=== PATIENT | female | born 1945 | race Caucasian/White ===

== ENCOUNTER 2017-05-18 09:29 | Inpatient (IN) | payer MEDICARE ==
[2017-05-18] MEDS ORDERED: SODIUM CHLORIDE 0.9% 1,000 ML IV STA (09:52)
--- NOTE | 2017-05-18 09:55 | ED ---
General Adult HPI <Meek Elliott - Last Filed: 05/18/17 14:49> - General Source: patient, RN notes reviewed Mode of arrival: ambulatory Limitations: no limitations <Jules Juarez - Last Filed: 05/18/17 14:59> - General Chief complaint: Back Pain/Injury Stated complaint: rt flank pain Time Seen by Provider: 05/18/17 09:45 - History of Present Illness Initial comments: Patient 71-year-old female who presents emergency room today with a chief complaint of right sided back pain. Patient does admit that she felt a little discomfort over the last 2 days. She states approximately 3 hours ago when she woke up she had increased pain to the right side of her back. She describes as an aching-type pain it's worse with certain movements or if she takes a deep breath. She states she's not taken any medications for this pain. She states she has never had pain like this in the past. Does admit to a recent trip from [place]. Patient denies any leg pain or swelling. She believes it may be muscular as they were walking a lot on vacation. She denies any injury. Denies any other complaints or associated symptoms. Patient denies any recent fever, chills, shortness of breath, chest pain, abdominal pain, nausea or vomiting, numbness or tingling, dysuria or hematuria, constipation or diarrhea, headaches or visual changes, or any other complaints. (Jules Juarez) - Related Data Home Medications Medication Instructions Recorded Confirmed Atorvastatin [Lipitor] 20 mg PO HS 05/18/17 05/18/17 DULoxetine HCL [Cymbalta] 60 mg PO DAILY 05/18/17 05/18/17 Fluticasone Nasal [place] [Flonase 2 spr EA NOSTRIL DAILY PRN 05/18/17 05/18/17 Nasal [place]] Losartan Potassium 100 mg PO DAILY 05/18/17 05/18/17 Meloxicam [Mobic] 15 mg PO DAILY PRN 05/18/17 05/18/17 Metoprolol Succinate (ER) [Toprol 50 mg PO HS 05/18/17 05/18/17 Xl] Oxybutynin ER [Ditropan Xl] 15 mg PO DAILY 05/18/17 05/18/17 Pantoprazole Sodium [Protonix] 40 mg PO DAILY 05/18/17 05/18/17 Allergies Allergy/AdvReac Type Severity Reaction Status Date / Time Penicillins Allergy Rash/Hives Verified 05/18/17 10:03 Review of Systems ROS Other: All systems not noted in ROS Statement are negative. <Meek Elliott J - Last Filed: 05/18/17 14:49> ROS Other: All systems not noted in ROS Statement are negative. <LarryJules - Last Filed: 05/18/17 14:59> ROS Statement: Those systems with pertinent positive or pertinent negative responses have been documented in the HPI. Past Medical History Past Medical History: Hyperlipidemia History of Any Multi-Drug Resistant Organisms: None Reported Past Surgical History: Appendectomy, Joint Replacement, Orthopedic Surgery Past Psychological History: No Psychological Hx Reported Smoking Status: Never smoker Past Alcohol Use History: Occasional Past Drug Use History: None Reported <Jules Juarez - Last Filed: 05/18/17 14:59> General Exam <Meek Elliott J - Last Filed: 05/18/17 14:49> Limitations: no limitations <Jules Juarez - Last Filed: 05/18/17 14:59> - General Exam Comments Initial Comments: General: The patient is awake and alert, in no distress, and does not appear acutely ill. Eye: Pupils are equal, round and reactive to light, extra-ocular movements are intact. No nystagmus. There is normal conjunctiva bilaterally. No signs of icterus. Ears, nose, mouth and throat: There are moist mucous membranes and no oral lesions. Neck: The neck is supple, there is no tenderness or JVD. Cardiovascular: There is a regular rate and rhythm. No murmur, rub or gallop is appreciated. Respiratory: Lungs are clear to auscultation, respirations are non-labored, breath sounds are equal. No wheezes, stridor, rales, or rhonchi. Gastrointestinal: Soft, non-distended, non-tender abdomen without masses or organomegaly noted. There is no rebound or guarding present. No CVA tenderness. Bowel sounds are unremarkable. Musculoskeletal: Normal ROM, no tenderness. Strength 5/5. Sensation intact. Pulses equal bilaterally 2+. Neurological: A&O x 3. CN II-XII intact, There are no obvious motor or sensory deficits. Coordination appears grossly intact. Speech is normal. Skin: Skin is warm and dry and no rashes or lesions are noted. Psychiatric: Cooperative, appropriate mood & affect, normal judgment. (Jules Juarez) Vital Signs 05/18/17 05/18/17 05/18/17 09:31 11:28 13:49 Temperature 97.7 F Pulse Rate 118 H 105 H 106 H Respiratory 20 18 16 Rate Blood Pressure 168/80 124/66 119/70 O2 Sat by Pulse 98 98 97 Oximetry Medical Decision Making - Lab Data Result diagrams: 05/18/17 10:03 05/18/17 10:05 <Meek Elliott - Last Filed: 05/18/17 14:49> - Lab Data Result diagrams: 05/18/17 10:03 05/18/17 10:05 <Jules Juarez - Last Filed: 05/18/17 14:59> - Medical Decision Making The patient was seen and examined. All diagnostics were reviewed. The case was discussed with the PA and I agree with the findings as documented. The case also will be discussed with internal medicine in the near future for admission. (Meek Elliott) Patient's labs been reviewed shows 1000 white count. Patient does show hypomagnesemia. Patient's been given 2 g started of magnesium here in emergency room. Also given a gram of Rocephin cover for possible infection. Patient's CT of the chest negative for any PE. CT of the abdomen shows no hydronephrosis or hydroureter. Does show groundglass patient in the lungs. Hepatomegaly. Patient will be admitted to continue on antibiotics and pain medication for comfort. (Jules Juarez) - Lab Data Lab Results 05/18/17 05/18/17 05/18/17 Range/Units 09:53 10:03 10:03 WBC 21.4 H (3.8-10.6) k/uL RBC 3.46 L (3.80-5.40) m/uL Hgb 10.9 L (11.4-16.0) gm/dL Hct 34.1 (34.0-46.0) % MCV 98.5 (80.0-100.0) fL MCH 31.6 (25.0-35.0) pg MCHC 32.1 (31.0-37.0) g/dL RDW 14.1 (11.5-15.5) % Plt Count 362 (150-450) k/uL Neutrophils % 91 % Lymphocytes % 5 % Monocytes % 2 % Eosinophils % 1 % Basophils % 0 % Neutrophils # 19.5 H (1.3-7.7) k/uL Lymphocytes # 1.0 (1.0-4.8) k/uL Monocytes # 0.5 (0-1.0) k/uL Eosinophils # 0.3 (0-0.7) k/uL Basophils # 0.0 (0-0.2) k/uL PT 9.9 (9.0-12.0) sec INR 1.0 (<1.2) APTT 22.7 (22.0-30.0) sec D-Dimer 0.97 H (<0.60) mg/L FEU Sodium (137-145) mmol/L Potassium (3.5-5.1) mmol/L Chloride (98-107) mmol/L Carbon Dioxide (22-30) mmol/L Anion Gap mmol/L BUN (7-17) mg/dL Creatinine (0.52-1.04) mg/dL Est GFR (MDRD) Af Amer (>60 ml/min/1.73 sqM) Est GFR (MDRD) Non-Af (>60 ml/min/1.73 sqM) Glucose (74-99) mg/dL Calcium (8.4-10.2) mg/dL Magnesium (1.6-2.3) mg/dL Total Bilirubin (0.2-1.3) mg/dL AST (14-36) U/L ALT (9-52) U/L Alkaline Phosphatase (38-126) U/L Total Creatine Kinase 73 (30-135) U/L CK-MB (CK-2) 0.5 (0.0-2.4) ng/mL CK-MB (CK-2) Rel Index 0.7 Troponin I <0.012 (0.000-0.034) ng/mL Total Protein (6.3-8.2) g/dL Albumin (3.5-5.0) g/dL Urine Color Urine Appearance (Clear) Urine pH (5.0-8.0) Ur Specific [place] (1.001-1.035) Urine Protein (Negative) Urine Glucose (UA) (Negative) Urine Ketones (Negative) Urine Blood (Negative) Urine Nitrite (Negative) Urine Bilirubin (Negative) Urine Urobilinogen (<2.0) mg/dL Ur Leukocyte Esterase (Negative) Urine RBC (0-5) /hpf Urine WBC (0-5) /hpf Ur Squamous Epith Cells (0-4) /hpf Calcium Oxalate Crystal (None) /hpf Urine Bacteria (None) /hpf Urine Mucus (None) /hpf 05/18/17 05/18/17 Range/Units 10:05 10:05 WBC (3.8-10.6) k/uL RBC (3.80-5.40) m/uL Hgb (11.4-16.0) gm/dL Hct (34.0-46.0) % MCV (80.0-100.0) fL MCH (25.0-35.0) pg MCHC (31.0-37.0) g/dL RDW (11.5-15.5) % Plt Count (150-450) k/uL Neutrophils % % Lymphocytes % % Monocytes % % Eosinophils % % Basophils % % Neutrophils # (1.3-7.7) k/uL Lymphocytes # (1.0-4.8) k/uL Monocytes # (0-1.0) k/uL Eosinophils # (0-0.7) k/uL Basophils # (0-0.2) k/uL PT (9.0-12.0) sec INR (<1.2) APTT (22.0-30.0) sec D-Dimer (<0.60) mg/L FEU Sodium 137 (137-145) mmol/L Potassium 3.2 L (3.5-5.1) mmol/L Chloride 105 (98-107) mmol/L Carbon Dioxide 19 L (22-30) mmol/L Anion Gap 13 mmol/L BUN 12 (7-17) mg/dL Creatinine 0.73 (0.52-1.04) mg/dL Est GFR (MDRD) Af Amer >60 (>60 ml/min/1.73 sqM) Est GFR (MDRD) Non-Af >60 (>60 ml/min/1.73 sqM) Glucose 111 H (74-99) mg/dL Calcium 6.9 L (8.4-10.2) mg/dL Magnesium 0.5 L* (1.6-2.3) mg/dL Total Bilirubin 0.7 (0.2-1.3) mg/dL AST 18 (14-36) U/L ALT 22 (9-52) U/L Alkaline Phosphatase 91 (38-126) U/L Total Creatine Kinase (30-135) U/L CK-MB (CK-2) (0.0-2.4) ng/mL CK-MB (CK-2) Rel Index Troponin I (0.000-0.034) ng/mL Total Protein 7.6 (6.3-8.2) g/dL Albumin 4.2 (3.5-5.0) g/dL Urine Color Yellow Urine Appearance Turbid H (Clear) Urine pH 6.0 (5.0-8.0) Ur Specific [place] 1.012 (1.001-1.035) Urine Protein Trace H (Negative) Urine Glucose (UA) Negative (Negative) Urine Ketones Negative (Negative) Urine Blood Trace H (Negative) Urine Nitrite Negative (Negative) Urine Bilirubin Negative (Negative) Urine Urobilinogen <2.0 (<2.0) mg/dL Ur Leukocyte Esterase Moderate H (Negative) Urine RBC 4 (0-5) /hpf Urine WBC 3 (0-5) /hpf Ur Squamous Epith Cells 4 (0-4) /hpf Calcium Oxalate Crystal Moderate H (None) /hpf Urine Bacteria Rare H (None) /hpf Urine Mucus Rare H (None) /hpf Disposition <Meek Elliott - Last Filed: 05/18/17 14:49> Time of Disposition: 14:09 <Jules Juarez - Last Filed: 05/18/17 14:59> Clinical Impression: Pyelonephritis, Leukocytosis, Hypomagnesemia, Hypocalcemia, Flank pain Disposition: ADMITTED IP TO THIS HOSP Condition: Stable Referrals: Octavia Ortiz, PAC [REFERRING] - 1-2 days
[2017-05-18] MEDS ORDERED: KETOROLAC 30 MG/ML 1 ML VIAL IVP STA (10:09)
[2017-05-18 10:27] LABS: Basophils % (A) 0 %; Eosinophils # (A) 0.3 k/uL (0-0.7); Eosinophils % (A) 1 %; HCT 34.1 % (34.0-46.0); HGB 10.9 gm/dL (11.4-16.0); Lymphocytes % (A) 5 %; MCH 31.6 pg (25.0-35.0); MCHC 32.1 g/dL (31.0-37.0); MCV 98.5 fL (80.0-100.0); Mean Platelet Volume 7.6; Monocytes # (A) 0.5 k/uL (0-1.0); Monocytes % (A) 2 %; Neutrophils # (A) 19.5 k/uL (1.3-7.7); Neutrophils % (A) 91 %; Platelet Count 362 k/uL (150-450); RBC 3.46 m/uL (3.80-5.40); RDW 14.1 % (11.5-15.5); WBC 21.4 k/uL (3.8-10.6)
[2017-05-18 10:41] LABS: D-Dimer 0.97 mg/L FEU (<0.60); Partial Thromboplastin Time 22.7 sec (22.0-30.0); Prothrombin Time 9.9 sec (9.0-12.0)
--- NOTE | 2017-05-18 10:42 | XR ---
EXAMINATION TYPE: XR chest 2V DATE OF EXAM: 05/18/2017 HISTORY: Chest Pain. REFERENCE: NONE. FINDINGS: The lungs are clear. Pleural space are clear. Heart size is normal. IMPRESSION: NO ACUTE INTRATHORACIC ABNORMALITY.
[2017-05-18] MEDS ORDERED: RX INFO: IV CONTRAST WAS GIVEN 1 EACH MISC MISCELLANE PRN (10:55)
[2017-05-18] MEDS ORDERED: MORPHINE SULFATE 5 MG/ML SYRINGE IV STA (10:58)
[2017-05-18 11:07] LABS: Creatine Kinase 73 U/L (30-135)
[2017-05-18 11:19] LABS: Creatine Kinase MB 0.5 ng/mL (0.0-2.4); Troponin I <0.012 ng/mL (0.000-0.034)
[2017-05-18 11:20] LABS: Appearance,Urine Turbid (Clear); Bacteria,Urine Rare /hpf; Bilirubin,Urine Negative (Negative); Blood,Urine Trace (Negative); Calcium Oxalate Crystals,Urine Moderate /hpf; Color,Urine Yellow; Glucose,Urine (UA) Negative (Negative); Ketones,Urine Negative (Negative); Leukocyte Esterase,Urine Moderate (Negative); Mucus,Urine Rare /hpf; Nitrite,Urine Negative (Negative); Protein,Urine Trace (Negative); RBC,Urine 4 /hpf (0-5); Specific Gravity,Urine 1.012 (1.001-1.035); Squamous Epithelial Cell,Urine 4 /hpf (0-4); Urobilinogen,Urine <2.0 mg/dL (<2.0); WBC,Urine 3 /hpf (0-5)
[2017-05-18 11:30] LABS: ALT 22 U/L (9-52); AST 18 U/L (14-36); Albumin 4.2 g/dL (3.5-5.0); Alkaline Phosphatase 91 U/L (38-126); Anion Gap 13 mmol/L; Blood Urea Nitrogen 12 mg/dL (7-17); Calcium 6.9 mg/dL (8.4-10.2); Carbon Dioxide 19 mmol/L (22-30); Chloride 105 mmol/L (98-107); Glucose 111 mg/dL (74-99); Potassium 3.2 mmol/L (3.5-5.1); Sodium 137 mmol/L (137-145); Total Bilirubin 0.7 mg/dL (0.2-1.3); Total Protein 7.6 g/dL (6.3-8.2)
[2017-05-18 11:40] LABS: Magnesium 0.5 mg/dL (1.6-2.3)
--- NOTE | 2017-05-18 12:39 | CT ---
EXAMINATION TYPE: CT angio chest DATE OF EXAM: 05/18/2017 12:32 PM COMPARISON: NONE HISTORY: Elevated d-dimer CT DLP: 192.40 mGycm Automated exposure control for dose reduction was used. CONTRAST: CTA scan of the thorax is performed with IV Contrast, patient injected with 100 ml mL of Omnipaque 35 0, pulmonary embolism protocol. . FINDINGS: There is minimal dependent atelectasis in the dependent portions of the lungs. There is some shotty axillary adenopathy, greater on the right than the left. There is no significant mediastinal or hilar adenopathy. There is no evidence of pulmonary embolus. The aorta is normal in caliber without evidence of dissection. There is no pleural or pericardial flu id. The heart is not enlarged. Visualized portions of the upper abdomen are unremarkable. There is minor hypertrophic spondylosis within the spine. IMPRESSION: THIS EXAMINATION IS NEGATIVE FOR PULMONARY EMBOLUS.
[2017-05-18] MEDS ORDERED: SODIUM CHLORIDE 0.9% 500 ML IV STA (13:01)
[2017-05-18] MEDS ORDERED: cefTRIAXone IN SWFI 1,000 MG/10 ML SYRINGE IVP STA (13:04)
--- NOTE | 2017-05-18 13:40 | CT ---
EXAMINATION TYPE: CT abdomen pelvis wo con DATE OF EXAM: 05/18/2017 COMPARISON: NONE HISTORY: Right flank pain CT DLP: 303.40 mGycm Automated exposure control for dose reduction was used. FINDINGS: There is minimal dependent atelectasis within the dependent portions of the lungs. There is patchy groundglass opacities in the periphery of both lungs. There is no pleural or pericardial flui d. The heart is not enlarged. There is a partial eventration of the right hemidiaphragm. The liver is prominent measuring 21 cm. This is largely due to a prominent Aniya's lobe. The spleen and gallbladder are normal. The pancreas is unremarkable. Both adrenal glands appear normal. Both kidneys demonstrate function and appear morphologically normal. The presence of contrast preclud es the ability to detect small calculi. There is no evidence of hydronephrosis or ureteral dilatation . There is atheromatous calcification of the aorta. There is no significant retroperitoneal, iliac or i nguinal adenopathy. There are some shotty inguinal lymph nodes. The bladder is contrast-filled. Uterus and ovaries are not visualized. There is been a previous sigmoid resection. There is no significant diverticular change and there is no radiographic evidence of diverticulitis. The appendix is not visualized. No free fluid and no free air is seen. There is mild degenerative disc disease and facet arthropathy at L5-S1. There is minimal hypertrophic spondylosis in the dorsal spine. IMPRESSION: 1. NO EVIDENCE OF HYDRONEPHROSIS OR HYDROURETER. 2. PATCHY GROUNDGLASS OPACITIES IN THE PERIPHERY OF BOTH LUNGS MAY REFLECT ALVEOLITIS OR PNEUMONITIS. 3. HEPATOMEGALY. 4. POSTSURGICAL CHANGE. 5. MILD DEGENERATIVE CHANGE WITHIN THE SPINE.
[2017-05-18] MEDS: MAGNESIUM SULFATE-D5W PMX 1 GM in DEXTROSE/WATER 1 100ML.BAG IVPB SCH ×2 (13:42→15:05)
[2017-05-18] MEDS ORDERED: ONDANSETRON 4 MG/2 ML VIAL IVP PRN (14:59)
[2017-05-18] MEDS ORDERED: NALOXONE 0.4 MG/ML 1 ML VIAL IV PRN (14:59)
[2017-05-18 16:41] VITALS: BMI 25.2
[2017-05-18] MEDS ORDERED: MELOXICAM 7.5 MG TAB PO PRN (17:38)
[2017-05-18] MEDS ORDERED: FLUTICASONE 50MCG/SPRAY NASAL 16GM EA NOSTRIL PRN (17:38)
[2017-05-18] MEDS ORDERED: ALPRAZolam 0.25 MG TAB PO PRN (17:40)
[2017-05-18] MEDS ORDERED: ACETAMINOPHEN TAB 500 MG TAB PO PRN (17:40)
[2017-05-18] MEDS: HYDROmorphone 1 MG/ML 1 ML SYRINGE IVP PRN ×2 (18:41→22:40)
[2017-05-18] MEDS: HYDROcodone/APAP 5-325MG 1 EACH TAB PO PRN (19:10)
[2017-05-18] MEDS: AZITHROMYCIN 500 MG in SODIUM CHLORIDE 0.9% 250 ML IVPB SCH (20:52)
[2017-05-18] MEDS: MELATONIN 3 MG TABLET PO SCH (20:53)
[2017-05-18] MEDS: ATORVASTATIN 20 MG TAB PO SCH (20:53)
[2017-05-18] MEDS: HEPARIN SODIUM,PORCINE 5,000 UNIT/ML 1 ML VIAL SQ SCH (20:53)
[2017-05-18] MEDS: METOPROLOL SUCCINATE (ER) 50 MG TAB.ER.24H PO SCH (20:53)
[2017-05-19] MEDS: HYDROmorphone 1 MG/ML 1 ML SYRINGE IVP PRN ×2 (02:30→08:25)
[2017-05-19] MEDS: KETOROLAC 30 MG/ML 1 ML VIAL IVP PRN ×2 (05:39→19:57)
--- NOTE | 2017-05-19 06:06 | HP ---
HISTORY AND PHYSICAL CHIEF COMPLAINTS: Right-sided back pain and as well as shortness of breath, multiple symptomatology. HISTORY: This 71-year-old woman with a past history of hypertension, hyperlipidemia, DJD being followed by Dr. Butterfield in the outpatient setting not feeling well over the past several days. The patient is complaining of back pain which is felt on the back pain on the right side. Subsequently left also and in the middle of the back also. The patient also had multiple symptoms including nasal discharge, some shortness of breath. The patient also complaining of right-sided lower chest and upper abdominal pain in the anterior part, which is worsened with breathing also. The patient apparently went to [place] and recently returned taken from the trip. The patient there apparently was dehydrated in [place] according to him because of the climate is very dry. The patient came to [facility] and was thought to have pyelonephritis. The patient had abnormal urine, which only showed about 3 WBCs, but however the patient also had a CT scan of the abdomen and pelvis which showed no evidence of hydronephrosis, but patchy ground-glass opacity in the periphery of both lungs and may indicate pneumonitis and hepatomegaly. Mild DJD was also noted. The patient also had a chest CTA which did not show any evidence of any pulmonary embolism. Atelectasis noted that showed reactive lymph node enlargement. There is no history any headache, loss consciousness, seizures at this time. PAST MEDICAL HISTORY: History of hyperlipidemia, history of DJD, history of appendectomy. MEDICATIONS: Prior to admission include home medications are. 1. Protonix 40 mg b.i.d. 2. Ditropan XL 50 mg daily. 3. Toprol 50 mg daily. 4. Mobic 50 mg daily p.r.n. 5. Losartan 100 mg b.i.d. 6. Flonase nasal spray 2 sprays daily p.r.n. 7. Cymbalta 60 mg p.o. daily. 8. Lipitor 20 mg q.h.s. ALLERGIES: PENICILLIN. FAMILY HISTORY: No history of heart disease or strokes in family. SOCIAL HISTORY: No history of smoking. No alcohol intake. REVIEW OF SYSTEMS: ENT: As mentioned earlier. CARDIOVASCULAR: No angina, palpitations. RESPIRATORY: As mentioned earlier. GI: No nausea. : No dysuria. NERVOUS SYSTEM: No numbness, weakness. ALLERGY/IMMUNOLOGY: No asthma or hayfever. MUSCULOSKELETAL: As mentioned earlier. HEMATOLOGY: As mentioned earlier. CONSTITUTIONAL: As mentioned earlier. DERMATOLOGY: Negative. RHEUMATOLOGY: Negative. PSYCHIATRY: As mentioned early. PHYSICAL EXAM: Patient is alert, oriented x3. The pulse is 103, blood pressure 190/70, respirations 16, temperature 97.7, pulse ox 97% on room air. HEENT: Conjunctivae normal. Oral mucosa moist. Neck is no jugular venous distention. No carotid bruit. No lymph node enlargement. CARDIOVASCULAR: S1, S2. No S3, no S4. RESPIRATORY: Breath sounds diminished in the bases. A few scattered rhonchi and crackle. ABDOMEN: Soft, nontender. No mass palpable. Tenderness in the both renal angle present. No guarding. No rigidity. No mass palpable. Bowel sounds present. LEGS: Minimal edema bilaterally. NERVOUS SYSTEM: Higher functions as mentioned earlier. Moves all four limbs. No focal deficits. LYMPHATICS: No lymphadenopathy in the neck or axillae. SKIN: No ulcer, rash or bleeding. LABS: WBC 21.2, hemoglobin 10.9, sodium 137, potassium 3.2, calcium 6, magnesium 0.5, albumin is 4.2, total protein 7.6. UA noted. ASSESSMENT: 1. Bilateral back pain as well as some increased WBC, possibly pyelonephritis with sepsis. 2. Possible bilateral pneumonia, bronchopneumonia with sepsis. 3. Increased WBC. 4. Hypokalemia. 5. Hypocalcemia. 6. Hypomagnesemia. 7. Hyperlipidemia. 8. History of degenerative joint disease. 9. History of hypertension. 10.Depression. RECOMMENDATIONS AND DISCUSSION: This 71-year-old woman who presented with multiple complex medical issues, monitor the patient closely. Continue the current management, symptomatic treatment. I recommend Rocephin and Zithromax IV. Follow the cultures. Otherwise, this combination is likely to cover both pneumonic process and if there is a pyelonephritis process. We will obtain the urine and blood cultures. Otherwise I would get influenza swab. Resume the home medications. DVT prophylaxis. The patient has multiple electrolyte abnormalities. I would recommend repeat electrolytes and correction also. Otherwise, guarded prognosis because of multiple complex medical issues. Further recommendations to follow. MMODL / IJN: [id number] / [facility]
[2017-05-19 06:17] LABS: Basophils % (A) 0 %; Eosinophils # (A) 0.1 k/uL (0-0.7); Eosinophils % (A) 1 %; HCT 29.7 % (34.0-46.0); HGB 9.8 gm/dL (11.4-16.0); Lymphocytes # (A) 1.1 k/uL (1.0-4.8); Lymphocytes % (A) 7 %; MCH 31.7 pg (25.0-35.0); MCHC 33.1 g/dL (31.0-37.0); MCV 95.8 fL (80.0-100.0); Mean Platelet Volume 7.6; Monocytes # (A) 0.3 k/uL (0-1.0); Monocytes % (A) 2 %; Neutrophils # (A) 13.3 k/uL (1.3-7.7); Neutrophils % (A) 89 %; Platelet Count 326 k/uL (150-450); RDW 13.4 % (11.5-15.5); WBC 14.9 k/uL (3.8-10.6)
[2017-05-19] MEDS: PANTOPRAZOLE 40 MG TABLET PO SCH (06:31)
[2017-05-19 06:50] LABS: Amphetamine Screen,Urine Not Detected (NotDetected); Barbiturate Screen,Urine Not Detected (NotDetected); Benzodiazepines Screen,Urine Not Detected (NotDetected); Cocaine Screen,Urine Not Detected (NotDetected); Methadone Screen, Urine Not Detected (NotDetected); Opiate Screen,Urine Detected (NotDetected); Oxycodone Screen, Urine Not Detected (NotDetected); Phencyclidine Screen,Urine Not Detected (NotDetected); Tricyclic Antidepressant,Urine Not Detected (NotDetected); Urn Cannabinoid Scrn Not Detected (NotDetected)
[2017-05-19 06:54] LABS: ALT 22 U/L (9-52); AST 15 U/L (14-36); Albumin 3.6 g/dL (3.5-5.0); Alkaline Phosphatase 101 U/L (38-126); Anion Gap 13 mmol/L; Blood Urea Nitrogen 11 mg/dL (7-17); Carbon Dioxide 19 mmol/L (22-30); Chloride 106 mmol/L (98-107); Glucose 130 mg/dL (74-99); Magnesium 1.3 mg/dL (1.6-2.3); Sodium 138 mmol/L (137-145); Total Bilirubin 0.2 mg/dL (0.2-1.3); Total Protein 6.5 g/dL (6.3-8.2)
[2017-05-19 07:00] LABS: Potassium 3.4 mmol/L (3.5-5.1)
[2017-05-19 07:19] LABS: Calcium 6.1 mg/dL (8.4-10.2)
[2017-05-19] MEDS ORDERED: Magnesium Replacement Protocol 1 EACH MISC MISCELLANE PRN (08:06)
[2017-05-19] MEDS ORDERED: Potassium Replacement Protocol 1 EACH MISC MISCELLANE PRN (08:07)
[2017-05-19] MEDS: AZITHROMYCIN 500 MG in SODIUM CHLORIDE 0.9% 250 ML IVPB SCH (08:26)
[2017-05-19] MEDS: DULoxetine HCL 60 MG CAPSULE.DR PO SCH (08:26)
[2017-05-19] MEDS: cefTRIAXone IN SWFI 1,000 MG/10 ML SYRINGE IVP SCH (08:26)
[2017-05-19] MEDS: HEPARIN SODIUM,PORCINE 5,000 UNIT/ML 1 ML VIAL SQ SCH ×2 (08:27→19:58)
[2017-05-19] MEDS: LOSARTAN 50 MG TAB PO SCH (08:27)
[2017-05-19] MEDS: OXYBUTYNIN 15 MG TAB.ER.24 PO SCH (08:27)
--- NOTE | 2017-05-19 08:56 | US ---
EXAMINATION TYPE: US liver DATE OF EXAM: 05/19/2017 COMPARISON: 05/18/2017 CLINICAL HISTORY: flank pain. EXAM MEASUREMENTS: Liver Length: 16.3 cm Gallbladder Wall: 0.2 cm CBD: 0.3 cm Right Kidney: 10.0 x 3.3 x 4.2 cm Pancreas: obscured by overlying bowel gas Liver: Increased in echo pattern. Gallbladder: wnl Evidence for sonographic Killian's sign: No CBD: wnl Right Kidney: echogenic foci lateral, small stone vs calcified artery better visualized in sagittal plane IMPRESSION: 1. Slight increase echo pattern of liver is nonspecific be seen with mild fatty infiltration. Correla te to exclude hepatocellular disease. 2. No hydronephrosis. Tiny calcification involving the right kidney may be vascular rather than relat ed to small renal stone.
[2017-05-19] MEDS: POTASSIUM CHLORIDE ER 20 MEQ TAB.ER PO SCH ×2 (09:04→10:55)
[2017-05-19] MEDS: MAGNESIUM SULFATE-D5W PMX 1 GM in DEXTROSE/WATER 1 100ML.BAG IVPB SCH ×3 (09:05→12:38)
--- NOTE | 2017-05-19 10:35 | ECHOF ---
Referral Reason:flank pain MEASUREMENTS -------- HEIGHT: 157.5 cm WEIGHT: 65.8 kg BP: 102/62 IVSd: 1.1 cm (0.6 - 1.1) LVIDd: 3.4 cm (3.9 - 5.3) LVPWd: 1.2 cm (0.6 - 1.1) IVSs: 1.2 cm LVIDs: 3.2 cm LVPWs: 1.0 cm LA Diam: 3.3 cm (2.7 - 3.8) LAESV Index (A-L): 31.17 ml/m Ao Diam: 3.4 cm (2.0 - 3.7) AV Cusp: 1.4 cm (1.5 - 2.6) LA Diam: 3.5 cm (2.7 - 3.8) MV EXCURSION: 10.152 mm (> 18.000) MV EF SLOPE: 66 mm/s (70 - 150) EPSS: 0.8 cm RAP: 5.00 mmHg RVSP: 27.65 mmHg FINDINGS -------- Sinus rhythm. This was a technically good study. The left ventricular size is normal. Left ventricular wall thickness is normal. Overall left vent ricular systolic function is normal with, an EF between 55 - 60 %. The right ventricle is normal in size. LA is midly dilated 29-33ml/m2. The right atrial size is normal. There is mild aortic valve sclerosis. There is no evidence of aortic regurgitation. Mild mitral regurgitation is present. Mild tricuspid regurgitation present. There is no evidence of pulmonary hypertension. The right v entricular systolic pressure, as measured by Doppler, is 27.65mmHg. There is no pulmonic regurgitation present. The aortic root size is normal. There is no pericardial effusion. CONCLUSIONS -------- 1. The left ventricular size is normal. 2. Left ventricular wall thickness is normal. 3. Overall left ventricular systolic function is normal with, an EF between 55 - 60 %. 4. LA is midly dilated 29-33ml/m2. 5. There is mild aortic valve sclerosis. 6. Mild mitral regurgitation is present. 7. Mild tricuspid regurgitation present. 8. There is no evidence of pulmonary hypertension. 9. The right ventricular systolic pressure, as measured by Doppler, is 27.65mmHg. 10. There is no pulmonic regurgitation present. 11. The aortic root size is normal. 12. There is no pericardial effusion. HYDROTEL OPERATOR: Brunilda Steele RDCS
--- NOTE | 2017-05-19 13:21 | XR ---
EXAMINATION TYPE: XR chest 1V portable DATE OF EXAM: 05/19/2017 Comparison: 05/18/2017 Clinical History: 71-year-old female follow-up pneumonia Findings: Heart is normal size. Aorta and pulmonary vasculature within normal limits. There is some patchy left basilar opacity, increased from prior exam minimal density at the right base. Impression: Patchy left greater than right basilar densities have increased from prior. Findings could represent areas of atelectasis or infiltrate.
[2017-05-19] MEDS: HYDROcodone/APAP 5-325MG 1 EACH TAB PO PRN (14:36)
--- NOTE | 2017-05-19 16:05 | P.PN ---
Subjective Progress Note Date: 05/19/17 Progress Note being dictated for Dr. Camarena. interval history: This is a 71-year-old female admitted with possible pyelonephritis, bilateral pneumonia, bronchopneumonia with sepsis and multiple other medical issues.maintained on IV antibiotics of Rocephin and Zithromax.influenza A and B ruled out.urine culture reporting gram-negative bacilli.receiving potassium and magnesium replacements.chest x-ray reports increased bibasilar densities, left greater than right, possible atelectasis versus infiltrate.Echo reporting normal LV function, EF 55-60%,no pulmonary hypertension. Review of systems: CONSTITUTIONAL: No fever, no malaise, reports generalized fatigue. HEENT: No recent visual problems or hearing problems. Denied any sore throat. CARDIOVASCULAR: No chest pain, orthopnea, PND, no palpitations, no syncope. PULMONARY: No shortness of breath, no cough, no hemoptysis. GASTROINTESTINAL: No diarrhea, no nausea, no vomiting, no abdominal pain. Normoactive bowel sounds. positive bilateral flank pain NEUROLOGICAL: No headaches, no weakness, no numbness. HEMATOLOGICAL: Denies any bleeding or petechiae. GENITOURINARY: Denies any burning micturition, frequency, or urgency. MUSCULOSKELETAL/RHEUMATOLOGICAL: Denies any joint pain, swelling, or any muscle pain. ENDOCRINE: Denies any polyuria or polydipsia. PSYCHIATRIC: No anxiety, no depression The rest of the 14 point review of systems is negative Active Medications Acetaminophen (Tylenol Tab) 500 mg PO Q6HR PRN PRN Reason: Fever and/ or MILD Pain Hydrocodone Bitart/Acetaminophen ([place] 5-325) 1 each PO Q6HR PRN PRN Reason: Moderate Pain Last Admin: 05/19/17 14:36 Dose: 1 each Alprazolam (Xanax) 0.25 mg PO TID PRN PRN Reason: Anxiety Atorvastatin Calcium (Lipitor) 20 mg PO HS [facility] Last Admin: 05/18/17 20:53 Dose: 20 mg Ceftriaxone Sodium (Rocephin) 1,000 mg IVP Q24HR [facility] Last Admin: 05/19/17 08:26 Dose: 1,000 mg Duloxetine HCl (Cymbalta) 60 mg PO DAILY [facility] Last Admin: 05/19/17 08:26 Dose: 60 mg Fluticasone Propionate (Flonase Nasal [place]) 2 spray EA NOSTRIL DAILY PRN PRN Reason: Allergy Symptoms Heparin Sodium (Porcine) (Heparin) 5,000 unit SQ Q12HR [facility] Last Admin: 05/19/17 08:27 Dose: 5,000 unit Hydromorphone HCl (Dilaudid) 0.5 mg IVP Q3HR PRN PRN Reason: SEVERE Pain Last Admin: 05/19/17 08:25 Dose: 0.5 mg Azithromycin 500 mg/ Sodium (Chloride) 250 mls @ 125 mls/hr IVPB DAILY [facility] Last Admin: 05/19/17 08:26 Dose: 125 mls/hr Ketorolac Tromethamine (Toradol) 15 mg IVP Q6HR PRN PRN Reason: Moderate Pain Stop: 05/23/17 15:00 Last Admin: 05/19/17 05:39 Dose: 15 mg Losartan Potassium (Cozaar) 100 mg PO DAILY [facility] Last Admin: 05/19/17 08:27 Dose: 100 mg Melatonin (Melatonin) 3 mg PO HS [facility] Last Admin: 05/18/17 20:53 Dose: 3 mg Meloxicam (Mobic) 15 mg PO DAILY PRN PRN Reason: MILD Pain Metoprolol Succinate (Toprol Xl) 50 mg PO HS [facility] Last Admin: 05/18/17 20:53 Dose: 50 mg Miscellaneous Information (Rx Info: Iv Contrast Was Given) 1 each MISCELLANE DAILY PRN PRN Reason: Per Protocol Stop: 05/20/17 10:56 Last Admin: 05/18/17 13:48 Dose: 1 each Miscellaneous Information (Magnesium Per Protocol) 1 each MISCELLANE DAILY PRN ; Protocol PRN Reason: Per Protocol Miscellaneous Information (Potassium Per Protocol) 1 each MISCELLANE DAILY PRN ; Protocol PRN Reason: Per Protocol Naloxone HCl (Narcan) 0.2 mg IV Q2M PRN PRN Reason: Opioid Reversal Ondansetron HCl (Zofran) 4 mg IVP Q8HR PRN PRN Reason: Nausea And Vomiting Oxybutynin Chloride (Ditropan Xl) 15 mg PO DAILY [facility] Last Admin: 05/19/17 08:27 Dose: 15 mg Pantoprazole Sodium (Protonix) 40 mg PO -BRKFST [facility] Last Admin: 05/19/17 06:31 Dose: 40 mg Objective - Vital Signs Vital signs: Vital Signs Temp 97.6 F 05/19/17 04:00 Pulse 70 05/19/17 08:00 Resp 16 05/19/17 08:00 BP 158/70 05/19/17 08:00 Pulse Ox 96 05/19/17 08:00 Intake & Output 05/18/17 05/19/17 05/19/17 18:59 06:59 18:59 Intake Total 500 180 Output Total 50 Balance 500 -50 180 Weight 62.596 kg 66 kg Intake: Intake, IV Titration 500 Amount Sodium Chloride 0.9% 500 500 ml @ 999 mls/hr IV .Q31M STA Rx#:[id number] Oral 180 Output: Urine 50 Other: # Voids 1 1 - Exam PHYSICAL EXAM: VITAL SIGNS: [as above] GENERAL: sitting up in bed, no acute distress HEENT: Conjunctivae normal. eyes normal. NECK: No JVD. No thyroid enlargement. No LNs CARDIOVASCULAR: S1, S2 muffled. No murmur RESPIRATION: Breath sounds diminished in the bases. No rhonchi or crackles. No bronchial breathing. ABDOMEN: Soft, nontender . No guarding. no masses palpable. No ascites, No hepatosplenomegaly.Bowel sounds heard. LEGS: minimal bilateral edema. PSYCHIATRY: Alert and oriented -3, mood and affect normal. NERVOUS SYSTEM: Cranial N 2-12 grossly normal. Moves all 4 limbs. Diffuse weakness No focal deficits. No sensory deficit. No signs of cerebellar dysfucntion. Skin: no ulcer no rash Joints: No active swelling. No inflammation. Lymphatic system. No LN neck axilla or groin. Microbiology 05/18/17 10:05 Urine,Clean Catch Urine Culture - Preliminary Gram Neg Bacilli - Labs CBC & Chem 7: 05/19/17 05:37 05/19/17 05:37 Labs: Abnormal Lab Results - Last 24 Hours (Table) 05/18/17 05/18/17 05/19/17 Range/Units 19:57 19:57 05:30 WBC (3.8-10.6) k/uL RBC (3.80-5.40) m/uL Hgb (11.4-16.0) gm/dL Hct (34.0-46.0) % Neutrophils # (1.3-7.7) k/uL ESR 111 H (0-20) mm/hr Potassium (3.5-5.1) mmol/L Carbon Dioxide (22-30) mmol/L Glucose (74-99) mg/dL Calcium (8.4-10.2) mg/dL Magnesium (1.6-2.3) mg/dL C-Reactive Protein 61.9 H (<10.0) mg/L Urine Opiates Screen Detected H (NotDetected) 05/19/17 05/19/17 Range/Units 05:37 05:37 WBC 14.9 H (3.8-10.6) k/uL RBC 3.10 L (3.80-5.40) m/uL Hgb 9.8 L (11.4-16.0) gm/dL Hct 29.7 L (34.0-46.0) % Neutrophils # 13.3 H (1.3-7.7) k/uL ESR (0-20) mm/hr Potassium 3.4 L (3.5-5.1) mmol/L Carbon Dioxide 19 L (22-30) mmol/L Glucose 130 H (74-99) mg/dL Calcium 6.1 L* (8.4-10.2) mg/dL Magnesium 1.3 L (1.6-2.3) mg/dL C-Reactive Protein (<10.0) mg/L Urine Opiates Screen (NotDetected) Microbiology - Last 24 Hours (Table) 05/18/17 10:05 Urine Culture - Preliminary Urine,Clean Catch Gram Neg Bacilli Assessment and Plan Assessment: 1. Bilateral back pain as well as leukocytosis, possibly pyelonephritis with sepsis,urine culture currently reporting gram-negative bacilli 2. Possible bilateral pneumonia, bronchopneumonia with sepsis 3. Leukocytosis 4. Hypokalemia 5. Hypomagnesemia 6.. Hypocalcemia 7. bibasilar atelectasis plan:continue current medication regime, IV Zithromax ,Rocephin,monitoring andsymptomatic treatment. pain management. Continue following cultures closely. Close monitoring of electrolytes with repeat labs ordered for a.m. Electrolyte replacements as per ordered replacement protocols.increase ambulation as tolerated.aggressive pulmonary toileting, IS ordered. Further recommendations to follow The impression and plan of care has been dictated as directed. : I performed a history and examination of this patient, discussed the same with the dictator. I agree with the dictator's note ,documented as a scribe. Any additional findings or plans will be noted.
[2017-05-19] MEDS: ATORVASTATIN 20 MG TAB PO SCH (19:58)
[2017-05-19] MEDS: METOPROLOL SUCCINATE (ER) 50 MG TAB.ER.24H PO SCH (19:59)
[2017-05-19] MEDS: MELATONIN 3 MG TABLET PO SCH (19:59)
[2017-05-20] MEDS: PANTOPRAZOLE 40 MG TABLET PO SCH (06:13)
[2017-05-20 06:18] LABS: Basophils % (A) 0 %; Eosinophils # (A) 0.2 k/uL (0-0.7); Eosinophils % (A) 2 %; HCT 28.2 % (34.0-46.0); HGB 9.1 gm/dL (11.4-16.0); Lymphocytes # (A) 1.1 k/uL (1.0-4.8); Lymphocytes % (A) 12 %; MCH 31.7 pg (25.0-35.0); MCHC 32.2 g/dL (31.0-37.0); MCV 98.6 fL (80.0-100.0); Mean Platelet Volume 7.6; Monocytes # (A) 0.3 k/uL (0-1.0); Monocytes % (A) 4 %; Neutrophils # (A) 7.9 k/uL (1.3-7.7); Neutrophils % (A) 82 %; Platelet Count 274 k/uL (150-450); RBC 2.86 m/uL (3.80-5.40); RDW 13.5 % (11.5-15.5); WBC 9.7 k/uL (3.8-10.6)
[2017-05-20] MEDS: KETOROLAC 30 MG/ML 1 ML VIAL IVP PRN ×3 (06:18→22:17)
[2017-05-20 06:41] LABS: Anion Gap 10 mmol/L; Blood Urea Nitrogen 10 mg/dL (7-17); Carbon Dioxide 20 mmol/L (22-30); Chloride 106 mmol/L (98-107); Glucose 122 mg/dL (74-99); Magnesium 2.2 mg/dL (1.6-2.3); Potassium 3.7 mmol/L (3.5-5.1); Sodium 136 mmol/L (137-145)
[2017-05-20 06:46] LABS: Calcium 5.9 mg/dL (8.4-10.2)
[2017-05-20] MEDS: AZITHROMYCIN 500 MG TAB PO SCH (08:10)
[2017-05-20] MEDS: OXYBUTYNIN 15 MG TAB.ER.24 PO SCH (08:10)
[2017-05-20] MEDS: LOSARTAN 50 MG TAB PO SCH (08:10)
[2017-05-20] MEDS: HEPARIN SODIUM,PORCINE 5,000 UNIT/ML 1 ML VIAL SQ SCH ×2 (08:10→21:51)
[2017-05-20] MEDS: DULoxetine HCL 60 MG CAPSULE.DR PO SCH (08:11)
[2017-05-20] MEDS: cefTRIAXone IN SWFI 1,000 MG/10 ML SYRINGE IVP SCH (08:12)
[2017-05-20] MEDS: HYDROcodone/APAP 5-325MG 1 EACH TAB PO PRN (11:50)
--- NOTE | 2017-05-20 16:34 | P.PN ---
Subjective Progress Note Date: 05/20/17 Progress Note being dictated for Dr. Hicks interval history: This is a 71-year-old female admitted with possible pyelonephritis, bilateral pneumonia, bronchopneumonia with sepsis and multiple other medical issues.maintained on IV antibiotics of Rocephin and Zithromax.influenza A and B ruled out.urine culture reporting gram-negative bacilli.receiving potassium and magnesium replacements.chest x-ray reports increased bibasilar densities, left greater than right, possible atelectasis versus infiltrate.Echo reporting normal LV function, EF 55-60%,no pulmonary hypertension. Review of systems: CONSTITUTIONAL: No fever, no malaise, reports generalized fatigue. HEENT: No recent visual problems or hearing problems. Denied any sore throat. CARDIOVASCULAR: No chest pain, orthopnea, PND, no palpitations, no syncope. PULMONARY: No shortness of breath, no cough, no hemoptysis. GASTROINTESTINAL: No diarrhea, no nausea, no vomiting, no abdominal pain. Normoactive bowel sounds. positive bilateral flank pain NEUROLOGICAL: No headaches, no weakness, no numbness. HEMATOLOGICAL: Denies any bleeding or petechiae. GENITOURINARY: Denies any burning micturition, frequency, or urgency. MUSCULOSKELETAL/RHEUMATOLOGICAL: Denies any joint pain, swelling, or any muscle pain. ENDOCRINE: Denies any polyuria or polydipsia. PSYCHIATRIC: No anxiety, no depression The rest of the 14 point review of systems is negative Active Medications Acetaminophen (Tylenol Tab) 500 mg PO Q6HR PRN PRN Reason: Fever and/ or MILD Pain Hydrocodone Bitart/Acetaminophen ([place] 5-325) 1 each PO Q6HR PRN PRN Reason: Moderate Pain Last Admin: 05/19/17 14:36 Dose: 1 each Alprazolam (Xanax) 0.25 mg PO TID PRN PRN Reason: Anxiety Atorvastatin Calcium (Lipitor) 20 mg PO HS [facility] Last Admin: 05/18/17 20:53 Dose: 20 mg Ceftriaxone Sodium (Rocephin) 1,000 mg IVP Q24HR [facility] Last Admin: 05/19/17 08:26 Dose: 1,000 mg Duloxetine HCl (Cymbalta) 60 mg PO DAILY [facility] Last Admin: 05/19/17 08:26 Dose: 60 mg Fluticasone Propionate (Flonase Nasal [place]) 2 spray EA NOSTRIL DAILY PRN PRN Reason: Allergy Symptoms Heparin Sodium (Porcine) (Heparin) 5,000 unit SQ Q12HR [facility] Last Admin: 05/19/17 08:27 Dose: 5,000 unit Hydromorphone HCl (Dilaudid) 0.5 mg IVP Q3HR PRN PRN Reason: SEVERE Pain Last Admin: 05/19/17 08:25 Dose: 0.5 mg Azithromycin 500 mg/ Sodium (Chloride) 250 mls @ 125 mls/hr IVPB DAILY [facility] Last Admin: 05/19/17 08:26 Dose: 125 mls/hr Ketorolac Tromethamine (Toradol) 15 mg IVP Q6HR PRN PRN Reason: Moderate Pain Stop: 05/23/17 15:00 Last Admin: 05/19/17 05:39 Dose: 15 mg Losartan Potassium (Cozaar) 100 mg PO DAILY [facility] Last Admin: 05/19/17 08:27 Dose: 100 mg Melatonin (Melatonin) 3 mg PO HS [facility] Last Admin: 05/18/17 20:53 Dose: 3 mg Meloxicam (Mobic) 15 mg PO DAILY PRN PRN Reason: MILD Pain Metoprolol Succinate (Toprol Xl) 50 mg PO HS [facility] Last Admin: 05/18/17 20:53 Dose: 50 mg Miscellaneous Information (Rx Info: Iv Contrast Was Given) 1 each MISCELLANE DAILY PRN PRN Reason: Per Protocol Stop: 05/20/17 10:56 Last Admin: 05/18/17 13:48 Dose: 1 each Miscellaneous Information (Magnesium Per Protocol) 1 each MISCELLANE DAILY PRN ; Protocol PRN Reason: Per Protocol Miscellaneous Information (Potassium Per Protocol) 1 each MISCELLANE DAILY PRN ; Protocol PRN Reason: Per Protocol Naloxone HCl (Narcan) 0.2 mg IV Q2M PRN PRN Reason: Opioid Reversal Ondansetron HCl (Zofran) 4 mg IVP Q8HR PRN PRN Reason: Nausea And Vomiting Oxybutynin Chloride (Ditropan Xl) 15 mg PO DAILY [facility] Last Admin: 05/19/17 08:27 Dose: 15 mg Pantoprazole Sodium (Protonix) 40 mg PO -BRKFST [facility] Last Admin: 05/19/17 06:31 Dose: 40 mg 05/20/17 complains of nonproductive cough, oxygen saturation has declined to 90 % on room air. Complains of fluctuating bilateral flank pain, positional related. urine culture revealing E. coli. Afebrile. normal WBC. received potassium and magnesium supplements yesterday, now within normal limits. Denies chest pain, palpitations. Objective - Vital Signs Vital signs: Vital Signs Temp 97.7 F 05/20/17 08:00 Pulse 101 H 05/20/17 15:59 Resp 16 05/20/17 15:59 BP 114/66 05/20/17 15:59 Pulse Ox 90 L 05/20/17 15:59 Intake & Output 05/19/17 05/20/17 05/20/17 18:59 06:59 18:59 Intake Total 570 Balance 570 Weight 67.8 kg Intake: Oral 570 Other: # Voids 2 1 - Exam PHYSICAL EXAM: VITAL SIGNS: [as above] GENERAL: sitting up in bed, no acute distress HEENT: Conjunctivae normal. eyes normal. oral mucosa moist NECK: No JVD. No thyroid enlargement. No LNs CARDIOVASCULAR: S1, S2 muffled. No murmur RESPIRATION: Breath sounds diminished in the bases. No rhonchi or crackles. No bronchial breathing. ABDOMEN: Soft, nontender . No guarding. no masses palpable. Bowel sounds heard. LEGS: minimal bilateral edema. PSYCHIATRY: Alert and oriented -3, mood and affect normal. NERVOUS SYSTEM: Cranial N 2-12 grossly normal. Moves all 4 limbs. Diffuse weakness No focal deficits. No sensory deficit. Skin: no ulcer no rash Joints: No active swelling. No inflammation. Lymphatic system. No LN neck axilla or groin. Microbiology 05/18/17 10:05 Urine,Clean Catch Urine Culture - Final Escherichia coli 05/18/17 19:57 Blood Blood Culture - Preliminary No Growth after 24 hours - Labs CBC & Chem 7: 05/20/17 05:43 05/20/17 05:43 Labs: Abnormal Lab Results - Last 24 Hours (Table) 05/20/17 05/20/17 Range/Units 05:43 05:43 RBC 2.86 L (3.80-5.40) m/uL Hgb 9.1 L (11.4-16.0) gm/dL Hct 28.2 L (34.0-46.0) % Neutrophils # 7.9 H (1.3-7.7) k/uL Sodium 136 L (137-145) mmol/L Carbon Dioxide 20 L (22-30) mmol/L Glucose 122 H (74-99) mg/dL Calcium 5.9 L* (8.4-10.2) mg/dL Microbiology - Last 24 Hours (Table) 05/18/17 10:05 Urine Culture - Final Urine,Clean Catch Escherichia coli 05/18/17 19:57 Blood Culture - Preliminary Blood No Growth after 24 hours Assessment and Plan Assessment: 1. Bilateral back pain as well as leukocytosis, possibly pyelonephritis with sepsis,urine culture with E. coli 2. Possible bilateral pneumonia, bronchopneumonia with sepsis 3. Leukocytosis 4. Hypokalemia 5. Hypomagnesemia 6.. Hypocalcemia 7. bibasilar atelectasis plan:continue current medication regime, antibiotics,monitoring andsymptomatic treatment. chest x-ray ordered. aggressive pulmonary toileting with incentive spirometer reinforced. increase ambulation in hallway.pain management. Continue following cultures closely. Close monitoring of electrolytes with repeat labs ordered for a.m. Further recommendations to follow. The impression and plan of care has been dictated as directed. : I performed a history and examination of this patient, discussed the same with the dictator. I agree with the dictator's note ,documented as a scribe. Any additional findings or plans will be noted.
--- NOTE | 2017-05-20 18:13 | XR ---
EXAMINATION TYPE: XR chest 2V DATE OF EXAM: 05/20/2017 COMPARISON: Chest x-ray yesterday. CTA chest 2 days ago. HISTORY: Hypoxia TECHNIQUE: Frontal and lateral views of the chest are obtained. FINDINGS: There is increasing reticulonodular interstitial findings bilaterally. There is posterior basilar airspace opacity on lateral view. No pneumothorax is seen bilaterally. The cardiac silhouette size is within normal limits. The osseous structures are intact. IMPRESSION: Increasing diffuse reticulonodular infiltrates and/or edema with patchy posterior basila r atelectasis and/or infiltrate and possible developing tiny bilateral pleural effusions. Consider fl uid overload state. Correlate clinically.
[2017-05-20] MEDS: MELATONIN 3 MG TABLET PO SCH (21:51)
[2017-05-20] MEDS: ATORVASTATIN 20 MG TAB PO SCH (21:51)
[2017-05-20] MEDS: METOPROLOL SUCCINATE (ER) 50 MG TAB.ER.24H PO SCH (21:51)
[2017-05-21] MEDS: AZITHROMYCIN 500 MG TAB PO SCH (07:33)
[2017-05-21] MEDS: PANTOPRAZOLE 40 MG TABLET PO SCH (07:33)
[2017-05-21] MEDS: HEPARIN SODIUM,PORCINE 5,000 UNIT/ML 1 ML VIAL SQ SCH ×2 (07:35→20:48)
[2017-05-21] MEDS: OXYBUTYNIN 15 MG TAB.ER.24 PO SCH (07:35)
[2017-05-21] MEDS: DULoxetine HCL 60 MG CAPSULE.DR PO SCH (07:35)
[2017-05-21] MEDS: LOSARTAN 50 MG TAB PO SCH (07:35)
[2017-05-21 07:39] LABS: Basophils % (A) 0 %; Eosinophils # (A) 0.2 k/uL (0-0.7); Eosinophils % (A) 2 %; HCT 26.9 % (34.0-46.0); HGB 8.6 gm/dL (11.4-16.0); Lymphocytes # (A) 1.1 k/uL (1.0-4.8); Lymphocytes % (A) 12 %; MCH 31.3 pg (25.0-35.0); MCHC 32.1 g/dL (31.0-37.0); MCV 97.3 fL (80.0-100.0); Mean Platelet Volume 7.8; Monocytes # (A) 0.3 k/uL (0-1.0); Monocytes % (A) 4 %; Neutrophils # (A) 7.9 k/uL (1.3-7.7); Neutrophils % (A) 82 %; Platelet Count 319 k/uL (150-450); RBC 2.77 m/uL (3.80-5.40); RDW 12.8 % (11.5-15.5); WBC 9.7 k/uL (3.8-10.6)
[2017-05-21] MEDS: cefTRIAXone IN SWFI 1,000 MG/10 ML SYRINGE IVP SCH (07:43)
[2017-05-21 08:01] LABS: Anion Gap 8 mmol/L; Blood Urea Nitrogen 7 mg/dL (7-17); Carbon Dioxide 20 mmol/L (22-30); Chloride 112 mmol/L (98-107); Glucose 117 mg/dL (74-99); Potassium 3.7 mmol/L (3.5-5.1); Sodium 140 mmol/L (137-145)
[2017-05-21 08:07] LABS: Calcium 6.2 mg/dL (8.4-10.2)
[2017-05-21] MEDS ORDERED: FUROSEMIDE 10 MG/ML 4 ML VIAL IV STA (17:15)
--- NOTE | 2017-05-21 17:33 | P.PN ---
Subjective Progress Note Date: 05/21/17 Progress Note being dictated for Dr. Hicks interval history: This is a 71-year-old female admitted with possible pyelonephritis, bilateral pneumonia, bronchopneumonia with sepsis and multiple other medical issues.maintained on IV antibiotics of Rocephin and Zithromax.influenza A and B ruled out.urine culture reporting gram-negative bacilli.receiving potassium and magnesium replacements.chest x-ray reports increased bibasilar densities, left greater than right, possible atelectasis versus infiltrate.Echo reporting normal LV function, EF 55-60%,no pulmonary hypertension. Review of systems: CONSTITUTIONAL: No fever, no malaise, reports generalized fatigue. HEENT: No recent visual problems or hearing problems. Denied any sore throat. CARDIOVASCULAR: No chest pain, orthopnea, PND, no palpitations, no syncope. PULMONARY: No shortness of breath, no cough, no hemoptysis. GASTROINTESTINAL: No diarrhea, no nausea, no vomiting, no abdominal pain. Normoactive bowel sounds. positive bilateral flank pain NEUROLOGICAL: No headaches, no weakness, no numbness. HEMATOLOGICAL: Denies any bleeding or petechiae. GENITOURINARY: Denies any burning micturition, frequency, or urgency. MUSCULOSKELETAL/RHEUMATOLOGICAL: Denies any joint pain, swelling, or any muscle pain. ENDOCRINE: Denies any polyuria or polydipsia. PSYCHIATRIC: No anxiety, no depression The rest of the 14 point review of systems is negative Active Medications Acetaminophen (Tylenol Tab) 500 mg PO Q6HR PRN PRN Reason: Fever and/ or MILD Pain Hydrocodone Bitart/Acetaminophen ([place] 5-325) 1 each PO Q6HR PRN PRN Reason: Moderate Pain Last Admin: 05/19/17 14:36 Dose: 1 each Alprazolam (Xanax) 0.25 mg PO TID PRN PRN Reason: Anxiety Atorvastatin Calcium (Lipitor) 20 mg PO HS [facility] Last Admin: 05/18/17 20:53 Dose: 20 mg Ceftriaxone Sodium (Rocephin) 1,000 mg IVP Q24HR [facility] Last Admin: 05/19/17 08:26 Dose: 1,000 mg Duloxetine HCl (Cymbalta) 60 mg PO DAILY [facility] Last Admin: 05/19/17 08:26 Dose: 60 mg Fluticasone Propionate (Flonase Nasal [place]) 2 spray EA NOSTRIL DAILY PRN PRN Reason: Allergy Symptoms Heparin Sodium (Porcine) (Heparin) 5,000 unit SQ Q12HR [facility] Last Admin: 05/19/17 08:27 Dose: 5,000 unit Hydromorphone HCl (Dilaudid) 0.5 mg IVP Q3HR PRN PRN Reason: SEVERE Pain Last Admin: 05/19/17 08:25 Dose: 0.5 mg Azithromycin 500 mg/ Sodium (Chloride) 250 mls @ 125 mls/hr IVPB DAILY [facility] Last Admin: 05/19/17 08:26 Dose: 125 mls/hr Ketorolac Tromethamine (Toradol) 15 mg IVP Q6HR PRN PRN Reason: Moderate Pain Stop: 05/23/17 15:00 Last Admin: 05/19/17 05:39 Dose: 15 mg Losartan Potassium (Cozaar) 100 mg PO DAILY [facility] Last Admin: 05/19/17 08:27 Dose: 100 mg Melatonin (Melatonin) 3 mg PO HS [facility] Last Admin: 05/18/17 20:53 Dose: 3 mg Meloxicam (Mobic) 15 mg PO DAILY PRN PRN Reason: MILD Pain Metoprolol Succinate (Toprol Xl) 50 mg PO HS [facility] Last Admin: 05/18/17 20:53 Dose: 50 mg Miscellaneous Information (Rx Info: Iv Contrast Was Given) 1 each MISCELLANE DAILY PRN PRN Reason: Per Protocol Stop: 05/20/17 10:56 Last Admin: 05/18/17 13:48 Dose: 1 each Miscellaneous Information (Magnesium Per Protocol) 1 each MISCELLANE DAILY PRN ; Protocol PRN Reason: Per Protocol Miscellaneous Information (Potassium Per Protocol) 1 each MISCELLANE DAILY PRN ; Protocol PRN Reason: Per Protocol Naloxone HCl (Narcan) 0.2 mg IV Q2M PRN PRN Reason: Opioid Reversal Ondansetron HCl (Zofran) 4 mg IVP Q8HR PRN PRN Reason: Nausea And Vomiting Oxybutynin Chloride (Ditropan Xl) 15 mg PO DAILY [facility] Last Admin: 05/19/17 08:27 Dose: 15 mg Pantoprazole Sodium (Protonix) 40 mg PO -BRKFST [facility] Last Admin: 05/19/17 06:31 Dose: 40 mg 05/20/17 complains of nonproductive cough, oxygen saturation has declined to 90 % on room air. Complains of fluctuating bilateral flank pain, positional related. urine culture revealing E. coli. Afebrile. normal WBC. received potassium and magnesium supplements yesterday, now within normal limits. Denies chest pain, palpitations. 05/21/2017 complaining of loose stools today, ruling out C. difficile. complaining of increased nasal congestion with productive cough with thick brownish greenish sputum production.Urine culture reporting E. coli. currently maintained on Rocephin and Zithromax.Chest x-ray reporting increasing diffuse reticulonodular infiltrates and/or edema, patchy posterior basilar atelectasis and/or infiltrate, possible tiny bilateral pleural effusions, fluid overload.complains of swelling in bilateral lower extremities.denies chest pain , palpitations.incentive spirometer up to 750. O2 saturations on room air down to 92%.labs pending.bilateralflank pain improved. Objective - Vital Signs Vital signs: Vital Signs Temp 98.3 F 05/21/17 15:00 Pulse 110 H 05/21/17 15:00 Resp 16 05/21/17 15:00 BP 128/71 05/21/17 15:00 Pulse Ox 92 L 05/21/17 15:00 Intake & Output 05/20/17 05/21/17 05/21/17 18:59 06:59 18:59 Intake Total 410 300 Output Total 1000 Balance -590 300 Intake: IV 120 0.9 120 Oral 410 180 Output: Urine 1000 Other: # Voids 1 1 - Exam PHYSICAL EXAM: VITAL SIGNS: [as above] GENERAL: sitting up in bed, no acute distress HEENT: Conjunctivae normal. eyes normal. oral mucosa moist NECK: No JVD. No thyroid enlargement. No LNs CARDIOVASCULAR: S1, S2 muffled. No murmur RESPIRATION: Breath sounds diminished in the bases. No rhonchi, bibasilar crackles. No bronchial breathing. ABDOMEN: Soft, nontender . No guarding. no masses palpable. Bowel sounds heard. LEGS: minimal bilateral edema. PSYCHIATRY: Alert and oriented -3, mood and affect normal. NERVOUS SYSTEM: Cranial N 2-12 grossly normal. Moves all 4 limbs. Diffuse weakness No focal deficits. No sensory deficit. Skin: no ulcer no rash Joints: No active swelling. No inflammation. Lymphatic system. No LN neck axilla or groin. Microbiology 05/18/17 19:57 Blood Blood Culture - Preliminary No Growth after 48 hours 05/18/17 10:05 Urine,Clean Catch Urine Culture - Final Escherichia coli - Labs CBC & Chem 7: 05/21/17 07:26 05/21/17 07:26 Labs: Abnormal Lab Results - Last 24 Hours (Table) 05/21/17 05/21/17 Range/Units 07:26 07:26 RBC 2.77 L (3.80-5.40) m/uL Hgb 8.6 L (11.4-16.0) gm/dL Hct 26.9 L (34.0-46.0) % Neutrophils # 7.9 H (1.3-7.7) k/uL Chloride 112 H (98-107) mmol/L Carbon Dioxide 20 L (22-30) mmol/L Glucose 117 H (74-99) mg/dL Calcium 6.2 L* (8.4-10.2) mg/dL Microbiology - Last 24 Hours (Table) 05/18/17 19:57 Blood Culture - Preliminary Blood No Growth after 48 hours Assessment and Plan Assessment: 1. Bilateral back pain as well as leukocytosis, possibly pyelonephritis with sepsis,urine culture with E. coli 2. Possible bilateral pneumonia, bronchopneumonia with sepsis 3. Leukocytosis 4. Hypokalemia 5. Hypomagnesemia 6.. Hypocalcemia 7. bibasilar atelectasis 8. Pulmonary edema r/t fluid resuscitation on admission. plan:continue current medication regime, antibiotics,monitoring andsymptomatic treatment.labs pending. Lasix 40 IV push 1. IV fluids currently at KVO, and ordered to be PIVL'D. Repeat chest x-ray ordered for am. aggressive pulmonary toileting with incentive spirometer reinforced. increase ambulation in hallway. Continue following cultures closely. Close monitoring of electrolytes with repeat labs ordered for a.m. Further recommendations to follow. The impression and plan of care has been dictated as directed. : I performed a history and examination of this patient, discussed the same with the dictator. I agree with the dictator's note ,documented as a scribe. Any additional findings or plans will be noted.
[2017-05-21] MEDS: predniSONE 20 MG TAB PO SCH (17:56)
[2017-05-21] MEDS: LORATADINE 10 MG TAB PO SCH (17:58)
[2017-05-21] MEDS: INSULIN ASPART 100 UNIT/ML 1 ML 10 ML VIAL SQ SCH ×2 (18:02→20:47)
[2017-05-21] MEDS: FLUTICASONE 50MCG/SPRAY NASAL 16GM EA NOSTRIL SCH (18:03)
--- NOTE | 2017-05-21 19:49 | US ---
EXAMINATION TYPE: US venous doppler duplex LE BI DATE OF EXAM: 05/21/2017 7:19 PM COMPARISON: NONE CLINICAL HISTORY: r/o DVT. Pain SIDE PERFORMED: Bilateral TECHNIQUE: The lower extremity deep venous system is examined utilizing real time linear array sonog alessandro with graded compression, doppler sonography and color-flow sonography. VESSELS IMAGED: External Iliac Vein (EIV) Common Femoral Vein Deep Femoral Vein Greater Saphenous Vein * Femoral Vein Popliteal Vein Small Saphenous Vein * Proximal Calf Veins (* superficial vessels) Grayscale, color doppler, spectral doppler imaging performed of the deep veins of the lower extremit ies. There is normal flow, compressibility, vascular waveforms. Right Leg: Negative for DVT Left Leg: Negative for DVT IMPRESSION: No evidence of DVT bilaterally
[2017-05-21 20:32] LABS: Glucose,Whole Blood 179 mg/dL (75-99)
[2017-05-21] MEDS: ATORVASTATIN 20 MG TAB PO SCH (20:48)
[2017-05-21] MEDS: METOPROLOL SUCCINATE (ER) 50 MG TAB.ER.24H PO SCH (20:48)
[2017-05-21] MEDS: MELATONIN 3 MG TABLET PO SCH (21:23)
[2017-05-22 01:49] LABS: Hemoglobin A1C 5.4 % (4.0-6.0)
[2017-05-22 07:08] LABS: Glucose,Whole Blood 137 mg/dL (75-99)
[2017-05-22 07:56] LABS: Basophils % (A) 0 %; Eosinophils % (A) 0 %; HCT 29.6 % (34.0-46.0); HGB 9.1 gm/dL (11.4-16.0); Lymphocytes # (A) 0.9 k/uL (1.0-4.8); Lymphocytes % (A) 9 %; MCH 30.6 pg (25.0-35.0); MCHC 30.8 g/dL (31.0-37.0); MCV 99.5 fL (80.0-100.0); Mean Platelet Volume 7.6; Monocytes # (A) 0.3 k/uL (0-1.0); Monocytes % (A) 3 %; Neutrophils # (A) 8.7 k/uL (1.3-7.7); Neutrophils % (A) 88 %; Platelet Count 384 k/uL (150-450); RBC 2.98 m/uL (3.80-5.40); RDW 13.5 % (11.5-15.5); WBC 9.9 k/uL (3.8-10.6)
[2017-05-22 08:06] LABS: Anion Gap 9 mmol/L; Blood Urea Nitrogen 8 mg/dL (7-17); Calcium 6.8 mg/dL (8.4-10.2); Carbon Dioxide 24 mmol/L (22-30); Chloride 107 mmol/L (98-107); Glucose 125 mg/dL (74-99); Sodium 140 mmol/L (137-145)
[2017-05-22] MEDS: cefTRIAXone IN SWFI 1,000 MG/10 ML SYRINGE IVP SCH (08:27)
[2017-05-22] MEDS: DULoxetine HCL 60 MG CAPSULE.DR PO SCH (08:28)
[2017-05-22] MEDS: AZITHROMYCIN 500 MG TAB PO SCH (08:28)
[2017-05-22] MEDS: INSULIN ASPART 100 UNIT/ML 1 ML 10 ML VIAL SQ SCH ×2 (08:28→13:36)
[2017-05-22] MEDS: PANTOPRAZOLE 40 MG TABLET PO SCH (08:28)
[2017-05-22] MEDS: OXYBUTYNIN 15 MG TAB.ER.24 PO SCH (08:29)
[2017-05-22] MEDS: FLUTICASONE 50MCG/SPRAY NASAL 16GM EA NOSTRIL SCH (08:29)
[2017-05-22] MEDS: LOSARTAN 50 MG TAB PO SCH (08:29)
[2017-05-22] MEDS: LORATADINE 10 MG TAB PO SCH (08:29)
[2017-05-22] MEDS: HEPARIN SODIUM,PORCINE 5,000 UNIT/ML 1 ML VIAL SQ SCH (08:29)
[2017-05-22] MEDS: predniSONE 20 MG TAB PO SCH (08:30)
[2017-05-22 11:48] LABS: Glucose,Whole Blood 158 mg/dL (75-99)
--- NOTE | 2017-05-22 12:09 | P.CNPUL ---
History of Present Illness Consult date: 05/22/17 Requesting physician: Yo Camarena Reason for consult: chest pain Chief complaint: Anterior lower chest pain bilaterally extending to bilateral sides History of present illness: Darlene is a 71-year-old white female patient that presented to the emergency department on 05/18/2017 with complaints of chest pain over anterior lower rib cage margin stenting to both sides of her bilateral torso, wrapping around like a band towards the back. Patient describes acute onset of her symptoms in the morning on 05/18/2017 which got progressively worse with any movement or deep inspiration. She states it felt like a muscle spasm, bandlike squeezing around her torso starting in the front. She had recently returned from her trip from [place]. She states she was dehydrated there. Did take a 4 hour plane ride, but she denied any leg pain, or swelling, denied any hemoptysis, denied any increased shortness of breath. Denied any recent fevers, chills, chest pain, abdominal pain, nausea or vomiting, dysuria or hematuria. Does have some chronic sinus issues, junk rhinitis, uses Flonase on a regular basis. Does have some chronic nasal congestion, clear nasal drainage. Initial chest x-ray on 05/18/2017 showed no acute intrathoracic abnormality. Chest CTA on 2016 showed no evidence of pulmonary embolus, no pneumonia, no evidence of aortic dissection, no pleural or pericardial fluid, no significant mediastinal or hilar adenopathy. It showed minimal dependent atelectasis in the dependent portions of the lungs. Ultrasound of bilateral lower legs were negative for DVTs. Echocardiogram on 05/19/2017 showed preserved LV function of 55-60%. Liver ultrasound on 05/18/2017 showed mild fatty infiltration of the liver. On presentation, patient had leukocytosis with WBC of 21.4, d-dimer was very mildly elevated at 0.97, serum potassium was 3.2,'s serum sodium was 137, carbon dioxide was 19, BUN is 12, creatinine 0.73. Her magnesium was critically low at 0.5, was replaced per protocol, and up to 2.2. Calcium was 6.9. Troponins were negative 1, proBNP was negative at night and 60, C- reactive protein was elevated at 61.9. Urinalysis showed turbid urine, with moderate amount of leukocyte esterase, many urine bacteria and mucus and calcium oxalate crystals. Influenza screen was negative. C. diff screen was negative as well. We were asked to see the patient in consultation in regards to the chest pain. At the time of our initial evaluation on 05/19/2017 her initial chest x-ray and CTA of the chest were reviewed and showed no evidence of any active pulmonary process, patient did not have any active pulmonary complaints at that time. She does have history of chronic degenerative disc disease for which she had received some steroid injections and sees a chiropractor on a regular basis. On the subsequent chest x-ray from 05/20/2017 there is evidence of fluid overload, pulmonary edema with patchy basilar atelectasis and developing bilateral pleural effusions. She was given 1 dose of IV Lasix last night. At the time of my evaluation this morning he is awake, alert, in no acute distress. She denies any active pulmonary complaints, denies any worsening shortness of breath, appears very comfortable. She has been afebrile. She denies any urinary complaints. Her chest pain has resolved. She was started on Claritin and Flonase for her nasal stuffiness. She is on oral prednisone, and Rocephin and Zithromax. Cultures showed no growth at 72 hour murali, urine culture was positive for E. coli with susceptibility to Rocephin. She would like to go home today. Review of Systems All systems: negative Constitutional: Denies chills, Denies fever Eyes: denies blurred vision, denies pain Ears, nose, mouth and throat: Denies headache, Denies sore throat Cardiovascular: Denies chest pain, Denies shortness of breath Respiratory: Denies cough Gastrointestinal: Denies abdominal pain, Denies diarrhea, Denies nausea, Denies vomiting Genitourinary: Denies dysuria, Denies hematuria Musculoskeletal: Denies myalgias Integumentary: Denies pruritus, Denies rash Neurological: Denies numbness, Denies weakness Psychiatric: Denies anxiety, Denies depression Endocrine: Denies fatigue, Denies weight change Past Medical History Past Medical History: Hyperlipidemia History of Any Multi-Drug Resistant Organisms: None Reported Past Surgical History: Appendectomy, Joint Replacement, Orthopedic Surgery Past Psychological History: No Psychological Hx Reported Smoking Status: Never smoker Past Alcohol Use History: Occasional Past Drug Use History: None Reported Medications and Allergies Home Medications Medication Instructions Recorded Confirmed Type Atorvastatin [Lipitor] 20 mg PO HS 05/18/17 05/18/17 History DULoxetine HCL [Cymbalta] 60 mg PO DAILY 05/18/17 05/18/17 History Fluticasone Nasal [place] [Flonase 2 spr EA NOSTRIL DAILY PRN 05/18/17 05/18/17 History Nasal [place]] Losartan Potassium 100 mg PO DAILY 05/18/17 05/18/17 History Meloxicam [Mobic] 15 mg PO DAILY PRN 05/18/17 05/18/17 History Metoprolol Succinate (ER) [Toprol 50 mg PO HS 05/18/17 05/18/17 History Xl] Oxybutynin ER [Ditropan Xl] 15 mg PO DAILY 05/18/17 05/18/17 History Pantoprazole Sodium [Protonix] 40 mg PO DAILY 05/18/17 05/18/17 History Allergies Allergy/AdvReac Type Severity Reaction Status Date / Time Penicillins Allergy Rash/Hives Verified 05/18/17 10:03 Physical Exam Vitals: Vital Signs Temp Pulse Resp BP Pulse Ox 05/22/17 07:00 97.9 F 78 18 142/74 96 05/21/17 21:41 98.1 F 101 H 18 112/68 93 L 05/21/17 15:00 98.3 F 110 H 16 128/71 92 L Intake and Output 05/21/17 05/22/17 05/22/17 22:59 06:59 14:59 Other: # Voids 1 1 Weight 65 kg - Constitutional General appearance: average body habitus, cooperative - EENT Eyes: PERRLA ENT: NA/AT Ears: bilateral: normal - Neck Neck: no lymphadenopathy, normal ROM Carotids: bilateral: upstroke normal Thyroid: bilateral: normal size - Respiratory Respiratory: bilateral: rales (Few scattered crackles over posterior bases) - Cardiovascular Rhythm: regular Heart sounds: normal: S1, S2 ankle Peripheral Edema: bilateral: None - Gastrointestinal General gastrointestinal: no organomegaly, soft, no tenderness - Integumentary Integumentary: normal turgor - Neurologic Neurologic: CNII-XII intact - Musculoskeletal Musculoskeletal: gait normal - Psychiatric Psychiatric: A&O x's 3, appropriate affect, intact judgment & insight Results - Laboratory Findings CBC and BMP: 05/22/17 07:11 05/22/17 07:11 PT/INR, D-dimer PT 9.9 sec (9.0-12.0) 05/18/17 09:53 INR 1.0 (<1.2) 05/18/17 09:53 D-Dimer 0.97 mg/L FEU (<0.60) H 05/18/17 09:53 Abnormal lab findings: Abnormal Labs 05/18/17 05/18/17 05/18/17 09:53 10:03 10:05 WBC 21.4 H RBC 3.46 L Hgb 10.9 L Hct MCHC Neutrophils # 19.5 H Lymphocytes # ESR D-Dimer 0.97 H Sodium Potassium 3.2 L Chloride Carbon Dioxide 19 L Glucose 111 H POC Glucose (mg/dL) Calcium 6.9 L Magnesium 0.5 L* C-Reactive Protein Urine Appearance Urine Protein Urine Blood Ur Leukocyte Esterase Calcium Oxalate Crystal Urine Bacteria Urine Mucus Urine Opiates Screen 05/18/17 05/18/17 05/18/17 10:05 19:57 19:57 WBC RBC Hgb Hct MCHC Neutrophils # Lymphocytes # ESR 111 H D-Dimer Sodium Potassium Chloride Carbon Dioxide Glucose POC Glucose (mg/dL) Calcium Magnesium C-Reactive Protein 61.9 H Urine Appearance Turbid H Urine Protein Trace H Urine Blood Trace H Ur Leukocyte Esterase Moderate H Calcium Oxalate Crystal Moderate H Urine Bacteria Rare H Urine Mucus Rare H Urine Opiates Screen 05/19/17 05/19/17 05/19/17 05:30 05:37 05:37 WBC 14.9 H RBC 3.10 L Hgb 9.8 L Hct 29.7 L MCHC Neutrophils # 13.3 H Lymphocytes # ESR D-Dimer Sodium Potassium 3.4 L Chloride Carbon Dioxide 19 L Glucose 130 H POC Glucose (mg/dL) Calcium 6.1 L* Magnesium 1.3 L C-Reactive Protein Urine Appearance Urine Protein Urine Blood Ur Leukocyte Esterase Calcium Oxalate Crystal Urine Bacteria Urine Mucus Urine Opiates Screen Detected H 05/20/17 05/20/17 05/21/17 05:43 05:43 07:26 WBC RBC 2.86 L 2.77 L Hgb 9.1 L 8.6 L Hct 28.2 L 26.9 L MCHC Neutrophils # 7.9 H 7.9 H Lymphocytes # ESR D-Dimer Sodium 136 L Potassium Chloride Carbon Dioxide 20 L Glucose 122 H POC Glucose (mg/dL) Calcium 5.9 L* Magnesium C-Reactive Protein Urine Appearance Urine Protein Urine Blood Ur Leukocyte Esterase Calcium Oxalate Crystal Urine Bacteria Urine Mucus Urine Opiates Screen 05/21/17 05/21/17 05/22/17 07:26 20:30 07:06 WBC RBC Hgb Hct MCHC Neutrophils # Lymphocytes # ESR D-Dimer Sodium Potassium Chloride 112 H Carbon Dioxide 20 L Glucose 117 H POC Glucose (mg/dL) 179 H 137 H Calcium 6.2 L* Magnesium C-Reactive Protein Urine Appearance Urine Protein Urine Blood Ur Leukocyte Esterase Calcium Oxalate Crystal Urine Bacteria Urine Mucus Urine Opiates Screen 05/22/17 05/22/17 07:11 07:11 WBC RBC 2.98 L Hgb 9.1 L Hct 29.6 L MCHC 30.8 L Neutrophils # 8.7 H Lymphocytes # 0.9 L ESR D-Dimer Sodium Potassium Chloride Carbon Dioxide Glucose 125 H POC Glucose (mg/dL) Calcium 6.8 L Magnesium C-Reactive Protein Urine Appearance Urine Protein Urine Blood Ur Leukocyte Esterase Calcium Oxalate Crystal Urine Bacteria Urine Mucus Urine Opiates Screen - Diagnostic Findings Chest x-ray: report reviewed CT scan - chest: report reviewed U/S of Legs: report reviewed Additional studies: Abdomen/pelvis CT, chest CTA, liver ultrasound, twelve-lead EKG, 2-D echo, venous Doppler study Assessment and Plan Plan: Assessment: #1. Chest pain, anterior lower, along the rib cage margin, radiating to both sides of the torso and back, of unclear etiology, most likely musculoskeletal in nature. CTA of chest was benign, no pulmonary embolus, no pneumonia, no aortic dissection, no pericardial pleural effusion. #2. History of DJD, there is evidence of vertebral compression fractures #3. Elevated d-dimer, 0.97 on admission, CTA chest negative for PE, bilateral lower leg ultrasound is negative for DVT #4. Acute urinary tract infection, urine cultures positive for E. coli #5. Pulmonary edema, developing small pleural effusions evident on subsequent chest x-ray from 05/20/2017 secondary to IV fluids, patient was given 1 dose of IV Lasix with good response. #6. Hypokalemia on admission, corrected #7. Hypomagnesemia, of 0.5 on admission, corrected Plan: Patient has no active pulmonary complaints, one dose of Lasix IV was given last night for pulmonary edema and small pleural effusions developing on the chest x- ray from 05/20/2017. Patient has been ambulating in the room, no significant respiratory distress. Chest pain has resolved. She is on room air, with stable vitals, hemodynamics are stable. Patient's UTI has been treated with Zithromax and Rocephin. She can go home from pulmonary standpoint, recommend outpatient MRI of the thoracic spine for evidence of vertebral compression fractures. Her presenting symptom of chest pain was extensively worked up, her CTA and chest x-rays show no evidence of pneumonia, of pulmonary embolism, pneumonitis, or alveolitis. I performed a history & physical examination of the patient and discussed their management with my nurse practitioner, Parul Woodson. I reviewed the nurse practitioner's note and agree with the documented findings and plan of care. Lung sounds are positive for a few crackles at posterior bases. The findings and the impression was discussed with the patient. I attest to the documentation by the nurse practitioner. Time with Patient: Greater than 30
[2017-05-22 15:33] VITALS: BP 131/69; PULSE 95; RESP 16; TEMP 98.3
--- NOTE | 2017-05-22 20:46 | P.DS ---
Providers Date of admission: 05/18/17 14:57 Expected date of discharge: 05/22/17 Attending physician: Yo Hicks Consults: 05/19/17 12:48 Consult Physician Routine Consulting Provider: Paulette Hanley Consult Reason/Comments: broncho pneumonia?? Do you want consulting provider notified?: Yes 05/21/17 16:54 Consult Physician Routine Consulting Provider: Paulette Hanley Consult Reason/Comments: pneumonia Do you want consulting provider notified?: Already Contacted Primary care physician: Serjio Butterfield Hospital Course: Final Diagnoses: 1. Bilateral back pain as well as leukocytosis, acute UTI with E. coli possibly pyelonephritis with sepsis 2. Possible bilateral pneumonia, bronchopneumonia with sepsis, ruled out as per pulmonary. 3. Elevated d-dimer, PE ruled out per CTA, bilateral lower leg ultrasounds negative for DVT 4. Hypokalemia, resolved 5. Hypomagnesemia, resolved 6. Hypocalcemia 7. bibasilar atelectasis 8. Pulmonary edema r/t fluid resuscitation on admission, improved with dose of Lasix. 9. Possible vertebral Compression Fractures; mild degenerative disc disease and facet arthropathy at L5 to S1. Minimal hypertrophic spondylolysis in the dorsal spine. Outpatient MRI of thoracic spine and follow with orthopedics recommended. Hospital course:This is a 71-year-old female admitted with possible pyelonephritis, bilateral pneumonia, bronchopneumonia with sepsis and multiple other medical issues.maintained on IV antibiotics of Rocephin and Zithromax.influenza A and B ruled out.urine culture positive for E COli..receiving potassium and magnesium replacements.loose stools, C. difficile ruled out out. chest x-ray reports increased bibasilar densities, left greater than right, possible atelectasis versus infiltrate.evaluated by pulmonary, no pneumonia, no pericardial pleural effusion. Blood Cultures no growth at 72 hours. Developed fluid overload from initial IV fluid resuscitation, Diuresed.Echo reporting normal LV function, EF 55-60%,no pulmonary hypertension. Cleared by consults for discharge. Patient is being discharged home in a stable condition with guarded prognosis. The impression and plan of care has been dictated as directed. : I performed a history and examination of this patient, discussed the same with the dictator. I agree with the dictator's note ,documented as a scribe. Any additional findings or plans will be noted. Patient Condition at Discharge: Stable Plan - Discharge Summary Discharge Rx Participant: Yes New Discharge Prescriptions: New Levofloxacin [Levaquin] 500 mg PO DAILY #7 tab Loratadine [Claritin] 10 mg PO DAILY #0 tab Continue Meloxicam [Mobic] 15 mg PO DAILY PRN PRN Reason: Pain Fluticasone Nasal [place] [Flonase Nasal [place]] 2 spr EA NOSTRIL DAILY PRN PRN Reason: Allergy Symptoms Pantoprazole Sodium [Protonix] 40 mg PO DAILY Oxybutynin ER [Ditropan Xl] 15 mg PO DAILY Metoprolol Succinate (ER) [Toprol XL] 50 mg PO HS Losartan Potassium 100 mg PO DAILY DULoxetine HCL [Cymbalta] 60 mg PO DAILY Atorvastatin [Lipitor] 20 mg PO HS Discharge Medication List Atorvastatin [Lipitor] 20 mg PO HS 05/18/17 [History] DULoxetine HCL [Cymbalta] 60 mg PO DAILY 05/18/17 [History] Fluticasone Nasal [place] [Flonase Nasal [place]] 2 spr EA NOSTRIL DAILY PRN [History] Losartan Potassium 100 mg PO DAILY 05/18/17 [History] Meloxicam [Mobic] 15 mg PO DAILY PRN 05/18/17 [History] Metoprolol Succinate (ER) [Toprol XL] 50 mg PO HS 05/18/17 [History] Oxybutynin ER [Ditropan Xl] 15 mg PO DAILY 05/18/17 [History] Pantoprazole Sodium [Protonix] 40 mg PO DAILY 05/18/17 [History] Levofloxacin [Levaquin] 500 mg PO DAILY #7 tab 05/22/17 [Rx] Loratadine [Claritin] 10 mg PO DAILY #0 tab 05/22/17 [Rx] Follow up Appointment(s)/Referral(s): Octavia Ortiz PAC [REFERRING] - 05/29/17 10:30 am Ravi Killian MD [STAFF PHYSICIAN] - 05/28/17 8:45 am (Vertebral compression fractures....) Ambulatory/Diagnostic Orders: Complete Blood Count w/diff [LAB.AMB] Time Frame: 3 Days, Location: Determined By Patient Patient Instructions/Handouts: Levofloxacin (By mouth), Kidney Infection (DC), Leukocytosis (DC), Hypocalcemia (DC), Hypomagnesemia (DC) Activity/Diet/Wound Care/Special Instructions: OP MRI of thoracic spine - Defer to PCP or OA to arrange. Discharge Disposition: HOME SELF-CARE
== END 2017-05-22 16:05 | disposition home or self-care (01) | DRG 872 ==
LOC: EC 09:29 → 4MS4W 14:57 → 6SEL 16:09 → 5MS5E 05-20 19:31
PROVIDERS: ADMIT Hospitalist; ATTEND Hospitalist
DX: A41.51 Sepsis due to Escherichia coli [E. coli] (principal); J81.1 Chronic pulmonary edema; M48.50XA Collapsed vertebra, not elsewhere classified, site unspecified, initial encounter for fracture; E83.42 Hypomagnesemia; E83.51 Hypocalcemia; E86.0 Dehydration; N12 Tubulo-interstitial nephritis, not specified as acute or chronic; J98.11 Atelectasis; K76.0 Fatty (change of) liver, not elsewhere classified; E87.6 Hypokalemia; E78.5 Hyperlipidemia, unspecified; I10 Essential (primary) hypertension; F32.9 Major depressive disorder, single episode, unspecified; J31.0 Chronic rhinitis; M19.91 Primary osteoarthritis, unspecified site; Z79.1 Long term (current) use of non-steroidal anti-inflammatories (NSAID); Z79.51 Long term (current) use of inhaled steroids; Z79.899 Other long term (current) drug therapy; Z90.49 Acquired absence of other specified parts of digestive tract; Z88.0 Allergy status to penicillin
CPT/HCPCS: 36415; 71010; 71020; 71275; 74176; 76705; 80048; 80053; 80306; 81001; 82550; 82553; 83036; 83735; 83880; 84484; 85025; 85379; 85610; 85652; 85730; 86140; 87040; 87077; 87086; 87186; 87324; 87502; 93005; 93306; 93970; 96361; 96365; 96366; 96375; 99285

== ENCOUNTER 2017-06-08 12:43 | Inpatient (IN) | payer MEDICARE ==
[2017-06-08] MEDS ORDERED: IBUPROFEN 400 MG TAB PO STA (13:13)
[2017-06-08] MEDS ORDERED: SODIUM CHLORIDE 0.9% 1,000 ML IV STA (13:15)
--- NOTE | 2017-06-08 13:18 | ED ---
General Adult HPI - General Chief complaint: Shortness of Breath Stated complaint: SOB, Cough, Weakness Time Seen by Provider: 06/08/17 13:07 Source: patient, family, RN notes reviewed Mode of arrival: wheelchair Limitations: no limitations - History of Present Illness Initial comments: Patient is a pleasant 71-year-old female presenting to the emergency Department with cough. Cough is been present for 5 or 6 days. Patient developed fever this morning. Patient took Tylenol at 11 AM. Patient complains of fatigue and shaking. This has improved. Patient does feel somewhat short of breath. Patient has had sputum that was green however starting to clear up. Patient was recently discharged from the hospital a couple of weeks ago following kidney infection. - Related Data Home Medications Medication Instructions Recorded Confirmed Atorvastatin [Lipitor] 20 mg PO HS 05/18/17 06/08/17 DULoxetine HCL [Cymbalta] 60 mg PO DAILY 05/18/17 06/08/17 Fluticasone Nasal [place] [Flonase 2 spr EA NOSTRIL DAILY PRN 05/18/17 06/08/17 Nasal [place]] Losartan Potassium 100 mg PO DAILY 05/18/17 06/08/17 Meloxicam [Mobic] 15 mg PO DAILY PRN 05/18/17 06/08/17 Metoprolol Succinate (ER) [Toprol 50 mg PO HS 05/18/17 06/08/17 XL] Oxybutynin ER [Ditropan Xl] 15 mg PO DAILY 05/18/17 06/08/17 Magnesium Oxide [[place]] 500 mg PO BID 06/08/17 06/08/17 Ranitidine HCl [Zantac] 300 mg PO DAILY 06/08/17 06/08/17 Previous Rx's Medication Instructions Recorded Loratadine [Claritin] 10 mg PO DAILY #0 tab 05/22/17 Allergies Allergy/AdvReac Type Severity Reaction Status Date / Time Penicillins Allergy Rash/Hives Verified 06/08/17 13:12 Review of Systems ROS Statement: Those systems with pertinent positive or pertinent negative responses have been documented in the HPI. ROS Other: All systems not noted in ROS Statement are negative. Constitutional: Reports: fever, chills, weakness Eyes: Denies: eye pain ENT: Denies: ear pain Respiratory: Reports: cough, dyspnea Cardiovascular: Denies: chest pain Endocrine: Reports: fatigue Gastrointestinal: Denies: abdominal pain Genitourinary: Denies: dysuria Musculoskeletal: Denies: back pain Skin: Denies: rash Neurological: Denies: weakness Past Medical History Past Medical History: Hyperlipidemia History of Any Multi-Drug Resistant Organisms: None Reported Past Surgical History: Appendectomy, Joint Replacement, Orthopedic Surgery Past Psychological History: No Psychological Hx Reported Smoking Status: Never smoker Past Alcohol Use History: Occasional Past Drug Use History: None Reported General Exam Limitations: no limitations General appearance: alert, in no apparent distress Head exam: Present: atraumatic Eye exam: Present: normal appearance, PERRL ENT exam: Present: normal oropharynx Neck exam: Present: normal inspection Respiratory exam: Present: rhonchi Cardiovascular Exam: Present: normal rhythm, tachycardia GI/Abdominal exam: Present: soft. Absent: tenderness Extremities exam: Present: normal inspection. Absent: pedal edema, calf tenderness Neurological exam: Present: alert Psychiatric exam: Present: normal affect, normal mood Skin exam: Present: normal color Course Vital Signs 06/08/17 06/08/17 06/08/17 12:58 13:04 14:16 Temperature 100.6 F H 97.9 F Pulse Rate 128 H 110 H Respiratory 20 22 22 Rate Blood Pressure 154/73 135/87 O2 Sat by Pulse 91 L 88 L Oximetry - Reevaluation(s) Reevaluation #1: 06/08/17 14:55 Suspicion for sepsis at 1455. EKG Findings - EKG Comments: EKG Findings:: Sinus tachycardia 127. VA 134. QRS 70. QT 314. QTC 456. Normal axis. Normal QRS. No acute ST change. Medical Decision Making - Medical Decision Making Patient reevaluated and somewhat improved. Patient updated on results and plan. Patient provided magnesium for hypomagnesemia. Case was discussed in detail with Dr. Camarena, who is somewhat familiar with this patient. He does recommend admission with vancomycin and Zosyn. D-dimer will be added. Patient will be treated with antibiotics for infectious bronchitis/presumptive pneumonia. Secondary to this patient does meet sepsis criteria diagnosed at 1455. Blood culture and lactic acid and IV antibiotics ordered. - Lab Data Result diagrams: 06/08/17 13:05 06/08/17 13:05 Lab Results 06/08/17 06/08/17 06/08/17 Range/Units 13:05 13:05 13:05 WBC 24.2 H (3.8-10.6) k/uL RBC 3.52 L (3.80-5.40) m/uL Hgb 10.8 L (11.4-16.0) gm/dL Hct 33.1 L (34.0-46.0) % MCV 94.2 D (80.0-100.0) fL MCH 30.8 (25.0-35.0) pg MCHC 32.7 (31.0-37.0) g/dL RDW 12.6 (11.5-15.5) % Plt Count 509 H (150-450) k/uL Neutrophils % 90 % Lymphocytes % 6 % Monocytes % 2 % Eosinophils % 2 % Basophils % 0 % Neutrophils # 21.7 H (1.3-7.7) k/uL Lymphocytes # 1.5 (1.0-4.8) k/uL Monocytes # 0.4 (0-1.0) k/uL Eosinophils # 0.5 (0-0.7) k/uL Basophils # 0.1 (0-0.2) k/uL PT (9.0-12.0) sec INR (<1.2) APTT (22.0-30.0) sec Sodium 137 (137-145) mmol/L Potassium 4.0 (3.5-5.1) mmol/L Chloride 103 (98-107) mmol/L Carbon Dioxide 22 (22-30) mmol/L Anion Gap 12 mmol/L BUN 16 (7-17) mg/dL Creatinine 0.68 (0.52-1.04) mg/dL Est GFR (MDRD) Af Amer >60 (>60 ml/min/1.73 sqM) Est GFR (MDRD) Non-Af >60 (>60 ml/min/1.73 sqM) Glucose 112 H (74-99) mg/dL Plasma Lactic Acid Edin 1.4 (0.7-2.0) mmol/L Calcium 9.5 (8.4-10.2) mg/dL Magnesium 1.2 L (1.6-2.3) mg/dL Total Bilirubin 0.5 (0.2-1.3) mg/dL AST 14 (14-36) U/L ALT 21 (9-52) U/L Alkaline Phosphatase 74 (38-126) U/L Total Protein 7.0 (6.3-8.2) g/dL Albumin 3.9 (3.5-5.0) g/dL Urine Color Urine Appearance (Clear) Urine pH (5.0-8.0) Ur Specific [place] (1.001-1.035) Urine Protein (Negative) Urine Glucose (UA) (Negative) Urine Ketones (Negative) Urine Blood (Negative) Urine Nitrite (Negative) Urine Bilirubin (Negative) Urine Urobilinogen (<2.0) mg/dL Ur Leukocyte Esterase (Negative) Urine RBC (0-5) /hpf Urine WBC (0-5) /hpf Ur Squamous Epith Cells (0-4) /hpf Urine Mucus (None) /hpf Influenza Type A RNA (Not Detectd) Influenza Type B (PCR) (Not Detectd) 06/08/17 06/08/17 06/08/17 Range/Units 13:05 13:05 14:09 WBC (3.8-10.6) k/uL RBC (3.80-5.40) m/uL Hgb (11.4-16.0) gm/dL Hct (34.0-46.0) % MCV (80.0-100.0) fL MCH (25.0-35.0) pg MCHC (31.0-37.0) g/dL RDW (11.5-15.5) % Plt Count (150-450) k/uL Neutrophils % % Lymphocytes % % Monocytes % % Eosinophils % % Basophils % % Neutrophils # (1.3-7.7) k/uL Lymphocytes # (1.0-4.8) k/uL Monocytes # (0-1.0) k/uL Eosinophils # (0-0.7) k/uL Basophils # (0-0.2) k/uL PT 9.7 (9.0-12.0) sec INR 1.0 (<1.2) APTT 22.3 (22.0-30.0) sec Sodium (137-145) mmol/L Potassium (3.5-5.1) mmol/L Chloride (98-107) mmol/L Carbon Dioxide (22-30) mmol/L Anion Gap mmol/L BUN (7-17) mg/dL Creatinine (0.52-1.04) mg/dL Est GFR (MDRD) Af Amer (>60 ml/min/1.73 sqM) Est GFR (MDRD) Non-Af (>60 ml/min/1.73 sqM) Glucose (74-99) mg/dL Plasma Lactic Acid Edin (0.7-2.0) mmol/L Calcium (8.4-10.2) mg/dL Magnesium (1.6-2.3) mg/dL Total Bilirubin (0.2-1.3) mg/dL AST (14-36) U/L ALT (9-52) U/L Alkaline Phosphatase (38-126) U/L Total Protein (6.3-8.2) g/dL Albumin (3.5-5.0) g/dL Urine Color Yellow Urine Appearance Clear (Clear) Urine pH 6.0 (5.0-8.0) Ur Specific [place] 1.008 (1.001-1.035) Urine Protein Negative (Negative) Urine Glucose (UA) Negative (Negative) Urine Ketones Negative (Negative) Urine Blood Moderate H (Negative) Urine Nitrite Negative (Negative) Urine Bilirubin Negative (Negative) Urine Urobilinogen <2.0 (<2.0) mg/dL Ur Leukocyte Esterase Small H (Negative) Urine RBC 11 H (0-5) /hpf Urine WBC 9 H (0-5) /hpf Ur Squamous Epith Cells 2 (0-4) /hpf Urine Mucus Rare H (None) /hpf Influenza Type A RNA Not Detected (Not Detectd) Influenza Type B (PCR) Not Detected (Not Detectd) - Radiology Data Radiology results: image reviewed (Chest x-ray shows no acute intrathoracic disease.) Disposition Clinical Impression: Acute bronchitis due to infection Disposition: ADMITTED IP TO THIS [facility] Condition: Serious Referrals: Serjio Butterfield DO [Primary Care Provider] - 1-2 days Decision Time: 14:56
[2017-06-08 13:35] LABS: Basophils # (A) 0.1 k/uL (0-0.2); Basophils % (A) 0 %; Eosinophils # (A) 0.5 k/uL (0-0.7); Eosinophils % (A) 2 %; HCT 33.1 % (34.0-46.0); HGB 10.8 gm/dL (11.4-16.0); Lymphocytes # (A) 1.5 k/uL (1.0-4.8); Lymphocytes % (A) 6 %; MCH 30.8 pg (25.0-35.0); MCHC 32.7 g/dL (31.0-37.0); Mean Platelet Volume 7.2; Monocytes # (A) 0.4 k/uL (0-1.0); Monocytes % (A) 2 %; Neutrophils # (A) 21.7 k/uL (1.3-7.7); Neutrophils % (A) 90 %; Platelet Count 509 k/uL (150-450); RBC 3.52 m/uL (3.80-5.40); RDW 12.6 % (11.5-15.5); WBC 24.2 k/uL (3.8-10.6)
[2017-06-08 13:41] LABS: MCV 94.2 fL (80.0-100.0)
[2017-06-08 13:45] LABS: ALT 21 U/L (9-52); AST 14 U/L (14-36); Albumin 3.9 g/dL (3.5-5.0); Alkaline Phosphatase 74 U/L (38-126); Anion Gap 12 mmol/L; Blood Urea Nitrogen 16 mg/dL (7-17); Calcium 9.5 mg/dL (8.4-10.2); Carbon Dioxide 22 mmol/L (22-30); Chloride 103 mmol/L (98-107); Glucose 112 mg/dL (74-99); Magnesium 1.2 mg/dL (1.6-2.3); Sodium 137 mmol/L (137-145); Total Bilirubin 0.5 mg/dL (0.2-1.3)
--- NOTE | 2017-06-08 13:55 | XR ---
EXAMINATION TYPE: XR chest 2V DATE OF EXAM: 06/08/2017 HISTORY: fever. REFERENCE: Previous study dated 05/20/2017. FINDINGS: The lungs are clear. Pleural space are clear. The heart is not enlarged. IMPRESSION: NO ACTIVE INTRATHORACIC DISEASE.
[2017-06-08 13:59] LABS: Partial Thromboplastin Time 22.3 sec (22.0-30.0); Prothrombin Time 9.7 sec (9.0-12.0)
[2017-06-08 14:25] LABS: Appearance,Urine Clear (Clear); Bilirubin,Urine Negative (Negative); Blood,Urine Moderate (Negative); Color,Urine Yellow; Glucose,Urine (UA) Negative (Negative); Ketones,Urine Negative (Negative); Leukocyte Esterase,Urine Small (Negative); Mucus,Urine Rare /hpf; Nitrite,Urine Negative (Negative); Protein,Urine Negative (Negative); RBC,Urine 11 /hpf (0-5); Specific Gravity,Urine 1.008 (1.001-1.035); Squamous Epithelial Cell,Urine 2 /hpf (0-4); Urobilinogen,Urine <2.0 mg/dL (<2.0); WBC,Urine 9 /hpf (0-5)
[2017-06-08] MEDS ORDERED: MAGNESIUM OXIDE 400 MG TAB PO STA (14:37)
[2017-06-08] MEDS ORDERED: MAGNESIUM SULFATE-D5W PMX 1 GM in DEXTROSE/WATER 1 100ML.BAG IVPB ONE (14:37)
[2017-06-08] MEDS ORDERED: PNEUMONIA PROTOCOL UTILIZED 1 EACH MISC PO PRN (14:57)
[2017-06-08] MEDS ORDERED: LEVOFLOXACIN 750MG-D5W PMX 750 MG in DEXTROSE/WATER 1 150ML.BAG IVPB STA (14:57)
[2017-06-08] MEDS ORDERED: AZTREONAM 2 GM in SODIUM CHLORIDE 0.9% 100 ML IVPB STA (14:57)
[2017-06-08] MEDS ORDERED: VANCOMYCIN IV PER PHARMACY 1 EACH MISC MISCELLANE PRN (14:58)
[2017-06-08] MEDS ORDERED: VANCOMYCIN 1,250 MG in SODIUM CHLORIDE 0.9% 250 ML IVPB STA (15:08)
[2017-06-08] MEDS: SODIUM CHLORIDE 0.9% 1,000 ML IV SCH (15:38)
[2017-06-08] MEDS: IPRATROPIUM-ALBUTEROL 3 ML NEB INHALATION PRN ×2 (15:45→23:45)
[2017-06-08 18:37] VITALS: BMI 25.2
[2017-06-08] MEDS ORDERED: HYDROcodone/APAP 5-325MG 1 EACH TAB PO PRN (22:17)
[2017-06-08] MEDS ORDERED: TEMAZEPAM 15 MG CAP PO PRN (22:17)
[2017-06-08] MEDS ORDERED: FLUTICASONE 50MCG/SPRAY NASAL 16GM EA NOSTRIL PRN (22:18)
[2017-06-08] MEDS ORDERED: PROMETHAZ-COD 6.25-10 MG/5 ML 5 ML CUP PO PRN (22:33)
[2017-06-08] MEDS ORDERED: ACETAMINOPHEN TAB 325 MG TAB PO PRN (22:35)
[2017-06-08] MEDS: ALPRAZolam 0.25 MG TAB PO PRN (23:29)
[2017-06-08] MEDS: HEPARIN SODIUM,PORCINE 5,000 UNIT/ML 1 ML VIAL SQ SCH (23:31)
[2017-06-08] MEDS ORDERED: guaiFENesin-Coden 100-10MG/5ML 10 ML CUP PO PRN (23:34)
[2017-06-08] MEDS: METOPROLOL SUCCINATE (ER) 50 MG TAB.ER.24H PO SCH (23:51)
[2017-06-09] MEDS: guaiFENesin SYRUP 100MG/5ML 200 MG/10 ML CUP PO PRN ×4 (00:48→23:36)
[2017-06-09] MEDS: AZTREONAM 2 GM in SODIUM CHLORIDE 0.9% 100 ML IVPB SCH ×3 (02:18→16:28)
[2017-06-09] MEDS: SODIUM CHLORIDE 0.9% 1,000 ML IV SCH ×2 (02:32→16:30)
[2017-06-09] MEDS: VANCOMYCIN 1,000 MG in SODIUM CHLORIDE 0.9% 250 ML IVPB SCH ×2 (06:49→19:03)
--- NOTE | 2017-06-09 08:43 | XR ---
EXAMINATION TYPE: XR chest 2V DATE OF EXAM: 06/09/2017 COMPARISON: Prior chest x-ray 06/08/2017 HISTORY: Pneumonia, cough and congestion TECHNIQUE: Frontal and lateral views of the chest are obtained. FINDINGS: There is increased interstitium. No pneumothorax or pleural effusion. Prominent lung volum es suggest underlying COPD. Heart is enlarged. No significant change in the bones. IMPRESSION: Findings may represent volume overload, pulmonary venous hypertension and interstitial e lawson.
[2017-06-09] MEDS: IPRATROPIUM-ALBUTEROL 3 ML NEB INHALATION PRN ×4 (08:48→19:24)
[2017-06-09] MEDS: FORMOTEROL FUMARATE 20 MCG/2 ML NEBU INHALATION SCH ×2 (08:49→19:24)
[2017-06-09] MEDS: BUDESONIDE 1 MG/2 ML NEBU INHALATION SCH ×2 (08:49→19:24)
[2017-06-09] MEDS: LORATADINE 10 MG TAB PO SCH (08:53)
[2017-06-09] MEDS: DULoxetine HCL 60 MG CAPSULE.DR PO SCH (08:53)
[2017-06-09] MEDS: OXYBUTYNIN 15 MG TAB.ER.24 PO SCH (08:53)
[2017-06-09] MEDS: MAGNESIUM OXIDE 400 MG TAB PO SCH ×2 (08:53→20:03)
[2017-06-09] MEDS: PANTOPRAZOLE 40 MG TABLET PO SCH (08:53)
[2017-06-09] MEDS: LOSARTAN 50 MG TAB PO SCH (08:53)
[2017-06-09] MEDS: HEPARIN SODIUM,PORCINE 5,000 UNIT/ML 1 ML VIAL SQ SCH ×2 (08:54→20:03)
[2017-06-09 08:57] LABS: Basophils # (A) 0.1 k/uL (0-0.2); Basophils % (A) 0 %; Eosinophils # (A) 0.5 k/uL (0-0.7); Eosinophils % (A) 4 %; HCT 32.3 % (34.0-46.0); HGB 9.6 gm/dL (11.4-16.0); Hypochromasia Moderate; Lymphocytes # (A) 1.4 k/uL (1.0-4.8); Lymphocytes % (A) 10 %; MCH 29.5 pg (25.0-35.0); MCHC 29.9 g/dL (31.0-37.0); MCV 98.6 fL (80.0-100.0); Mean Platelet Volume 7.8; Monocytes # (A) 0.4 k/uL (0-1.0); Monocytes % (A) 3 %; Neutrophils # (A) 11.7 k/uL (1.3-7.7); Neutrophils % (A) 83 %; Platelet Count 418 k/uL (150-450); RBC 3.27 m/uL (3.80-5.40); RDW 13.9 % (11.5-15.5); WBC 14.1 k/uL (3.8-10.6)
[2017-06-09 09:23] LABS: Anion Gap 12 mmol/L; Blood Urea Nitrogen 13 mg/dL (7-17); Calcium 8.8 mg/dL (8.4-10.2); Carbon Dioxide 21 mmol/L (22-30); Chloride 106 mmol/L (98-107); Glucose 98 mg/dL (74-99); Magnesium 1.5 mg/dL (1.6-2.3); Potassium 4.3 mmol/L (3.5-5.1); Sodium 139 mmol/L (137-145)
[2017-06-09] MEDS ORDERED: FUROSEMIDE 10 MG/ML 4 ML VIAL IV STA (10:15)
[2017-06-09] MEDS ORDERED: Magnesium Replacement Protocol 1 EACH MISC MISCELLANE PRN (10:23)
[2017-06-09] MEDS: MAGNESIUM SULFATE-D5W PMX 1 GM in DEXTROSE/WATER 1 100ML.BAG IVPB SCH ×2 (11:41→13:50)
--- NOTE | 2017-06-09 12:01 | HP ---
HISTORY AND PHYSICAL CHIEF COMPLAINT: Shortness of breath, cough and sputum. HISTORY OF PRESENT ILLNESS: This 71-year-old woman who has past medical history of multiple medical problems , recently admitted with possibly urinary tract infection with sepsis, pyelonephritis. The patient improved significantly. Basic labs were negative. The patient was given Levaquin for 1 week and the patient improved significantly, but subsequently patient had increased shortness of breath and cough and sputum and the patient came back to [facility] and was admitted for further evaluation and treatment. Please note that the patient had a visit to [place] before the onset of the illness last month. There is no history of any rigors. No headache, loss of consciousness or seizures. Patient is complaining of some diarrhea also and weakness as well. PAST MEDICAL HISTORY: History of hypertension, hyperlipidemia, DJD, history of cataracts, appendectomy , bladder surgery. MEDICATIONS: Prior to admission include home medications are: 1. Zantac 150 mg daily. 2. Ditropan XL 50 mg daily. 3. Toprol-XL 50 mg. 4. Mobic 15 mg daily p.r.n. 5. Magnesium oxide 500 mg p.o. b.i.d. 6. Losartan 100 mg p.o. daily. 7. Claritin 10 mg. 8. Flonase 2 sprays daily p.r.n. 9. Cymbalta 60 mg daily. 10.Lipitor 10 mg q.h.s. ALLERGIES: PENICILLIN. FAMILY HISTORY: No history of heart disease or strokes in the family. SOCIAL HISTORY: Remote history of smoking. No history of alcohol intake. REVIEW OF SYSTEMS: ENT: No diminished hearing or vision. CARDIOVASCULAR: As mentioned earlier. Respiratory: As mentioned earlier. GI no nausea or vomiting. : No dysuria. Nervous system: No numbness, weakness. Allergy/Immunology: No asthma or hayfever. Musculoskeletal as mentioned earlier. HEMATOLOGY/ONCOLOGY: No history of anemia. Endocrine no history of diabetes or hypothyroidism. Constitutional: As mentioned earlier. Dermatology: Negative. Rheumatology: Negative. Psychiatric: As mentioned earlier. PHYSICAL EXAMINATION: Alert, oriented times three. Pulse 100. Blood pressure 130/70, respirations 16 , temperature normal, pulse ox 94% on 2 L. HEENT conjunctivae normal. Oral mucosa moist. Neck is no jugular venous distention. No carotid bruit. No lymph node enlargement. Cardiovascular S1-S2 muffled. No S3, no S4. Respiratory: Breath sounds diminished in the bases. Bilateral scattered rhonchi and crackles. Expiratory wheezing also present. ABDOMEN: Soft, nontender. No mass palpable. Legs no edema and no swelling. NERVOUS SYSTEM: Higher functions as mentioned earlier, moves all 4 limbs, no focal motor or sensory defects. Lymphatics: No lymph nodes palpable in the neck, axillae or groin. Skin no ulcer, rashes or bleeding. LABS: WBC 24.8, hemoglobin 10.8, platelets 509. D-dimer is 0.76. Glucose 112. ASSESSMENT: 1. Possible bibasilar pneumonia with possible sepsis. 2. Diarrhea, rule out acute C difficile colitis. 3. Increased WBC. 4. Anemia. 5. History of recent bibasilar pneumonia. 6. History of recent pyelonephritis. 7. History of hypertension. 8. History of hyperlipidemia. 9. History of degenerative joint disease. 10.History of appendectomy. 11.History of bladder surgery. RECOMMENDATIONS AND DISCUSSION: In this 71-year-old woman who presented with multiple complex medical issues, we will monitor the patient closely. Continue the current medications, Continue symptomatic treatment. The patient is started on vancomycin, and Aztreonam. We will initiate cultures. We will obtain Pulmonary consultation. Otherwise obtain evaluation for urine antigen, also Legionella antigen. Otherwise continue to monitor. Guarded prognosis because of multiple complex medical issues. See orders. Home medication continued. DVT prophylaxis. Further recommendations to follow. 2D echo has been ordered. MMODL / IJN: [id number] / DAWSON
--- NOTE | 2017-06-09 12:18 | P.CONS ---
History of Present Illness - Reason for Consult Consult date: 06/09/17 infective bronchitis - History of Present Illness This is a 71-year-old female who had recent hospitalization on May 18 through the which time she was treated for E. coli urinary tract infection and possible pneumonia was ruled out by pulmonary medicine. Patient states that during that hospitalization she woke up the morning she came in with pain across her lower anterior ribs radiating around to the back and down her back. She gives history that there was initial concern for kidney stone which was ruled out. She denies ever having any dysuria and has never had a urinary tract infection in the past. Patient was discharged home on Levaquin for an additional 7 days which she states she completed and then followed up with her primary care physician. She had repeat lab work done in the office and her electrolytes were low and she was started on magnesium and has taken a couple doses. She states that prior to her discharge, she had developed a cough that was very minor initially and this continued at home but then worsened a few days ago. Now the cough is very annoying, frequent and painful. She also gives history of loose bowel movements 1-2 times per day for the past week. Her last bowel movement was yesterday morning. She states she has not been eating very much as she has not been feeling well. Yesterday, she developed fever, chills and rigors with shortness of breath and continued cough , took Tylenol and knew she needed to come into the hospital. Patient came into [facility] emergency center for evaluation. She was found to be febrile with a temperature of 100.6, sinus tachycardia 128 and pulse ox of 88, leukocytosis at 24. Lactic acid was 1.4. Urinalysis was clear , nitrite negative, leukoesterase small, WBC 9. Influenza testing was negative. Patient was started on Levaquin and vancomycin and admitted to the [facility] floor and there is a consult in place for pulmonary medicine as well. Blood and urine culture are in progress. Mycoplasma pneumoniae and legionella testing are status received. Sputum culture has been sent. Review of Systems All systems: negative Constitutional: Reports anorexia, Reports chills, Reports fatigue, Reports fever , Reports lethargy, Reports malaise, Reports poor appetite, Reports weakness Eyes: denies blurred vision, denies pain Ears, nose, mouth and throat: Denies dental pain, Denies headache, Denies mouth pain, Denies sore throat Cardiovascular: Reports decreased exercise tolerance, Reports dyspnea on exertion, Reports leg edema, Reports shortness of breath, Denies chest pain, Denies edema, Denies lightheadedness, Denies syncope Respiratory: Reports cough, Reports cough with sputum, Reports dyspnea, Denies excessive sputum, Denies hemoptysis, Denies home oxygen Gastrointestinal: Reports loss of appetite, Denies abdominal pain, Denies diarrhea, Denies nausea, Denies vomiting Genitourinary: Denies dysuria, Denies flank pain, Denies hematuria, Denies urgency, Denies urinary frequency Musculoskeletal: Denies frequent falls, Denies gait dysfunction, Denies myalgias Integumentary: Denies pruritus, Denies rash, Denies wounds Neurological: Denies change in mentation, Denies gait dysfunction, Denies numbness, Denies weakness Psychiatric: Denies anxiety, Denies depression Endocrine: Denies fatigue, Denies weight change Past Medical History Past Medical History: Eye Disorder, Hyperlipidemia, Hypertension, Osteoarthritis (OA) Additional Past Medical History / Comment(s): cataracts removed with IOL History of Any Multi-Drug Resistant Organisms: None Reported Past Surgical History: Appendectomy, Bladder Surgery, Joint Replacement, Orthopedic Surgery Additional Past Surgical History / Comment(s): cataract sx with IOL Past Anesthesia/Blood Transfusion Reactions: Previous Problems w/ Anesthesia Additional Past Anesthesia/Blood Transfusion Reaction / Comm: nausea with anesthesia Past Psychological History: No Psychological Hx Reported Smoking Status: Former smoker Past Alcohol Use History: Occasional Additional Past Alcohol Use History / Comment(s): patient smoked briefly for 10- 15 years starting as a teenager only occasionally. She denies any medical marijuana, marijuana, street drug use.she lives at home with her . There is a cat in the home. She quit working 10 years ago to take care of her mother. 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 She has traveled to the [facility] 20 years ago but otherwise to [place] and [place]. She was recently in [place] and May 2017. She has a trip planned for March to [place]. Past Drug Use History: None Reported Medications and Allergies Home Medications Medication Instructions Recorded Confirmed Type Atorvastatin [Lipitor] 20 mg PO HS 05/18/17 06/08/17 History DULoxetine HCL [Cymbalta] 60 mg PO DAILY 05/18/17 06/08/17 History Fluticasone Nasal Barry [Flonase 2 spr EA NOSTRIL DAILY PRN 05/18/17 06/08/17 History Nasal Barry] Losartan Potassium 100 mg PO DAILY 05/18/17 06/08/17 History Meloxicam [Mobic] 15 mg PO DAILY PRN 05/18/17 06/08/17 History Metoprolol Succinate (ER) [Toprol 50 mg PO HS 05/18/17 06/08/17 History XL] Oxybutynin ER [Ditropan Xl] 15 mg PO DAILY 05/18/17 06/08/17 History Loratadine [Claritin] 10 mg PO DAILY #0 tab 05/22/17 06/08/17 Rx Magnesium Oxide [Beckwith] 500 mg PO BID 06/08/17 06/08/17 History Ranitidine HCl [Zantac] 300 mg PO DAILY 06/08/17 06/08/17 History Allergies Allergy/AdvReac Type Severity Reaction Status Date / Time codeine Allergy Nausea & Verified 06/09/17 00:12 Vomiting Penicillins Allergy Rash/Hives Verified 06/08/17 13:12 Physical Exam Vitals: Vital Signs Temp Pulse Pulse Resp BP BP Pulse Ox 06/09/17 09:20 108 H 06/09/17 09:06 116 H 06/09/17 09:05 116 H 06/09/17 08:52 110 H 96 06/09/17 07:00 98.2 F 107 H 20 129/78 92 L 06/09/17 01:52 97.3 F L 103 H 12 127/68 06/09/17 00:04 96 06/08/17 23:45 96 06/08/17 16:01 98 06/08/17 15:54 101 H 18 99 06/08/17 15:50 100 06/08/17 15:35 100 16 134/70 94 L 06/08/17 14:16 97.9 F 110 H 22 135/87 88 L 06/08/17 13:04 22 06/08/17 12:58 100.6 F H 128 H 20 154/73 91 L Intake and Output 06/08/17 06/09/17 06/09/17 22:59 06:59 14:59 Intake Total 360 Balance 360 Intake: Oral 360 Other: # Voids 0 2 # Bowel Movements 0 0 Weight 62.7 kg Gen: This is a [id number] female. She is seen walking to her bed from the bathroom and appears to be in no acute distress. Gait is steady. HEENT: Head is atraumatic, normocephalic. Pupils equal, round. Sclerae is anicteric. conjunctiva pink. Oral mucous membranes are slightly dry. No thrush noted. NECK: Supple. No JVD. No lymphadenopathy. No thyromegaly. LUNGS: bilateral scattered crackles. No intercostal retractions. HEART: Regular rate and rhythm. Systolic murmur. Tachycardic. ABDOMEN: Soft. Bowel sounds are present. No masses. No tenderness. No CVA tenderness. EXTREMITIES: Trace bilateral pedal edema. No calf tenderness. dorsalis pedis + 2 bilaterally. NEUROLOGICAL: Patient is awake, alert and oriented x3. Cranial nerves 2 through 12 are grossly intact. Results Results: Laboratory Results WBC 14.1 k/uL (3.8-10.6) H 06/09/17 07:53 RBC 3.27 m/uL (3.80-5.40) L 06/09/17 07:53 Hgb 9.6 gm/dL (11.4-16.0) L 06/09/17 07:53 Hct 32.3 % (34.0-46.0) L 06/09/17 07:53 MCV 98.6 fL (80.0-100.0) 06/09/17 07:53 MCH 29.5 pg (25.0-35.0) 06/09/17 07:53 MCHC 29.9 g/dL (31.0-37.0) L 06/09/17 07:53 RDW 13.9 % (11.5-15.5) 06/09/17 07:53 Plt Count 418 k/uL (150-450) 06/09/17 07:53 Neutrophils % 83 % 06/09/17 07:53 Lymphocytes % 10 % 06/09/17 07:53 Monocytes % 3 % 06/09/17 07:53 Eosinophils % 4 % 06/09/17 07:53 Basophils % 0 % 06/09/17 07:53 Neutrophils # 11.7 k/uL (1.3-7.7) H 06/09/17 07:53 Lymphocytes # 1.4 k/uL (1.0-4.8) 06/09/17 07:53 Monocytes # 0.4 k/uL (0-1.0) 06/09/17 07:53 Eosinophils # 0.5 k/uL (0-0.7) 06/09/17 07:53 Basophils # 0.1 k/uL (0-0.2) 06/09/17 07:53 Hypochromasia Moderate 06/09/17 07:53 PT 9.7 sec (9.0-12.0) 06/08/17 13:05 INR 1.0 (<1.2) 06/08/17 13:05 APTT 22.3 sec (22.0-30.0) 06/08/17 13:05 D-Dimer 0.76 mg/L FEU (<0.60) H 06/08/17 13:53 Sodium 139 mmol/L (137-145) 06/09/17 07:53 Potassium 4.3 mmol/L (3.5-5.1) 06/09/17 07:53 Chloride 106 mmol/L (98-107) 06/09/17 07:53 Carbon Dioxide 21 mmol/L (22-30) L 06/09/17 07:53 Anion Gap 12 mmol/L 06/09/17 07:53 BUN 13 mg/dL (7-17) 06/09/17 07:53 Creatinine 0.66 mg/dL (0.52-1.04) 06/09/17 07:53 Est GFR (MDRD) Af Amer >60 (>60 ml/min/1.73 sqM) 06/09/17 07:53 Est GFR (MDRD) Non-Af >60 (>60 ml/min/1.73 sqM) 06/09/17 07:53 Glucose 98 mg/dL (74-99) 06/09/17 07:53 Plasma Lactic Acid Edin 1.4 mmol/L (0.7-2.0) 06/08/17 13:05 Calcium 8.8 mg/dL (8.4-10.2) 06/09/17 07:53 Magnesium 1.5 mg/dL (1.6-2.3) L 06/09/17 07:53 Total Bilirubin 0.5 mg/dL (0.2-1.3) 06/08/17 13:05 AST 14 U/L (14-36) 06/08/17 13:05 ALT 21 U/L (9-52) 06/08/17 13:05 Alkaline Phosphatase 74 U/L (38-126) 06/08/17 13:05 Total Protein 7.0 g/dL (6.3-8.2) 06/08/17 13:05 Albumin 3.9 g/dL (3.5-5.0) 06/08/17 13:05 Urine Color Yellow 06/08/17 14:09 Urine Appearance Clear (Clear) 06/08/17 14:09 Urine pH 6.0 (5.0-8.0) 06/08/17 14:09 Ur Specific [place] 1.008 (1.001-1.035) 06/08/17 14:09 Urine Protein Negative (Negative) 06/08/17 14:09 Urine Glucose (UA) Negative (Negative) 06/08/17 14:09 Urine Ketones Negative (Negative) 06/08/17 14:09 Urine Blood Moderate (Negative) H 06/08/17 14:09 Urine Nitrite Negative (Negative) 06/08/17 14:09 Urine Bilirubin Negative (Negative) 06/08/17 14:09 Urine Urobilinogen <2.0 mg/dL (<2.0) 06/08/17 14:09 Ur Leukocyte Esterase Small (Negative) H 06/08/17 14:09 Urine RBC 11 /hpf (0-5) H 06/08/17 14:09 Urine WBC 9 /hpf (0-5) H 06/08/17 14:09 Ur Squamous Epith Cells 2 /hpf (0-4) 06/08/17 14:09 Urine Mucus Rare /hpf (None) H 06/08/17 14:09 Influenza Type A RNA Not Detected (Not Detectd) 06/08/17 13:05 Influenza Type B (PCR) Not Detected (Not Detectd) 06/08/17 13:05 CBC & Chem 7: 06/10/17 07:55 06/10/17 07:55 Labs: Abnormal Lab Results - Last 24 Hours (Table) 01/12/1706/08/17 06/08/17 Range/Units 13:05 13:05 13:53 WBC 24.2 H (3.8-10.6) k/uL RBC 3.52 L (3.80-5.40) m/uL Hgb 10.8 L (11.4-16.0) gm/dL Hct 33.1 L (34.0-46.0) % MCHC (31.0-37.0) g/dL Plt Count 509 H (150-450) k/uL Neutrophils # 21.7 H (1.3-7.7) k/uL D-Dimer 0.76 H (<0.60) mg/L FEU Carbon Dioxide (22-30) mmol/L Glucose 112 H (74-99) mg/dL Magnesium 1.2 L (1.6-2.3) mg/dL Urine Blood (Negative) Ur Leukocyte Esterase (Negative) Urine RBC (0-5) /hpf Urine WBC (0-5) /hpf Urine Mucus (None) /hpf 06/08/17 06/09/17 06/09/17 Range/Units 14:09 07:53 07:53 WBC 14.1 H (3.8-10.6) k/uL RBC 3.27 L (3.80-5.40) m/uL Hgb 9.6 L (11.4-16.0) gm/dL Hct 32.3 L (34.0-46.0) % MCHC 29.9 L (31.0-37.0) g/dL Plt Count (150-450) k/uL Neutrophils # 11.7 H (1.3-7.7) k/uL D-Dimer (<0.60) mg/L FEU Carbon Dioxide 21 L (22-30) mmol/L Glucose (74-99) mg/dL Magnesium 1.5 L (1.6-2.3) mg/dL Urine Blood Moderate H (Negative) Ur Leukocyte Esterase Small H (Negative) Urine RBC 11 H (0-5) /hpf Urine WBC 9 H (0-5) /hpf Urine Mucus Rare H (None) /hpf Microbiology - Last 24 Hours (Table) 06/08/17 14:09 Urine Culture - Preliminary Urine,Clean Catch Assessment and Plan Plan: this is a 71-year-old female who presented to the hospital with respiratory symptoms, sepsis and diagnosed with bronchitis. Plan medicine is following the patient. She is currently on antibiotics in form of Levaquin and vancomycin. Influenza testing has been negative. Legionella and Mycoplasma pneumonia are status received. Serologies for endemic mycoses have been requested. Sputum culture has been obtained. Blood and urine are pending. Continue supportive care. Further recommendations as patient progresses. The above dictated assessment and findings were discussed with Dr. Ardon. The impression and plan of care have been directed as dictated. Susan Perez nurse practitioner acting as scribe for Dr. Ardon.
[2017-06-09] MEDS: LEVOFLOXACIN 750MG-D5W PMX 750 MG in DEXTROSE/WATER 1 150ML.BAG IVPB SCH (17:34)
--- NOTE | 2017-06-09 17:37 | P.CNPUL ---
History of Present Illness Consult date: 06/09/17 Requesting physician: Yo Camarena Reason for consult: dyspnea, cough Chief complaint: Increased shortness of breath, cough, fever, diarrhea History of present illness: Darlene is a 71-year-old white female patient who presented to the emergency department on 06/08/2017 at 12:00 with complaints of increased shortness of breath, cough, fatigue, fever, chills, and diarrhea. The cough has been present for 5 or 6 days, with intermittent episodes of extreme coughing spells. Patient has previously been hospitalized in May with with acute urinary tract infection, cultures positive for E. coli. Patient was treated with Rocephin and Zithromax during that admission, improved and was discharged home on 05/22/2017. After going home, patient reports completing the outpatient course of antibiotics, but shortly after developed significant diarrhea. On presentation patient was febrile with a fever of 100.6F, leukocytosis with WBC of 24.2, d-dimer was slightly elevated to 0.76, no evidence of coagulopathy, urinalysis showed small amount of leukocyte esterase, RBCs, WBCs, and mucus. Influenza screen was negative. Lactic acid was negative at 1.4. Patient was noted to be hypomagnesemic with a magnesium of 1.2. Initial chest x-ray on 11/2017 showed no active intrathoracic disease, however follow-up chest x-ray from 06/09/2017 shows increased interstitium, interstitial edema, pulmonary venous hypertension, consistent with volume overload. Patient was given a liter bolus of 0.9 normal saline in the emergency room on admission, maintenance IV fluid were running at 100 ML per hour. Patient's last echocardiogram on 05/19/2017 showed normal left ventricular systolic function with an EF between 55-60%, mild mitral and tricuspid regurgitation, with no evidence of pulmonary hypertension with right ventricular systolic pressure of 27.65 mmHg. Patient was given 40 mg of Lasix IV push this morning, with diuresis, and improvement in her dyspnea. Patient does not have any chronic pulmonary disease, she reports remote history of smoking back in her teen years. Review of Systems All systems: negative Constitutional: Reports fatigue, Denies chills, Denies fever Eyes: denies blurred vision, denies pain Ears, nose, mouth and throat: Denies headache, Denies sore throat Cardiovascular: Denies chest pain, Denies shortness of breath Respiratory: Denies cough Gastrointestinal: Denies abdominal pain, Denies diarrhea, Denies nausea, Denies vomiting Genitourinary: Denies dysuria, Denies hematuria Musculoskeletal: Denies myalgias Integumentary: Denies pruritus, Denies rash Neurological: Denies numbness, Denies weakness Psychiatric: Denies anxiety, Denies depression Endocrine: Denies fatigue, Denies weight change Past Medical History Past Medical History: Eye Disorder, Hyperlipidemia, Hypertension, Osteoarthritis (OA) Additional Past Medical History / Comment(s): cataracts removed with IOL History of Any Multi-Drug Resistant Organisms: None Reported Past Surgical History: Appendectomy, Bladder Surgery, Joint Replacement, Orthopedic Surgery Additional Past Surgical History / Comment(s): cataract sx with IOL Past Anesthesia/Blood Transfusion Reactions: Previous Problems w/ Anesthesia Additional Past Anesthesia/Blood Transfusion Reaction / Comment(s): nausea with anesthesia Past Psychological History: No Psychological Hx Reported Smoking Status: Former smoker Past Alcohol Use History: Occasional Additional Past Alcohol Use History / Comment(s): patient smoked briefly for 10- 15 years starting as a teenager only occasionally. She denies any medical marijuana, marijuana, street drug use.she lives at home with her . There is a cat in the home. She quit working 10 years ago to take care of her mother. 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 She has traveled to the [facility] 20 years ago but otherwise to [place] and [place]. She was recently in [place] and May 2017. She has a trip planned for March to [place]. Past Drug Use History: None Reported Medications and Allergies Home Medications Medication Instructions Recorded Confirmed Type Atorvastatin [Lipitor] 20 mg PO HS 05/18/17 06/08/17 History DULoxetine HCL [Cymbalta] 60 mg PO DAILY 05/18/17 06/08/17 History Fluticasone Nasal [place] [Flonase 2 spr EA NOSTRIL DAILY PRN 05/18/17 06/08/17 History Nasal [place]] Losartan Potassium 100 mg PO DAILY 05/18/17 06/08/17 History Meloxicam [Mobic] 15 mg PO DAILY PRN 05/18/17 06/08/17 History Metoprolol Succinate (ER) [Toprol 50 mg PO HS 05/18/17 06/08/17 History XL] Oxybutynin ER [Ditropan Xl] 15 mg PO DAILY 05/18/17 06/08/17 History Loratadine [Claritin] 10 mg PO DAILY #0 tab 05/22/17 06/08/17 Rx Magnesium Oxide [Beckwith] 500 mg PO BID 06/08/17 06/08/17 History Ranitidine HCl [Zantac] 300 mg PO DAILY 06/08/17 06/08/17 History Allergies Allergy/AdvReac Type Severity Reaction Status Date / Time codeine Allergy Nausea & Verified 06/09/17 00:12 Vomiting Penicillins Allergy Rash/Hives Verified 06/08/17 13:12 Physical Exam Vitals: Vital Signs Temp Pulse Pulse Resp BP Pulse Ox 06/09/17 15:56 112 H 06/09/17 15:44 112 H 95 06/09/17 15:00 97.6 F 111 H 20 107/60 94 L 06/09/17 11:55 108 H 06/09/17 11:45 100 06/09/17 09:20 108 H 06/09/17 09:06 116 H 06/09/17 09:05 116 H 06/09/17 08:52 110 H 96 06/09/17 08:00 107 H 20 06/09/17 07:00 98.2 F 107 H 20 129/78 92 L 06/09/17 01:52 97.3 F L 103 H 12 127/68 06/09/17 00:04 96 06/08/17 23:45 96 Intake and Output 06/09/17 06/09/17 06/09/17 06:59 14:59 22:59 Intake Total 360 Balance 360 Intake: Oral 360 Other: # Voids 2 2 # Bowel Movements 0 1 GENERAL EXAM: Alert, pleasant, 71-year-old white female, comfortable in no apparent distress. HEAD: Normocephalic/atraumatic. EYES: Normal reaction of pupils, equal size. Conjunctiva pink, sclera white. NOSE: Clear with pink turbinates. THROAT: No erythema or exudates. NECK: No masses, no JVD, no thyroid enlargement, no adenopathy. CHEST: No chest wall deformity. Symmetrical expansion. LUNGS: Equal air entry extensive crackles bilaterally CVS: Regular rate and rhythm, normal S1 and S2, no gallops, no murmurs, no rubs ABDOMEN: Soft, nontender. No hepatosplenomegaly, normal bowel sounds, no guarding or rigidity. EXTREMITIES: No clubbing, no edema, no cyanosis, 2+ pulses and upper and lower extremities. MUSCULOSKELETAL: Muscle strength and tone normal. SPINE: No scoliosis or deformity SKIN: No rashes CENTRAL NERVOUS SYSTEM: Alert and oriented -3. No focal deficits, tone is normal in all 4 extremities. PSYCHIATRIC: Alert and oriented -3. Appropriate affect. Intact judgment and insight. Results - Laboratory Findings CBC and BMP: 06/09/17 07:53 06/09/17 07:53 PT/INR, D-dimer PT 9.7 sec (9.0-12.0) 06/08/17 13:05 INR 1.0 (<1.2) 06/08/17 13:05 D-Dimer 0.76 mg/L FEU (<0.60) H 06/08/17 13:53 Abnormal lab findings: Abnormal Labs 06/08/17 06/08/17 06/08/17 13:05 13:05 13:53 WBC 24.2 H RBC 3.52 L Hgb 10.8 L Hct 33.1 L MCHC Plt Count 509 H Neutrophils # 21.7 H D-Dimer 0.76 H Carbon Dioxide Glucose 112 H Magnesium 1.2 L Urine Blood Ur Leukocyte Esterase Urine RBC Urine WBC Urine Mucus 06/08/17 06/09/17 06/09/17 14:09 07:53 07:53 WBC 14.1 H RBC 3.27 L Hgb 9.6 L Hct 32.3 L MCHC 29.9 L Plt Count Neutrophils # 11.7 H D-Dimer Carbon Dioxide 21 L Glucose Magnesium 1.5 L Urine Blood Moderate H Ur Leukocyte Esterase Small H Urine RBC 11 H Urine WBC 9 H Urine Mucus Rare H - Diagnostic Findings Chest x-ray: report reviewed Additional studies: Twelve-lead EKG reviewed, showed sinus tachycardia with a rate of 127 BPM Assessment and Plan Plan: Assessment: #1. Acute sepsis related to acute urinary tract infection, patient was recently hospitalized with E. coli urinary tract infection, was treated with Rocephin and Zithromax. Patient presented with fever, chills, tachycardia, acute leukocytosis, and hypoxemia #2. Acute diastolic heart failure, based on echo results of 05/18/2017 EF of 55 -60%. Patient's initial chest x-ray on 06/08/2017 was negative for any acute pulmonary process, however overnight after fluid resuscitation with 1 L of 0.9 normal saline patient went into pulmonary edema requiring IV Lasix. #3. Acute hypoxic respiratory failure secondary to tracheobronchitis and acute diastolic heart failure, patient was given a dose of IV Lasix and empirically placed on Levaquin, aztreonam and vancomycin, influenza screen was negative. #4. Elevated d-dimer, 0.76. Patient also had a positive d-dimer during last admission in May, CT chest was negative for PE, bilateral lower leg ultrasound at that time was negative for DVT. #5. Diarrhea, with history of recent antibiotic treatment with been the last month, rule out C. diff #6. Hypomagnesemia, serum magnesium level I.2, present on admission and during previous admission in May, patient is currently on oral magnesium replacements, as well as IV supplementation #7. History of DJD, with evidence of vertebral compression fractures seen on CT chest from May 2017 #8. Hypertension #9. Hyperlipidemia #10. Appendectomy #11. GERD #12. Anemia, unspecified Plan: Continue Antibiotic coverage with Azactam, Levaquin and vancomycin. Awaiting results of Legionella and Mycoplasma pneumonia, patient did develop pulmonary edema overnight, she had a similar episode of acute pulmonary edema during last admission, requiring IV diuretics. Her last echocardiogram from May 2017 shows EF of 55-60%, one dose of IV Lasix 40 mg was given with good diuresis and improvement in her dyspnea. Will await final results of the urine, sputum and blood cultures. White count is trending down, that sees down to 14.1 today. We 'll obtain ultrasound the kidneys today. We'll correct serum magnesium per protocol. Continue nebulized treatments. We'll continue to follow with you. I performed a history & physical examination of the patient and discussed their management with my nurse practitioner, Parul Woodson. I reviewed the nurse practitioner's note and agree with the documented findings and plan of care. Lung sounds are positive for coarse crackles bilaterally. The findings and the impression was discussed with the patient. I attest to the documentation by the nurse practitioner. Time with Patient: Greater than 30
--- NOTE | 2017-06-09 19:28 | US ---
EXAMINATION TYPE: US kidneys/renal and bladder DATE OF EXAM: 06/09/2017 COMPARISON: NONE CLINICAL HISTORY: recurrent UTI. UTI EXAM MEASUREMENTS: Right Kidney: 9.6 x 4.0 x 3.9 cm Left Kidney: 9.4 x 4.7 x 3.9 cm Right Kidney: No hydronephrosis or masses seen . Cortical medullary differentiation is maintained. Left Kidney: No hydronephrosis or masses seen . Cortical medullary differentiation is maintained. Bladder: Anechoic, incompletely distended and incompletely evaluated. Bilateral Jets seen: Yes There is no evidence for hydronephrosis at this point in time. No nephrolithiasis is seen. No kodi s are identified. The urinary bladder is anechoic. Bilateral ureteral jets are seen. IMPRESSION: No sonographic evidence of hydronephrosis or nephrolithiasis.
[2017-06-09] MEDS: METOPROLOL SUCCINATE (ER) 50 MG TAB.ER.24H PO SCH (20:02)
[2017-06-09] MEDS: ATORVASTATIN 20 MG TAB PO SCH (20:02)
[2017-06-09] MEDS ORDERED: METOPROLOL SUCCINATE (ER) 50 MG TAB.ER.24H PO SCH (21:00)
--- NOTE | 2017-06-09 22:33 | P.CON ---
Consult Note - . Consult date: 06/09/17 Assessment/Plan:: This is a 71-year-old female who had recent hospitalization on May 18 through the which time she was treated for E. coli urinary tract infection and possible pneumonia was ruled out by pulmonary medicine. Patient states that during that hospitalization she woke up the morning she came in with pain across her lower anterior ribs radiating around to the back and down her back. She gives history that there was initial concern for kidney stone which was ruled out. She denies ever having any dysuria and has never had a urinary tract infection in the past. Patient was discharged home on Levaquin for an additional 7 days which she states she completed and then followed up with her primary care physician. She had repeat lab work done in the office and her electrolytes were low and she was started on magnesium and has taken a couple doses. She states that prior to her discharge, she had developed a cough that was very minor initially and this continued at home but then worsened a few days ago. Now the cough is very annoying, frequent and painful. She also gives history of loose bowel movements 1-2 times per day for the past week. Her last bowel movement was yesterday morning. She states she has not been eating very much as she has not been feeling well. Yesterday, she developed fever, chills and rigors with shortness of breath and continued cough , took Tylenol and knew she needed to come into the hospital. Patient came into [facility] emergency center for evaluation. She was found to be febrile with a temperature of 100.6, sinus tachycardia 128 and pulse ox of 88, leukocytosis at 24. Lactic acid was 1.4. Urinalysis was clear , nitrite negative, leukoesterase small, WBC 9. Influenza testing was negative. Patient was started on Levaquin and vancomycin and admitted to the [facility] floor and there is a consult in place for pulmonary medicine as well. Blood and urine culture are in progress. Mycoplasma pneumoniae and legionella testing are status received. Sputum culture has been sent. Please see the consult note as dictated by nurse practitioner Susan Rubioflip. This pleasant woman relates that in general she has been quite healthy. However she did relate to a history of some cardiovascular disease. She has become ill directly after her travels out west to [place]. 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 She stayed in hotels in the [place] trip, she did not venture on desert excursions this time. Her is well and was with her the entire time. Serologies for endemic mycoses have been requested. On exam the patient does have evidence of a murmur 2/6 systolic murmur left sternal border. Echocardiogram is requested to further evaluate especially since she does have a history of some cardiovascular disease and is more short of breath at this time. She cannot recall her last echocardiogram. Cultures are in process. Antibiotic therapy continues for now as we await further culture data.
[2017-06-10] MEDS: AZTREONAM 2 GM in SODIUM CHLORIDE 0.9% 100 ML IVPB SCH ×3 (00:14→15:10)
[2017-06-10] MEDS: ALPRAZolam 0.25 MG TAB PO PRN (01:51)
[2017-06-10] MEDS: VANCOMYCIN 1,000 MG in SODIUM CHLORIDE 0.9% 250 ML IVPB SCH ×2 (05:11→18:35)
[2017-06-10] MEDS: DULoxetine HCL 60 MG CAPSULE.DR PO SCH (07:43)
[2017-06-10] MEDS: OXYBUTYNIN 15 MG TAB.ER.24 PO SCH (07:43)
[2017-06-10] MEDS: PANTOPRAZOLE 40 MG TABLET PO SCH (07:43)
[2017-06-10] MEDS: HEPARIN SODIUM,PORCINE 5,000 UNIT/ML 1 ML VIAL SQ SCH ×2 (07:43→21:23)
[2017-06-10] MEDS: LORATADINE 10 MG TAB PO SCH (07:43)
[2017-06-10] MEDS: MAGNESIUM OXIDE 400 MG TAB PO SCH ×2 (07:43→21:23)
[2017-06-10] MEDS: LOSARTAN 50 MG TAB PO SCH (07:43)
[2017-06-10 08:50] LABS: Basophils # (A) 0.1 k/uL (0-0.2); Basophils % (A) 0 %; Eosinophils # (A) 0.4 k/uL (0-0.7); Eosinophils % (A) 3 %; HCT 30.5 % (34.0-46.0); HGB 9.6 gm/dL (11.4-16.0); Hypochromasia Slight; Lymphocytes # (A) 1.7 k/uL (1.0-4.8); Lymphocytes % (A) 13 %; MCH 30.2 pg (25.0-35.0); MCHC 31.4 g/dL (31.0-37.0); MCV 96.2 fL (80.0-100.0); Mean Platelet Volume 7.6; Monocytes # (A) 0.4 k/uL (0-1.0); Monocytes % (A) 3 %; Neutrophils % (A) 79 %; Platelet Count 427 k/uL (150-450); RBC 3.17 m/uL (3.80-5.40); RDW 13.8 % (11.5-15.5); WBC 12.6 k/uL (3.8-10.6)
[2017-06-10] MEDS: BUDESONIDE 1 MG/2 ML NEBU INHALATION SCH ×2 (08:54→19:10)
[2017-06-10] MEDS: FORMOTEROL FUMARATE 20 MCG/2 ML NEBU INHALATION SCH ×2 (08:56→19:10)
[2017-06-10] MEDS: IPRATROPIUM-ALBUTEROL 3 ML NEB INHALATION PRN ×2 (08:56→12:32)
[2017-06-10 09:02] LABS: Anion Gap 10 mmol/L; Blood Urea Nitrogen 10 mg/dL (7-17); Calcium 8.8 mg/dL (8.4-10.2); Carbon Dioxide 23 mmol/L (22-30); Chloride 104 mmol/L (98-107); Glucose 99 mg/dL (74-99); Magnesium 1.8 mg/dL (1.6-2.3); Potassium 4.7 mmol/L (3.5-5.1); Sodium 137 mmol/L (137-145)
--- NOTE | 2017-06-10 09:50 | XR ---
EXAMINATION TYPE: XR chest 1V portable DATE OF EXAM: 06/10/2017 COMPARISON: 06/09/2017 HISTORY: Cough TECHNIQUE: Single frontal view of the chest is obtained. FINDINGS: Persistent interstitial pattern with no sizable effusion. Question a granuloma in the left retrocardiac region. No pneumothorax. Arthropathy of the shoulders. IMPRESSION: Interstitial pattern could been the basis of interstitial pneumonitis or congestion. Chr onic lung disease in the differential diagnosis correlate clinically.
[2017-06-10] MEDS: guaiFENesin SYRUP 100MG/5ML 200 MG/10 ML CUP PO PRN ×2 (10:46→21:27)
--- NOTE | 2017-06-10 11:13 | ECHOF ---
Referral Reason:Endocarditis MEASUREMENTS -------- HEIGHT: 157.5 cm WEIGHT: 62.6 kg BP: 29/73 RVIDd: 2.6 cm (< 3.3) IVSd: 1.0 cm (0.6 - 1.1) LVIDd: 3.9 cm (3.9 - 5.3) LVPWd: 0.9 cm (0.6 - 1.1) IVSs: 1.2 cm LVIDs: 3.1 cm LVPWs: 1.2 cm LA Diam: 3.5 cm (2.7 - 3.8) LAESV Index (A-L): 34.90 ml/m Ao Diam: 2.6 cm (2.0 - 3.7) AV Cusp: 1.3 cm (1.5 - 2.6) LA Diam: 3.9 cm (2.7 - 3.8) MV EXCURSION: 13.362 mm (> 18.000) MV EF SLOPE: 52 mm/s (70 - 150) EPSS: 0.7 cm MV E Earl: 0.85 m/s MV DecT: 223 ms MV A Earl: 1.22 m/s MV E/A Ratio: 0.70 RAP: 5.00 mmHg RVSP: 33.21 mmHg FINDINGS -------- Sinus rhythm. This was a technically good study. The left ventricular size is normal. There is mild concentric left ventricular hypertrophy. Overa ll left ventricular systolic function is normal with, an EF between 55 - 60 %. The right ventricle is normal in size. LA is moderately dilated 34-39 ml/m2 The right atrial size is normal. The aortic valve is trileaflet, and appears structurally normal. No aortic stenosis or regurgitation. Mild mitral annular calcification present. Mild mitral regurgitation is present. Mild tricuspid regurgitation present. There is mild pulmonary hypertension. The right ventricular systolic pressure, as measured by Doppler, is 33.21mmHg. Trace/mild (physiologic) pulmonic regurgitation. The aortic root size is normal. There is no pericardial effusion. CONCLUSIONS -------- 1. The left ventricular size is normal. 2. There is mild concentric left ventricular hypertrophy. 3. Overall left ventricular systolic function is normal with, an EF between 55 - 60 %. 4. LA is moderately dilated 34-39 ml/m2 5. The aortic valve is trileaflet, and appears structurally normal. No aortic stenosis or regurgitati on. 6. Mild mitral annular calcification present. 7. Mild mitral regurgitation is present. 8. Mild tricuspid regurgitation present. 9. There is mild pulmonary hypertension. 10. The right ventricular systolic pressure, as measured by Doppler, is 33.21mmHg. 11. Trace/mild (physiologic) pulmonic regurgitation. 12. The aortic root size is normal. 13. There is no pericardial effusion. SKEIN YARN DYER HELPER: Brunilda Steele RDCS
--- NOTE | 2017-06-10 12:02 | P.PN ---
Subjective Progress Note Date: 06/10/17 Principal diagnosis: Acute sepsis related to acute urinary tract infection, recent history of E. coli UTI, acute diastolic heart failure Darlene is a 71-year-old white female patient who presented to the emergency department on 06/08/2017 at 12:00 with complaints of increased shortness of breath, cough, fatigue, fever, chills, and diarrhea. The cough has been present for 5 or 6 days, with intermittent episodes of extreme coughing spells. Patient has previously been hospitalized in May with with acute urinary tract infection, cultures positive for E. coli. Patient was treated with Rocephin and Zithromax during that admission, improved and was discharged home on 05/22/2017. After going home, patient reports completing the outpatient course of antibiotics, but shortly after developed significant diarrhea. On presentation patient was febrile with a fever of 100.6F, leukocytosis with WBC of 24.2, d-dimer was slightly elevated to 0.76, no evidence of coagulopathy, urinalysis showed small amount of leukocyte esterase, RBCs, WBCs, and mucus. Influenza screen was negative. Lactic acid was negative at 1.4. Patient was noted to be hypomagnesemic with a magnesium of 1.2. Initial chest x-ray on 11/2017 showed no active intrathoracic disease, however follow-up chest x-ray from 06/09/2017 shows increased interstitium, interstitial edema, pulmonary venous hypertension, consistent with volume overload. Patient was given a liter bolus of 0.9 normal saline in the emergency room on admission, maintenance IV fluid were running at 100 ML per hour. Patient's last echocardiogram on 05/19/2017 showed normal left ventricular systolic function with an EF between 55-60%, mild mitral and tricuspid regurgitation, with no evidence of pulmonary hypertension with right ventricular systolic pressure of 27.65 mmHg. Patient was given 40 mg of Lasix IV push this morning, with diuresis, and improvement in her dyspnea. Patient does not have any chronic pulmonary disease, she reports remote history of smoking back in her teen years. On 06/10/2017 patient seen in follow-up. Doing better, she reports being less dyspneic, still having the productive cough with production of yellow green sputum. Lung sounds are positive for rales over posterior bases bilaterally, patient remains on oxygen, at 2 L per nasal cannula with O2 sat. Remain slightly tachycardic with a rate of 108-112 BPM. Yesterday we gave patient 40 of Lasix or acute pulmonary edema. Follow-up chest x-ray today shows persisting interstitial pattern. Today's lab work shows a downward trending WBC of 12.6, hemoglobin of 9.6, sodium of 137, potassium is 4.7, carbon dioxide is 23, BUN of 10, creatinine 0.68. Magnesium is up to 1.8. Microbiology has been reviewed, sputum culture was contaminated with oral reji, and could not be used. Blood cultures show no growth after 24 hours. Urine culture was positive for skin and or genital reji contaminants. Patient remains afebrile, with dynamically stable. Echocardiogram was reviewed, shows EF of 55-60%, no aortic stenosis or regurgitation, mild mitral and mild tricuspid regurgitation was present. Mild pulmonary hypertension, with right ventricular systolic pressure of 33 mmHg. Patient was advised to increase activity, ambulate in the room in the hallway. Objective - Vital Signs Vital signs: Vital Signs Temp 97.4 F L 06/10/17 07:00 Pulse 112 H 06/10/17 09:18 Resp 18 06/10/17 09:18 BP 117/65 06/10/17 07:00 Pulse Ox 90 L 06/10/17 10:11 Intake & Output 06/09/17 06/10/17 06/10/17 18:59 06:59 18:59 Intake Total 360 Balance 360 Intake: Oral 360 Other: Voiding Method Toilet # Voids 2 2 2 # Bowel Movements 1 0 - Exam GENERAL EXAM: Alert, pleasant, 71-year-old white female, comfortable in no apparent distress. HEAD: Normocephalic/atraumatic. EYES: Normal reaction of pupils, equal size. Conjunctiva pink, sclera white. NOSE: Clear with pink turbinates. THROAT: No erythema or exudates. NECK: No masses, no JVD, no thyroid enlargement, no adenopathy. CHEST: No chest wall deformity. Symmetrical expansion. LUNGS: Equal air entry crackles bilaterally CVS: Regular rate and rhythm, normal S1 and S2, no gallops, no murmurs, no rubs ABDOMEN: Soft, nontender. No hepatosplenomegaly, normal bowel sounds, no guarding or rigidity. EXTREMITIES: No clubbing, no edema, no cyanosis, 2+ pulses and upper and lower extremities. MUSCULOSKELETAL: Muscle strength and tone normal. SPINE: No scoliosis or deformity SKIN: No rashes CENTRAL NERVOUS SYSTEM: Alert and oriented -3. No focal deficits, tone is normal in all 4 extremities. PSYCHIATRIC: Alert and oriented -3. Appropriate affect. Intact judgment and insight. - Labs CBC & Chem 7: 06/10/17 07:55 06/10/17 07:55 Labs: Abnormal Lab Results - Last 24 Hours (Table) 06/10/17 Range/Units 07:55 WBC 12.6 H (3.8-10.6) k/uL RBC 3.17 L (3.80-5.40) m/uL Hgb 9.6 L (11.4-16.0) gm/dL Hct 30.5 L (34.0-46.0) % Neutrophils # 10.0 H (1.3-7.7) k/uL Microbiology - Last 24 Hours (Table) 06/08/17 14:09 Urine Culture - Final Urine,Clean Catch 06/08/17 16:38 Blood Culture - Preliminary Blood No Growth after 24 hours 06/08/17 13:05 Blood Culture - Preliminary Blood No Growth after 24 hours 06/09/17 09:16 Gram Stain - Final Sputum Sputum Culture - Final Assessment and Plan Plan: Assessment: #1. Acute sepsis related to acute urinary tract infection, patient was recently hospitalized with E. coli urinary tract infection, was treated with Rocephin and Zithromax. Patient presented with fever, chills, tachycardia, acute leukocytosis, and hypoxemia. Urine culture was contaminated with skin and genital reji, therefore could not be used. #2. Acute diastolic heart failure, based on echo results of 05/18/2017 EF of 55 -60%. Patient's initial chest x-ray on 06/08/2017 was negative for any acute pulmonary process, however overnight after fluid resuscitation with 1 L of 0.9 normal saline patient went into pulmonary edema requiring IV Lasix. Repeat echo on 06/09/2016 showed unchanged EF of 55-60% no evidence of aortic stenosis or regurgitation, there is evidence of mild mitral and tricuspid regurgitation, mild pulmonary hypertension with right ventricular systolic pressure of 33 mmHg. #3. Acute hypoxic respiratory failure secondary to tracheobronchitis and acute diastolic heart failure, patient was given a dose of IV Lasix and empirically placed on Levaquin, aztreonam and vancomycin, influenza screen was negative. During last admission in May [address] of abdomen and pelvis on 05/18/2017 which showed patchy groundglass opacities in the periphery of both lungs. Patient describes a persistent cough since her last trip to [place] in May 2017. 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 Elevated d-dimer, 0.76. Patient also had a positive d-dimer during last admission in May, CT chest was negative for PE, bilateral lower leg ultrasound at that time was negative for DVT. #5. Diarrhea, with history of recent antibiotic treatment with been the last month, rule out C. diff #6. Hypomagnesemia, serum magnesium level I.2, present on admission and during previous admission in May, patient is currently on oral magnesium replacements, as well as IV supplementation #7. History of DJD, with evidence of vertebral compression fractures seen on CT chest from May 2017 #8. Hypertension #9. Hyperlipidemia #10. Appendectomy #11. GERD #12. Anemia, unspecified Plan: Continue Patient reports improvement in her dyspnea, still has the loose productive cough with green-yellow sputum. Antibiotic coverage with Azactam, Levaquin and vancomycin. 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 Chest x-ray from today shows persistent interstitial pattern. Echo results were reviewed, EF is 55-60% , mild mitral and tricuspid regurgitation, no evidence of aortic stenosis or regurgitation. Mild pulmonary hypertension is noted. We will add a proBNP to this morning's labs. Ultrasound of the kidneys was negative for any evidence of hydronephrosis or nephrolithiasis. The bladder was anechoic. Wean patient' s FiO2, increase activity as tolerated. Continue nebulized treatments. I performed a history & physical examination of the patient and discussed their management with my nurse practitioner, Parul Woodson. I reviewed the nurse practitioner's note and agree with the documented findings and plan of care. Lung sounds are positive for coarse rales over bilateral bases. The findings and the impression was discussed with the patient. I attest to the documentation by the nurse practitioner. I performed a history & physical examination of the patient and discussed their management with my nurse practitioner, Parul Woodson. I reviewed the nurse practitioner's note and agree with the documented findings and plan of care. Lung sounds are positive for coarse crackles bilaterally. The findings and the impression was discussed with the patient. I attest to the documentation by the nurse practitioner. Time with Patient: Less than 30
[2017-06-10] MEDS: MAGNESIUM SULFATE-D5W PMX 1 GM in DEXTROSE/WATER 1 100ML.BAG IVPB SCH ×2 (13:43→14:14)
[2017-06-10] MEDS: FUROSEMIDE 10 MG/ML 4 ML VIAL IV SCH ×2 (14:14→21:23)
[2017-06-10] MEDS: SODIUM CHLORIDE 0.9% 1,000 ML IV SCH (15:10)
[2017-06-10] MEDS: LEVOFLOXACIN 750MG-D5W PMX 750 MG in DEXTROSE/WATER 1 150ML.BAG IVPB SCH (16:39)
--- NOTE | 2017-06-10 18:57 | P.PN ---
Subjective Progress Note Date: 06/09/17 Progress Note being dictated for Dr. Camarena Interval History: This is a 71-year-old female admitted with acute sepsis related to possible pneumonia, acute CHF, acute hypoxic respiratory failure, diarrhea, hypomagnesemia and multiple other medical issues.status post fluid boluses in the ER, maintained on IV fluid hydration. New-onset of pulmonary edema per chest x-ray .Received a dose of Lasix today. Echo pending. Magnesium being replaced as per protocol. Send out labs for Legionella and Mycoplasma pneumonia pending. Maintained on Azactam, Levaquin and vancomycin. Afebrile, WBC improving. urine and sputum and blood cultures pending. Stool for C. difficile colitis not yet collected. Continues on nebulized bronchodilators, maintaining O2 sats of 92 to 96% on 2 L nasal cannula. Objective - Vital Signs Vital signs: Vital Signs Temp 97.6 F 06/09/17 15:00 Pulse 112 H 06/09/17 15:56 Resp 20 06/09/17 15:00 BP 107/60 06/09/17 15:00 Pulse Ox 95 06/09/17 15:44 Intake & Output 06/08/17 06/09/17 06/09/17 18:59 06:59 18:59 Intake Total 360 Balance 360 Weight 62.7 kg Intake: Oral 360 Other: # Voids 2 2 # Bowel Movements 0 1 - Exam PHYSICAL EXAM: VITAL SIGNS: As above GENERAL: Sitting up in bed, no acute distress HEENT: Conjunctivae normal. eyes normal. NECK: No JVD. No thyroid enlargement. No LNs CARDIOVASCULAR: S1, S2 muffled. No murmur RESPIRATION: Breath sounds diminished in the bases. Bilateral scattered rhonchi and coarse crackles. ABDOMEN: Soft, nontender . No guarding. no masses palpable. Bowel sounds heard. LEGS: No edema. no swelling PSYCHIATRY: Alert and oriented -3, mood and affect normal. NERVOUS SYSTEM: Cranial N 2-12 grossly normal. Moves all 4 limbs. Diffuse weakness No focal deficits. No sensory deficit. Skin: no ulcer no rash Joints: No active swelling. No inflammation. Lymphatic system. No LN neck axilla or groin. - Labs CBC & Chem 7: 06/10/17 07:55 06/10/17 07:55 Labs: Abnormal Lab Results - Last 24 Hours (Table) 06/09/17 06/09/17 Range/Units 07:53 07:53 WBC 14.1 H (3.8-10.6) k/uL RBC 3.27 L (3.80-5.40) m/uL Hgb 9.6 L (11.4-16.0) gm/dL Hct 32.3 L (34.0-46.0) % MCHC 29.9 L (31.0-37.0) g/dL Neutrophils # 11.7 H (1.3-7.7) k/uL Carbon Dioxide 21 L (22-30) mmol/L Magnesium 1.5 L (1.6-2.3) mg/dL Microbiology - Last 24 Hours (Table) 06/08/17 13:05 Blood Culture - Preliminary Blood No Growth after 24 hours 06/09/17 09:16 Gram Stain - Final Sputum Sputum Culture - Final 06/08/17 14:09 Urine Culture - Preliminary Urine,Clean Catch Assessment and Plan Assessment: 1. Acute hypoxic respiratory failure secondary to Possible bibasilar pneumonia possible sepsis, in a patient with recent bibasilar pneumonia 2. Diarrhea, rule out acute C. difficile colitis(uncollected) 3. Acute CHF, EF currently unknown, echo pending 4. Anemia 5. Recent pyelonephritis 6. Hypertension 7. Hyperlipidemia Plan: Continue on current medication regime, antibiotics, monitoring and symptomatic treatment.Send out labs for Legionella and Mycoplasma pneumonia pending. 2-D echo pending. Received a dose of Lasix for new-onset pulmonary edema. Repeat chest x-ray in a.m. Close monitoring of lites with repeat labs ordered for a.m. The impression and plan of care has been dictated as directed. : I performed a history and examination of this patient, discussed the same with the dictator. I agree with the dictator's note ,documented as a scribe. Any additional findings or plans will be noted.
[2017-06-10] MEDS: ATORVASTATIN 20 MG TAB PO SCH (21:22)
[2017-06-10] MEDS: METOPROLOL SUCCINATE (ER) 50 MG TAB.ER.24H PO SCH (21:24)
--- NOTE | 2017-06-10 23:50 | P.PN ---
Subjective Progress Note Date: 06/10/17 Principal diagnosis: Shortness of breath This is a 71-year-old female who had recent hospitalization on May 18 through the which time she was treated for E. coli urinary tract infection and possible pneumonia was ruled out by pulmonary medicine. Patient states that during that hospitalization she woke up the morning she came in with pain across her lower anterior ribs radiating around to the back and down her back. She gives history that there was initial concern for kidney stone which was ruled out. She denies ever having any dysuria and has never had a urinary tract infection in the past. Patient was discharged home on Levaquin for an additional 7 days which she states she completed and then followed up with her primary care physician. She had repeat lab work done in the office and her electrolytes were low and she was started on magnesium and has taken a couple doses. She states that prior to her discharge, she had developed a cough that was very minor initially and this continued at home but then worsened a few days ago. Now the cough is very annoying, frequent and painful. She also gives history of loose bowel movements 1-2 times per day for the past week. Her last bowel movement was yesterday morning. She states she has not been eating very much as she has not been feeling well. Yesterday, she developed fever, chills and rigors with shortness of breath and continued cough , took Tylenol and knew she needed to come into the hospital. Patient came into [facility] emergency center for evaluation. She was found to be febrile with a temperature of 100.6, sinus tachycardia 128 and pulse ox of 88, leukocytosis at 24. Lactic acid was 1.4. Urinalysis was clear , nitrite negative, leukoesterase small, WBC 9. Influenza testing was negative. Patient was started on Levaquin and vancomycin and admitted to the [facility] floor and there is a consult in place for pulmonary medicine as well. Blood and urine culture are in progress. Mycoplasma pneumoniae and legionella testing are status received. Sputum culture has been sent. Patient continues to feel poorly. Although she is less short of breath. She's had some diuresis and is now not requiring continuous oxygen therapy. With ambulation her pulse ox was 91%. Objective - Vital Signs Vital signs: Vital Signs Temp 96.9 F L 06/10/17 15:00 Pulse 106 H 06/10/17 19:40 Resp 16 06/10/17 19:40 BP 108/61 06/10/17 15:00 Pulse Ox 92 L 06/10/17 15:00 Intake & Output 06/10/17 06/10/17 06/11/17 06:59 18:59 06:59 Other: Voiding Method Toilet # Voids 2 2 1 # Bowel Movements 0 - Exam Gen: This is a [id number] female. She is seen walking to her bed from the bathroom and appears to be in no acute distress. Gait is steady. HEENT: Head is atraumatic, normocephalic. Pupils equal, round. Sclerae is anicteric. conjunctiva pink. Oral mucous membranes are slightly dry. No thrush noted. NECK: Supple. No JVD. No lymphadenopathy. No thyromegaly. LUNGS: bilateral scattered crackles. No intercostal retractions. HEART: Regular rate and rhythm. Systolic murmur. Tachycardic. ABDOMEN: Soft. Bowel sounds are present. No masses. No tenderness. No CVA tenderness. EXTREMITIES: Trace bilateral pedal edema. No calf tenderness. dorsalis pedis + 2 bilaterally. NEUROLOGICAL: Patient is awake, alert and oriented x3. - Labs CBC & Chem 7: 06/10/17 07:55 06/10/17 07:55 Labs: Abnormal Lab Results - Last 24 Hours (Table) 06/10/17 Range/Units 07:55 WBC 12.6 H (3.8-10.6) k/uL RBC 3.17 L (3.80-5.40) m/uL Hgb 9.6 L (11.4-16.0) gm/dL Hct 30.5 L (34.0-46.0) % Neutrophils # 10.0 H (1.3-7.7) k/uL Microbiology - Last 24 Hours (Table) 06/10/17 08:58 Gram Stain - Preliminary Sputum 06/08/17 16:38 Blood Culture - Preliminary Blood No Growth after 48 hours 06/08/17 13:05 Blood Culture - Preliminary Blood No Growth after 48 hours 06/08/17 14:09 Urine Culture - Final Urine,Clean Catch Laboratory Results WBC 12.6 k/uL (3.8-10.6) H 06/10/17 07:55 RBC 3.17 m/uL (3.80-5.40) L 06/10/17 07:55 Hgb 9.6 gm/dL (11.4-16.0) L 06/10/17 07:55 Hct 30.5 % (34.0-46.0) L 06/10/17 07:55 MCV 96.2 fL (80.0-100.0) 06/10/17 07:55 MCH 30.2 pg (25.0-35.0) 06/10/17 07:55 MCHC 31.4 g/dL (31.0-37.0) 06/10/17 07:55 RDW 13.8 % (11.5-15.5) 06/10/17 07:55 Plt Count 427 k/uL (150-450) 06/10/17 07:55 Neutrophils % 79 % 06/10/17 07:55 Lymphocytes % 13 % 06/10/17 07:55 Monocytes % 3 % 06/10/17 07:55 Eosinophils % 3 % 06/10/17 07:55 Basophils % 0 % 06/10/17 07:55 Neutrophils # 10.0 k/uL (1.3-7.7) H 06/10/17 07:55 Lymphocytes # 1.7 k/uL (1.0-4.8) 06/10/17 07:55 Monocytes # 0.4 k/uL (0-1.0) 06/10/17 07:55 Eosinophils # 0.4 k/uL (0-0.7) 06/10/17 07:55 Basophils # 0.1 k/uL (0-0.2) 06/10/17 07:55 Hypochromasia Slight 06/10/17 07:55 PT 9.7 sec (9.0-12.0) 06/08/17 13:05 INR 1.0 (<1.2) 06/08/17 13:05 APTT 22.3 sec (22.0-30.0) 06/08/17 13:05 D-Dimer 0.76 mg/L FEU (<0.60) H 06/08/17 13:53 Sodium 137 mmol/L (137-145) 06/10/17 07:55 Potassium 4.7 mmol/L (3.5-5.1) 06/10/17 07:55 Chloride 104 mmol/L (98-107) 06/10/17 07:55 Carbon Dioxide 23 mmol/L (22-30) 06/10/17 07:55 Anion Gap 10 mmol/L 06/10/17 07:55 BUN 10 mg/dL (7-17) 06/10/17 07:55 Creatinine 0.68 mg/dL (0.52-1.04) 06/10/17 07:55 Est GFR (MDRD) Af Amer >60 (>60 ml/min/1.73 sqM) 06/10/17 07:55 Est GFR (MDRD) Non-Af >60 (>60 ml/min/1.73 sqM) 06/10/17 07:55 Glucose 99 mg/dL (74-99) 06/10/17 07:55 Plasma Lactic Acid Edin 1.4 mmol/L (0.7-2.0) 06/08/17 13:05 Calcium 8.8 mg/dL (8.4-10.2) 06/10/17 07:55 Magnesium 1.8 mg/dL (1.6-2.3) 06/10/17 07:55 Total Bilirubin 0.5 mg/dL (0.2-1.3) 06/08/17 13:05 AST 14 U/L (14-36) 06/08/17 13:05 ALT 21 U/L (9-52) 06/08/17 13:05 Alkaline Phosphatase 74 U/L (38-126) 06/08/17 13:05 NT-Pro-B Natriuret Pep 150 pg/mL 06/10/17 07:55 Total Protein 7.0 g/dL (6.3-8.2) 06/08/17 13:05 Albumin 3.9 g/dL (3.5-5.0) 06/08/17 13:05 Urine Color Yellow 06/08/17 14:09 Urine Appearance Clear (Clear) 06/08/17 14:09 Urine pH 6.0 (5.0-8.0) 06/08/17 14:09 Ur Specific [place] 1.008 (1.001-1.035) 06/08/17 14:09 Urine Protein Negative (Negative) 06/08/17 14:09 Urine Glucose (UA) Negative (Negative) 06/08/17 14:09 Urine Ketones Negative (Negative) 06/08/17 14:09 Urine Blood Moderate (Negative) H 06/08/17 14:09 Urine Nitrite Negative (Negative) 06/08/17 14:09 Urine Bilirubin Negative (Negative) 06/08/17 14:09 Urine Urobilinogen <2.0 mg/dL (<2.0) 06/08/17 14:09 Ur Leukocyte Esterase Small (Negative) H 06/08/17 14:09 Urine RBC 11 /hpf (0-5) H 06/08/17 14:09 Urine WBC 9 /hpf (0-5) H 06/08/17 14:09 Ur Squamous Epith Cells 2 /hpf (0-4) 06/08/17 14:09 Urine Mucus Rare /hpf (None) H 06/08/17 14:09 Influenza Type A RNA Not Detected (Not Detectd) 06/08/17 13:05 Influenza Type B (PCR) Not Detected (Not Detectd) 06/08/17 13:05 Microbiology 06/10/17 08:58 Sputum Gram Stain - Preliminary 06/08/17 16:38 Blood Blood Culture - Preliminary No Growth after 48 hours 06/08/17 13:05 Blood Blood Culture - Preliminary No Growth after 48 hours 06/08/17 14:09 Urine,Clean Catch Urine Culture - Final 06/09/17 09:16 Sputum Gram Stain - Final 06/09/17 09:16 Sputum Sputum Culture - Final Echocardiogram fails to reveal evidence of any valvular heart disease ejection fraction 55-60%. Assessment and Plan (1) Leukocytosis Current Visit: No Status: Acute Code(s): D72.829 - ELEVATED WHITE BLOOD CELL COUNT, UNSPECIFIED SNOMED Code(s): 950788013 (2) Pneumonitis Narrative/Plan: This pleasant woman relates that in general she has been quite healthy. However she did relate to a history of some cardiovascular disease. She has become ill directly after her travels out west to [place]. 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 She stayed in hotels in the [place] trip, she did not venture on desert excursions this time. Her is well and was with her the entire time. Serologies for endemic mycoses have been requested. On exam the patient does have evidence of a murmur 2/6 systolic murmur left sternal border. Echocardiogram did not reveal evidence of any valvular heart disease. There is evidence that she has diastolic congestive heart failure and is now started to show some improvement with the current treatment. She is very discontent that she is having anything severely wrong with her she wants to be busy and active and does not have time for desire to be ill. We will limit her antimicrobial therapy and discontinue vancomycin and Zosyn. She Forshey is showing some improvements in overall with ongoing diuresis and offloading she will have improvement of her cardiac status and improve her physical status. Above serologies remain pending. Current Visit: Yes Status: Acute Code(s): J18.9 - PNEUMONIA, UNSPECIFIED ORGANISM SNOMED Code(s): 479875503
[2017-06-11] MEDS ORDERED: VANCOMYCIN TROUGH DUE 1 EACH MISC MISCELLANE ONE (05:00)
[2017-06-11 05:24] LABS: Basophils # (A) 0.1 k/uL (0-0.2); Basophils % (A) 1 %; Eosinophils # (A) 0.5 k/uL (0-0.7); Eosinophils % (A) 5 %; HGB 9.8 gm/dL (11.4-16.0); Hypochromasia Slight; Lymphocytes # (A) 1.6 k/uL (1.0-4.8); Lymphocytes % (A) 15 %; MCH 29.7 pg (25.0-35.0); MCHC 31.7 g/dL (31.0-37.0); MCV 93.7 fL (80.0-100.0); Mean Platelet Volume 8.2; Monocytes # (A) 0.4 k/uL (0-1.0); Monocytes % (A) 3 %; Neutrophils # (A) 8.2 k/uL (1.3-7.7); Neutrophils % (A) 75 %; Platelet Count 426 k/uL (150-450); RBC 3.31 m/uL (3.80-5.40); RDW 13.4 % (11.5-15.5); WBC 10.8 k/uL (3.8-10.6)
[2017-06-11 05:41] LABS: Anion Gap 9 mmol/L; Blood Urea Nitrogen 16 mg/dL (7-17); Calcium 8.7 mg/dL (8.4-10.2); Carbon Dioxide 24 mmol/L (22-30); Chloride 103 mmol/L (98-107); Glucose 105 mg/dL (74-99); Potassium 4.5 mmol/L (3.5-5.1); Sodium 136 mmol/L (137-145)
[2017-06-11 07:18] VITALS: BP 119/68; RESP 17; TEMP 98.1
[2017-06-11] MEDS: PANTOPRAZOLE 40 MG TABLET PO SCH (07:55)
[2017-06-11] MEDS: HEPARIN SODIUM,PORCINE 5,000 UNIT/ML 1 ML VIAL SQ SCH (07:55)
[2017-06-11] MEDS: MAGNESIUM OXIDE 400 MG TAB PO SCH (07:56)
[2017-06-11] MEDS: DULoxetine HCL 60 MG CAPSULE.DR PO SCH (07:56)
[2017-06-11] MEDS: LORATADINE 10 MG TAB PO SCH (07:56)
[2017-06-11] MEDS: FUROSEMIDE 10 MG/ML 4 ML VIAL IV SCH (07:56)
[2017-06-11] MEDS: OXYBUTYNIN 15 MG TAB.ER.24 PO SCH (07:56)
[2017-06-11] MEDS: LOSARTAN 50 MG TAB PO SCH (07:56)
[2017-06-11] MEDS: FORMOTEROL FUMARATE 20 MCG/2 ML NEBU INHALATION SCH (09:00)
[2017-06-11] MEDS: BUDESONIDE 1 MG/2 ML NEBU INHALATION SCH (09:00)
[2017-06-11] MEDS: IPRATROPIUM-ALBUTEROL 3 ML NEB INHALATION PRN ×2 (09:00→11:54)
[2017-06-11] MEDS: guaiFENesin SYRUP 100MG/5ML 200 MG/10 ML CUP PO PRN (09:19)
[2017-06-11 11:56] VITALS: PULSE 68
--- NOTE | 2017-06-11 14:43 | XR ---
EXAMINATION TYPE: XR chest 1V portable DATE OF EXAM: 06/11/2017 COMPARISON: Prior chest x-ray 06/10/2017 HISTORY: Congestive heart failure TECHNIQUE: Single frontal view of the chest is obtained. FINDINGS: There is improvement in the interstitium, aeration within the lungs. No evident pneumothor ax or pleural effusion. Cardiac mediastinal silhouette, pulmonary vascularity and tere not significan t changed. IMPRESSION: Improvement in patient's volume status, lung aeration
--- NOTE | 2017-06-11 14:55 | P.PN ---
Subjective Progress Note Date: 06/11/17 Principal diagnosis: Acute sepsis related to acute urinary tract infection, recent history of E. coli UTI, acute diastolic heart failure Darlene is a 71-year-old white female patient who presented to the emergency department on 06/08/2017 at 12:00 with complaints of increased shortness of breath, cough, fatigue, fever, chills, and diarrhea. The cough has been present for 5 or 6 days, with intermittent episodes of extreme coughing spells. Patient has previously been hospitalized in May with with acute urinary tract infection, cultures positive for E. coli. Patient was treated with Rocephin and Zithromax during that admission, improved and was discharged home on 05/22/2017. After going home, patient reports completing the outpatient course of antibiotics, but shortly after developed significant diarrhea. On presentation patient was febrile with a fever of 100.6F, leukocytosis with WBC of 24.2, d-dimer was slightly elevated to 0.76, no evidence of coagulopathy, urinalysis showed small amount of leukocyte esterase, RBCs, WBCs, and mucus. Influenza screen was negative. Lactic acid was negative at 1.4. Patient was noted to be hypomagnesemic with a magnesium of 1.2. Initial chest x-ray on 11/2017 showed no active intrathoracic disease, however follow-up chest x-ray from 06/09/2017 shows increased interstitium, interstitial edema, pulmonary venous hypertension, consistent with volume overload. Patient was given a liter bolus of 0.9 normal saline in the emergency room on admission, maintenance IV fluid were running at 100 ML per hour. Patient's last echocardiogram on 05/19/2017 showed normal left ventricular systolic function with an EF between 55-60%, mild mitral and tricuspid regurgitation, with no evidence of pulmonary hypertension with right ventricular systolic pressure of 27.65 mmHg. Patient was given 40 mg of Lasix IV push this morning, with diuresis, and improvement in her dyspnea. Patient does not have any chronic pulmonary disease, she reports remote history of smoking back in her teen years. On 06/10/2017 patient seen in follow-up. Doing better, she reports being less dyspneic, still having the productive cough with production of yellow green sputum. Lung sounds are positive for rales over posterior bases bilaterally, patient remains on oxygen, at 2 L per nasal cannula with O2 sat. Remain slightly tachycardic with a rate of 108-112 BPM. Yesterday we gave patient 40 of Lasix or acute pulmonary edema. Follow-up chest x-ray today shows persisting interstitial pattern. Today's lab work shows a downward trending WBC of 12.6, hemoglobin of 9.6, sodium of 137, potassium is 4.7, carbon dioxide is 23, BUN of 10, creatinine 0.68. Magnesium is up to 1.8. Microbiology has been reviewed, sputum culture was contaminated with oral reji, and could not be used. Blood cultures show no growth after 24 hours. Urine culture was positive for skin and or genital reji contaminants. Patient remains afebrile, with dynamically stable. Echocardiogram was reviewed, shows EF of 55-60%, no aortic stenosis or regurgitation, mild mitral and mild tricuspid regurgitation was present. Mild pulmonary hypertension, with right ventricular systolic pressure of 33 mmHg. Patient was advised to increase activity, ambulate in the room in the hallway. On 06/11/2017 patient seen in follow-up. She sitting up in bed, in no acute distress, currently on room air, but has been wearing her oxygen intermittently. she has been afebrile, vital signs are stable. Lung sounds are still positive for bibasilar crackles, right more so than the left. Yesterday we gave her an additional dose of 40 mg of Lasix IV, and this morning she received another dose. chest x-ray from October was reviewed, and it shows improvement in the appearance of the interstitial congestion. blood and urine cultures show no growth, initial sputum culture sent on 06/09/2017 was contaminated, repeat sputum culture sent on 06/10/2017 is pending, preliminary Gram stain shows rare polymorphonuclear leukocytes, rare epithelial cells, few gram-positive cocci, and rare gram-negative bacilli. patient was seen by ID service, who is working the patient up for coccidiomycosis, presently patient continues on Levaquin. Objective - Vital Signs Vital signs: Vital Signs Temp 98.1 F 06/11/17 07:00 Pulse 68 06/11/17 12:05 Resp 17 06/11/17 07:00 BP 119/68 06/11/17 07:00 Pulse Ox 94 L 06/11/17 07:00 Intake & Output 06/10/17 06/11/17 06/11/17 18:59 06:59 18:59 Other: Voiding Method Toilet Toilet # Voids 2 3 - Exam GENERAL EXAM: Alert, pleasant, 71-year-old white female, comfortable in no apparent distress. HEAD: Normocephalic/atraumatic. EYES: Normal reaction of pupils, equal size. Conjunctiva pink, sclera white. NOSE: Clear with pink turbinates. THROAT: No erythema or exudates. NECK: No masses, no JVD, no thyroid enlargement, no adenopathy. CHEST: No chest wall deformity. Symmetrical expansion. LUNGS: Equal air entry crackles bilaterally CVS: Regular rate and rhythm, normal S1 and S2, no gallops, no murmurs, no rubs ABDOMEN: Soft, nontender. No hepatosplenomegaly, normal bowel sounds, no guarding or rigidity. EXTREMITIES: No clubbing, no edema, no cyanosis, 2+ pulses and upper and lower extremities. MUSCULOSKELETAL: Muscle strength and tone normal. SPINE: No scoliosis or deformity SKIN: No rashes CENTRAL NERVOUS SYSTEM: Alert and oriented -3. No focal deficits, tone is normal in all 4 extremities. PSYCHIATRIC: Alert and oriented -3. Appropriate affect. Intact judgment and insight. - Labs CBC & Chem 7: 06/11/17 05:13 06/11/17 05:13 Labs: Abnormal Lab Results - Last 24 Hours (Table) 06/11/17 06/11/17 Range/Units 05:13 05:13 WBC 10.8 H (3.8-10.6) k/uL RBC 3.31 L (3.80-5.40) m/uL Hgb 9.8 L (11.4-16.0) gm/dL Hct 31.0 L (34.0-46.0) % Neutrophils # 8.2 H (1.3-7.7) k/uL Sodium 136 L (137-145) mmol/L Glucose 105 H (74-99) mg/dL Microbiology - Last 24 Hours (Table) 06/10/17 08:58 Gram Stain - Preliminary Sputum 06/08/17 16:38 Blood Culture - Preliminary Blood No Growth after 48 hours 06/08/17 13:05 Blood Culture - Preliminary Blood No Growth after 48 hours Assessment and Plan Plan: Assessment: #1. Acute sepsis related to acute urinary tract infection, patient was recently hospitalized with E. coli urinary tract infection, was treated with Rocephin and Zithromax. Patient presented with fever, chills, tachycardia, acute leukocytosis, and hypoxemia. Urine culture was contaminated with skin and genital reji, therefore could not be used. #2. Acute diastolic heart failure, based on echo results of 05/18/2017 EF of 55 -60%. Patient's initial chest x-ray on 06/08/2017 was negative for any acute pulmonary process, however overnight after fluid resuscitation with 1 L of 0.9 normal saline patient went into pulmonary edema requiring IV Lasix. Repeat echo on 06/09/2016 showed unchanged EF of 55-60% no evidence of aortic stenosis or regurgitation, there is evidence of mild mitral and tricuspid regurgitation, mild pulmonary hypertension with right ventricular systolic pressure of 33 mmHg. Patient responded well to diuretics, follow-up chest x-rays and 2017 in 06/11/2017 showing improvement in the appearance of interstitial congestion #3. Acute hypoxic respiratory failure secondary to tracheobronchitis and acute diastolic heart failure, patient was given a dose of IV Lasix and empirically placed on Levaquin, aztreonam and vancomycin, influenza screen was negative. During last admission in May [address] of abdomen and pelvis on 05/18/2017 which showed patchy groundglass opacities in the periphery of both lungs. Patient describes a persistent cough since her last trip to [place] in May 2017. 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 Elevated d-dimer, 0.76. Patient also had a positive d-dimer during last admission in May, CT chest was negative for PE, bilateral lower leg ultrasound at that time was negative for DVT. #5. Diarrhea, with history of recent antibiotic treatment with been the last month, rule out C. diff #6. Hypomagnesemia, serum magnesium level I.2, present on admission and during previous admission in May, patient is currently on oral magnesium replacements, as well as IV supplementation #7. History of DJD, with evidence of vertebral compression fractures seen on CT chest from May 2017 #8. Hypertension #9. Hyperlipidemia #10. Appendectomy #11. GERD #12. Anemia, unspecified Plan: Continue Cultures remain negative, repeat sputum culture was sent yesterday, awaiting final results. Patient remains on Levaquin only at this time, remeans afebrile , vital signs are stable. Denies any worsening shortness of breath, lung sounds are still positive for bibasilar crackles, right more so than the left. Repeat chest x-ray from this morning was reviewed, and shows significant improvement in the in the patient's volume status, and lung aeration. Patient is stable for discharge home from pulmonary standpoint, will need to be sent home on small dose of Lasix, 20 mg by mouth daily and antibiotics per ID service recommendations. Patient will need follow-up in the office with Dr. Dick in one week. I performed a history & physical examination of the patient and discussed their management with my nurse practitioner, Parul Woodson. I reviewed the nurse practitioner's note and agree with the documented findings and plan of care. Lung sounds are positive for some residual crackles at the bases. The findings and the impression was discussed with the patient. I attest to the documentation by the nurse practitioner. Time with Patient: Less than 30
[2017-06-11] MEDS: LEVOFLOXACIN 750MG-D5W PMX 750 MG in DEXTROSE/WATER 1 150ML.BAG IVPB SCH (16:35)
[2017-06-11] MEDS: SODIUM CHLORIDE 0.9% 1,000 ML IV SCH (16:36)
--- NOTE | 2017-06-11 18:35 | P.PN ---
Subjective Progress Note Date: 06/11/17 Progress Note being dictated for Dr. Camarena Interval History: This is a 71-year-old female admitted with acute sepsis related to possible pneumonia, acute CHF, acute hypoxic respiratory failure, diarrhea, hypomagnesemia and multiple other medical issues.status post fluid boluses in the ER, maintained on IV fluid hydration. New-onset of pulmonary edema per chest x-ray .Received a dose of Lasix today. Echo pending. Magnesium being replaced as per protocol. Send out labs for Legionella and Mycoplasma pneumonia pending. Maintained on Azactam, Levaquin and vancomycin. Afebrile, WBC improving. urine and sputum and blood cultures pending. Stool for C. difficile colitis not yet collected. Continues on nebulized bronchodilators, maintaining O2 sats of 92 to 96% on 2 L nasal cannula. 06/10/2017 dyspnea improving, maintaining O2 sats of 92 on 2 L nasal cannula. Mild tachycardia. Follow chest x-ray reporting persistent pulmonary edema and patient now on scheduled IV push Lasix. Echo reporting normal LV function, EF 55-60% mild tricuspid regurgitation, pulmonary hypertension. Afebrile, WBC improving preliminary blood cultures negative. Objective - Vital Signs Vital signs: Vital Signs Temp 96.9 F L 06/10/17 15:00 Pulse 104 H 06/10/17 19:15 Resp 16 06/10/17 19:15 BP 108/61 06/10/17 15:00 Pulse Ox 92 L 06/10/17 15:00 Intake & Output 06/10/17 06/10/17 06/11/17 06:59 18:59 06:59 Other: Voiding Method Toilet # Voids 2 2 # Bowel Movements 0 - Exam PHYSICAL EXAM: VITAL SIGNS: As above GENERAL: Sitting up at side of bed, no acute distress HEENT: Conjunctivae normal. eyes normal. NECK: No JVD. No thyroid enlargement. No LNs CARDIOVASCULAR: S1, S2 muffled. No murmur RESPIRATION: Breath sounds diminished in the bases. Bilateral scattered rhonchi and coarse crackles. ABDOMEN: Soft, nontender . No guarding. no masses palpable. Bowel sounds heard. LEGS: No edema. no swelling PSYCHIATRY: Alert and oriented -3, mood and affect normal. NERVOUS SYSTEM: Cranial N 2-12 grossly normal. Moves all 4 limbs. Diffuse weakness No focal deficits. No sensory deficit. Skin: no ulcer no rash Joints: No active swelling. No inflammation. Lymphatic system. No LN neck axilla or groin. Microbiology 06/08/17 13:05 Blood Blood Culture - Preliminary No Growth after 72 hours 06/10/17 08:58 Sputum Gram Stain - Preliminary 06/08/17 16:38 Blood Blood Culture - Preliminary No Growth after 48 hours 06/08/17 14:09 Urine,Clean Catch Urine Culture - Final 06/09/17 09:16 Sputum Gram Stain - Final 06/09/17 09:16 Sputum Sputum Culture - Final - Labs CBC & Chem 7: 06/11/17 05:13 06/11/17 05:13 Labs: Abnormal Lab Results - Last 24 Hours (Table) 06/10/17 Range/Units 07:55 WBC 12.6 H (3.8-10.6) k/uL RBC 3.17 L (3.80-5.40) m/uL Hgb 9.6 L (11.4-16.0) gm/dL Hct 30.5 L (34.0-46.0) % Neutrophils # 10.0 H (1.3-7.7) k/uL Microbiology - Last 24 Hours (Table) 06/08/17 16:38 Blood Culture - Preliminary Blood No Growth after 48 hours 06/08/17 13:05 Blood Culture - Preliminary Blood No Growth after 48 hours 06/08/17 14:09 Urine Culture - Final Urine,Clean Catch Assessment and Plan Assessment: 1. Acute hypoxic respiratory failure secondary to Possible bibasilar pneumonia possible sepsis, in a patient with recent bibasilar pneumonia 2. Diarrhea, rule out acute C. difficile colitis(uncollected) 3. Acute CHF, diastolic dysfunction, EF 55-60% 4. Anemia 5. Recent pyelonephritis 6. Hypertension 7. Hyperlipidemia Plan: Continue on current medication regime, antibiotics, monitoring and symptomatic treatment.Send out labs for Legionella and Mycoplasma pneumonia pending. 2-D echo pending. Scheduled IV push Lasix, with close monitoring of lytes with repeat labs ordered for a.m. discharge planning in progress for tomorrow pending clearance from infectious disease and pulmonary. Increase ambulation as tolerated. Further recommendations to follow. The impression and plan of care has been dictated as directed. : I performed a history and examination of this patient, discussed the same with the dictator. I agree with the dictator's note ,documented as a scribe. Any additional findings or plans will be noted.
--- NOTE | 2017-06-11 18:49 | P.DS ---
Providers Date of admission: 06/08/17 14:57 Expected date of discharge: 06/11/17 Attending physician: Yo Hammond Consults: 06/08/17 22:16 Consult Physician Routine Consulting Provider: Helen Melendrez Consult Reason/Comments: pneumonia Do you want consulting provider notified?: Yes 06/08/17 22:36 Consult Physician Routine Consulting Provider: Lobito Ardon Consult Reason/Comments: infectious bronchitis Do you want consulting provider notified?: Yes, Notify in am Primary care physician: Serjio [facility] Hospital Course: Final Diagnoses: 1. Acute hypoxic respiratory failure secondary to tracheobronchitis, bibasilar pneumonia ruled out as per pulmonary, possible sepsis, in a patient with recent bibasilar pneumonia.(Coccidiomycosis workup in progress, as per ID,Send out labs for Legionella and Mycoplasma pneumonia pending. 2. Diarrhea, rule out acute C. difficile colitis(uncollected) 3. Acute CHF, diastolic dysfunction, EF 55-60% 4. Anemia 5. Recent pyelonephritis 6. Hypertension 7. Hyperlipidemia Hospital course:This is a 71-year-old female admitted with acute sepsis related to possible pneumonia, acute CHF, acute hypoxic respiratory failure, diarrhea, hypomagnesemia and multiple other medical issues.status post fluid boluses in the ER, maintained on IV fluid hydration. New-onset of pulmonary edema per chest x-ray . Diuresed on Lasix IV push. Responded well to IV diuretics. Echo reporting normal LV function, EF 55-60% mild tricuspid regurgitation, pulmonary hypertension. Magnesium being replaced as per protocol. Send out labs for Legionella and Mycoplasma pneumonia pending. Maintained on Azactam, Levaquin and vancomycin. Afebrile, WBC improving. Maintained on nebulized bronchodilators, with oxygen weaned off. Significant clinical improvement. Cleared by all consults for discharge. Patient is being discharged home in a stable condition with guarded prognosis. Physical exam:CARDIOVASCULAR: S1, S2 muffled. No murmur RESPIRATION: Breath sounds diminished in the bases. Bilateral scattered rhonchi and coarse crackles. ABDOMEN: Soft, nontender . No guarding. no masses palpable. Bowel sounds heard. LEGS: No edema. no swelling PSYCHIATRY: Alert and oriented -3, mood and affect normal. NERVOUS SYSTEM: Cranial N 2-12 grossly normal. Moves all 4 limbs. No focal deficits. No sensory deficit Microbiology 06/08/17 13:05 Blood Blood Culture - Preliminary No Growth after 72 hours 06/10/17 08:58 Sputum Gram Stain - Preliminary 06/08/17 16:38 Blood Blood Culture - Preliminary No Growth after 48 hours 06/08/17 14:09 Urine,Clean Catch Urine Culture - Final 06/09/17 09:16 Sputum Gram Stain - Final 06/09/17 09:16 Sputum Sputum Culture - Final Time taken; 35 minutes The impression and plan of care has been dictated as directed. : I performed a history and examination of this patient, discussed the same with the dictator. I agree with the dictator's note ,documented as a scribe. Any additional findings or plans will be noted. Patient Condition at Discharge: Stable Plan - Discharge Summary Discharge Rx Participant: Yes New Discharge Prescriptions: New Furosemide [Lasix] 20 mg PO DAILY #30 tab Continue Meloxicam [Mobic] 15 mg PO DAILY PRN PRN Reason: Pain Fluticasone Nasal [place] [Flonase Nasal [place]] 2 spr EA NOSTRIL DAILY PRN PRN Reason: Allergy Symptoms Oxybutynin ER [Ditropan Xl] 15 mg PO DAILY Metoprolol Succinate (ER) [Toprol XL] 50 mg PO HS Losartan Potassium 100 mg PO DAILY DULoxetine HCL [Cymbalta] 60 mg PO DAILY Atorvastatin [Lipitor] 20 mg PO HS Loratadine [Claritin] 10 mg PO DAILY #0 tab Ranitidine HCl [Zantac] 300 mg PO DAILY Magnesium Oxide [[place]] 500 mg PO BID Discharge Medication List Atorvastatin [Lipitor] 20 mg PO HS 05/18/17 [History] DULoxetine HCL [Cymbalta] 60 mg PO DAILY 05/18/17 [History] Fluticasone Nasal [place] [Flonase Nasal [place]] 2 spr EA NOSTRIL DAILY PRN [History] Losartan Potassium 100 mg PO DAILY 05/18/17 [History] Meloxicam [Mobic] 15 mg PO DAILY PRN 05/18/17 [History] Metoprolol Succinate (ER) [Toprol XL] 50 mg PO HS 05/18/17 [History] Oxybutynin ER [Ditropan Xl] 15 mg PO DAILY 05/18/17 [History] Loratadine [Claritin] 10 mg PO DAILY #0 tab 05/22/17 [Rx] Magnesium Oxide [[place]] 500 mg PO BID 06/08/17 [History] Ranitidine HCl [Zantac] 300 mg PO DAILY 06/08/17 [History] Furosemide [Lasix] 20 mg PO DAILY #30 tab 06/11/17 [Rx] Follow up Appointment(s)/Referral(s): Paulette Hanley MD [STAFF PHYSICIAN] - 1 Week Serjio Butterfield DO [Primary Care Provider] - 06/12/17 10:00 am Tyree Tyler MD [STAFF PHYSICIAN] - 1 Week (Re: CHF) [facility], [NON-STAFF] - Ambulatory/Diagnostic Orders: Complete Blood Count w/diff [LAB.AMB] Time Frame: 3 Days, Location: Determined By Patient Activity/Diet/Wound Care/Special Instructions: No antibiotics at discharge as per ID . Please schedule follow-up with cardiology prior to discharge .Once you follow up with your PCP, then homecare will be able to come to your house. Diet cardiac Activity: Limited until follow up
--- NOTE | 2017-06-11 21:48 | P.PN ---
Subjective Progress Note Date: 06/11/17 Principal diagnosis: Shortness of breath This is a 71-year-old female who had recent hospitalization on May 18 through the which time she was treated for E. coli urinary tract infection and possible pneumonia was ruled out by pulmonary medicine. Patient states that during that hospitalization she woke up the morning she came in with pain across her lower anterior ribs radiating around to the back and down her back. She gives history that there was initial concern for kidney stone which was ruled out. She denies ever having any dysuria and has never had a urinary tract infection in the past. Patient was discharged home on Levaquin for an additional 7 days which she states she completed and then followed up with her primary care physician. She had repeat lab work done in the office and her electrolytes were low and she was started on magnesium and has taken a couple doses. She states that prior to her discharge, she had developed a cough that was very minor initially and this continued at home but then worsened a few days ago. Now the cough is very annoying, frequent and painful. She also gives history of loose bowel movements 1-2 times per day for the past week. Her last bowel movement was yesterday morning. She states she has not been eating very much as she has not been feeling well. Yesterday, she developed fever, chills and rigors with shortness of breath and continued cough , took Tylenol and knew she needed to come into the hospital. Patient came into [facility] emergency center for evaluation. She was found to be febrile with a temperature of 100.6, sinus tachycardia 128 and pulse ox of 88, leukocytosis at 24. Lactic acid was 1.4. Urinalysis was clear , nitrite negative, leukoesterase small, WBC 9. Influenza testing was negative. Patient was started on Levaquin and vancomycin and admitted to the [facility] floor and there is a consult in place for pulmonary medicine as well. Blood and urine culture are in progress. Mycoplasma pneumoniae and legionella testing are status received. Sputum culture has been sent. Patient does feel better today. Looks forward to going home. She is less short of breath. Oxygen saturations are better on room air and with ambulation. Objective - Vital Signs Vital signs: Vital Signs Temp 98.1 F 06/11/17 07:00 Pulse 68 01/10/18 12:05 Resp 17 06/11/17 07:00 BP 119/68 06/11/17 07:00 Pulse Ox 95 06/11/17 09:00 Intake & Output 06/11/17 06/11/17 06/12/17 06:59 18:59 06:59 Other: Voiding Method Toilet # Voids 3 - Exam Gen: This is a [id number] female. She is seen walking to her bed from the bathroom and appears to be in no acute distress. Gait is steady. HEENT: Head is atraumatic, normocephalic. Pupils equal, round. Sclerae is anicteric. conjunctiva pink. Oral mucous membranes are slightly dry. No thrush noted. NECK: Supple. No JVD. No lymphadenopathy. No thyromegaly. LUNGS: bilateral scattered crackles. No intercostal retractions. HEART: Regular rate and rhythm. Systolic murmur. Tachycardic. ABDOMEN: Soft. Bowel sounds are present. No masses. No tenderness. No CVA tenderness. EXTREMITIES: Trace bilateral pedal edema. No calf tenderness. dorsalis pedis + 2 bilaterally. NEUROLOGICAL: Patient is awake, alert and oriented x3. - Labs CBC & Chem 7: 06/11/17 05:13 06/11/17 05:13 Labs: Abnormal Lab Results - Last 24 Hours (Table) 06/11/17 06/11/17 Range/Units 05:13 05:13 WBC 10.8 H (3.8-10.6) k/uL RBC 3.31 L (3.80-5.40) m/uL Hgb 9.8 L (11.4-16.0) gm/dL Hct 31.0 L (34.0-46.0) % Neutrophils # 8.2 H (1.3-7.7) k/uL Sodium 136 L (137-145) mmol/L Glucose 105 H (74-99) mg/dL Microbiology - Last 24 Hours (Table) 06/08/17 16:38 Blood Culture - Preliminary Blood No Growth after 72 hours 06/08/17 13:05 Blood Culture - Preliminary Blood No Growth after 72 hours 06/10/17 08:58 Gram Stain - Preliminary Sputum Laboratory Results WBC 10.8 k/uL (3.8-10.6) H 06/11/17 05:13 RBC 3.31 m/uL (3.80-5.40) L 06/11/17 05:13 Hgb 9.8 gm/dL (11.4-16.0) L 06/11/17 05:13 Hct 31.0 % (34.0-46.0) L 06/11/17 05:13 MCV 93.7 fL (80.0-100.0) 06/11/17 05:13 MCH 29.7 pg (25.0-35.0) 06/11/17 05:13 MCHC 31.7 g/dL (31.0-37.0) 06/11/17 05:13 RDW 13.4 % (11.5-15.5) 06/11/17 05:13 Plt Count 426 k/uL (150-450) 06/11/17 05:13 Neutrophils % 75 % 06/11/17 05:13 Lymphocytes % 15 % 06/11/17 05:13 Monocytes % 3 % 06/11/17 05:13 Eosinophils % 5 % 06/11/17 05:13 Basophils % 1 % 06/11/17 05:13 Neutrophils # 8.2 k/uL (1.3-7.7) H 06/11/17 05:13 Lymphocytes # 1.6 k/uL (1.0-4.8) 06/11/17 05:13 Monocytes # 0.4 k/uL (0-1.0) 06/11/17 05:13 Eosinophils # 0.5 k/uL (0-0.7) 06/11/17 05:13 Basophils # 0.1 k/uL (0-0.2) 06/11/17 05:13 Hypochromasia Slight 06/11/17 05:13 PT 9.7 sec (9.0-12.0) 06/08/17 13:05 INR 1.0 (<1.2) 06/08/17 13:05 APTT 22.3 sec (22.0-30.0) 06/08/17 13:05 D-Dimer 0.76 mg/L FEU (<0.60) H 06/08/17 13:53 Sodium 136 mmol/L (137-145) L 06/11/17 05:13 Potassium 4.5 mmol/L (3.5-5.1) 06/11/17 05:13 Chloride 103 mmol/L (98-107) 06/11/17 05:13 Carbon Dioxide 24 mmol/L (22-30) 06/11/17 05:13 Anion Gap 9 mmol/L 06/11/17 05:13 BUN 16 mg/dL (7-17) 06/11/17 05:13 Creatinine 0.77 mg/dL (0.52-1.04) 06/11/17 05:13 Est GFR (MDRD) Af Amer >60 (>60 ml/min/1.73 sqM) 06/11/17 05:13 Est GFR (MDRD) Non-Af >60 (>60 ml/min/1.73 sqM) 06/11/17 05:13 Glucose 105 mg/dL (74-99) H 06/11/17 05:13 Plasma Lactic Acid Edin 1.4 mmol/L (0.7-2.0) 06/08/17 13:05 Calcium 8.7 mg/dL (8.4-10.2) 06/11/17 05:13 Magnesium 2.0 mg/dL (1.6-2.3) 06/11/17 05:13 Total Bilirubin 0.5 mg/dL (0.2-1.3) 06/08/17 13:05 AST 14 U/L (14-36) 06/08/17 13:05 ALT 21 U/L (9-52) 06/08/17 13:05 Alkaline Phosphatase 74 U/L (38-126) 06/08/17 13:05 NT-Pro-B Natriuret Pep 150 pg/mL 06/10/17 07:55 Total Protein 7.0 g/dL (6.3-8.2) 06/08/17 13:05 Albumin 3.9 g/dL (3.5-5.0) 06/08/17 13:05 Urine Color Yellow 06/08/17 14:09 Urine Appearance Clear (Clear) 06/08/17 14:09 Urine pH 6.0 (5.0-8.0) 06/08/17 14:09 Ur Specific [place] 1.008 (1.001-1.035) 06/08/17 14:09 Urine Protein Negative (Negative) 06/08/17 14:09 Urine Glucose (UA) Negative (Negative) 06/08/17 14:09 Urine Ketones Negative (Negative) 06/08/17 14:09 Urine Blood Moderate (Negative) H 06/08/17 14:09 Urine Nitrite Negative (Negative) 06/08/17 14:09 Urine Bilirubin Negative (Negative) 06/08/17 14:09 Urine Urobilinogen <2.0 mg/dL (<2.0) 06/08/17 14:09 Ur Leukocyte Esterase Small (Negative) H 06/08/17 14:09 Urine RBC 11 /hpf (0-5) H 06/08/17 14:09 Urine WBC 9 /hpf (0-5) H 06/08/17 14:09 Ur Squamous Epith Cells 2 /hpf (0-4) 06/08/17 14:09 Urine Mucus Rare /hpf (None) H 06/08/17 14:09 Vancomycin Trough 21.3 ug/mL 06/11/17 05:13 Influenza Type A RNA Not Detected (Not Detectd) 06/08/17 13:05 Influenza Type B (PCR) Not Detected (Not Detectd) 06/08/17 13:05 Urine Legionella Ag Not detected (Not detected) 06/09/17 07:30 Microbiology 06/08/17 16:38 Blood Blood Culture - Preliminary No Growth after 72 hours 06/08/17 13:05 Blood Blood Culture - Preliminary No Growth after 72 hours 06/10/17 08:58 Sputum Gram Stain - Preliminary 06/08/17 14:09 Urine,Clean Catch Urine Culture - Final 06/09/17 09:16 Sputum Gram Stain - Final 06/09/17 09:16 Sputum Sputum Culture - Final Assessment and Plan (1) Leukocytosis Status: Acute Code(s): D72.829 - ELEVATED WHITE BLOOD CELL COUNT, UNSPECIFIED SNOMED Code(s): 573141266 (2) Pneumonitis Narrative/Plan: This pleasant woman relates that in general she has been quite healthy. However she did relate to a history of some cardiovascular disease. She has become ill directly after her travels out west to [place]. 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 She stayed in hotels in the [place] trip, she did not venture on desert excursions this time. Her is well and was with her the entire time. Serologies for endemic mycoses have been requested. On exam the patient does have evidence of a murmur 2/6 systolic murmur left sternal border. Echocardiogram did not reveal evidence of any valvular heart disease. There is evidence that she has diastolic congestive heart failure and is now started to show some improvement with the current treatment. She is very discontent that she is having anything severely wrong with her she wants to be busy and active and does not have time for desire to be ill. We will limit her antimicrobial therapy and discontinue vancomycin and Zosyn. She is showing ongoing improvements overall with ongoing diuresis and offloading she will have improvement of her cardiac status and improve her physical status. Above serologies remain pending. She however is now improved. She is ready for discharge to home. She will follow with her primary care physician and her subscription clerk that she has seen in the past. Status: Acute Code(s): J18.9 - PNEUMONIA, UNSPECIFIED ORGANISM SNOMED Code(s ): 797732146
[2017-06-13 06:59] LABS: Mycoplasma IgM Antibody 2.37 INDEX (<=0.90)
[2017-06-15 18:21] LABS: Histoplasma Abs by ID None Detected (None Detected)
== END 2017-06-11 18:38 | disposition home health service (06) | DRG 871 ==
LOC: EC 12:43 → 4MS4W 14:57
PROVIDERS: ADMIT Hospitalist; ATTEND Hospitalist
DX: A41.9 Sepsis, unspecified organism (principal); I50.31 Acute diastolic (congestive) heart failure; J96.01 Acute respiratory failure with hypoxia; I27.20 Pulmonary hypertension, unspecified; E83.42 Hypomagnesemia; I08.1 Rheumatic disorders of both mitral and tricuspid valves; D64.9 Anemia, unspecified; I11.0 Hypertensive heart disease with heart failure; J20.9 Acute bronchitis, unspecified; R65.20 Severe sepsis without septic shock; R19.7 Diarrhea, unspecified; E78.5 Hyperlipidemia, unspecified; I25.10 Atherosclerotic heart disease of native coronary artery without angina pectoris; K21.9 Gastro-esophageal reflux disease without esophagitis; R79.1 Abnormal coagulation profile; M19.90 Unspecified osteoarthritis, unspecified site; Z79.1 Long term (current) use of non-steroidal anti-inflammatories (NSAID); Z79.899 Other long term (current) drug therapy; Z90.49 Acquired absence of other specified parts of digestive tract; Z87.891 Personal history of nicotine dependence; Z87.440 Personal history of urinary (tract) infections; Z88.5 Allergy status to narcotic agent; Z88.0 Allergy status to penicillin; Z87.01 Personal history of pneumonia (recurrent); Z96.60 Presence of unspecified orthopedic joint implant
CPT/HCPCS: 36415; 71045; 71046; 76770; 80048; 80053; 80202; 81001; 83605; 83735; 83880; 85025; 85379; 85610; 85730; 86635; 86698; 86738; 87040; 87070; 87086; 87205; 87449; 87502; 93005; 93306; 94640; 94760; 96361; 96365; 99285

== ENCOUNTER 2017-06-12 04:31 | Inpatient (IN) | payer MEDICARE ==
[2017-06-12] MEDS ORDERED: SODIUM CHLORIDE 0.9% 1,000 ML IV STA (04:33)
--- NOTE | 2017-06-12 04:37 | ED ---
SOB HPI - General Stated Complaint: SOB Time Seen by Provider: 06/12/17 04:32 Source: patient, EMS, RN notes reviewed, old records reviewed Mode of arrival: EMS - History of Present Illness Initial Comments: This is a 71-year-old female who was just discharged last night from this hospital with diagnosis of infectious bronchitis who started developing shortness of breath and weakness this morning EMS was called she was given 2 updrafts as well as 125 of Solu-Medrol. She also some nausea. She states she is feeling somewhat better after the treatment administered by paramedics. She still dyspneic however. She denies any chest pain she has a cough with slight amount of phlegm. No overt chest pain currently no fevers chills or sweats. MD Complaint: shortness of breath - Related Data Home Medications Medication Instructions Recorded Confirmed Atorvastatin [Lipitor] 20 mg PO HS 05/18/17 06/12/17 DULoxetine HCL [Cymbalta] 60 mg PO DAILY 05/18/17 06/12/17 Fluticasone Nasal [place] [Flonase 2 spr EA NOSTRIL DAILY PRN 05/18/17 06/12/17 Nasal [place]] Losartan Potassium 100 mg PO DAILY 05/18/17 06/12/17 Meloxicam [Mobic] 15 mg PO DAILY PRN 05/18/17 06/12/17 Metoprolol Succinate (ER) [Toprol 50 mg PO HS 05/18/17 06/12/17 XL] Oxybutynin ER [Ditropan Xl] 15 mg PO DAILY 05/18/17 06/12/17 Magnesium Oxide [Beckwith] 500 mg PO BID 06/08/17 06/12/17 Ranitidine HCl [Zantac] 300 mg PO DAILY 06/08/17 06/12/17 Previous Rx's Medication Instructions Recorded Loratadine [Claritin] 10 mg PO DAILY #0 tab 05/22/17 Furosemide [Lasix] 20 mg PO DAILY #30 tab 06/11/17 Allergies Allergy/AdvReac Type Severity Reaction Status Date / Time codeine Allergy Nausea & Verified 06/09/17 00:12 Vomiting Penicillins Allergy Rash/Hives Verified 06/08/17 13:12 Review of Systems ROS Statement: Those systems with pertinent positive or pertinent negative responses have been documented in the HPI. ROS Other: All systems not noted in ROS Statement are negative. Past Medical History Past Medical History: Eye Disorder, Hyperlipidemia, Hypertension, Osteoarthritis (OA) Additional Past Medical History / Comment(s): cataracts removed with IOL History of Any Multi-Drug Resistant Organisms: None Reported Past Surgical History: Appendectomy, Bladder Surgery, Joint Replacement, Orthopedic Surgery Additional Past Surgical History / Comment(s): cataract sx with IOL Past Anesthesia/Blood Transfusion Reactions: Previous Problems w/ Anesthesia Additional Past Anesthesia/Blood Transfusion Reaction / Comment(s): nausea with anesthesia Past Psychological History: No Psychological Hx Reported Smoking Status: Former smoker Past Alcohol Use History: Occasional Additional Past Alcohol Use History / Comment(s): patient smoked briefly for 10- 15 years starting as a teenager only occasionally. She denies any medical marijuana, marijuana, street drug use.she lives at home with her . There is a cat in the home. She quit working 10 years ago to take care of her mother. 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 She has traveled to the [facility] 20 years ago but otherwise to [place] and [place]. She was recently in [place] and May 2017. She has a trip planned for March to [place]. Past Drug Use History: None Reported General Exam - General Exam Comments Initial Comments: This is a well-developed well-nourished awake alert oriented 3 female General appearance: alert, anxious, in distress Head exam: Present: atraumatic, normocephalic, normal inspection Eye exam: Present: normal appearance, PERRL, EOMI. Absent: scleral icterus, conjunctival injection, periorbital swelling ENT exam: Present: normal exam, mucous membranes moist Neck exam: Present: normal inspection. Absent: tenderness, meningismus, lymphadenopathy Respiratory exam: Present: rhonchi (Right greater than left rhonchi in the bases ), decreased breath sounds. Absent: respiratory distress, wheezes, rales, stridor Cardiovascular Exam: Present: regular rate, normal rhythm, normal heart sounds. Absent: systolic murmur, diastolic murmur, rubs, gallop, clicks GI/Abdominal exam: Present: soft, normal bowel sounds. Absent: distended, tenderness, guarding, rebound, rigid Extremities exam: Present: normal inspection, full ROM, normal capillary refill. Absent: tenderness, pedal edema, joint swelling, calf tenderness Back exam: Present: normal inspection Neurological exam: Present: alert, oriented X3, CN II-XII intact Psychiatric exam: Present: normal affect, normal mood Skin exam: Present: warm, dry, intact, normal color. Absent: rash Course Vital Signs 06/12/17 06/12/17 06/12/17 04:32 04:44 04:52 Temperature 101 F H Pulse Rate 138 H 133 H Respiratory 28 H 28 H Rate Blood Pressure 140/68 O2 Sat by Pulse 93 L 93 L Oximetry 06/12/17 05:47 Temperature 101 F H Pulse Rate Respiratory Rate Blood Pressure O2 Sat by Pulse Oximetry - Reevaluation(s) Reevaluation #1: 06/12/17 06:16 Patient is improved she still dyspneic with bilateral rhonchi more in her right than the left her recently but 120. Medical Decision Making - Medical Decision Making I did discuss findings with the patient and her she will be readmitted for further treatment - Lab Data Result diagrams: 06/12/17 04:40 06/12/17 04:40 Lab Results 06/12/17 06/12/17 06/12/17 Range/Units 04:40 04:40 04:40 WBC 26.8 H* (3.8-10.6) k/uL RBC 3.68 L (3.80-5.40) m/uL Hgb 11.3 L (11.4-16.0) gm/dL Hct 35.5 (34.0-46.0) % MCV 96.7 (80.0-100.0) fL MCH 30.7 (25.0-35.0) pg MCHC 31.8 (31.0-37.0) g/dL RDW 13.1 (11.5-15.5) % Plt Count 513 H (150-450) k/uL Neutrophils % 92 % Lymphocytes % 4 % Monocytes % 1 % Eosinophils % 2 % Basophils % 0 % Neutrophils # 24.5 H (1.3-7.7) k/uL Lymphocytes # 1.1 (1.0-4.8) k/uL Monocytes # 0.4 (0-1.0) k/uL Eosinophils # 0.5 (0-0.7) k/uL Basophils # 0.1 (0-0.2) k/uL PT (9.0-12.0) sec INR (<1.2) APTT (22.0-30.0) sec Sodium 135 L (137-145) mmol/L Potassium 4.7 (3.5-5.1) mmol/L Chloride 102 (98-107) mmol/L Carbon Dioxide 21 L (22-30) mmol/L Anion Gap 12 mmol/L BUN 19 H (7-17) mg/dL Creatinine 0.80 (0.52-1.04) mg/dL Est GFR (MDRD) Af Amer >60 (>60 ml/min/1.73 sqM) Est GFR (MDRD) Non-Af >60 (>60 ml/min/1.73 sqM) Glucose 117 H (74-99) mg/dL Plasma Lactic Acid Edin (0.7-2.0) mmol/L Calcium 8.9 (8.4-10.2) mg/dL Magnesium 1.5 L (1.6-2.3) mg/dL Total Bilirubin 0.7 (0.2-1.3) mg/dL AST 26 (14-36) U/L ALT 22 (9-52) U/L Alkaline Phosphatase 83 (38-126) U/L Total Creatine Kinase 40 (30-135) U/L CK-MB (CK-2) 0.4 (0.0-2.4) ng/mL CK-MB (CK-2) Rel Index 1.0 Troponin I <0.012 (0.000-0.034) ng/mL NT-Pro-B Natriuret Pep pg/mL Total Protein 7.6 (6.3-8.2) g/dL Albumin 4.0 (3.5-5.0) g/dL 06/12/17 06/12/17 06/12/17 Range/Units 04:40 04:40 04:40 WBC (3.8-10.6) k/uL RBC (3.80-5.40) m/uL Hgb (11.4-16.0) gm/dL Hct (34.0-46.0) % MCV (80.0-100.0) fL MCH (25.0-35.0) pg MCHC (31.0-37.0) g/dL RDW (11.5-15.5) % Plt Count (150-450) k/uL Neutrophils % % Lymphocytes % % Monocytes % % Eosinophils % % Basophils % % Neutrophils # (1.3-7.7) k/uL Lymphocytes # (1.0-4.8) k/uL Monocytes # (0-1.0) k/uL Eosinophils # (0-0.7) k/uL Basophils # (0-0.2) k/uL PT 9.9 (9.0-12.0) sec INR 1.0 (<1.2) APTT 23.2 (22.0-30.0) sec Sodium (137-145) mmol/L Potassium (3.5-5.1) mmol/L Chloride (98-107) mmol/L Carbon Dioxide (22-30) mmol/L Anion Gap mmol/L BUN (7-17) mg/dL Creatinine (0.52-1.04) mg/dL Est GFR (MDRD) Af Amer (>60 ml/min/1.73 sqM) Est GFR (MDRD) Non-Af (>60 ml/min/1.73 sqM) Glucose (74-99) mg/dL Plasma Lactic Acid Edin 1.4 (0.7-2.0) mmol/L Calcium (8.4-10.2) mg/dL Magnesium (1.6-2.3) mg/dL Total Bilirubin (0.2-1.3) mg/dL AST (14-36) U/L ALT (9-52) U/L Alkaline Phosphatase (38-126) U/L Total Creatine Kinase (30-135) U/L CK-MB (CK-2) (0.0-2.4) ng/mL CK-MB (CK-2) Rel Index Troponin I (0.000-0.034) ng/mL NT-Pro-B Natriuret Pep 76 pg/mL Total Protein (6.3-8.2) g/dL Albumin (3.5-5.0) g/dL - EKG Data -: EKG Interpreted by Ri EKG shows normal: sinus rhythm (Sinus tachycardia rate of 136 AR interval 134 QRS duration 70 QT since QTC 20/421 st-t wave changes.) - Radiology Data Radiology results: report reviewed (Review the x-ray shows no interval change since her previous one.), image reviewed Critical Care Time Critical Care Time: Yes Critical Care Time: 31 minutes of critical care time which includes initial presentation with history physical labs x-rays monitoring the EMS run and discussed with paramedics. Reevaluation patient several occasions. Discussion with the admitting service admission orders and documentation the above as well as review of old charting. Disposition Clinical Impression: Acute exacerbation of chronic obstructive airways disease, Adult respiratory distress syndrome, Tracheobronchitis, Leukocytosis, Febrile illness, acute Disposition: ADMITTED IP TO THIS HOSP Condition: Stable Referrals: Serjio Butterfield DO [Primary Care Provider] - 1-2 days
[2017-06-12 05:00] LABS: Basophils # (A) 0.1 k/uL (0-0.2); Basophils % (A) 0 %; Eosinophils # (A) 0.5 k/uL (0-0.7); Eosinophils % (A) 2 %; HCT 35.5 % (34.0-46.0); HGB 11.3 gm/dL (11.4-16.0); Lymphocytes # (A) 1.1 k/uL (1.0-4.8); Lymphocytes % (A) 4 %; MCH 30.7 pg (25.0-35.0); MCHC 31.8 g/dL (31.0-37.0); MCV 96.7 fL (80.0-100.0); Mean Platelet Volume 7.3; Monocytes # (A) 0.4 k/uL (0-1.0); Monocytes % (A) 1 %; Neutrophils # (A) 24.5 k/uL (1.3-7.7); Neutrophils % (A) 92 %; Platelet Count 513 k/uL (150-450); RBC 3.68 m/uL (3.80-5.40); RDW 13.1 % (11.5-15.5)
[2017-06-12 05:07] LABS: WBC 26.8 k/uL (3.8-10.6)
[2017-06-12 05:08] LABS: Partial Thromboplastin Time 23.2 sec (22.0-30.0); Prothrombin Time 9.9 sec (9.0-12.0)
[2017-06-12 05:29] LABS: Anion Gap 12 mmol/L; Calcium 8.9 mg/dL (8.4-10.2); Carbon Dioxide 21 mmol/L (22-30); Chloride 102 mmol/L (98-107); Glucose 117 mg/dL (74-99); Sodium 135 mmol/L (137-145); Total Bilirubin 0.7 mg/dL (0.2-1.3); Total Protein 7.6 g/dL (6.3-8.2)
--- NOTE | 2017-06-12 05:29 | XR ---
EXAM: XR Chest, 2 Views CLINICAL HISTORY: Reason: difficulty breathing TECHNIQUE: Frontal and lateral views of the chest. COMPARISON: June 10 and 2017 FINDINGS: Cardiac and mediastinal silhouette appears unchanged in size allowing for differences in technique. Interstitium remains mildly prominent though the appearance is not significantly changed compared to the previous study from yesterday allowing for differences in technique. Aeration is improved compared to June 10. No interval consolidation or other significant interval change. IMPRESSION: As above.
[2017-06-12 05:41] LABS: Creatine Kinase MB 0.4 ng/mL (0.0-2.4)
[2017-06-12 05:43] LABS: Potassium 4.7 mmol/L (3.5-5.1)
[2017-06-12] MEDS ORDERED: ACETAMINOPHEN TAB 500 MG TAB PO STA (05:43)
[2017-06-12 05:44] LABS: ALT 22 U/L (9-52); AST 26 U/L (14-36); Alkaline Phosphatase 83 U/L (38-126); Blood Urea Nitrogen 19 mg/dL (7-17); Magnesium 1.5 mg/dL (1.6-2.3)
[2017-06-12 05:46] LABS: Creatine Kinase 40 U/L (30-135); Troponin I <0.012 ng/mL (0.000-0.034)
[2017-06-12] MEDS ORDERED: MAGNESIUM SULFATE-D5W PMX 1 GM in DEXTROSE/WATER 1 100ML.BAG IVPB ONE (05:58)
--- NOTE | 2017-06-12 06:18 | ED ---
Medical Decision Making - Lab Data Result diagrams: 06/12/17 04:40 06/12/17 04:40 Lab Results 06/12/17 06/12/17 06/12/17 Range/Units 04:40 04:40 04:40 WBC 26.8 H* (3.8-10.6) k/uL RBC 3.68 L (3.80-5.40) m/uL Hgb 11.3 L (11.4-16.0) gm/dL Hct 35.5 (34.0-46.0) % MCV 96.7 (80.0-100.0) fL MCH 30.7 (25.0-35.0) pg MCHC 31.8 (31.0-37.0) g/dL RDW 13.1 (11.5-15.5) % Plt Count 513 H (150-450) k/uL Neutrophils % 92 % Lymphocytes % 4 % Monocytes % 1 % Eosinophils % 2 % Basophils % 0 % Neutrophils # 24.5 H (1.3-7.7) k/uL Lymphocytes # 1.1 (1.0-4.8) k/uL Monocytes # 0.4 (0-1.0) k/uL Eosinophils # 0.5 (0-0.7) k/uL Basophils # 0.1 (0-0.2) k/uL PT (9.0-12.0) sec INR (<1.2) APTT (22.0-30.0) sec Sodium 135 L (137-145) mmol/L Potassium 4.7 (3.5-5.1) mmol/L Chloride 102 (98-107) mmol/L Carbon Dioxide 21 L (22-30) mmol/L Anion Gap 12 mmol/L BUN 19 H (7-17) mg/dL Creatinine 0.80 (0.52-1.04) mg/dL Est GFR (MDRD) Af Amer >60 (>60 ml/min/1.73 sqM) Est GFR (MDRD) Non-Af >60 (>60 ml/min/1.73 sqM) Glucose 117 H (74-99) mg/dL Plasma Lactic Acid Edin (0.7-2.0) mmol/L Calcium 8.9 (8.4-10.2) mg/dL Magnesium 1.5 L (1.6-2.3) mg/dL Total Bilirubin 0.7 (0.2-1.3) mg/dL AST 26 (14-36) U/L ALT 22 (9-52) U/L Alkaline Phosphatase 83 (38-126) U/L Total Creatine Kinase 40 (30-135) U/L CK-MB (CK-2) 0.4 (0.0-2.4) ng/mL CK-MB (CK-2) Rel Index 1.0 Troponin I <0.012 (0.000-0.034) ng/mL NT-Pro-B Natriuret Pep pg/mL Total Protein 7.6 (6.3-8.2) g/dL Albumin 4.0 (3.5-5.0) g/dL Influenza Type A RNA (Not Detectd) Influenza Type B (PCR) (Not Detectd) 06/12/17 06/12/17 06/12/17 Range/Units 04:40 04:40 04:40 WBC (3.8-10.6) k/uL RBC (3.80-5.40) m/uL Hgb (11.4-16.0) gm/dL Hct (34.0-46.0) % MCV (80.0-100.0) fL MCH (25.0-35.0) pg MCHC (31.0-37.0) g/dL RDW (11.5-15.5) % Plt Count (150-450) k/uL Neutrophils % % Lymphocytes % % Monocytes % % Eosinophils % % Basophils % % Neutrophils # (1.3-7.7) k/uL Lymphocytes # (1.0-4.8) k/uL Monocytes # (0-1.0) k/uL Eosinophils # (0-0.7) k/uL Basophils # (0-0.2) k/uL PT 9.9 (9.0-12.0) sec INR 1.0 (<1.2) APTT 23.2 (22.0-30.0) sec Sodium (137-145) mmol/L Potassium (3.5-5.1) mmol/L Chloride (98-107) mmol/L Carbon Dioxide (22-30) mmol/L Anion Gap mmol/L BUN (7-17) mg/dL Creatinine (0.52-1.04) mg/dL Est GFR (MDRD) Af Amer (>60 ml/min/1.73 sqM) Est GFR (MDRD) Non-Af (>60 ml/min/1.73 sqM) Glucose (74-99) mg/dL Plasma Lactic Acid Edin 1.4 (0.7-2.0) mmol/L Calcium (8.4-10.2) mg/dL Magnesium (1.6-2.3) mg/dL Total Bilirubin (0.2-1.3) mg/dL AST (14-36) U/L ALT (9-52) U/L Alkaline Phosphatase (38-126) U/L Total Creatine Kinase (30-135) U/L CK-MB (CK-2) (0.0-2.4) ng/mL CK-MB (CK-2) Rel Index Troponin I (0.000-0.034) ng/mL NT-Pro-B Natriuret Pep 76 pg/mL Total Protein (6.3-8.2) g/dL Albumin (3.5-5.0) g/dL Influenza Type A RNA (Not Detectd) Influenza Type B (PCR) (Not Detectd) 06/12/17 Range/Units 05:50 WBC (3.8-10.6) k/uL RBC (3.80-5.40) m/uL Hgb (11.4-16.0) gm/dL Hct (34.0-46.0) % MCV (80.0-100.0) fL MCH (25.0-35.0) pg MCHC (31.0-37.0) g/dL RDW (11.5-15.5) % Plt Count (150-450) k/uL Neutrophils % % Lymphocytes % % Monocytes % % Eosinophils % % Basophils % % Neutrophils # (1.3-7.7) k/uL Lymphocytes # (1.0-4.8) k/uL Monocytes # (0-1.0) k/uL Eosinophils # (0-0.7) k/uL Basophils # (0-0.2) k/uL PT (9.0-12.0) sec INR (<1.2) APTT (22.0-30.0) sec Sodium (137-145) mmol/L Potassium (3.5-5.1) mmol/L Chloride (98-107) mmol/L Carbon Dioxide (22-30) mmol/L Anion Gap mmol/L BUN (7-17) mg/dL Creatinine (0.52-1.04) mg/dL Est GFR (MDRD) Af Amer (>60 ml/min/1.73 sqM) Est GFR (MDRD) Non-Af (>60 ml/min/1.73 sqM) Glucose (74-99) mg/dL Plasma Lactic Acid Edin (0.7-2.0) mmol/L Calcium (8.4-10.2) mg/dL Magnesium (1.6-2.3) mg/dL Total Bilirubin (0.2-1.3) mg/dL AST (14-36) U/L ALT (9-52) U/L Alkaline Phosphatase (38-126) U/L Total Creatine Kinase (30-135) U/L CK-MB (CK-2) (0.0-2.4) ng/mL CK-MB (CK-2) Rel Index Troponin I (0.000-0.034) ng/mL NT-Pro-B Natriuret Pep pg/mL Total Protein (6.3-8.2) g/dL Albumin (3.5-5.0) g/dL Influenza Type A RNA Not Detected (Not Detectd) Influenza Type B (PCR) Not Detected (Not Detectd) Disposition Clinical Impression: Acute exacerbation of chronic obstructive airways disease, Adult respiratory distress syndrome, Tracheobronchitis, Leukocytosis, Febrile illness, acute, Hypomagnesemia Disposition: ADMITTED IP TO THIS HOSP Condition: Stable Referrals: Serjio Butterfield DO [Primary Care Provider] - 1-2 days
[2017-06-12] MEDS ORDERED: MELOXICAM 7.5 MG TAB PO PRN (06:20)
[2017-06-12] MEDS ORDERED: FLUTICASONE 50MCG/SPRAY NASAL 16GM EA NOSTRIL PRN (06:20)
[2017-06-12] MEDS ORDERED: LEVOFLOXACIN 750MG-D5W PMX 750 MG in DEXTROSE/WATER 1 150ML.BAG IVPB STA (06:21)
[2017-06-12 07:49] LABS: Glucose,Whole Blood 164 mg/dL (75-99)
[2017-06-12] MEDS: IPRATROPIUM-ALBUTEROL 3 ML NEB INHALATION SCH ×5 (07:56→19:15)
[2017-06-12] MEDS: OXYBUTYNIN 15 MG TAB.ER.24 PO SCH (09:13)
[2017-06-12] MEDS: LORATADINE 10 MG TAB PO SCH (09:13)
[2017-06-12] MEDS: FAMOTIDINE 20 MG TAB PO SCH (09:13)
[2017-06-12] MEDS: methylPREDNISolone SOD SUCCI 125 MG/2 ML VIAL IV SCH ×4 (09:13→23:04)
[2017-06-12] MEDS: MAGNESIUM OXIDE 400 MG TAB PO SCH ×2 (09:13→20:39)
[2017-06-12] MEDS: FUROSEMIDE 20 MG TAB PO SCH (09:13)
[2017-06-12] MEDS: LOSARTAN 50 MG TAB PO SCH (09:13)
[2017-06-12] MEDS: DULoxetine HCL 60 MG CAPSULE.DR PO SCH (09:15)
[2017-06-12 12:32] LABS: Glucose,Whole Blood 166 mg/dL (75-99)
--- NOTE | 2017-06-12 14:29 | P.HPIM ---
History of Present Illness Patient is a 71-year-old female was recently discharged from the hospital after she was extensively evaluated for fever appears to be fever, appears to be fever of unknown origin patient was extensively evaluated by infectious disease as well as pulmonology. Patient was evaluated for atypical infections. Patient had a recent travel to [place] after which patient started having symptoms of fever and shortness of breath. Patient during her last hospitalization was completely afebrile leukocytosis resolved and patient was treated for infectious bronchitis was subsequently discharged home comes back again after a few hours with complaints of shortness of breath fatigue and found to have high-grade fever of 101 with leukocytosis of 25,000 neutrophilic leukocytosis, this is a third hospitalization since May 18 patient returned from [place] around 05/15/2017. 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 Patient was also treated for chronic diastolic dysfunction with significant improvement in chest x-ray findings upon discharge yesterday no significant change compared to yesterday although patient is on 4 L of vodka and will give her additional dose of Lasix need to evaluate further for fever of unknown origin infectious disease was E consulted we may also need to consult oncology to evaluate for any leukemia or lymphoma contributing to her fever and leukocytosis. Patient was extensively evaluated during her last hospitalization with abdominal pelvic CT CT angios the chest liver ultrasound echocardiogram of the heart without any significant abnormality in any of these tests Review of Systems REVIEW OF SYSTEMS: CONSTITUTIONAL: No fever, no malaise, no fatigue. HEENT: No recent visual problems or hearing problems. Denied any sore throat. CARDIOVASCULAR: No chest pain, orthopnea, PND, no palpitations, no syncope. PULMONARY: No shortness of breath, no cough, no hemoptysis. GASTROINTESTINAL: No diarrhea, no nausea, no vomiting, no abdominal pain. Normoactive bowel sounds. NEUROLOGICAL: No headaches, no weakness, no numbness. HEMATOLOGICAL: Denies any bleeding or petechiae. GENITOURINARY: Denies any burning micturition, frequency, or urgency. MUSCULOSKELETAL/RHEUMATOLOGICAL: Denies any joint pain, swelling, or any muscle pain. ENDOCRINE: Denies any polyuria or polydipsia. The rest of the 14-point review of systems is negative. ems Past Medical History Past Medical History: GERD/Reflux, Hyperlipidemia, Hypertension, Osteoarthritis (OA) Additional Past Medical History / Comment(s): Pt has had recent admissions to [facility]. On 05/18/17 was admitted with back pain bilaterally, UTI/Ecoli, possible kidney infection/sepsis, pneumonia rulled out, electrolyte disturbances, pulmonary edema (thought to be d/t fluid resuscitation), possible compression fractures, L5-S1 mild DDD. Admitted on 06/08/17 with acute hypoxic respiratory failure 2ndary to tracheobronchitis, possible sepsis with recent pneumonia, diarrhea (Cdiff negative). Other Hx: Cardiac valve leakage, sinus drainage. History of Any Multi-Drug Resistant Organisms: None Reported Past Surgical History: Appendectomy, Hysterectomy, Joint Replacement, Orthopedic Surgery Additional Past Surgical History / Comment(s): Total L knee arthroplasty, R foot hammer toe surgery, colonoscopy, bilateral cataract removal with IOL implants. Past Anesthesia/Blood Transfusion Reactions: Previous Problems w/ Anesthesia, Postoperative Nausea & Vomiting (PONV) Additional Past Anesthesia/Blood Transfusion Reaction / Comment(s): Pt received blood after her total knee surgery. Smoking Status: Former smoker - Past Family History Father History Unknown: Yes Additional Family Medical History / Comment(s): Father is , pt does not know his history Mother Additional Family Medical History / Comment(s): Mother post fall from either a CVA or a ND per pt. Medications and Allergies Home Medications Medication Instructions Recorded Confirmed Type Atorvastatin [Lipitor] 20 mg PO HS 05/18/17 06/12/17 History DULoxetine HCL [Cymbalta] 60 mg PO DAILY 05/18/17 06/12/17 History Fluticasone Nasal [place] [Flonase 2 spr EA NOSTRIL DAILY PRN 05/18/17 06/12/17 History Nasal [place]] Losartan Potassium 100 mg PO DAILY 05/18/17 06/12/17 History Meloxicam [Mobic] 15 mg PO DAILY PRN 05/18/17 06/12/17 History Metoprolol Succinate (ER) [Toprol 50 mg PO HS 05/18/17 06/12/17 History XL] Oxybutynin ER [Ditropan Xl] 15 mg PO DAILY 05/18/17 06/12/17 History Loratadine [Claritin] 10 mg PO DAILY #0 tab 05/22/17 06/12/17 Rx Magnesium Oxide [Beckwith] 500 mg PO BID 06/08/17 06/12/17 History Ranitidine HCl [Zantac] 300 mg PO DAILY 06/08/17 06/12/17 History Furosemide [Lasix] 20 mg PO DAILY #30 tab 06/11/17 06/12/17 Rx Allergies Allergy/AdvReac Type Severity Reaction Status Date / Time codeine Allergy Nausea & Verified 06/09/17 00:12 Vomiting Penicillins Allergy Rash/Hives Verified 06/08/17 13:12 Physical Exam Vitals: Vital Signs Temp Pulse Pulse Resp BP BP Pulse Ox 06/12/17 08:05 108 H 06/12/17 08:00 97.9 F 111 H 18 121/66 94 L 06/12/17 07:56 108 H 98 06/12/17 06:44 112 H 18 131/63 98 06/12/17 05:47 101 F H 06/12/17 04:52 133 H 93 L 06/12/17 04:44 28 H 06/12/17 04:32 101 F H 138 H 28 H 140/68 93 L Intake and Output 06/11/17 06/12/17 06/12/17 22:59 06:59 14:59 Other: Weight 62.596 kg PHYSICAL EXAMINATION: GENERAL: The patient is alert and oriented x3, not in any acute distress. Well developed, well nourished. HEENT: Pupils are round and equally reacting to light. EOMI. No scleral icterus. No conjunctival pallor. Normocephalic, atraumatic. No pharyngeal erythema. No thyromegaly. CARDIOVASCULAR: S1 and S2 present. No murmurs, rubs, or gallops. PULMONARY: Chest is clear to auscultation, no wheezing was appreciated MIBI Bassler crackles are appreciated ABDOMEN: Soft, nontender, nondistended, normoactive bowel sounds. No palpable organomegaly. MUSCULOSKELETAL: No joint swelling or deformity. EXTREMITIES: No cyanosis, clubbing, or pedal edema. NEUROLOGICAL: Gross neurological examination did not reveal any focal deficits. SKIN: No rashes. Results CBC & Chem 7: 06/12/17 04:40 06/12/17 04:40 Labs: Abnormal Lab Results - Last 24 Hours (Table) 06/12/17 06/12/17 06/12/17 Range/Units 04:40 04:40 07:42 WBC 26.8 H* (3.8-10.6) k/uL RBC 3.68 L (3.80-5.40) m/uL Hgb 11.3 L (11.4-16.0) gm/dL Plt Count 513 H (150-450) k/uL Neutrophils # 24.5 H (1.3-7.7) k/uL Sodium 135 L (137-145) mmol/L Carbon Dioxide 21 L (22-30) mmol/L BUN 19 H (7-17) mg/dL Glucose 117 H (74-99) mg/dL POC Glucose (mg/dL) 164 H (75-99) mg/dL Magnesium 1.5 L (1.6-2.3) mg/dL 06/12/17 Range/Units 12:26 WBC (3.8-10.6) k/uL RBC (3.80-5.40) m/uL Hgb (11.4-16.0) gm/dL Plt Count (150-450) k/uL Neutrophils # (1.3-7.7) k/uL Sodium (137-145) mmol/L Carbon Dioxide (22-30) mmol/L BUN (7-17) mg/dL Glucose (74-99) mg/dL POC Glucose (mg/dL) 166 H (75-99) mg/dL Magnesium (1.6-2.3) mg/dL Thrombosis Risk Factor Assmnt - Choose All That Apply Any of the Below Risk Factors Present?: Yes Each Factor Represents 1 point: Abnormal pulmonary function (COPD), Serious lung disease incl. pneumonia (< 1month) Other Risk Factors: Yes Each Risk Factor Represents 2 Points: Age 61-74 years Other congenital or acquired thrombophilia - If yes, enter type in comment: No Thrombosis Risk Factor Assessment Total Risk Factor Score: 4 Thrombosis Risk Factor Assessment Level: Moderate Risk Assessment and Plan Plan: -Fever of unknown origin: Patient will be started on empiric antibiotics, along with infectious causes any to evaluate for oncological and autoimmune causes for his fevers. -Shortness of breath: Secondary to probable chronic diastolic dysfunction with acute exacerbation patient will be given a dose of IV Lasix. We'll continue with 20 mg of Lasix -Hypertension -Hyperlipidemia for above-mentioned chronic medical problems patient will be resumed on appropriate home medications
[2017-06-12] MEDS: cefTRIAXone IN SWFI 2,000 MG/20 ML SYRINGE IVP SCH (14:53)
[2017-06-12] MEDS: AZITHROMYCIN 500 MG in SODIUM CHLORIDE 0.9% 250 ML IVPB SCH (14:53)
[2017-06-12] MEDS: FUROSEMIDE 10 MG/ML 4 ML VIAL IV SCH (14:53)
[2017-06-12 17:07] LABS: Glucose,Whole Blood 178 mg/dL (75-99)
[2017-06-12] MEDS: ATORVASTATIN 20 MG TAB PO SCH (20:39)
[2017-06-12] MEDS: METOPROLOL SUCCINATE (ER) 50 MG TAB.ER.24H PO SCH (20:39)
[2017-06-12 21:10] LABS: Glucose,Whole Blood 228 mg/dL (75-99)
[2017-06-12] MEDS: INSULIN ASPART 100 UNIT/ML 1 ML 10 ML VIAL SQ SCH (22:47)
[2017-06-12] MEDS: ALPRAZolam 0.25 MG TAB PO PRN (23:04)
--- NOTE | 2017-06-12 23:45 | P.CONS ---
History of Present Illness - Reason for Consult Consult date: 06/12/17 - Chief Complaint Progressive shortness of breath - History of Present Illness This is a 71-year-old female who had recent hospitalization on May 18 through the which time she was treated for E. coli urinary tract infection and possible pneumonia was ruled out by pulmonary medicine. Patient states that during that hospitalization she woke up the morning she came in with pain across her lower anterior ribs radiating around to the back and down her back. She gives history that there was initial concern for kidney stone which was ruled out. She denies ever having any dysuria and has never had a urinary tract infection in the past. Patient was discharged home on Levaquin for an additional 7 days which she states she completed and then followed up with her primary care physician. She had repeat lab work done in the office and her electrolytes were low and she was started on magnesium and has taken a couple doses. She states that prior to her discharge, she had developed a cough that was very minor initially and this continued at home but then worsened a few days ago. Now the cough is very annoying, frequent and painful. She also gives history of loose bowel movements 1-2 times per day for the past week. She states she has not been eating very much as she has not been feeling well. she developed fever, chills and rigors with shortness of breath and continued cough. Patient came into [facility] emergency center for evaluation. She was found to be febrile with a temperature of 100.6, sinus tachycardia 128 and pulse ox of 88, leukocytosis at 24. Lactic acid was 1.4. Urinalysis was clear, nitrite negative, leukoesterase small, WBC 9. Influenza testing was negative. Patient was started on Levaquin and vancomycin and [facility] workup was generally negative except for her acute diastolic congestive heart failure. This was treated, her fever resolved and she was discharged home to complete a course of levofloxacin. She however now presents with in several hours with a marked worsening of her shortness of breath. Fever 101 and feeling very poorly overall. She constantly has been admitted again in further intervention occurs. Review of Systems Constitutional: Reports anorexia, Reports chills, Reports fatigue, Reports fever , Reports lethargy, Reports malaise, Reports poor appetite, Reports weakness Eyes: denies blurred vision, denies pain Ears, nose, mouth and throat: Denies dental pain, Denies headache, Denies mouth pain, Denies sore throat Cardiovascular: Reports decreased exercise tolerance, Reports dyspnea on exertion, Reports leg edema, Reports shortness of breath, Denies chest pain, Denies edema, Denies lightheadedness, Denies syncope Respiratory: Reports cough, Reports cough with sputum, Reports dyspnea, Denies excessive sputum, Denies hemoptysis, Denies home oxygen Gastrointestinal: Reports loss of appetite, Denies abdominal pain, Denies diarrhea, Denies nausea, Denies vomiting Genitourinary: Denies dysuria, Denies flank pain, Denies hematuria, Denies urgency, Denies urinary frequency Musculoskeletal: Denies frequent falls, Denies gait dysfunction, Denies myalgias Integumentary: Denies pruritus, Denies rash, Denies wounds Neurological: Denies change in mentation, Denies gait dysfunction, Denies numbness, Denies weakness Psychiatric: Denies anxiety, Denies depression Endocrine: Denies fatigue, Denies weight change Past Medical History Past Medical History: GERD/Reflux, Hyperlipidemia, Hypertension, Osteoarthritis (OA) Additional Past Medical History / Comment(s): Pt has had recent admissions to [facility]. On 05/18/17 was admitted with back pain bilaterally, UTI/Ecoli, possible kidney infection/sepsis, pneumonia rulled out, electrolyte disturbances, pulmonary edema (thought to be d/t fluid resuscitation), possible compression fractures, L5-S1 mild DDD. Admitted on 06/08/17 with acute hypoxic respiratory failure 2ndary to tracheobronchitis, possible sepsis with recent pneumonia, diarrhea (Cdiff negative). Other Hx: Cardiac valve leakage, sinus drainage. History of Any Multi-Drug Resistant Organisms: None Reported Past Surgical History: Appendectomy, Hysterectomy, Joint Replacement, Orthopedic Surgery Additional Past Surgical History / Comment(s): Total L knee arthroplasty, R foot hammer toe surgery, colonoscopy, bilateral cataract removal with IOL implants. Past Anesthesia/Blood Transfusion Reactions: Previous Problems w/ Anesthesia, Postoperative Nausea & Vomiting (PONV) Additional Past Anesthesia/Blood Transfusion Reaction / Comm: Pt received blood after her total knee surgery. Additional Psychological History / Comment(s): lives with her . Retired. No recent international travel. No animal exposures. No ill contacts that she is aware of except related to her recent hospital stay. Remote history of tobacco use. No alcohol use or recreational drug use Smoking Status: Former smoker - Past Family History Father History Unknown: Yes Additional Family Medical History / Comment(s): Father is , pt does not know his history Mother Additional Family Medical History / Comment(s): Mother post fall from either a CVA or a NE per pt. Medications and Allergies Home Medications and Allergies Comment(s): Current Medications Albuterol/Ipratropium (Duoneb 0.5 Mg-3 Mg/3 Ml Soln) 3 ml INHALATION RT-QID [facility] Last Admin: 06/12/17 19:15 Dose: Not Given Albuterol/Ipratropium (Duoneb 0.5 Mg-3 Mg/3 Ml Soln) 3 ml INHALATION RT-Q2H PRN PRN Reason: Shortness Of Breath Or Wheezing Alprazolam (Xanax) 0.25 mg PO QID PRN PRN Reason: Anxiety Last Admin: 06/12/17 23:04 Dose: 0.25 mg Atorvastatin Calcium (Lipitor) 20 mg PO HS [facility] Last Admin: 06/12/17 20:39 Dose: 20 mg Ceftriaxone Sodium (Rocephin) 2,000 mg IVP Q24HR [facility] Last Admin: 06/12/17 14:53 Dose: 2,000 mg Duloxetine HCl (Cymbalta) 60 mg PO DAILY [facility] Last Admin: 06/12/17 09:15 Dose: 60 mg Famotidine (Pepcid) 40 mg PO DAILY [facility] Last Admin: 06/12/17 09:13 Dose: 40 mg Fluticasone Propionate (Flonase Nasal [place]) 2 spray EA NOSTRIL DAILY PRN PRN Reason: Allergy Symptoms Furosemide (Lasix) 20 mg PO DAILY [facility] Last Admin: 06/12/17 09:13 Dose: 20 mg Furosemide (Lasix) 40 mg IV DAILY [facility] Last Admin: 06/12/17 14:53 Dose: 40 mg Guaifenesin (Robitussin) 200 mg PO Q6H PRN PRN Reason: Cough Sodium Chloride (Saline 0.9%) 1,000 mls @ 20 mls/hr IV .Q24H STA Stop: 06/13/17 04:32 Last Admin: 06/12/17 05:45 Dose: 20 mls/hr Azithromycin 500 mg/ Sodium (Chloride) 250 mls @ 125 mls/hr IVPB DAILY [facility] Last Admin: 06/12/17 14:53 Dose: 125 mls/hr Insulin Aspart (Novolog) 0 unit SQ ACHS [facility] PRN Reason: Protocol Last Admin: 06/12/17 22:47 Dose: 7 unit Loratadine (Claritin) 10 mg PO DAILY [facility] Last Admin: 06/12/17 09:13 Dose: 10 mg Losartan Potassium (Cozaar) 100 mg PO DAILY [facility] Last Admin: 06/12/17 09:13 Dose: 100 mg Magnesium Oxide (Mag-Ox) 400 mg PO BID [facility] Last Admin: 06/12/17 20:39 Dose: 400 mg Meloxicam (Mobic) 15 mg PO DAILY PRN PRN Reason: Pain Methylprednisolone Sodium Succinate (Solu-Medrol) 60 mg IV Q6HR [facility] Last Admin: 06/12/17 23:04 Dose: 60 mg Metoprolol Succinate (Toprol Xl) 50 mg PO HS [facility] Last Admin: 06/12/17 20:39 Dose: 50 mg Oxybutynin Chloride (Ditropan Xl) 15 mg PO DAILY [facility] Last Admin: 06/12/17 09:13 Dose: 15 mg Home Medications Medication Instructions Recorded Confirmed Type Atorvastatin [Lipitor] 20 mg PO HS 05/18/17 06/12/17 History DULoxetine HCL [Cymbalta] 60 mg PO DAILY 05/18/17 06/12/17 History Fluticasone Nasal [place] [Flonase 2 spr EA NOSTRIL DAILY PRN 05/18/17 06/12/17 History Nasal [place]] Losartan Potassium 100 mg PO DAILY 05/18/17 06/12/17 History Meloxicam [Mobic] 15 mg PO DAILY PRN 05/18/17 06/12/17 History Metoprolol Succinate (ER) [Toprol 50 mg PO HS 05/18/17 06/12/17 History XL] Oxybutynin ER [Ditropan Xl] 15 mg PO DAILY 05/18/17 06/12/17 History Loratadine [Claritin] 10 mg PO DAILY #0 tab 05/22/17 06/12/17 Rx Magnesium Oxide [Beckwith] 500 mg PO BID 06/08/17 06/12/17 History Ranitidine HCl [Zantac] 300 mg PO DAILY 06/08/17 06/12/17 History Furosemide [Lasix] 20 mg PO DAILY #30 tab 06/11/17 06/12/17 Rx Allergies Allergy/AdvReac Type Severity Reaction Status Date / Time codeine Allergy Nausea & Verified 06/09/17 00:12 Vomiting Penicillins Allergy Rash/Hives Verified 06/08/17 13:12 Physical Exam Vitals: Vital Signs Temp Pulse Pulse Resp BP BP Pulse Ox 06/12/17 19:08 108 H 06/12/17 18:57 100 06/12/17 16:10 123 H 06/12/17 15:25 18 06/12/17 15:14 102 H 06/12/17 15:06 100 06/12/17 15:00 97.9 F 121 H 16 124/68 95 06/12/17 08:05 108 H 06/12/17 08:00 97.9 F 111 H 18 121/66 94 L 06/12/17 07:56 108 H 98 06/12/17 06:44 112 H 18 131/63 98 06/12/17 05:47 101 F H 06/12/17 04:52 133 H 93 L 06/12/17 04:44 28 H 06/12/17 04:32 101 F H 138 H 28 H 140/68 93 L Intake and Output 06/12/17 06/12/17 06/13/17 14:59 22:59 06:59 Other: # Voids 2 Gen: This is a [id number] female. She is seen walking to her bed from the bathroom and appears to be in no acute distress. Gait is steady. HEENT: Head is atraumatic, normocephalic. Pupils equal, round. Sclerae is anicteric. conjunctiva pink. Oral mucous membranes are slightly dry. No thrush noted. NECK: Supple. No JVD. No lymphadenopathy. No thyromegaly. LUNGS: bilateral scattered crackles. No intercostal retractions. Few expiratory wheezes are heard. HEART: Regular rate and rhythm. Systolic murmur. Tachycardic. ABDOMEN: Soft. Bowel sounds are present. No masses. No tenderness. No CVA tenderness. EXTREMITIES: Trace bilateral pedal edema. No calf tenderness. dorsalis pedis + 2 bilaterally. NEUROLOGICAL: Patient is awake, alert and oriented x3. Cranial nerves 2 through 12 are grossly intact. Results CBC & Chem 7: 06/12/17 04:40 06/12/17 04:40 Labs: Abnormal Lab Results - Last 24 Hours (Table) 06/12/17 06/12/17 06/12/17 Range/Units 04:40 04:40 04:40 WBC 26.8 H* (3.8-10.6) k/uL RBC 3.68 L (3.80-5.40) m/uL Hgb 11.3 L (11.4-16.0) gm/dL Plt Count 513 H (150-450) k/uL Neutrophils # 24.5 H (1.3-7.7) k/uL Sodium 135 L (137-145) mmol/L Carbon Dioxide 21 L (22-30) mmol/L BUN 19 H (7-17) mg/dL Glucose 117 H (74-99) mg/dL POC Glucose (mg/dL) (75-99) mg/dL Magnesium 1.5 L (1.6-2.3) mg/dL C-Reactive Protein 49.7 H (<10.0) mg/L 06/12/17 06/12/17 06/12/17 Range/Units 07:42 12:26 17:04 WBC (3.8-10.6) k/uL RBC (3.80-5.40) m/uL Hgb (11.4-16.0) gm/dL Plt Count (150-450) k/uL Neutrophils # (1.3-7.7) k/uL Sodium (137-145) mmol/L Carbon Dioxide (22-30) mmol/L BUN (7-17) mg/dL Glucose (74-99) mg/dL POC Glucose (mg/dL) 164 H 166 H 178 H (75-99) mg/dL Magnesium (1.6-2.3) mg/dL C-Reactive Protein (<10.0) mg/L 06/12/17 Range/Units 21:09 WBC (3.8-10.6) k/uL RBC (3.80-5.40) m/uL Hgb (11.4-16.0) gm/dL Plt Count (150-450) k/uL Neutrophils # (1.3-7.7) k/uL Sodium (137-145) mmol/L Carbon Dioxide (22-30) mmol/L BUN (7-17) mg/dL Glucose (74-99) mg/dL POC Glucose (mg/dL) 228 H (75-99) mg/dL Magnesium (1.6-2.3) mg/dL C-Reactive Protein (<10.0) mg/L Laboratory Results WBC 26.8 k/uL (3.8-10.6) H* 06/12/17 04:40 RBC 3.68 m/uL (3.80-5.40) L 06/12/17 04:40 Hgb 11.3 gm/dL (11.4-16.0) L 06/12/17 04:40 Hct 35.5 % (34.0-46.0) 06/12/17 04:40 MCV 96.7 fL (80.0-100.0) 06/12/17 04:40 MCH 30.7 pg (25.0-35.0) 06/12/17 04:40 MCHC 31.8 g/dL (31.0-37.0) 06/12/17 04:40 RDW 13.1 % (11.5-15.5) 06/12/17 04:40 Plt Count 513 k/uL (150-450) H 06/12/17 04:40 Neutrophils % 92 % 06/12/17 04:40 Lymphocytes % 4 % 06/12/17 04:40 Monocytes % 1 % 06/12/17 04:40 Eosinophils % 2 % 06/12/17 04:40 Basophils % 0 % 06/12/17 04:40 Neutrophils # 24.5 k/uL (1.3-7.7) H 06/12/17 04:40 Lymphocytes # 1.1 k/uL (1.0-4.8) 06/12/17 04:40 Monocytes # 0.4 k/uL (0-1.0) 06/12/17 04:40 Eosinophils # 0.5 k/uL (0-0.7) 06/12/17 04:40 Basophils # 0.1 k/uL (0-0.2) 06/12/17 04:40 PT 9.9 sec (9.0-12.0) 06/12/17 04:40 INR 1.0 (<1.2) 06/12/17 04:40 APTT 23.2 sec (22.0-30.0) 06/12/17 04:40 Sodium 135 mmol/L (137-145) L 06/12/17 04:40 Potassium 4.7 mmol/L (3.5-5.1) 06/12/17 04:40 Chloride 102 mmol/L (98-107) 06/12/17 04:40 Carbon Dioxide 21 mmol/L (22-30) L 06/12/17 04:40 Anion Gap 12 mmol/L 06/12/17 04:40 BUN 19 mg/dL (7-17) H 06/12/17 04:40 Creatinine 0.80 mg/dL (0.52-1.04) 06/12/17 04:40 Est GFR (MDRD) Af Amer >60 (>60 ml/min/1.73 sqM) 06/12/17 04:40 Est GFR (MDRD) Non-Af >60 (>60 ml/min/1.73 sqM) 06/12/17 04:40 Glucose 117 mg/dL (74-99) H 06/12/17 04:40 POC Glucose (mg/dL) 228 mg/dL (75-99) H 06/12/17 21:09 POC Glu [employer] ID Tess Juarez 06/12/17 21:09 Plasma Lactic Acid Edin 1.4 mmol/L (0.7-2.0) 06/12/17 04:40 Calcium 8.9 mg/dL (8.4-10.2) 06/12/17 04:40 Magnesium 1.5 mg/dL (1.6-2.3) L 06/12/17 04:40 Total Bilirubin 0.7 mg/dL (0.2-1.3) 06/12/17 04:40 AST 26 U/L (14-36) 06/12/17 04:40 ALT 22 U/L (9-52) 06/12/17 04:40 Alkaline Phosphatase 83 U/L (38-126) 06/12/17 04:40 Total Creatine Kinase 40 U/L (30-135) 06/12/17 04:40 CK-MB (CK-2) 0.4 ng/mL (0.0-2.4) 06/12/17 04:40 CK-MB (CK-2) Rel Index 1.0 06/12/17 04:40 Troponin I <0.012 ng/mL (0.000-0.034) 06/12/17 04:40 C-Reactive Protein 49.7 mg/L (<10.0) H 06/12/17 04:40 NT-Pro-B Natriuret Pep 76 pg/mL 06/12/17 04:40 Total Protein 7.6 g/dL (6.3-8.2) 06/12/17 04:40 Albumin 4.0 g/dL (3.5-5.0) 06/12/17 04:40 Influenza Type A RNA Not Detected (Not Detectd) 06/12/17 05:50 Influenza Type B (PCR) Not Detected (Not Detectd) 06/12/17 05:50 Chest x-ray: image reviewed (Potential mild heart failure no other new acute infiltrate seen) Assessment and Plan (1) Diastolic congestive heart failure Current Visit: Yes Status: Acute Code(s): I50.30 - UNSPECIFIED DIASTOLIC ( CONGESTIVE) HEART FAILURE SNOMED Code(s): 434431264 (2) Leukocytosis Narrative/Plan: 71-year-old female who was just discharged from hospital after hospital stay where she presented with shortness of breath and fever. During her stay workup was generally normal except she was found evidence of diastolic congestive heart failure. An with diuresis there was marked improvement of her shortness of breath. She had no fever for more than a day before her discharge. She was feeling somewhat better. On going home she didn't have fever to 101 became very short of breath and anxious and presented back to the emergency center and was admitted. She was seen by pulmonary critical care. May need cardiology evaluation. At this time the patient could have acquired a new acute viral infection as a cause of the new symptoms in the pulmonary symptoms especially with increasing shortness of breath. There are significant pulmonary viruses that are currently epidemic in the community. Her influenza testing is negative. Will initiate workup for potential fever of unknown origin. The leukocytosis is likely in the recent steroid use but is being monitored. Fever likely is related to the acute changes in her pulmonary system with concerns to the new viral infection versus pulmonary disease. Cultures and studies are in process. Feels better with breathing treatments and oxygen therapy. Current Visit: Yes Status: Acute Code(s): D72.829 - ELEVATED WHITE BLOOD CELL COUNT, UNSPECIFIED SNOMED Code(s): 042294148 (3) Fever Current Visit: Yes Status: Acute Code(s): R50.9 - FEVER, UNSPECIFIED SNOMED Code(s): 672956304
[2017-06-13] MEDS: guaiFENesin SYRUP 100MG/5ML 200 MG/10 ML CUP PO PRN ×2 (04:03→21:37)
[2017-06-13] MEDS: IPRATROPIUM-ALBUTEROL 3 ML NEB INHALATION PRN (04:52)
[2017-06-13] MEDS: methylPREDNISolone SOD SUCCI 125 MG/2 ML VIAL IV SCH ×4 (06:22→23:39)
[2017-06-13 07:24] LABS: Glucose,Whole Blood 155 mg/dL (75-99)
[2017-06-13] MEDS: IPRATROPIUM-ALBUTEROL 3 ML NEB INHALATION SCH ×4 (07:24→21:55)
[2017-06-13] MEDS: AZITHROMYCIN 500 MG in SODIUM CHLORIDE 0.9% 250 ML IVPB SCH (07:35)
[2017-06-13] MEDS: INSULIN ASPART 100 UNIT/ML 1 ML 10 ML VIAL SQ SCH ×4 (08:19→21:37)
[2017-06-13] MEDS: FUROSEMIDE 20 MG TAB PO SCH (08:23)
[2017-06-13] MEDS: OXYBUTYNIN 15 MG TAB.ER.24 PO SCH (08:23)
[2017-06-13] MEDS: LOSARTAN 50 MG TAB PO SCH (08:23)
[2017-06-13] MEDS: LORATADINE 10 MG TAB PO SCH (08:23)
[2017-06-13] MEDS: MAGNESIUM OXIDE 400 MG TAB PO SCH ×2 (08:23→20:11)
[2017-06-13] MEDS: FAMOTIDINE 20 MG TAB PO SCH (08:24)
[2017-06-13] MEDS: FUROSEMIDE 10 MG/ML 4 ML VIAL IV SCH (08:24)
[2017-06-13] MEDS: DULoxetine HCL 60 MG CAPSULE.DR PO SCH (08:24)
[2017-06-13 08:43] LABS: HCT 30.4 % (34.0-46.0); HGB 9.9 gm/dL (11.4-16.0); Hypochromasia Slight; MCH 30.5 pg (25.0-35.0); MCHC 32.4 g/dL (31.0-37.0); Mean Platelet Volume 6.9; Platelet Count 488 k/uL (150-450); RBC 3.23 m/uL (3.80-5.40); RDW 12.6 % (11.5-15.5)
[2017-06-13 08:55] LABS: WBC 26.1 k/uL (3.8-10.6)
[2017-06-13 08:58] LABS: Anion Gap 15 mmol/L; Blood Urea Nitrogen 23 mg/dL (7-17); Calcium 9.2 mg/dL (8.4-10.2); Carbon Dioxide 22 mmol/L (22-30); Chloride 99 mmol/L (98-107); Glucose 157 mg/dL (74-99); Potassium 3.9 mmol/L (3.5-5.1); Sodium 136 mmol/L (137-145)
[2017-06-13] MEDS: cefTRIAXone IN SWFI 2,000 MG/20 ML SYRINGE IVP SCH (10:47)
[2017-06-13] MEDS: ALPRAZolam 0.25 MG TAB PO PRN ×2 (12:08→19:34)
[2017-06-13 12:32] LABS: Glucose,Whole Blood 174 mg/dL (75-99)
[2017-06-13 14:10] LABS: Erythrocyte Sedimentation Rate 107 mm/hr (0-20)
[2017-06-13 16:58] LABS: Glucose,Whole Blood 147 mg/dL (75-99)
[2017-06-13] MEDS: ATORVASTATIN 20 MG TAB PO SCH (20:11)
[2017-06-13] MEDS: METOPROLOL SUCCINATE (ER) 50 MG TAB.ER.24H PO SCH (20:12)
[2017-06-13 21:48] LABS: Glucose,Whole Blood 178 mg/dL (75-99)
--- NOTE | 2017-06-13 23:16 | P.PN ---
Subjective Progress Note Date: 06/13/17 Principal diagnosis: Shortness of breath This is a 71-year-old female who had recent hospitalization on May 18 through the which time she was treated for E. coli urinary tract infection and possible pneumonia was ruled out by pulmonary medicine. Patient states that during that hospitalization she woke up the morning she came in with pain across her lower anterior ribs radiating around to the back and down her back. She gives history that there was initial concern for kidney stone which was ruled out. She denies ever having any dysuria and has never had a urinary tract infection in the past. Patient was discharged home on Levaquin for an additional 7 days which she states she completed and then followed up with her primary care physician. She had repeat lab work done in the office and her electrolytes were low and she was started on magnesium and has taken a couple doses. She states that prior to her discharge, she had developed a cough that was very minor initially and this continued at home but then worsened a few days ago. Now the cough is very annoying, frequent and painful. She also gives history of loose bowel movements 1-2 times per day for the past week. She states she has not been eating very much as she has not been feeling well. she developed fever, chills and rigors with shortness of breath and continued cough. Patient came into [facility] emergency center for evaluation. She was found to be febrile with a temperature of 100.6, sinus tachycardia 128 and pulse ox of 88, leukocytosis at 24. Lactic acid was 1.4. Urinalysis was clear, nitrite negative, leukoesterase small, WBC 9. Influenza testing was negative. Patient was started on Levaquin and vancomycin and admitted to [facility] workup was generally negative except for her acute diastolic congestive heart failure. This was treated, her fever resolved and she was discharged home to complete a course of levofloxacin. She however now presents with in several hours with a marked worsening of her shortness of breath. Fever 101 and feeling very poorly overall. She constantly has been admitted again in further intervention occurs. Fever has continued. She is less short of breath. She's having some anxiety likely worsened by the steroids that she is receiving to improve her pulmonary status. Objective - Vital Signs Vital signs: Vital Signs Temp 97.3 F L 06/13/17 15:00 Pulse 115 H 06/13/17 22:04 Resp 16 06/13/17 15:00 BP 121/61 06/13/17 15:00 Pulse Ox 99 06/13/17 16:24 Intake & Output 06/13/17 06/13/17 06/14/17 06:59 18:59 06:59 Other: # Voids 2 3 T-max 101 - Exam Gen: This is a [id number] female. She is seen walking to her bed from the bathroom and appears to be in no acute distress. Gait is steady. HEENT: Head is atraumatic, normocephalic. Pupils equal, round. Sclerae is anicteric. conjunctiva pink. Oral mucous membranes are slightly dry. No thrush noted. NECK: Supple. No JVD. No lymphadenopathy. No thyromegaly. LUNGS: bilateral scattered crackles. No intercostal retractions. Few expiratory wheezes are heard. HEART: Regular rate and rhythm. Systolic murmur. Tachycardic. ABDOMEN: Soft. Bowel sounds are present. No masses. No tenderness. No CVA tenderness. EXTREMITIES: Trace bilateral pedal edema. No calf tenderness. dorsalis pedis + 2 bilaterally. NEUROLOGICAL: Patient is awake, alert and oriented x3. - Labs CBC & Chem 7: 06/13/17 08:02 06/13/17 08:02 Labs: Abnormal Lab Results - Last 24 Hours (Table) 06/13/17 06/13/17 06/13/17 Range/Units 07:17 08:02 08:02 WBC 26.1 H* (3.8-10.6) k/uL RBC 3.23 L (3.80-5.40) m/uL Hgb 9.9 L (11.4-16.0) gm/dL Hct 30.4 L (34.0-46.0) % Plt Count 488 H (150-450) k/uL ESR 107 H (0-20) mm/hr Sodium 136 L (137-145) mmol/L BUN 23 H (7-17) mg/dL Glucose 157 H (74-99) mg/dL POC Glucose (mg/dL) 155 H (75-99) mg/dL 06/13/17 06/13/17 06/13/17 Range/Units 12:30 16:56 21:21 WBC (3.8-10.6) k/uL RBC (3.80-5.40) m/uL Hgb (11.4-16.0) gm/dL Hct (34.0-46.0) % Plt Count (150-450) k/uL ESR (0-20) mm/hr Sodium (137-145) mmol/L BUN (7-17) mg/dL Glucose (74-99) mg/dL POC Glucose (mg/dL) 174 H 147 H 178 H (75-99) mg/dL Microbiology - Last 24 Hours (Table) 06/12/17 04:40 Blood Culture - Preliminary Blood No Growth after 24 hours Laboratory Results WBC 26.1 k/uL (3.8-10.6) H* 06/13/17 08:02 RBC 3.23 m/uL (3.80-5.40) L 06/13/17 08:02 Hgb 9.9 gm/dL (11.4-16.0) L 06/13/17 08:02 Hct 30.4 % (34.0-46.0) L 06/13/17 08:02 MCV 94.0 fL (80.0-100.0) 06/13/17 08:02 MCH 30.5 pg (25.0-35.0) 06/13/17 08:02 MCHC 32.4 g/dL (31.0-37.0) 06/13/17 08:02 RDW 12.6 % (11.5-15.5) 06/13/17 08:02 Plt Count 488 k/uL (150-450) H 06/13/17 08:02 Neutrophils % 92 % 06/12/17 04:40 Lymphocytes % 4 % 06/12/17 04:40 Monocytes % 1 % 06/12/17 04:40 Eosinophils % 2 % 06/12/17 04:40 Basophils % 0 % 06/12/17 04:40 Neutrophils # 24.5 k/uL (1.3-7.7) H 06/12/17 04:40 Lymphocytes # 1.1 k/uL (1.0-4.8) 06/12/17 04:40 Monocytes # 0.4 k/uL (0-1.0) 06/12/17 04:40 Eosinophils # 0.5 k/uL (0-0.7) 06/12/17 04:40 Basophils # 0.1 k/uL (0-0.2) 06/12/17 04:40 Hypochromasia Slight 06/13/17 08:02 ESR 107 mm/hr (0-20) H 06/13/17 08:02 PT 9.9 sec (9.0-12.0) 06/12/17 04:40 INR 1.0 (<1.2) 06/12/17 04:40 APTT 23.2 sec (22.0-30.0) 06/12/17 04:40 Sodium 136 mmol/L (137-145) L 06/13/17 08:02 Potassium 3.9 mmol/L (3.5-5.1) 06/13/17 08:02 Chloride 99 mmol/L (98-107) 06/13/17 08:02 Carbon Dioxide 22 mmol/L (22-30) 06/13/17 08:02 Anion Gap 15 mmol/L 06/13/17 08:02 BUN 23 mg/dL (7-17) H 06/13/17 08:02 Creatinine 0.86 mg/dL (0.52-1.04) 06/13/17 08:02 Est GFR (MDRD) Af Amer >60 (>60 ml/min/1.73 sqM) 06/13/17 08:02 Est GFR (MDRD) Non-Af >60 (>60 ml/min/1.73 sqM) 06/13/17 08:02 Glucose 157 mg/dL (74-99) H 06/13/17 08:02 POC Glucose (mg/dL) 178 mg/dL (75-99) H 06/13/17 21:21 POC Glu Cafe Team Member ID Harika Ellis 06/13/17 21:21 Plasma Lactic Acid Edin 1.4 mmol/L (0.7-2.0) 06/12/17 04:40 Calcium 9.2 mg/dL (8.4-10.2) 06/13/17 08:02 Magnesium 1.5 mg/dL (1.6-2.3) L 06/12/17 04:40 Total Bilirubin 0.7 mg/dL (0.2-1.3) 06/12/17 04:40 AST 26 U/L (14-36) 06/12/17 04:40 ALT 22 U/L (9-52) 06/12/17 04:40 Alkaline Phosphatase 83 U/L (38-126) 06/12/17 04:40 Total Creatine Kinase 40 U/L (30-135) 06/12/17 04:40 CK-MB (CK-2) 0.4 ng/mL (0.0-2.4) 06/12/17 04:40 CK-MB (CK-2) Rel Index 1.0 06/12/17 04:40 Troponin I <0.012 ng/mL (0.000-0.034) 06/12/17 04:40 C-Reactive Protein 49.7 mg/L (<10.0) H 06/12/17 04:40 NT-Pro-B Natriuret Pep 76 pg/mL 06/12/17 04:40 Total Protein 7.6 g/dL (6.3-8.2) 06/12/17 04:40 Albumin 4.0 g/dL (3.5-5.0) 06/12/17 04:40 EARLENE Screen NEGATIVE (NEGATIVE) 06/12/17 04:40 Influenza Type A RNA Not Detected (Not Detectd) 06/12/17 05:50 Influenza Type B (PCR) Not Detected (Not Detectd) 06/12/17 05:50 Microbiology 06/12/17 04:40 Blood Blood Culture - Preliminary No Growth after 24 hours Assessment and Plan (1) Diastolic congestive heart failure Current Visit: Yes Status: Acute Code(s): I50.30 - UNSPECIFIED DIASTOLIC ( CONGESTIVE) HEART FAILURE SNOMED Code(s): 267891641 (2) Leukocytosis Narrative/Plan: 71-year-old female who was just discharged from hospital after hospital stay where she presented with shortness of breath and fever. During her stay workup was generally normal except she was found evidence of diastolic congestive heart failure. An with diuresis there was marked improvement of her shortness of breath. She had no fever for more than a day before her discharge. She was feeling somewhat better. On going home she didn't have fever to 101 became very short of breath and anxious and presented back to the emergency center and was admitted. She was seen by pulmonary critical care. May need cardiology evaluation. At this time the patient could have acquired a new acute viral infection as a cause of the new symptoms in the pulmonary symptoms especially with increasing shortness of breath. There are significant pulmonary viruses that are currently epidemic in the community. Her influenza testing is negative. Will initiate workup for potential fever of unknown origin. The leukocytosis is likely in the recent steroid use but is being monitored. Fever likely is related to the acute changes in her pulmonary system with concerns to the new viral infection versus pulmonary disease. Cultures and studies are in process. Feels better with breathing treatments and oxygen therapy. She does have evidence of a markedly elevated sed rate and CRP. Continue workup for autoimmune disease. Current Visit: Yes Status: Acute Code(s): D72.829 - ELEVATED WHITE BLOOD CELL COUNT, UNSPECIFIED SNOMED Code(s): 569023665 (3) Fever Current Visit: Yes Status: Acute Code(s): R50.9 - FEVER, UNSPECIFIED SNOMED Code(s): 928149185
[2017-06-14] MEDS: ALPRAZolam 0.25 MG TAB PO PRN ×3 (02:26→21:13)
[2017-06-14] MEDS: methylPREDNISolone SOD SUCCI 125 MG/2 ML VIAL IV SCH (06:37)
[2017-06-14] MEDS: guaiFENesin SYRUP 100MG/5ML 200 MG/10 ML CUP PO PRN ×3 (06:37→21:13)
[2017-06-14 07:30] LABS: Glucose,Whole Blood 147 mg/dL (75-99)
[2017-06-14] MEDS: IPRATROPIUM-ALBUTEROL 3 ML NEB INHALATION SCH ×4 (07:34→19:59)
[2017-06-14] MEDS: cefTRIAXone IN SWFI 2,000 MG/20 ML SYRINGE IVP SCH (08:20)
[2017-06-14] MEDS: INSULIN ASPART 100 UNIT/ML 1 ML 10 ML VIAL SQ SCH ×4 (08:20→21:47)
[2017-06-14] MEDS: MAGNESIUM OXIDE 400 MG TAB PO SCH ×2 (08:21→21:13)
[2017-06-14] MEDS: FAMOTIDINE 20 MG TAB PO SCH (08:21)
[2017-06-14] MEDS: LORATADINE 10 MG TAB PO SCH (08:21)
[2017-06-14] MEDS: LOSARTAN 50 MG TAB PO SCH (08:21)
[2017-06-14] MEDS: OXYBUTYNIN 15 MG TAB.ER.24 PO SCH (08:21)
[2017-06-14] MEDS: FUROSEMIDE 20 MG TAB PO SCH (08:21)
[2017-06-14] MEDS: FUROSEMIDE 10 MG/ML 4 ML VIAL IV SCH (08:21)
[2017-06-14] MEDS: DULoxetine HCL 60 MG CAPSULE.DR PO SCH (08:21)
[2017-06-14] MEDS: AZITHROMYCIN 500 MG TAB PO SCH (08:21)
--- NOTE | 2017-06-14 11:29 | P.PN ---
Subjective 71-year-old female was admitted secondary to fever and leukocytosis all the workup so far is negative. Patient's leukocytosis is secondary to systemic steroids patient is on high-dose of steroids which will continue down to oral 40 mg daily lungs are clear to auscultation. Patient is also being treated for chronic diastolic dysfunction with acute exacerbation patient is on Lasix for that patient is fairly euvolemic at this time. Patient is afebrile patient is on empiric antibiotics but infectious disease believe patient has viral illness leading to sepsis. Constitutional: Denied any fatigue denied any fever. Cardio vascular: denied any chest pain, palpitations Gastrointestinal denied any nausea vomiting Pulmonary: Denied any shortness of breath cough Neurologic denied any new focal deficits Objective - Vital Signs Vital signs: Vital Signs Temp 96.9 F L 06/14/17 07:00 Pulse 96 06/14/17 07:46 Resp 18 06/14/17 07:00 BP 118/85 06/14/17 07:00 Pulse Ox 96 06/14/17 07:37 Intake & Output 06/13/17 06/14/17 06/14/17 18:59 06:59 18:59 Intake Total 500 Output Total 0 Balance 500 Intake: Oral 500 Output: Urine 0 Other: # Voids 3 2 - Exam PHYSICAL EXAMINATION: GENERAL: The patient is alert and oriented x3, not in any acute distress. Well developed, well nourished. HEENT: Pupils are round and equally reacting to light. EOMI. No scleral icterus. No conjunctival pallor. Normocephalic, atraumatic. No pharyngeal erythema. No thyromegaly. CARDIOVASCULAR: S1 and S2 present. No murmurs, rubs, or gallops. PULMONARY: Chest is clear to auscultation, no wheezing or crackles. ABDOMEN: Soft, nontender, nondistended, normoactive bowel sounds. No palpable organomegaly. MUSCULOSKELETAL: No joint swelling or deformity. EXTREMITIES: No cyanosis, clubbing, or pedal edema. NEUROLOGICAL: Gross neurological examination did not reveal any focal deficits. SKIN: No rashes. - Labs CBC & Chem 7: 06/13/17 08:02 06/13/17 08:02 Labs: Abnormal Lab Results - Last 24 Hours (Table) 06/13/17 06/13/17 06/13/17 Range/Units 08:02 12:30 16:56 ESR 107 H (0-20) mm/hr POC Glucose (mg/dL) 174 H 147 H (75-99) mg/dL 06/13/17 06/14/17 Range/Units 21:21 07:08 ESR (0-20) mm/hr POC Glucose (mg/dL) 178 H 147 H (75-99) mg/dL Microbiology - Last 24 Hours (Table) 06/12/17 04:40 Blood Culture - Preliminary Blood No Growth after 48 hours Assessment and Plan Plan: -Fever of unknown origin: Most probably viral illness patient is on a empiric antibiotics and systemic steroids. Afebrile for more than 48 hours -Shortness of breath: Secondary to probable chronic diastolic dysfunction with acute exacerbation patient will be given a dose of IV Lasix. We'll continue with 20 mg of Lasix -Hypertension -Hyperlipidemia -Leukocytosis: Secondary to systemic steroids to avoid side effects from steroids will cut down the steroids patient lungs are clear to auscultation for above-mentioned chronic medical problems patient will be resumed on appropriate home medications
[2017-06-14 12:31] LABS: Glucose,Whole Blood 157 mg/dL (75-99)
[2017-06-14 17:30] LABS: Glucose,Whole Blood 128 mg/dL (75-99)
--- NOTE | 2017-06-14 20:30 | CONS ---
CONSULTATION Mrs. Hui is a 71-year-old female who was admitted to the hospital with symptoms of progressive dyspnea, cough and fever. She was just discharged from the hospital after a febrile episode following a trip to [place]. She came back with progressive fatigue, dyspnea and lack of energy and she has been coughing as well. The patient denies any prior cardiac history. She has been told that she had an irregular heartbeat a long time ago, but workup subsequently was negative. She underwent extensive workup, according to her, at [facility]. She has no PND or orthopnea. She has no peripheral edema. She has no palpitation. Her coronary risk factors are positive for a history of hypertension. She is nondiabetic, nonsmoker. She has hyperlipidemia. MEDICATIONS: Include: 1. Lipitor 20 mg daily. 2. Cymbalta. 3. Lasix 20 mg daily. 4. Claritin. 5. Potassium 100 mg daily. 6. Magnesium. 7. Meloxicam. 8. Metoprolol succinate 50 mg daily. 9. Oxybutynin and. 10.Ranitidine. REVIEW OF SYSTEMS: RESPIRATORY: She had progressive cough, the fever. She has no prior history of asthma. GI: No recent GI bleeding. No peptic ulcer disease. : No dysuria or hematuria. NERVOUS: No history of stroke or seizure. Her prior admission included an echocardiogram; as a matter of fact, she had 2 echocardiograms, one done in May of 2017 that showed a ejection fraction of 55%- 60% with mild mitral and tricuspid regurgitation, and subsequently was re-admitted early this month and had a repeat echocardiogram at that time that showed similar findings. PHYSICAL EXAMINATION: Blood pressure 100/60 with a heart rate in the low 100s. HEAD: Normocephalic. EYES: Sclerae nonicteric. NECK: Good carotid upstroke. No jugular venous distention. LUNGS: A few crackles bilaterally. HEART: Regular rate, rhythm. S1, S2. No S3 with a systolic murmur heard at the base. No diastolic murmur. No rub. ABDOMEN: Soft, nontender. Positive bowel sounds. No megaly. EXTREMITIES: No edema. Intact distal pulses. Lab data revealed white blood cells 26.1, hemoglobin of 9.9. BUN and creatinine 23 and 0.86, potassium is 3.9. On presentation, her troponin less than 0.012 and an NT-proBNP is 76. Her NT-proBNP on the prior admission in June was 150. Her EKG reveals sinus mechanism with sinus tachycardia and nonspecific ST-T wave changes. Her chest x-ray shows no evidence of congestive heart failure. IMPRESSION: 1. Febrile episode of unclear etiology. Workup in progress. 2. Dyspnea. No clear evidence to suggest congestive heart failure. The patient, according to the BNP report, as well as the results of her echocardiogram, does not have congestive heart failure. 3. Prior history of hypertension. 4. Sinus tachycardia related to infectious process. RECOMMENDATION: From the cardiac standpoint, I do not see any evidence of active cardiac issue at this time. She has been evaluated by Dr. Ardon regarding her infectious process and further workup is being done. Thank you for this consult. We will follow with you. MMBILLL / SULEIMANN: [id number] /
[2017-06-14] MEDS: METOPROLOL SUCCINATE (ER) 50 MG TAB.ER.24H PO SCH (21:13)
[2017-06-14] MEDS: ATORVASTATIN 20 MG TAB PO SCH (21:13)
--- NOTE | 2017-06-14 21:25 | P.PN ---
Subjective Progress Note Date: 06/14/17 Principal diagnosis: Shortness of breath This is a 71-year-old female who had recent hospitalization on May 18 through the which time she was treated for E. coli urinary tract infection and possible pneumonia was ruled out by pulmonary medicine. Patient states that during that hospitalization she woke up the morning she came in with pain across her lower anterior ribs radiating around to the back and down her back. She gives history that there was initial concern for kidney stone which was ruled out. She denies ever having any dysuria and has never had a urinary tract infection in the past. Patient was discharged home on Levaquin for an additional 7 days which she states she completed and then followed up with her primary care physician. She had repeat lab work done in the office and her electrolytes were low and she was started on magnesium and has taken a couple doses. She states that prior to her discharge, she had developed a cough that was very minor initially and this continued at home but then worsened a few days ago. Now the cough is very annoying, frequent and painful. She also gives history of loose bowel movements 1-2 times per day for the past week. She states she has not been eating very much as she has not been feeling well. she developed fever, chills and rigors with shortness of breath and continued cough. Patient came into [facility] emergency center for evaluation. She was found to be febrile with a temperature of 100.6, sinus tachycardia 128 and pulse ox of 88, leukocytosis at 24. Lactic acid was 1.4. Urinalysis was clear, nitrite negative, leukoesterase small, WBC 9. Influenza testing was negative. Patient was started on Levaquin and vancomycin and [facility] workup was generally negative except for her acute diastolic congestive heart failure. This was treated, her fever resolved and she was discharged home to complete a course of levofloxacin. She however now presents with in several hours with a marked worsening of her shortness of breath. Fever 101 and feeling very poorly overall. She constantly has been admitted again in further intervention occurs. Fever has continued. She is less short of breath. She is resting considerably better today. Objective - Vital Signs Vital signs: Vital Signs Temp 98.2 F 06/14/17 15:00 Pulse 104 H 06/14/17 20:15 Resp 18 06/14/17 15:29 BP 100/68 06/14/17 15:00 Pulse Ox 94 L 06/14/17 15:00 Intake & Output 06/14/17 06/14/17 06/15/17 06:59 18:59 06:59 Intake Total 500 Output Total 0 Balance 500 Intake: Oral 500 Output: Urine 0 Other: # Voids 2 2 - Exam Gen: This is a [id number] female. She is seen walking to her bed from the bathroom and appears to be in no acute distress. Gait is steady. HEENT: Head is atraumatic, normocephalic. Pupils equal, round. Sclerae is anicteric. conjunctiva pink. Oral mucous membranes are slightly dry. No thrush noted. NECK: Supple. No JVD. No lymphadenopathy. No thyromegaly. LUNGS: bilateral scattered crackles. No intercostal retractions. Few expiratory wheezes are heard. HEART: Regular rate and rhythm. Systolic murmur. Tachycardic. ABDOMEN: Soft. Bowel sounds are present. No masses. No tenderness. No CVA tenderness. EXTREMITIES: Trace bilateral pedal edema. No calf tenderness. dorsalis pedis + 2 bilaterally. NEUROLOGICAL: Patient very sleepy today. - Labs CBC & Chem 7: 06/13/17 08:02 06/13/17 08:02 Labs: Abnormal Lab Results - Last 24 Hours (Table) 06/13/17 06/14/17 06/14/17 Range/Units 21:21 07:08 12:24 POC Glucose (mg/dL) 178 H 147 H 157 H (75-99) mg/dL 06/14/17 Range/Units 17:26 POC Glucose (mg/dL) 128 H (75-99) mg/dL Microbiology - Last 24 Hours (Table) 06/12/17 04:40 Blood Culture - Preliminary Blood No Growth after 48 hours Laboratory Results WBC 26.1 k/uL (3.8-10.6) H* 06/13/17 08:02 RBC 3.23 m/uL (3.80-5.40) L 06/13/17 08:02 Hgb 9.9 gm/dL (11.4-16.0) L 06/13/17 08:02 Hct 30.4 % (34.0-46.0) L 06/13/17 08:02 MCV 94.0 fL (80.0-100.0) 06/13/17 08:02 MCH 30.5 pg (25.0-35.0) 06/13/17 08:02 MCHC 32.4 g/dL (31.0-37.0) 06/13/17 08:02 RDW 12.6 % (11.5-15.5) 06/13/17 08:02 Plt Count 488 k/uL (150-450) H 06/13/17 08:02 Neutrophils % 92 % 06/12/17 04:40 Lymphocytes % 4 % 06/12/17 04:40 Monocytes % 1 % 06/12/17 04:40 Eosinophils % 2 % 06/12/17 04:40 Basophils % 0 % 06/12/17 04:40 Neutrophils # 24.5 k/uL (1.3-7.7) H 06/12/17 04:40 Lymphocytes # 1.1 k/uL (1.0-4.8) 06/12/17 04:40 Monocytes # 0.4 k/uL (0-1.0) 06/12/17 04:40 Eosinophils # 0.5 k/uL (0-0.7) 06/12/17 04:40 Basophils # 0.1 k/uL (0-0.2) 06/12/17 04:40 Hypochromasia Slight 06/13/17 08:02 ESR 107 mm/hr (0-20) H 06/13/17 08:02 PT 9.9 sec (9.0-12.0) 06/12/17 04:40 INR 1.0 (<1.2) 06/12/17 04:40 APTT 23.2 sec (22.0-30.0) 06/12/17 04:40 Sodium 136 mmol/L (137-145) L 06/13/17 08:02 Potassium 3.9 mmol/L (3.5-5.1) 06/13/17 08:02 Chloride 99 mmol/L (98-107) 06/13/17 08:02 Carbon Dioxide 22 mmol/L (22-30) 06/13/17 08:02 Anion Gap 15 mmol/L 06/13/17 08:02 BUN 23 mg/dL (7-17) H 06/13/17 08:02 Creatinine 0.86 mg/dL (0.52-1.04) 06/13/17 08:02 Est GFR (MDRD) Af Amer >60 (>60 ml/min/1.73 sqM) 06/13/17 08:02 Est GFR (MDRD) Non-Af >60 (>60 ml/min/1.73 sqM) 06/13/17 08:02 Glucose 157 mg/dL (74-99) H 06/13/17 08:02 POC Glucose (mg/dL) 128 mg/dL (75-99) H 06/14/17 17:26 POC Glu Image Editor ID Yvonne Bazan 06/14/17 17:26 Plasma Lactic Acid Edin 1.4 mmol/L (0.7-2.0) 06/12/17 04:40 Calcium 9.2 mg/dL (8.4-10.2) 06/13/17 08:02 Magnesium 1.5 mg/dL (1.6-2.3) L 06/12/17 04:40 Total Bilirubin 0.7 mg/dL (0.2-1.3) 06/12/17 04:40 AST 26 U/L (14-36) 06/12/17 04:40 ALT 22 U/L (9-52) 06/12/17 04:40 Alkaline Phosphatase 83 U/L (38-126) 06/12/17 04:40 Total Creatine Kinase 40 U/L (30-135) 06/12/17 04:40 CK-MB (CK-2) 0.4 ng/mL (0.0-2.4) 06/12/17 04:40 CK-MB (CK-2) Rel Index 1.0 06/12/17 04:40 Troponin I <0.012 ng/mL (0.000-0.034) 06/12/17 04:40 C-Reactive Protein 49.7 mg/L (<10.0) H 06/12/17 04:40 NT-Pro-B Natriuret Pep 76 pg/mL 06/12/17 04:40 Total Protein 7.6 g/dL (6.3-8.2) 06/12/17 04:40 Albumin 4.0 g/dL (3.5-5.0) 06/12/17 04:40 Angiotensin Convert Enz 33 U/L (8-52) 06/12/17 04:40 EARLENE Screen NEGATIVE (NEGATIVE) 06/12/17 04:40 Influenza Type A RNA Not Detected (Not Detectd) 06/12/17 05:50 Influenza Type B (PCR) Not Detected (Not Detectd) 06/12/17 05:50 Microbiology 06/12/17 04:40 Blood Blood Culture - Preliminary No Growth after 48 hours Assessment and Plan (1) Diastolic congestive heart failure Current Visit: Yes Status: Acute Code(s): I50.30 - UNSPECIFIED DIASTOLIC ( CONGESTIVE) HEART FAILURE SNOMED Code(s): 267169557 (2) Leukocytosis Narrative/Plan: 71-year-old female who was just discharged from hospital after hospital stay where she presented with shortness of breath and fever. During her stay workup was generally normal except she was found evidence of diastolic congestive heart failure. An with diuresis there was marked improvement of her shortness of breath. She had no fever for more than a day before her discharge. She was feeling somewhat better. On going home she didn't have fever to 101 became very short of breath and anxious and presented back to the emergency center and was admitted. She was seen by pulmonary critical care. May need cardiology evaluation. At this time the patient could have acquired a new acute viral infection as a cause of the new symptoms in the pulmonary symptoms especially with increasing shortness of breath. There are significant pulmonary viruses that are currently epidemic in the community. Her influenza testing is negative. Will initiate workup for potential fever of unknown origin. The leukocytosis is likely in the recent steroid use but is being monitored. Fever likely is related to the acute changes in her pulmonary system with concerns to a new viral infection versus pulmonary disease. Cultures and studies are in process. She continues to feel better with breathing treatments and oxygen therapy. She does have evidence of a markedly elevated sed rate and CRP. Continue workup for autoimmune disease. Current Visit: Yes Status: Acute Code(s): D72.829 - ELEVATED WHITE BLOOD CELL COUNT, UNSPECIFIED SNOMED Code(s): 323201176 (3) Fever Current Visit: Yes Status: Acute Code(s): R50.9 - FEVER, UNSPECIFIED SNOMED Code(s): 708645702
[2017-06-14 21:29] LABS: Glucose,Whole Blood 175 mg/dL (75-99)
[2017-06-14] MEDS: IPRATROPIUM-ALBUTEROL 3 ML NEB INHALATION PRN (23:52)
[2017-06-15] MEDS: guaiFENesin SYRUP 100MG/5ML 200 MG/10 ML CUP PO PRN (04:12)
[2017-06-15 07:22] LABS: Glucose,Whole Blood 93 mg/dL (75-99)
[2017-06-15] MEDS: IPRATROPIUM-ALBUTEROL 3 ML NEB INHALATION SCH ×4 (07:26→20:26)
[2017-06-15] MEDS: DULoxetine HCL 60 MG CAPSULE.DR PO SCH (07:39)
[2017-06-15] MEDS: LOSARTAN 50 MG TAB PO SCH (07:39)
[2017-06-15] MEDS: FAMOTIDINE 20 MG TAB PO SCH (07:39)
[2017-06-15] MEDS: MAGNESIUM OXIDE 400 MG TAB PO SCH ×2 (07:39→22:10)
[2017-06-15] MEDS: cefTRIAXone IN SWFI 2,000 MG/20 ML SYRINGE IVP SCH (07:39)
[2017-06-15] MEDS: AZITHROMYCIN 500 MG TAB PO SCH (07:39)
[2017-06-15] MEDS: LORATADINE 10 MG TAB PO SCH (07:39)
[2017-06-15] MEDS: predniSONE 20 MG TAB PO SCH (07:40)
[2017-06-15] MEDS: FUROSEMIDE 20 MG TAB PO SCH (07:40)
[2017-06-15] MEDS: ALPRAZolam 0.25 MG TAB PO PRN ×2 (07:49→22:09)
[2017-06-15] MEDS: INSULIN ASPART 100 UNIT/ML 1 ML 10 ML VIAL SQ SCH ×4 (08:13→22:13)
[2017-06-15 08:23] LABS: Anion Gap 12 mmol/L; Blood Urea Nitrogen 32 mg/dL (7-17); Calcium 9.2 mg/dL (8.4-10.2); Carbon Dioxide 26 mmol/L (22-30); Chloride 102 mmol/L (98-107); Glucose 93 mg/dL (74-99); Potassium 3.9 mmol/L (3.5-5.1); Sodium 140 mmol/L (137-145)
[2017-06-15] MEDS: OXYBUTYNIN 15 MG TAB.ER.24 PO SCH (09:04)
[2017-06-15 12:01] LABS: Glucose,Whole Blood 159 mg/dL (75-99)
--- NOTE | 2017-06-15 12:43 | P.PN ---
Subjective 71-year-old female was admitted secondary to fever and leukocytosis all the workup so far is negative. Patient's leukocytosis is secondary to systemic steroids patient is on high-dose of steroids which will continue down to oral 40 mg daily lungs are clear to auscultation. Patient is also being treated for chronic diastolic dysfunction with acute exacerbation patient is on Lasix for that patient is fairly euvolemic at this time. Patient is afebrile patient is on empiric antibiotics but infectious disease believe patient has viral illness leading to sepsis. 06/15/2017 line patient dysphagia stable clinically with is complaining of significant dry cough requesting something for her cough patient will be started on as-needed basis cough medication. Constitutional: Denied any fatigue denied any fever. Cardio vascular: denied any chest pain, palpitations Gastrointestinal denied any nausea vomiting Pulmonary: Denied any shortness of breath cough Neurologic denied any new focal deficits Objective - Vital Signs Vital signs: Vital Signs Temp 97.2 F L 06/15/17 07:00 Pulse 96 06/15/17 11:18 Resp 16 06/15/17 07:00 BP 124/71 06/15/17 07:00 Pulse Ox 97 06/15/17 07:29 Intake & Output 06/14/17 06/15/17 06/15/17 18:59 06:59 18:59 Intake Total 800 Balance 800 Intake: Oral 800 Other: # Voids 2 2 - Exam PHYSICAL EXAMINATION: GENERAL: The patient is alert and oriented x3, not in any acute distress. Well developed, well nourished. HEENT: Pupils are round and equally reacting to light. EOMI. No scleral icterus. No conjunctival pallor. Normocephalic, atraumatic. No pharyngeal erythema. No thyromegaly. CARDIOVASCULAR: S1 and S2 present. No murmurs, rubs, or gallops. PULMONARY: Chest is clear to auscultation, no wheezing or crackles. ABDOMEN: Soft, nontender, nondistended, normoactive bowel sounds. No palpable organomegaly. MUSCULOSKELETAL: No joint swelling or deformity. EXTREMITIES: No cyanosis, clubbing, or pedal edema. NEUROLOGICAL: Gross neurological examination did not reveal any focal deficits. SKIN: No rashes. - Labs CBC & Chem 7: 06/13/17 08:02 06/15/17 07:18 Labs: Abnormal Lab Results - Last 24 Hours (Table) 06/14/17 06/14/17 06/15/17 Range/Units 17:26 21:26 07:18 BUN 32 H (7-17) mg/dL POC Glucose (mg/dL) 128 H 175 H (75-99) mg/dL 06/15/17 Range/Units 11:45 BUN (7-17) mg/dL POC Glucose (mg/dL) 159 H (75-99) mg/dL Microbiology - Last 24 Hours (Table) 06/12/17 04:40 Blood Culture - Preliminary Blood No Growth after 72 hours Assessment and Plan Plan: -Fever of unknown origin: Most probably viral illness patient is on a empiric antibiotics and systemic steroids. Afebrile for more than 48 hours -Shortness of breath: Secondary to probable chronic diastolic dysfunction with acute exacerbation patient will be given a dose of IV Lasix. We'll continue with 20 mg of Lasix -Hypertension -Hyperlipidemia -Leukocytosis: Secondary to systemic steroids to avoid side effects from steroids will cut down the steroids patient lungs are clear to auscultation for above-mentioned chronic medical problems patient will be resumed on appropriate home medications
[2017-06-15] MEDS: guaiFENesin-DM 100-10MG/5ML 10 ML CUP PO PRN ×2 (14:11→23:13)
[2017-06-15 17:58] LABS: Glucose,Whole Blood 116 mg/dL (75-99)
[2017-06-15 20:49] LABS: Glucose,Whole Blood 165 mg/dL (75-99)
[2017-06-15] MEDS: ATORVASTATIN 20 MG TAB PO SCH (22:09)
[2017-06-15] MEDS: METOPROLOL SUCCINATE (ER) 50 MG TAB.ER.24H PO SCH (22:09)
[2017-06-16] MEDS: IPRATROPIUM-ALBUTEROL 3 ML NEB INHALATION PRN (02:00)
[2017-06-16 07:18] LABS: Glucose,Whole Blood 96 mg/dL (75-99)
[2017-06-16] MEDS: INSULIN ASPART 100 UNIT/ML 1 ML 10 ML VIAL SQ SCH ×4 (07:46→21:49)
[2017-06-16 08:25] LABS: HCT 31.7 % (34.0-46.0); HGB 9.8 gm/dL (11.4-16.0); Hypochromasia Moderate; MCH 29.9 pg (25.0-35.0); MCV 96.7 fL (80.0-100.0); Mean Platelet Volume 7.5; Platelet Count 420 k/uL (150-450); RBC 3.28 m/uL (3.80-5.40); RDW 13.2 % (11.5-15.5); WBC 15.8 k/uL (3.8-10.6)
[2017-06-16] MEDS: IPRATROPIUM-ALBUTEROL 3 ML NEB INHALATION SCH ×4 (08:41→20:03)
[2017-06-16 08:53] LABS: Anion Gap 9 mmol/L; Blood Urea Nitrogen 23 mg/dL (7-17); Calcium 9.2 mg/dL (8.4-10.2); Carbon Dioxide 28 mmol/L (22-30); Chloride 103 mmol/L (98-107); Glucose 91 mg/dL (74-99); Potassium 4.1 mmol/L (3.5-5.1); Sodium 140 mmol/L (137-145)
[2017-06-16] MEDS: LOSARTAN 50 MG TAB PO SCH (09:35)
[2017-06-16] MEDS: DULoxetine HCL 60 MG CAPSULE.DR PO SCH (09:35)
[2017-06-16] MEDS: FUROSEMIDE 20 MG TAB PO SCH (09:35)
[2017-06-16] MEDS: FAMOTIDINE 20 MG TAB PO SCH (09:35)
[2017-06-16] MEDS: AZITHROMYCIN 500 MG TAB PO SCH (09:35)
[2017-06-16] MEDS: MAGNESIUM OXIDE 400 MG TAB PO SCH ×2 (09:36→21:14)
[2017-06-16] MEDS: LORATADINE 10 MG TAB PO SCH (09:36)
[2017-06-16] MEDS: OXYBUTYNIN 15 MG TAB.ER.24 PO SCH (09:36)
[2017-06-16] MEDS: cefTRIAXone IN SWFI 2,000 MG/20 ML SYRINGE IVP SCH (09:37)
[2017-06-16] MEDS: predniSONE 20 MG TAB PO SCH (09:37)
[2017-06-16] MEDS: ALPRAZolam 0.25 MG TAB PO PRN ×3 (11:07→22:42)
[2017-06-16] MEDS: guaiFENesin-DM 100-10MG/5ML 10 ML CUP PO PRN ×2 (11:20→22:42)
[2017-06-16 11:42] LABS: Glucose,Whole Blood 122 mg/dL (75-99)
--- NOTE | 2017-06-16 13:47 | P.PN ---
Subjective 71-year-old female was admitted secondary to fever and leukocytosis all the workup so far is negative. Patient's leukocytosis is secondary to systemic steroids patient is on high-dose of steroids which will continue down to oral 40 mg daily lungs are clear to auscultation. Patient is also being treated for chronic diastolic dysfunction with acute exacerbation patient is on Lasix for that patient is fairly euvolemic at this time. Patient is afebrile patient is on empiric antibiotics but infectious disease believe patient has viral illness leading to sepsis. 06/15/2017 line patient dysphagia stable clinically with is complaining of significant dry cough requesting something for her cough patient will be started on as-needed basis cough medication. 06/16/2017 No overnight events patient will undergo home O2 evaluation patient doesn't feel ready to go home yet, complaining of cough Constitutional: Denied any fatigue denied any fever. Cardio vascular: denied any chest pain, palpitations Gastrointestinal denied any nausea vomiting Pulmonary: Denied any shortness of breath cough Neurologic denied any new focal deficits Objective - Vital Signs Vital signs: Vital Signs Temp 97.0 F L 06/16/17 07:00 Pulse 89 06/16/17 12:17 Resp 16 06/16/17 12:17 BP 116/59 06/16/17 07:00 Pulse Ox 97 06/16/17 08:41 Intake & Output 06/15/17 06/16/17 06/16/17 18:59 06:59 18:59 Other: # Voids 1 2 - Exam PHYSICAL EXAMINATION: GENERAL: The patient is alert and oriented x3, not in any acute distress. Well developed, well nourished. HEENT: Pupils are round and equally reacting to light. EOMI. No scleral icterus. No conjunctival pallor. Normocephalic, atraumatic. No pharyngeal erythema. No thyromegaly. CARDIOVASCULAR: S1 and S2 present. No murmurs, rubs, or gallops. PULMONARY: Chest is clear to auscultation, no wheezing or crackles. ABDOMEN: Soft, nontender, nondistended, normoactive bowel sounds. No palpable organomegaly. MUSCULOSKELETAL: No joint swelling or deformity. EXTREMITIES: No cyanosis, clubbing, or pedal edema. NEUROLOGICAL: Gross neurological examination did not reveal any focal deficits. SKIN: No rashes. - Labs CBC & Chem 7: 06/16/17 07:51 06/16/17 07:51 Labs: Abnormal Lab Results - Last 24 Hours (Table) 06/15/17 06/15/17 06/16/17 Range/Units 17:04 20:47 07:51 WBC 15.8 H (3.8-10.6) k/uL RBC 3.28 L (3.80-5.40) m/uL Hgb 9.8 L (11.4-16.0) gm/dL Hct 31.7 L (34.0-46.0) % BUN (7-17) mg/dL POC Glucose (mg/dL) 116 H 165 H (75-99) mg/dL 06/16/17 06/16/17 Range/Units 07:51 11:40 WBC (3.8-10.6) k/uL RBC (3.80-5.40) m/uL Hgb (11.4-16.0) gm/dL Hct (34.0-46.0) % BUN 23 H (7-17) mg/dL POC Glucose (mg/dL) 122 H (75-99) mg/dL Microbiology - Last 24 Hours (Table) 06/12/17 04:40 Blood Culture - Preliminary Blood No Growth after 96 hours Assessment and Plan Plan: -Fever of unknown origin: Most probably viral illness patient is on a empiric antibiotics and systemic steroids. Afebrile for more than 3-4 days, awaiting recommendations from infectious disease -Shortness of breath: Secondary to probable chronic diastolic dysfunction with acute exacerbation patient will be given a dose of IV Lasix. We'll continue with 20 mg of Lasix -Hypertension -Hyperlipidemia -Leukocytosis: Secondary to systemic steroids to avoid side effects from steroids will cut down the steroids patient lungs are clear to auscultation, patient's leukocytosis improving now patient is on oral steroids at this time Possibility of discharge tomorrow
[2017-06-16 16:47] LABS: Glucose,Whole Blood 174 mg/dL (75-99)
[2017-06-16] MEDS: NYSTATIN 100,000 UNIT/ML SUSP 500,000 UNIT/5 ML CUP PO SCH ×2 (18:40→21:14)
--- NOTE | 2017-06-16 20:36 | P.PN ---
Subjective Progress Note Date: 06/16/17 Principal diagnosis: Shortness of breath This is a 71-year-old female who had recent hospitalization on May 18 through the which time she was treated for E. coli urinary tract infection and possible pneumonia was ruled out by pulmonary medicine. Patient states that during that hospitalization she woke up the morning she came in with pain across her lower anterior ribs radiating around to the back and down her back. She gives history that there was initial concern for kidney stone which was ruled out. She denies ever having any dysuria and has never had a urinary tract infection in the past. Patient was discharged home on Levaquin for an additional 7 days which she states she completed and then followed up with her primary care physician. She had repeat lab work done in the office and her electrolytes were low and she was started on magnesium and has taken a couple doses. She states that prior to her discharge, she had developed a cough that was very minor initially and this continued at home but then worsened a few days ago. Now the cough is very annoying, frequent and painful. She also gives history of loose bowel movements 1-2 times per day for the past week. She states she has not been eating very much as she has not been feeling well. she developed fever, chills and rigors with shortness of breath and continued cough. Patient came into [facility] emergency center for evaluation. She was found to be febrile with a temperature of 100.6, sinus tachycardia 128 and pulse ox of 88, leukocytosis at 24. Lactic acid was 1.4. Urinalysis was clear, nitrite negative, leukoesterase small, WBC 9. Influenza testing was negative. Patient was started on Levaquin and vancomycin and [facility] workup was generally negative except for her acute diastolic congestive heart failure. This was treated, her fever resolved and she was discharged home to complete a course of levofloxacin. She however now presents with in several hours with a marked worsening of her shortness of breath. Fever 101 and feeling very poorly overall. She constantly has been admitted again in further intervention occurs. Fever has continued. She is much less short of breath. She is resting well today. Anxieties improved. She has applied makeup today. Objective - Vital Signs Vital signs: Vital Signs Temp 96.3 F L 06/16/17 15:00 Pulse 88 06/16/17 20:19 Resp 18 06/16/17 15:00 BP 116/68 06/16/17 15:00 Pulse Ox 92 L 06/16/17 16:26 Intake & Output 06/16/17 06/16/17 06/17/17 06:59 18:59 06:59 Other: # Voids 2 3 - Exam Gen: This is a [id number] female. She is seen walking to her bed from the bathroom and appears to be in no acute distress. Gait is steady. HEENT: Head is atraumatic, normocephalic. Pupils equal, round. Sclerae is anicteric. conjunctiva pink. Oral mucous membranes are slightly dry. No thrush noted. NECK: Supple. No JVD. No lymphadenopathy. No thyromegaly. LUNGS: bilateral scattered crackles. No intercostal retractions. Few expiratory wheezes are heard. HEART: Regular rate and rhythm. Systolic murmur. Tachycardic. ABDOMEN: Soft. Bowel sounds are present. No masses. No tenderness. No CVA tenderness. EXTREMITIES: Trace bilateral pedal edema. No calf tenderness. dorsalis pedis + 2 bilaterally. NEUROLOGICAL: She is awake alert oriented to person place and time no acute gross focal sensory motor deficits - Labs CBC & Chem 7: 06/16/17 07:51 06/16/17 07:51 Labs: Abnormal Lab Results - Last 24 Hours (Table) 06/15/17 06/16/17 06/16/17 Range/Units 20:47 07:51 07:51 WBC 15.8 H (3.8-10.6) k/uL RBC 3.28 L (3.80-5.40) m/uL Hgb 9.8 L (11.4-16.0) gm/dL Hct 31.7 L (34.0-46.0) % BUN 23 H (7-17) mg/dL POC Glucose (mg/dL) 165 H (75-99) mg/dL 06/16/17 06/16/17 Range/Units 11:40 16:45 WBC (3.8-10.6) k/uL RBC (3.80-5.40) m/uL Hgb (11.4-16.0) gm/dL Hct (34.0-46.0) % BUN (7-17) mg/dL POC Glucose (mg/dL) 122 H 174 H (75-99) mg/dL Microbiology - Last 24 Hours (Table) 06/12/17 04:40 Blood Culture - Preliminary Blood No Growth after 96 hours Laboratory Results WBC 15.8 k/uL (3.8-10.6) H 06/16/17 07:51 RBC 3.28 m/uL (3.80-5.40) L 06/16/17 07:51 Hgb 9.8 gm/dL (11.4-16.0) L 06/16/17 07:51 Hct 31.7 % (34.0-46.0) L 06/16/17 07:51 MCV 96.7 fL (80.0-100.0) 06/16/17 07:51 MCH 29.9 pg (25.0-35.0) 06/16/17 07:51 MCHC 31.0 g/dL (31.0-37.0) 06/16/17 07:51 RDW 13.2 % (11.5-15.5) 06/16/17 07:51 Plt Count 420 k/uL (150-450) 06/16/17 07:51 Neutrophils % 92 % 06/12/17 04:40 Lymphocytes % 4 % 06/12/17 04:40 Monocytes % 1 % 06/12/17 04:40 Eosinophils % 2 % 06/12/17 04:40 Basophils % 0 % 06/12/17 04:40 Neutrophils # 24.5 k/uL (1.3-7.7) H 06/12/17 04:40 Lymphocytes # 1.1 k/uL (1.0-4.8) 06/12/17 04:40 Monocytes # 0.4 k/uL (0-1.0) 06/12/17 04:40 Eosinophils # 0.5 k/uL (0-0.7) 06/12/17 04:40 Basophils # 0.1 k/uL (0-0.2) 06/12/17 04:40 Hypochromasia Moderate 06/16/17 07:51 ESR 107 mm/hr (0-20) H 06/13/17 08:02 PT 9.9 sec (9.0-12.0) 06/12/17 04:40 INR 1.0 (<1.2) 06/12/17 04:40 APTT 23.2 sec (22.0-30.0) 06/12/17 04:40 Sodium 140 mmol/L (137-145) 06/16/17 07:51 Potassium 4.1 mmol/L (3.5-5.1) 06/16/17 07:51 Chloride 103 mmol/L (98-107) 06/16/17 07:51 Carbon Dioxide 28 mmol/L (22-30) 06/16/17 07:51 Anion Gap 9 mmol/L 06/16/17 07:51 BUN 23 mg/dL (7-17) H 06/16/17 07:51 Creatinine 0.81 mg/dL (0.52-1.04) 06/16/17 07:51 Est GFR (MDRD) Af Amer >60 (>60 ml/min/1.73 sqM) 06/16/17 07:51 Est GFR (MDRD) Non-Af >60 (>60 ml/min/1.73 sqM) 06/16/17 07:51 Glucose 91 mg/dL (74-99) 06/16/17 07:51 POC Glucose (mg/dL) 174 mg/dL (75-99) H 06/16/17 16:45 POC Glu [employer] Rep ID Haydee Beck 06/16/17 16:45 Plasma Lactic Acid Edin 1.4 mmol/L (0.7-2.0) 06/12/17 04:40 Calcium 9.2 mg/dL (8.4-10.2) 06/16/17 07:51 Magnesium 1.5 mg/dL (1.6-2.3) L 06/12/17 04:40 Total Bilirubin 0.7 mg/dL (0.2-1.3) 06/12/17 04:40 AST 26 U/L (14-36) 06/12/17 04:40 ALT 22 U/L (9-52) 06/12/17 04:40 Alkaline Phosphatase 83 U/L (38-126) 06/12/17 04:40 Total Creatine Kinase 40 U/L (30-135) 06/12/17 04:40 CK-MB (CK-2) 0.4 ng/mL (0.0-2.4) 06/12/17 04:40 CK-MB (CK-2) Rel Index 1.0 06/12/17 04:40 Troponin I <0.012 ng/mL (0.000-0.034) 06/12/17 04:40 C-Reactive Protein 49.7 mg/L (<10.0) H 06/12/17 04:40 NT-Pro-B Natriuret Pep 76 pg/mL 06/12/17 04:40 Total Protein 7.6 g/dL (6.3-8.2) 06/12/17 04:40 Albumin 4.0 g/dL (3.5-5.0) 06/12/17 04:40 Angiotensin Convert Enz 33 U/L (8-52) 06/12/17 04:40 EARLENE Screen NEGATIVE (NEGATIVE) 06/12/17 04:40 Influenza Type A RNA Not Detected (Not Detectd) 06/12/17 05:50 Influenza Type B (PCR) Not Detected (Not Detectd) 06/12/17 05:50 Microbiology 06/12/17 04:40 Blood Blood Culture - Preliminary No Growth after 96 hours Assessment and Plan (1) Diastolic congestive heart failure Current Visit: Yes Status: Acute Code(s): I50.30 - UNSPECIFIED DIASTOLIC ( CONGESTIVE) HEART FAILURE SNOMED Code(s): 743415364 (2) Leukocytosis Narrative/Plan: 71-year-old female who was just discharged from hospital after hospital stay where she presented with shortness of breath and fever. During her stay workup was generally normal except she was found evidence of diastolic congestive heart failure. An with diuresis there was marked improvement of her shortness of breath. She had no fever for more than a day before her discharge. She was feeling somewhat better. On going home she didn't have fever to 101 became very short of breath and anxious and presented back to the emergency center and was admitted. She was seen by pulmonary critical care. May need cardiology evaluation. At this time the patient could have acquired a new acute viral infection as a cause of the new symptoms in the pulmonary symptoms especially with increasing shortness of breath. There are significant pulmonary viruses that are currently epidemic in the community. Her influenza testing is negative. Will initiate workup for potential fever of unknown origin. The leukocytosis is likely in the recent steroid use but is being monitored. Fever likely is related to the acute changes in her pulmonary system with concerns to a new viral infection versus pulmonary disease. Cultures and studies are in process. She continues to feel better with breathing treatments no longer requiring supplemental oxygen She does have evidence of a markedly elevated sed rate and CRP. The autoimmune workup has been negative so far. Patient likely had a viral infection with secondary pneumonitis that is now much improved. Likely ready for discharge Current Visit: Yes Status: Acute Code(s): D72.829 - ELEVATED WHITE BLOOD CELL COUNT, UNSPECIFIED SNOMED Code(s): 105500683 (3) Fever Current Visit: Yes Status: Acute Code(s): R50.9 - FEVER, UNSPECIFIED SNOMED Code(s): 250145312
[2017-06-16] MEDS: ATORVASTATIN 20 MG TAB PO SCH (21:14)
[2017-06-16] MEDS: METOPROLOL SUCCINATE (ER) 50 MG TAB.ER.24H PO SCH (21:14)
[2017-06-16 21:25] LABS: Glucose,Whole Blood 154 mg/dL (75-99)
[2017-06-17] MEDS: IPRATROPIUM-ALBUTEROL 3 ML NEB INHALATION PRN (01:26)
[2017-06-17 07:17] LABS: Glucose,Whole Blood 101 mg/dL (75-99)
[2017-06-17] MEDS: IPRATROPIUM-ALBUTEROL 3 ML NEB INHALATION SCH ×3 (07:22→16:47)
[2017-06-17 07:25] VITALS: RESP 16
[2017-06-17 07:47] VITALS: BP 142/63; TEMP 96.9
[2017-06-17] MEDS: guaiFENesin SYRUP 100MG/5ML 200 MG/10 ML CUP PO PRN (08:04)
[2017-06-17] MEDS: ALPRAZolam 0.25 MG TAB PO PRN ×2 (08:04→14:11)
[2017-06-17] MEDS: cefTRIAXone IN SWFI 2,000 MG/20 ML SYRINGE IVP SCH (08:04)
[2017-06-17] MEDS: FAMOTIDINE 20 MG TAB PO SCH (08:05)
[2017-06-17] MEDS: NYSTATIN 100,000 UNIT/ML SUSP 500,000 UNIT/5 ML CUP PO SCH ×2 (08:05→14:07)
[2017-06-17] MEDS: LOSARTAN 50 MG TAB PO SCH (08:05)
[2017-06-17] MEDS: OXYBUTYNIN 15 MG TAB.ER.24 PO SCH (08:05)
[2017-06-17] MEDS: FUROSEMIDE 20 MG TAB PO SCH (08:05)
[2017-06-17] MEDS: predniSONE 20 MG TAB PO SCH (08:05)
[2017-06-17] MEDS: DULoxetine HCL 60 MG CAPSULE.DR PO SCH (08:05)
[2017-06-17] MEDS: AZITHROMYCIN 500 MG TAB PO SCH (08:05)
[2017-06-17] MEDS: LORATADINE 10 MG TAB PO SCH (08:06)
[2017-06-17] MEDS: MAGNESIUM OXIDE 400 MG TAB PO SCH (08:06)
[2017-06-17] MEDS: INSULIN ASPART 100 UNIT/ML 1 ML 10 ML VIAL SQ SCH ×2 (08:06→11:42)
[2017-06-17 11:05] VITALS: PULSE 85
[2017-06-17 11:42] LABS: Glucose,Whole Blood 129 mg/dL (75-99)
--- NOTE | 2017-06-17 14:24 | P.PN ---
Subjective Progress Note Date: 06/13/17 Progress note being dictated for Dr. Hammond Interval history:Patient is a 71-year-old female was recently discharged from the hospital after she was extensively evaluated for fever appears to be fever, appears to be fever of unknown origin patient was extensively evaluated by infectious disease as well as pulmonology. Patient was evaluated for atypical infections. Patient had a recent travel to [place] after which patient started having symptoms of fever and shortness of breath. Patient during her last hospitalization was completely afebrile leukocytosis resolved and patient was treated for infectious bronchitis was subsequently discharged home comes back again after a few hours with complaints of shortness of breath fatigue and found to have high-grade fever of 101 with leukocytosis of 25,000 neutrophilic leukocytosis, this is a third hospitalization since May 18 patient returned from [place] around 05/15/2017. 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 Patient was also treated for chronic diastolic dysfunction with significant improvement in chest x-ray findings upon discharge yesterday no significant change compared to yesterday although patient is on 4 L of vodka and will give her additional dose of Lasix need to evaluate further for fever of unknown origin infectious disease was E consulted we may also need to consult oncology to evaluate for any leukemia or lymphoma contributing to her fever and leukocytosis. Patient was extensively evaluated during her last hospitalization with abdominal pelvic CT CT angios the chest liver ultrasound echocardiogram of the heart without any significant abnormality in any of these tests Review of Systems REVIEW OF SYSTEMS: CONSTITUTIONAL: No fever, no malaise, no fatigue. HEENT: No recent visual problems or hearing problems. Denied any sore throat. CARDIOVASCULAR: No chest pain, orthopnea, PND, no palpitations, no syncope. PULMONARY: No shortness of breath, no cough, no hemoptysis. GASTROINTESTINAL: No diarrhea, no nausea, no vomiting, no abdominal pain. Normoactive bowel sounds. NEUROLOGICAL: No headaches, no weakness, no numbness. HEMATOLOGICAL: Denies any bleeding or petechiae. GENITOURINARY: Denies any burning micturition, frequency, or urgency. MUSCULOSKELETAL/RHEUMATOLOGICAL: Denies any joint pain, swelling, or any muscle pain. ENDOCRINE: Denies any polyuria or polydipsia. The rest of the 14-point review of systems is negative. 06/13/17 maintained on empiric antibiotics, nebulized bronchodilators, steroids. Symptoms attributed to newly acquired acute viral infection as per ID. Improving shortness of breath, with productive cough, yellow-green sputum. Afebrile. WBC 26.1, most likely related to steroids. Preliminary Blood cultures negative at 24 hours. Negative for influenza. Elevated sed rate and CRP, workup in progress for autoimmune disease. Objective - Vital Signs Vital signs: Vital Signs Temp 97.3 F L 06/13/17 15:00 Pulse 120 H 06/13/17 16:33 Resp 16 06/13/17 15:00 BP 121/61 06/13/17 15:00 Pulse Ox 99 06/13/17 16:24 Intake & Output 06/12/17 06/13/17 06/13/17 18:59 06:59 18:59 Other: # Voids 2 2 3 - Exam GENERAL: The patient is alert and oriented x3, not in any acute distress. Well developed, well nourished. HEENT: Pupils are round and equally reacting to light. EOMI. No scleral icterus. No conjunctival pallor. Normocephalic, atraumatic. No pharyngeal erythema. No thyromegaly. CARDIOVASCULAR: S1 and S2 present. Systolic murmur, no rubs, or gallops. PULMONARY: Scattered crackles throughout, occasional scattered expiratory wheezing. ABDOMEN: Soft, nontender, nondistended, normoactive bowel sounds. No palpable organomegaly. MUSCULOSKELETAL: No joint swelling or deformity. EXTREMITIES: No cyanosis, clubbing, minimal pedal edema. NEUROLOGICAL: Gross neurological examination did not reveal any focal deficits. SKIN: No rashes. - Labs CBC & Chem 7: 06/16/17 07:51 06/16/17 07:51 Labs: Abnormal Lab Results - Last 24 Hours (Table) 06/12/17 06/12/17 06/13/17 Range/Units 04:40 21:09 07:17 WBC (3.8-10.6) k/uL RBC (3.80-5.40) m/uL Hgb (11.4-16.0) gm/dL Hct (34.0-46.0) % Plt Count (150-450) k/uL ESR (0-20) mm/hr Sodium (137-145) mmol/L BUN (7-17) mg/dL Glucose (74-99) mg/dL POC Glucose (mg/dL) 228 H 155 H (75-99) mg/dL C-Reactive Protein 49.7 H (<10.0) mg/L 06/13/17 06/13/17 06/13/17 Range/Units 08:02 08:02 12:30 WBC 26.1 H* (3.8-10.6) k/uL RBC 3.23 L (3.80-5.40) m/uL Hgb 9.9 L (11.4-16.0) gm/dL Hct 30.4 L (34.0-46.0) % Plt Count 488 H (150-450) k/uL ESR 107 H (0-20) mm/hr Sodium 136 L (137-145) mmol/L BUN 23 H (7-17) mg/dL Glucose 157 H (74-99) mg/dL POC Glucose (mg/dL) 174 H (75-99) mg/dL C-Reactive Protein (<10.0) mg/L 06/13/17 Range/Units 16:56 WBC (3.8-10.6) k/uL RBC (3.80-5.40) m/uL Hgb (11.4-16.0) gm/dL Hct (34.0-46.0) % Plt Count (150-450) k/uL ESR (0-20) mm/hr Sodium (137-145) mmol/L BUN (7-17) mg/dL Glucose (74-99) mg/dL POC Glucose (mg/dL) 147 H (75-99) mg/dL C-Reactive Protein (<10.0) mg/L Microbiology - Last 24 Hours (Table) 06/12/17 04:40 Blood Culture - Preliminary Blood No Growth after 24 hours Assessment and Plan Assessment: Fever of unknown origin: Most probably viral illness patient is on a empiric antibiotics and systemic steroids. Afebrile for more than 48 hours -Shortness of breath: Secondary to probable chronic diastolic dysfunction with acute exacerbation patient will be given a dose of IV Lasix. We'll continue with 20 mg of Lasix -Hypertension -Hyperlipidemia -Leukocytosis: Secondary to systemic steroids to avoid side effects from steroids will cut down the steroids patient lungs are clear to auscultation Plan: Continue on current medication regime , nebulized bronchodilators, steroids, monitoring and symptomatic treatment. Patient readmitted within 24 hours; on last visit developed acute diastolic CHF. Cardiology consulted. Autoimmune workup in progress. Maintain empiric antibiotics as per ID. Close monitoring of cultures, WBC with repeat labs ordered for a.m. The impression and plan of care has been dictated as directed. : I performed a history and examination of this patient, discussed the same with the dictator. I agree with the dictator's note ,documented as a scribe. Any additional findings or plans will be noted.
--- NOTE | 2017-06-17 14:37 | P.DS ---
Providers Date of admission: 06/12/17 06:21 Expected date of discharge: 06/17/17 Attending physician: Yo Hammond Consults: 06/12/17 13:12 Consult Physician Routine Consulting Provider: Lobito Ardon Consult Reason/Comments: patient known Do you want consulting provider notified?: Yes 06/13/17 09:59 Consult Physician Routine Consulting Provider: Mike Lima Consult Reason/Comments: CHF Do you want consulting provider notified?: Yes Primary care physician: Serjio Butterfield Hospital Course: Final diagnoses: -Fever of unknown origin: Most probably viral illness patient is on a empiric antibiotics and systemic steroids. -Shortness of breath: Secondary to probable chronic diastolic dysfunction with possible acute exacerbation. -Hypertension -Hyperlipidemia -Leukocytosis: Secondary to systemic steroids, improving now patient is on oral steroids Hospital course:71-year-old female was admitted secondary to fever and leukocytosis all the workup so far is negative. Evaluated by cardiology and infectious disease. Maintained on empiric antibiotics, nebulized bronchodilators, steroids. Patient's leukocytosis attributed to systemic steroids. Patient is also being treated for acute on chronic diastolic dysfunction ,on Lasix, fairly euvolemic. Patient is afebrile,on empiric antibiotics but infectious disease believe patient has viral illness leading to sepsis. Autoimmune workup in progress. Significant clinical improvement. Patient has been cleared for discharge. Patient is being discharged home in a stable condition with guarded prognosis. The impression and plan of care has been dictated as directed. : I performed a history and examination of this patient, discussed the same with the dictator. I agree with the dictator's note ,documented as a scribe. Any additional findings or plans will be noted. Patient Condition at Discharge: Stable Plan - Discharge Summary Discharge Rx Participant: Yes New Discharge Prescriptions: New Levofloxacin [Levaquin] 750 mg PO DAILY #3 tab predniSONE 10 mg PO DIRECTED #30 tab Continue Meloxicam [Mobic] 15 mg PO DAILY PRN PRN Reason: Pain Fluticasone Nasal [place] [Flonase Nasal [place]] 2 spr EA NOSTRIL DAILY PRN PRN Reason: Allergy Symptoms Oxybutynin ER [Ditropan Xl] 15 mg PO DAILY Metoprolol Succinate (ER) [Toprol XL] 50 mg PO HS Losartan Potassium 100 mg PO DAILY DULoxetine HCL [Cymbalta] 60 mg PO DAILY Atorvastatin [Lipitor] 20 mg PO HS Loratadine [Claritin] 10 mg PO DAILY #0 tab Ranitidine HCl [Zantac] 300 mg PO DAILY Magnesium Oxide [Beckwith] 500 mg PO BID Furosemide [Lasix] 20 mg PO DAILY #30 tab Discharge Medication List Atorvastatin [Lipitor] 20 mg PO HS 05/18/17 [History] DULoxetine HCL [Cymbalta] 60 mg PO DAILY 05/18/17 [History] Fluticasone Nasal [place] [Flonase Nasal [place]] 2 spr EA NOSTRIL DAILY PRN [History] Losartan Potassium 100 mg PO DAILY 05/18/17 [History] Meloxicam [Mobic] 15 mg PO DAILY PRN 05/18/17 [History] Metoprolol Succinate (ER) [Toprol XL] 50 mg PO HS 05/18/17 [History] Oxybutynin ER [Ditropan Xl] 15 mg PO DAILY 05/18/17 [History] Loratadine [Claritin] 10 mg PO DAILY #0 tab 05/22/17 [Rx] Magnesium Oxide [Beck[place]] 500 mg PO BID 06/08/17 [History] Ranitidine HCl [Zantac] 300 mg PO DAILY 06/08/17 [History] Furosemide [Lasix] 20 mg PO DAILY #30 tab 06/11/17 [Rx] Levofloxacin [Levaquin] 750 mg PO DAILY #3 tab 06/17/17 [Rx] predniSONE 10 mg PO DIRECTED #30 tab 06/17/17 [Rx] Follow up Appointment(s)/Referral(s): [facility] [Other] - 2 Weeks Serjio Butterfield DO [Primary Care Provider] - 3 Days Lobito Ardon MD [STAFF PHYSICIAN] - 2 Weeks [facility], [NON-STAFF] - Patient Instructions/Handouts: Pneumonitis (DC), Acute Respiratory Distress Syndrome (GEN) Activity/Diet/Wound Care/Special Instructions: Make PCP apt for day after DC, then HHC can go out after that to see Patient * Take this out prior o printing DC paperwork Cardiac diet. Activity as tolerated.
== END 2017-06-17 16:54 | disposition home health service (06) | DRG 871 ==
LOC: EC 04:31 → 4MS4W 06:21
PROVIDERS: ADMIT Hospitalist; ATTEND Hospitalist
DX: A41.89 Other specified sepsis (principal); I50.33 Acute on chronic diastolic (congestive) heart failure; B34.9 Viral infection, unspecified; I11.0 Hypertensive heart disease with heart failure; E78.5 Hyperlipidemia, unspecified; F41.9 Anxiety disorder, unspecified; K21.9 Gastro-esophageal reflux disease without esophagitis; R13.10 Dysphagia, unspecified; T38.0X5A Adverse effect of glucocorticoids and synthetic analogues, initial encounter; Z79.1 Long term (current) use of non-steroidal anti-inflammatories (NSAID); Z79.52 Long term (current) use of systemic steroids; Z79.899 Other long term (current) drug therapy; Z82.3 Family history of stroke; Z87.891 Personal history of nicotine dependence; Z90.710 Acquired absence of both cervix and uterus
CPT/HCPCS: 36415; 71046; 80048; 80053; 82164; 82550; 82553; 83605; 83735; 83880; 84484; 85025; 85027; 85610; 85652; 85730; 86038; 86140; 87040; 87252; 87496; 87498; 87502; 87529; 87634; 87798; 93005; 94640; 94760; 96360; 96365; 99291

== ENCOUNTER 2021-03-30 09:31 | Emergency (ER) | payer MEDICARE ==
[2021-03-30 09:37] VITALS: RESP 18; TEMP 100
[2021-03-30] MEDS ORDERED: SODIUM CHLORIDE 0.9% 1,000 ML IV STA (09:50)
[2021-03-30] MEDS ORDERED: KETOROLAC 15 MG/ML 1 ML VIAL IVP STA (09:51)
[2021-03-30 10:26] LABS: Basophils % (A) 0 %; Eosinophils # (A) 0.1 k/uL (0-0.7); Eosinophils % (A) 0 %; HCT 33.7 % (34.0-46.0); HGB 11.4 gm/dL (11.4-16.0); Lymphocytes # (A) 0.8 k/uL (1.0-4.8); Lymphocytes % (A) 5 %; MCH 34.6 pg (25.0-35.0); MCHC 33.9 g/dL (31.0-37.0); MCV 102.2 fL (80.0-100.0); Macrocytosis Slight; Mean Platelet Volume 7.9; Monocytes # (A) 0.4 k/uL (0-1.0); Monocytes % (A) 3 %; Neutrophils # (A) 14.2 k/uL (1.3-7.7); Neutrophils % (A) 91 %; Platelet Count 279 k/uL (150-450); RDW 12.3 % (11.5-15.5); WBC 15.5 k/uL (3.8-10.6)
[2021-03-30 10:34] LABS: Partial Thromboplastin Time 24.5 sec (22.0-30.0); Prothrombin Time 10.6 sec (9.0-12.0)
[2021-03-30 10:52] LABS: ALT 10 U/L (4-34); AST 16 U/L (14-36); African American GFR (CKD) >90 (>60 ml/min/1.73 sqM); Albumin 3.7 g/dL (3.5-5.0); Alkaline Phosphatase 117 U/L (38-126); Anion Gap 13 mmol/L; Blood Urea Nitrogen 9 mg/dL (7-17); Calcium 6.7 mg/dL (8.4-10.2); Carbon Dioxide 19 mmol/L (22-30); Chloride 102 mmol/L (98-107); Glucose 166 mg/dL (74-99); Non-African American GFR(CKD) >90 (>60 ml/min/1.73 sqM); Sodium 134 mmol/L (137-145); Total Bilirubin 0.8 mg/dL (0.2-1.3); Total Protein 6.9 g/dL (6.3-8.2)
--- NOTE | 2021-03-30 11:19 | XR ---
EXAMINATION TYPE: XR chest 2V DATE OF EXAM: 03/30/2021 COMPARISON: Chest x-ray 06/12/2017 HISTORY: Fever and pain TECHNIQUE: Frontal and lateral views of the chest are obtained. FINDINGS: Patchy bibasilar density is noted, exam is expiratory. Cardia mediastinal silhouette is st able. No pneumothorax or evident effusion. Bone mineralization is unchanged, there is arthropathy of the shoulders. IMPRESSION: Findings may represent subsegmental basilar atelectasis, correlate to exclude pneumonia and follow-up as indicated.
[2021-03-30] MEDS ORDERED: POTASSIUM CHLORIDE ER 20 MEQ TAB.ER PO STA (11:28)
--- NOTE | 2021-03-30 11:29 | ED ---
Back Pain HPI - General Chief Complaint: Back Pain/Injury Stated Complaint: back & side pain Time Seen by Provider: 03/30/21 09:44 Source: patient Limitations: no limitations - History of Present Illness Initial Comments: Patient is a 75-year-old female that presents to emergency room complaining of neck and upper left back pain. She notes that she is a history of back surgeri es and went on a lengthy car ride past 3 days. Patient notes that she has point tenderness to her upper left trap and mid left back. Patient was febrile upon exam and review. She noted that she felt fine otherwise. She notes that she has not been tested for Covid while but is vaccinated. - Related Data Home Medications Medication Instructions Recorded Confirmed DULoxetine HCL [Cymbalta] 60 mg PO DAILY 05/18/17 03/30/21 Losartan Potassium 100 mg PO DAILY 05/18/17 03/30/21 Metoprolol Succinate (ER) [Toprol 50 mg PO HS 05/18/17 03/30/21 XL] Oxybutynin ER [Ditropan Xl] 15 mg PO DAILY 05/18/17 03/30/21 Apixaban [Eliquis] 5 mg PO BID 03/30/21 03/30/21 Atorvastatin [Lipitor] 40 mg PO HS 03/30/21 03/30/21 Betamethasone Dipropionate 1 applic TOPICAL BID 03/30/21 03/30/21 [Betamethasone Dipropionate 0.05%] Metoprolol Succinate (ER) [Toprol 100 mg PO DAILY 03/30/21 03/30/21 Xl] [place]-3 Fatty Acids [[place]-3] 1,000 mg PO DAILY 03/30/21 03/30/21 Previous Rx's Medication Instructions Recorded Baclofen [Lioresal] 5 mg PO TID 7 Days #21 tablet 03/30/21 Nitrofurantoin Monohyd/M-Cryst 100 mg PO Q12HR #14 cap 03/30/21 [Macrobid] Allergies Allergy/AdvReac Type Severity Reaction Status Date / Time Penicillins Allergy Rash/Hives Verified 03/30/21 12:09 codeine AdvReac Nausea & Verified 03/30/21 12:09 Vomiting Review of Systems ROS Statement: Those systems with pertinent positive or pertinent negative responses have been documented in the HPI. ROS Other: All systems not noted in ROS Statement are negative. Past Medical History Past Medical History: GERD/Reflux, Hyperlipidemia, Hypertension, Osteoarthritis (OA) Additional Past Medical History / Comment(s): Pt has had recent admissions to [facility]. On 05/18/17 was admitted with back pain bilaterally, UTI/Ecoli, possible kidney infection/sepsis, pneumonia rulled out, electrolyte disturbances, pulmonary edema (thought to be d/t fluid resuscitation), possible compression fractures, L5-S1 mild DDD. Admitted on 06/08/17 with acute hypoxic respiratory failure 2ndary to tracheobronchitis, possible sepsis with recent pneumonia, diarrhea (Cdiff negative). Other Hx: Cardiac valve leakage, sinus drainage. History of Any Multi-Drug Resistant Organisms: None Reported Past Surgical History: Appendectomy, Hysterectomy, Joint Replacement, Orthopedic Surgery Additional Past Surgical History / Comment(s): Total L knee arthroplasty, R foot hammer toe surgery, colonoscopy, bilateral cataract removal with IOL implants. Past Anesthesia/Blood Transfusion Reactions: Previous Problems w/ Anesthesia, Postoperative Nausea & Vomiting (PONV) Additional Past Anesthesia/Blood Transfusion Reaction / Comment(s): Pt received blood after her total knee surgery. Past Psychological History: Anxiety Smoking Status: Never smoker Past Alcohol Use History: Occasional Past Drug Use History: None Reported - Past Family History Father History Unknown: Yes Additional Family Medical History / Comment(s): Father is , pt does not know his history Mother Additional Family Medical History / Comment(s): Mother post fall from either a CVA or a MS per pt. General Exam Limitations: no limitations Course Vital Signs 03/30/21 03/30/21 09:32 10:42 Temperature 100 F H Pulse Rate 141 H 118 H Respiratory 18 18 Rate Blood Pressure 103/44 152/86 O2 Sat by Pulse 92 L 98 Oximetry Medical Decision Making - Medical Decision Making She is a 75-year-old female presents emergency department complaining of left trap and mid back pain. Labs,Covid test, urinalysis, chest x-ray, 1 L normal saline ordered. 15 mg of Toradol, 4 mg Zofran ordered. Labs: White blood cells 15.5, potassium 3.0 calcium 6.7. Chest x-ray shows no acute card up on her process. Urinalysis shows many white blood cells, 1 g Rocephin ordered. 2 g of calcium gluconate, 40 mg potassium, ordered line for continued pain 4 mg of morphine ordered. D-dimer negative. Patient most likely has fever secondary to UTI. Antibiotics will sent to pharmacy. Muscle relaxer sent to pharmacy. Case discussed with Dr. Morrissey, patient discharge home. - Lab Data Result diagrams: 03/30/21 10:08 03/30/21 10:08 Lab Results 03/30/21 03/30/21 03/30/21 Range/Units 10:08 10:08 10:08 WBC 15.5 H (3.8-10.6) k/uL RBC 3.30 L (3.80-5.40) m/uL Hgb 11.4 (11.4-16.0) gm/dL Hct 33.7 L (34.0-46.0) % MCV 102.2 H (80.0-100.0) fL MCH 34.6 (25.0-35.0) pg MCHC 33.9 (31.0-37.0) g/dL RDW 12.3 (11.5-15.5) % Plt Count 279 (150-450) k/uL MPV 7.9 Neutrophils % 91 % Lymphocytes % 5 % Monocytes % 3 % Eosinophils % 0 % Basophils % 0 % Neutrophils # 14.2 H (1.3-7.7) k/uL Lymphocytes # 0.8 L (1.0-4.8) k/uL Monocytes # 0.4 (0-1.0) k/uL Eosinophils # 0.1 (0-0.7) k/uL Basophils # 0.0 (0-0.2) k/uL Macrocytosis Slight PT (9.0-12.0) sec INR (<1.2) APTT (22.0-30.0) sec D-Dimer (<0.60) mg/L FEU Sodium 134 L (137-145) mmol/L Potassium 3.0 L (3.5-5.1) mmol/L Chloride 102 (98-107) mmol/L Carbon Dioxide 19 L (22-30) mmol/L Anion Gap 13 mmol/L BUN 9 (7-17) mg/dL Creatinine 0.55 (0.52-1.04) mg/dL Est GFR (CKD-EPI)AfAm >90 (>60 ml/min/1.73 sqM) Est GFR (CKD-EPI)NonAf >90 (>60 ml/min/1.73 sqM) Glucose 166 H (74-99) mg/dL Plasma Lactic Acid Edin (0.7-2.0) mmol/L Calcium 6.7 L (8.4-10.2) mg/dL Total Bilirubin 0.8 (0.2-1.3) mg/dL AST 16 (14-36) U/L ALT 10 (4-34) U/L Alkaline Phosphatase 117 (38-126) U/L Troponin I (0.000-0.034) ng/mL Total Protein 6.9 (6.3-8.2) g/dL Albumin 3.7 (3.5-5.0) g/dL Urine Color Yellow Urine Appearance Cloudy H (Clear) Urine pH 5.5 (5.0-8.0) Ur Specific [place] 1.012 (1.001-1.035) Urine Protein Trace H (Negative) Urine Glucose (UA) Negative (Negative) Urine Ketones Negative (Negative) Urine Blood Trace H (Negative) Urine Nitrite Positive H (Negative) Urine Bilirubin Negative (Negative) Urine Urobilinogen <2.0 (<2.0) mg/dL Ur Leukocyte Esterase Large H (Negative) Urine RBC 2 (0-5) /hpf Urine WBC 75 H (0-5) /hpf Ur Squamous Epith Cells 5 H (0-4) /hpf Urine Bacteria Many H (None) /hpf Urine Mucus Rare H (None) /hpf Coronavirus (PCR) (Not Detectd) 03/30/21 03/30/21 03/30/21 Range/Units 10:08 10:08 10:08 WBC (3.8-10.6) k/uL RBC (3.80-5.40) m/uL Hgb (11.4-16.0) gm/dL Hct (34.0-46.0) % MCV (80.0-100.0) fL MCH (25.0-35.0) pg MCHC (31.0-37.0) g/dL RDW (11.5-15.5) % Plt Count (150-450) k/uL MPV Neutrophils % % Lymphocytes % % Monocytes % % Eosinophils % % Basophils % % Neutrophils # (1.3-7.7) k/uL Lymphocytes # (1.0-4.8) k/uL Monocytes # (0-1.0) k/uL Eosinophils # (0-0.7) k/uL Basophils # (0-0.2) k/uL Macrocytosis PT 10.6 (9.0-12.0) sec INR 1.0 (<1.2) APTT 24.5 (22.0-30.0) sec D-Dimer (<0.60) mg/L FEU Sodium (137-145) mmol/L Potassium (3.5-5.1) mmol/L Chloride (98-107) mmol/L Carbon Dioxide (22-30) mmol/L Anion Gap mmol/L BUN (7-17) mg/dL Creatinine (0.52-1.04) mg/dL Est GFR (CKD-EPI)AfAm (>60 ml/min/1.73 sqM) Est GFR (CKD-EPI)NonAf (>60 ml/min/1.73 sqM) Glucose (74-99) mg/dL Plasma Lactic Acid Edin 1.5 (0.7-2.0) mmol/L Calcium (8.4-10.2) mg/dL Total Bilirubin (0.2-1.3) mg/dL AST (14-36) U/L ALT (4-34) U/L Alkaline Phosphatase (38-126) U/L Troponin I <0.012 (0.000-0.034) ng/mL Total Protein (6.3-8.2) g/dL Albumin (3.5-5.0) g/dL Urine Color Urine Appearance (Clear) Urine pH (5.0-8.0) Ur Specific [place] (1.001-1.035) Urine Protein (Negative) Urine Glucose (UA) (Negative) Urine Ketones (Negative) Urine Blood (Negative) Urine Nitrite (Negative) Urine Bilirubin (Negative) Urine Urobilinogen (<2.0) mg/dL Ur Leukocyte Esterase (Negative) Urine RBC (0-5) /hpf Urine WBC (0-5) /hpf Ur Squamous Epith Cells (0-4) /hpf Urine Bacteria (None) /hpf Urine Mucus (None) /hpf Coronavirus (PCR) (Not Detectd) 03/30/21 03/30/21 Range/Units 10:08 10:08 WBC (3.8-10.6) k/uL RBC (3.80-5.40) m/uL Hgb (11.4-16.0) gm/dL Hct (34.0-46.0) % MCV (80.0-100.0) fL MCH (25.0-35.0) pg MCHC (31.0-37.0) g/dL RDW (11.5-15.5) % Plt Count (150-450) k/uL MPV Neutrophils % % Lymphocytes % % Monocytes % % Eosinophils % % Basophils % % Neutrophils # (1.3-7.7) k/uL Lymphocytes # (1.0-4.8) k/uL Monocytes # (0-1.0) k/uL Eosinophils # (0-0.7) k/uL Basophils # (0-0.2) k/uL Macrocytosis PT (9.0-12.0) sec INR (<1.2) APTT (22.0-30.0) sec D-Dimer 0.58 (<0.60) mg/L FEU Sodium (137-145) mmol/L Potassium (3.5-5.1) mmol/L Chloride (98-107) mmol/L Carbon Dioxide (22-30) mmol/L Anion Gap mmol/L BUN (7-17) mg/dL Creatinine (0.52-1.04) mg/dL Est GFR (CKD-EPI)AfAm (>60 ml/min/1.73 sqM) Est GFR (CKD-EPI)NonAf (>60 ml/min/1.73 sqM) Glucose (74-99) mg/dL Plasma Lactic Acid Edin (0.7-2.0) mmol/L Calcium (8.4-10.2) mg/dL Total Bilirubin (0.2-1.3) mg/dL AST (14-36) U/L ALT (4-34) U/L Alkaline Phosphatase (38-126) U/L Troponin I (0.000-0.034) ng/mL Total Protein (6.3-8.2) g/dL Albumin (3.5-5.0) g/dL Urine Color Urine Appearance (Clear) Urine pH (5.0-8.0) Ur Specific [place] (1.001-1.035) Urine Protein (Negative) Urine Glucose (UA) (Negative) Urine Ketones (Negative) Urine Blood (Negative) Urine Nitrite (Negative) Urine Bilirubin (Negative) Urine Urobilinogen (<2.0) mg/dL Ur Leukocyte Esterase (Negative) Urine RBC (0-5) /hpf Urine WBC (0-5) /hpf Ur Squamous Epith Cells (0-4) /hpf Urine Bacteria (None) /hpf Urine Mucus (None) /hpf Coronavirus (PCR) Not Detected (Not Detectd) - Radiology Data Radiology results: report reviewed, image reviewed Chest x-ray: Findings may represent subsegmental basilar atelectasis. Disposition Clinical Impression: Mechanical back pain, Urinary tract infection Disposition: HOME SELF-CARE Condition: Stable Instructions (If sedation given, give patient instructions): Acute Low Back Pain (ED), Urinary Tract Infection in Women (ED) Additional Instructions: Please return to the Emergency Department if symptoms worsen or any other concerns. Follow-up with primary care 1-2 days. Take muscle relaxer as prescribed. Take antibiotics as prescribed until complete. Increase oral fluids, get plenty rest. Is patient prescribed a controlled substance at d/c from ED?: No Referrals: Serjio Butterfield DO [Primary Care Provider] - 1-2 days Time of Disposition: 13:55
[2021-03-30 11:36] LABS: Appearance,Urine Cloudy (Clear); Bacteria,Urine Many /hpf; Bilirubin,Urine Negative (Negative); Blood,Urine Trace (Negative); Color,Urine Yellow; Glucose,Urine (UA) Negative (Negative); Ketones,Urine Negative (Negative); Leukocyte Esterase,Urine Large (Negative); Mucus,Urine Rare /hpf; Nitrite,Urine Positive (Negative); PH, Urine 5.5 (5.0-8.0); Protein,Urine Trace (Negative); RBC,Urine 2 /hpf (0-5); Specific Gravity,Urine 1.012 (1.001-1.035); Squamous Epithelial Cell,Urine 5 /hpf (0-4); Urobilinogen,Urine <2.0 mg/dL (<2.0); WBC,Urine 75 /hpf (0-5)
[2021-03-30] MEDS ORDERED: cefTRIAXone IN SWFI 1,000 MG/10 ML SYRINGE IVP STA (11:43)
[2021-03-30] MEDS ORDERED: CALCIUM GLUCONATE 2 GM in SODIUM CHLORIDE 0.9% 100 ML IVPB ONE (12:00)
[2021-03-30] MEDS ORDERED: ACETAMINOPHEN TAB 325 MG TAB PO STA (12:29)
[2021-03-30] MEDS ORDERED: MORPHINE SULFATE 4 MG/ML SYRINGE IVP STA (12:30)
[2021-03-30] MEDS ORDERED: ONDANSETRON 4 MG/2 ML VIAL IVP STA (12:30)
[2021-03-30 14:13] VITALS: BP 151/89; PULSE 89
== END 2021-03-30 14:55 | disposition home or self-care (01) ==
LOC: EC 09:31
DX: M54.9 Dorsalgia, unspecified (principal); N39.0 Urinary tract infection, site not specified; K21.9 Gastro-esophageal reflux disease without esophagitis; E78.5 Hyperlipidemia, unspecified; I10 Essential (primary) hypertension; M19.90 Unspecified osteoarthritis, unspecified site; F41.9 Anxiety disorder, unspecified; Z79.01 Long term (current) use of anticoagulants; Z88.0 Allergy status to penicillin; Z88.5 Allergy status to narcotic agent; Z87.440 Personal history of urinary (tract) infections; Z90.49 Acquired absence of other specified parts of digestive tract; Z90.710 Acquired absence of both cervix and uterus; Z96.652 Presence of left artificial knee joint; Z20.822 Contact with and (suspected) exposure to COVID-19
CPT/HCPCS: 99283; 96365; 96375 ×4; 96361; 36415; 85379; 80053; 83605; 84484; 85025; 85610; 85730; 81001; 87086; 87635; 71046; J2270; J2405; J0696; J0610; J1885; 87077; 87186

== ENCOUNTER 2021-03-31 11:06 | Emergency (ER) | payer MEDICARE ==
[2021-03-31 11:19] VITALS: TEMP 100.1
[2021-03-31] MEDS ORDERED: ORPHENADRINE 30 MG/ML 2 ML VIAL IM STA (12:36)
[2021-03-31] MEDS ORDERED: MORPHINE SULFATE 2 MG/ML SYRINGE IM ONE (12:36)
--- NOTE | 2021-03-31 12:43 | ED ---
General Adult HPI - General Chief complaint: Abdominal Pain Stated complaint: left side pain-revisit Time Seen by Provider: 03/31/21 11:56 Source: patient, family, RN notes reviewed, old records reviewed Mode of arrival: wheelchair Limitations: no limitations - History of Present Illness Initial comments: 75-year-old female, alert and oriented 4, presents to the emergency room with left-sided back pain since Friday. Patient states that she took a long trip last week and got home on Friday.. She states that she was seen in the emergency room yesterday for back pain that developed on Friday. Patient states that they did find that she has urinary tract infection however she denies any dysuria. She states that she was prescribed antibiotics and Flexeril 5 mg twice a day it has not been helping. She states that she is also having rheumatoid arthritis flare in her left hand. She states that she has a rash to her upper back at her primary care doctor has seen and has had this rash for over 2 months. They believe it is stress related. She does have a low-grade fever. She states that pain is worse with movement and she is having difficulty moving around, pain is sharp in nature and shooting. -: days(s) (4) Location: back, left Severity scale (1-10): 8 Quality: stabbing Consistency: constant Improves with: none Worsens with: movement Associated Symptoms: fever/chills Treatments Prior to Arrival: other (flexeril) - Related Data Home Medications Medication Instructions Recorded Confirmed DULoxetine HCL [Cymbalta] 60 mg PO DAILY 05/18/17 03/30/21 Losartan Potassium 100 mg PO DAILY 05/18/17 03/30/21 Metoprolol Succinate (ER) [Toprol 50 mg PO HS 05/18/17 03/30/21 XL] Oxybutynin ER [Ditropan Xl] 15 mg PO DAILY 05/18/17 03/30/21 Apixaban [Eliquis] 5 mg PO BID 03/30/21 03/30/21 Atorvastatin [Lipitor] 40 mg PO HS 03/30/21 03/30/21 Betamethasone Dipropionate 1 applic TOPICAL BID 03/30/21 03/30/21 [Betamethasone Dipropionate 0.05%] Metoprolol Succinate (ER) [Toprol 100 mg PO DAILY 03/30/21 03/30/21 Xl] [place]-3 Fatty Acids [[place]-3] 1,000 mg PO DAILY 03/30/21 03/30/21 Previous Rx's Medication Instructions Recorded Baclofen [Lioresal] 5 mg PO TID 7 Days #21 tablet 03/30/21 Nitrofurantoin Monohyd/M-Cryst 100 mg PO Q12HR #14 cap 03/30/21 [Macrobid] Lidocaine 5% Patch [Lidoderm] 1 patch TOPICAL DAILY 10 Days #10 03/31/21 patch Allergies Allergy/AdvReac Type Severity Reaction Status Date / Time Penicillins Allergy Rash/Hives Verified 03/31/21 11:18 codeine AdvReac Nausea & Verified 03/31/21 11:18 Vomiting Review of Systems ROS Statement: Those systems with pertinent positive or pertinent negative responses have been documented in the HPI. ROS Other: All systems not noted in ROS Statement are negative. Past Medical History Past Medical History: GERD/Reflux, Hyperlipidemia, Hypertension, Osteoarthritis (OA) Additional Past Medical History / Comment(s): UTI/Ecoli, possible kidney infection/sepsis, pneumonia rulled out, electrolyte disturbances, pulmonary edema (thought to be d/t fluid resuscitation), possible compression fractures, L5-S1 mild DDD. Admitted on 06/08/17 with acute hypoxic respiratory failure 2ndary to tracheobronchitis, possible sepsis with recent pneumonia, diarrhea (Cdiff negative). Other Hx: Cardiac valve leakage, sinus drainage. History of Any Multi-Drug Resistant Organisms: None Reported Past Surgical History: Appendectomy, Hysterectomy, Joint Replacement, Orthopedic Surgery Additional Past Surgical History / Comment(s): Total L knee arthroplasty, R foot hammer toe surgery, colonoscopy, bilateral cataract removal with IOL implants. Past Anesthesia/Blood Transfusion Reactions: Previous Problems w/ Anesthesia, Postoperative Nausea & Vomiting (PONV) Additional Past Anesthesia/Blood Transfusion Reaction / Comment(s): Pt received blood after her total knee surgery. Past Psychological History: Anxiety Smoking Status: Never smoker Past Alcohol Use History: Occasional Past Drug Use History: None Reported - Past Family History Father History Unknown: Yes Additional Family Medical History / Comment(s): Father is , pt does not know his history Mother Additional Family Medical History / Comment(s): Mother post fall from either a CVA or a ID per pt. General Exam Limitations: no limitations General appearance: alert, in no apparent distress Head exam: Present: atraumatic, normocephalic, normal inspection Eye exam: Present: normal appearance, EOMI ENT exam: Present: normal exam Neck exam: Present: normal inspection, tenderness (left side into trapezius muscle). Absent: meningismus, full ROM, lymphadenopathy Respiratory exam: Present: normal lung sounds bilaterally. Absent: respiratory distress, wheezes, rales, rhonchi, stridor, chest wall tenderness, accessory muscle use Cardiovascular Exam: Present: regular rate, normal rhythm, normal heart sounds. Absent: systolic murmur, diastolic murmur, rubs, gallop, clicks GI/Abdominal exam: Present: soft, normal bowel sounds. Absent: distended, tenderness, guarding, rebound, rigid Extremities exam: Present: normal inspection, full ROM, normal capillary refill. Absent: tenderness, pedal edema, joint swelling, calf tenderness Back exam: Present: tenderness, CVA tenderness (L), muscle spasm, rash noted (Right upper back papular with crusted lesions painless). Absent: paraspinal tenderness, vertebral tenderness Neurological exam: Present: alert, oriented X3, CN II-XII intact Psychiatric exam: Present: normal affect, normal mood Skin exam: Present: warm, dry, intact, normal color. Absent: rash, cyanosis, diaphoretic Course Vital Signs 03/31/21 03/31/21 11:15 15:35 Temperature 100.1 F H Pulse Rate 94 86 Respiratory 17 18 Rate Blood Pressure 175/95 144/87 O2 Sat by Pulse 99 98 Oximetry Medical Decision Making - Medical Decision Making Leukocytosis has improved from yesterday. BUN and creatinine are unremarkable. Ultrasound of the kidneys renal and bladder showed no evidence of renal mass or obstruction. No evidence of hydronephrosis. She is directed to continue taking her antibiotics as previously prescribed for her urinary tract infection. Flexeril and Lidoderm patches for her back pain. Follow-up with her primary care doctor next week. Return to the emergency room with any new or worsening symptoms. Patient and significant other are agreeable to this plan of care. Case was discussed with Dr. Morrissey. - Lab Data Result diagrams: 03/31/21 14:05 03/31/21 14:05 Lab Results 03/31/21 03/31/21 Range/Units 14:05 14:05 WBC 10.7 H (3.8-10.6) k/uL RBC 3.06 L (3.80-5.40) m/uL Hgb 10.7 L (11.4-16.0) gm/dL Hct 31.6 L (34.0-46.0) % MCV 103.3 H (80.0-100.0) fL MCH 35.1 H (25.0-35.0) pg MCHC 33.9 (31.0-37.0) g/dL RDW 12.1 (11.5-15.5) % Plt Count 272 (150-450) k/uL MPV 8.1 Neutrophils % 86 % Lymphocytes % 9 % Monocytes % 3 % Eosinophils % 1 % Basophils % 0 % Neutrophils # 9.2 H (1.3-7.7) k/uL Lymphocytes # 1.0 (1.0-4.8) k/uL Monocytes # 0.4 (0-1.0) k/uL Eosinophils # 0.1 (0-0.7) k/uL Basophils # 0.0 (0-0.2) k/uL Macrocytosis Slight Sodium 135 L (137-145) mmol/L Potassium 3.5 (3.5-5.1) mmol/L Chloride 104 (98-107) mmol/L Carbon Dioxide 20 L (22-30) mmol/L Anion Gap 11 mmol/L BUN 8 (7-17) mg/dL Creatinine 0.47 L (0.52-1.04) mg/dL Est GFR (CKD-EPI)AfAm >90 (>60 ml/min/1.73 sqM) Est GFR (CKD-EPI)NonAf >90 (>60 ml/min/1.73 sqM) Glucose 122 H (74-99) mg/dL Calcium 7.2 L (8.4-10.2) mg/dL Disposition Clinical Impression: Back pain Disposition: HOME SELF-CARE Condition: Good Instructions (If sedation given, give patient instructions): Back Pain (ED) Additional Instructions: Use Lidoderm patches in addition to Motrin for your back pain. You can continue the Flexeril and antibiotics as previously prescribed. Follow-up with your primary care doctor next week. Return to the emergency room with any new or worsening symptoms. Prescriptions: Lidocaine 5% Patch [Lidoderm] 1 patch TOPICAL DAILY 10 Days #10 patch Is patient prescribed a controlled substance at d/c from ED?: No Referrals: Serjio Butterfield DO [Primary Care Provider] - 1-2 days Time of Disposition: 15:42
[2021-03-31 14:15] LABS: Basophils % (A) 0 %; Eosinophils # (A) 0.1 k/uL (0-0.7); Eosinophils % (A) 1 %; HCT 31.6 % (34.0-46.0); HGB 10.7 gm/dL (11.4-16.0); Lymphocytes % (A) 9 %; MCH 35.1 pg (25.0-35.0); MCHC 33.9 g/dL (31.0-37.0); MCV 103.3 fL (80.0-100.0); Macrocytosis Slight; Mean Platelet Volume 8.1; Monocytes # (A) 0.4 k/uL (0-1.0); Monocytes % (A) 3 %; Neutrophils # (A) 9.2 k/uL (1.3-7.7); Neutrophils % (A) 86 %; Platelet Count 272 k/uL (150-450); RBC 3.06 m/uL (3.80-5.40); RDW 12.1 % (11.5-15.5); WBC 10.7 k/uL (3.8-10.6)
[2021-03-31 14:30] LABS: African American GFR (CKD) >90 (>60 ml/min/1.73 sqM); Anion Gap 11 mmol/L; Blood Urea Nitrogen 8 mg/dL (7-17); Calcium 7.2 mg/dL (8.4-10.2); Carbon Dioxide 20 mmol/L (22-30); Chloride 104 mmol/L (98-107); Glucose 122 mg/dL (74-99); Non-African American GFR(CKD) >90 (>60 ml/min/1.73 sqM); Potassium 3.5 mmol/L (3.5-5.1); Sodium 135 mmol/L (137-145)
--- NOTE | 2021-03-31 15:14 | US ---
EXAMINATION TYPE: US kidneys/renal and bladder DATE OF EXAM: 03/31/2021 COMPARISON: NONE CLINICAL HISTORY: let flank pain, UTI fever. left flank pain EXAM MEASUREMENTS: Right Kidney: 9.2 x 3.6 x 4.1 cm Left Kidney: 9.8 x 4.6 x 4.1 cm Right Kidney: no evidence of hydronephrosis Left Kidney: limited evaluation, patient unable to roll from supine position, no evidence of hydronep hrosis Bladder: not fully distended Bilateral Jets seen: no IMPRESSION: No evidence of renal mass or obstruction.
[2021-03-31 15:36] VITALS: BP 144/87; PULSE 86; RESP 18
[2021-03-31] MEDS ORDERED: LIDOCAINE 5% PATCH TOPICAL SCH (15:45)
== END 2021-03-31 16:11 | disposition home or self-care (01) ==
LOC: EC 11:06
DX: M54.9 Dorsalgia, unspecified (principal); K21.9 Gastro-esophageal reflux disease without esophagitis; E78.5 Hyperlipidemia, unspecified; I10 Essential (primary) hypertension; F41.9 Anxiety disorder, unspecified; M19.90 Unspecified osteoarthritis, unspecified site; Z79.01 Long term (current) use of anticoagulants; Z88.0 Allergy status to penicillin; Z88.5 Allergy status to narcotic agent; Z87.440 Personal history of urinary (tract) infections; Z90.49 Acquired absence of other specified parts of digestive tract; Z90.710 Acquired absence of both cervix and uterus; Z96.652 Presence of left artificial knee joint
CPT/HCPCS: 99284; 96372 ×2; 36415; 80048; 85025; 76770; J2360; J2270

== ENCOUNTER → 2022-01-09 | Outpatient (CLI) | payer MEDICARE ==
--- NOTE | 2022-01-09 10:45 | MR ---
EXAMINATION TYPE: MR cervical spine wo con DATE OF EXAM: 01/09/2022 COMPARISON: None HISTORY: Neck pain, headaches. TECHNIQUE: Multiplanar, multisequence images of the cervical spine were acquired without contrast. C2-C3: Degenerative disc disease with no evidence of disc herniation or canal stenosis. No foraminal encroachment. C3-C4: Disc desiccation with facet arthropathy and uncovertebral joint hypertrophy. Mild bilateral fo raminal protrusion greater on the left. No disc herniation or canal stenosis. Slight anterolisthesis C3 on C4 C4-C5: Degenerative disc disease. Bilateral uncovertebral joint hypertrophy. No canal stenosis or dis c herniation. Facet arthropathy greater on the most significant canal stenosis or foraminal encroachm ent. C5-C6: Moderate degenerative disc disease with posterior broad-based disc bulging and mild effacement of thecal sac but no canal stenosis or spinal CORD contact. Hypertrophic change of the uncovertebral joints and facets result in mild bilateral foraminal protrusion. C6-C7: Degenerative disc disease with broad-based disc bulging but no disc herniation or canal stenos is. Uncovertebral joint hypertrophy bilaterally with mild bilateral foraminal protrusion. C7-T1: No evidence for degenerative disc disease. No disc bulge/herniation or protrusion. No Canal stenosis. Foramina are patent bilaterally. Cervical segments are intact. There is normal alignment. Cervical spinal cord is of normal signal. Craniovertebral junction relationships are within normal limits. Vertebral body hemangioma T4 noted. IMPRESSION: 1. Multilevel degenerative disc disease most marked at C3 5-6 and C6-C7. Slight anterolisthesis C3 on C4 and C4 and C5 is likely degenerative. 2. Disc bulging and uncovertebral joint hypertrophy C5-6 and C6-C7. No canal stenosis. 3. Multilevel foraminal encroachment as discussed above.
== END | disposition home or self-care (01) ==
LOC: RADMRIMAIN 06:51
PROVIDERS: ATTEND Family Medicine
DX: M50.323 Other cervical disc degeneration at C6-C7 level (principal); M99.71 Connective tissue and disc stenosis of intervertebral foramina of cervical region
CPT/HCPCS: 72141

== ENCOUNTER → 2022-02-28 | Outpatient (CLI) | payer MEDICARE ==
[2022-02-28 08:57] VITALS: BP 183/93; PULSE 82; RESP 18; TEMP 98.5
--- NOTE | 2022-02-28 13:38 | P.PAINPG ---
Objective - Vital Signs Vital signs: Intake & Output 02/27/22 02/28/22 02/28/22 18:59 06:59 18:59 Weight 63.049 kg PQRS Measure Charge Sheet Comment: HISTORY OF PRESENT ILLNESS: 76 yr old female as a referral from Dr. Ferguson presents today w severe and chronic neck pain secondary to DDD, spondylosis and facet arthropathy without myelopathy for evaluation. Pt states her pain level is currently at 3/10 in intensity, constant, localized in base of head, achy & grinding in character w radiation towards L side of the head. Pain is provoked as high as 9/10 in intensity w . Palliated w PT x 2 mo in October 2021, heat, ice, meds (Tylenol, Tramadol), topicals, chiropractic treatments twice weekly which elevated pain, home massage, lay supine on L side, repositioning and rest. PMH: GERD, Hyperlipidemia, HTN, OA, Anxiety PSH: Appendectomy, Hysterectomy, Total L Knee Arthroplasty, R Hammertoe Surgery, Colonoscopy, BL Cataract Resection w IOL Implants SH: Never smoker, Occasional ETOH use, No illicit drug use. FH: Fa- Unknown History. Mo- from CVA or [place]. All: See list Meds: See list REVIEW OF ORGAN SYSTEMS: CONSTITUTIONAL: No fevers or chills. No recent weight loss. NEUROLOGICAL: + numbness and tingling along the distal extremities. No seizure disorders or headaches. MUSCULOSKELETAL: + pain PSYCHIATRIC: Denies current depression or suicidal thoughts. Physical Examinations : Constitutional : Cooperative , not in acute distress . Neurologic : Cranial nerve II to XII intact. No focal neurological deficits. Psychiatric : alert & oriented x 3. Matching mood & appropriate affect. Judgment & insight intact. Musculoskeletal : Cervical Spine Motor strength in the deltoid and biceps: Normal right side. Normal Left side Motor strength biceps and the wrist extensors: Normal right side . Normal left side Motor strength in the triceps muscle: Normal right side. Normal left side Deep tendon reflexes: Normal at the biceps. Normal at Brachioradialis. Normal at triceps Vertebral body tenderness to deep palpation over Cervical facet loading test: positive over L C2-3, C3-4 w jump reflex Spurling test: positive bilaterally Neck distraction test: positive bilaterally Erik sign: positive bilaterally Lumbar spine Motor strength lower extremities ,thigh and legs 5/5 Right side , 5/5 Left side Deep tendon reflexes : Normal Knee Jerk. Normal Ankle Jerk Vertebral body tenderness over Lumbar facet Loading Test: positive Right / positive Left Range of motion of the lumbar spine Flexion 30 degrees, extension 10 degrees Straight Leg Raise test: Left/ Right positive at degree Alphonse test: positive right / positive left. Severe tenderness over the Sacroiliac joint on the Right / Left sides Gaenslen test: positive bilaterally Seated flexion test: positive bilaterally. Sacral spine : Severe tenderness over the Sacroiliac joint: right side / left side Range of motion: Flexion of the lumbar spine <60 degrees Range of motion: Extension of the lumbar spine <20 degrees Gaenslen's Test positive Elieser's Test positive Alphonse test: positive right side / left side Thigh Thrust Test Sacral Thrust Test Imaging: MRI without contrast of the cervical spine from 01/09/22 reviewed Assessment/ Plan : Cervical spondylosis, cervical DDD Recommendation of L MBB C2-C3, C3-C4 #1. May need a series of injections, up until RFA, for optimal pain relief. Risks, benefits of procedure discussed and patient verbalized understanding. Admits to aspirin or anti- coagulant use or medical history of diabetes. Protocol for discontinuation/ continuation of medications london procedure discussed. Will obtain medical clearance for Eliquis from Dr Webb. All questions answered. I have spent greater than 30 minutes on patient care today. Dr Marcum was available by phone for the evaluation of this patient. The time was used to review the medical records including relevant urine studies and Prescription history (MAPs), review of the available imaging, evaluation and examination of the patient, coordination of care with the medical staff and if applicable referring physicians, as well as creation of the medical record - Pain Location Left Neck Non-Pharmacological Interventions: Heat, Ice, Inactivity, Physical Therapy, Position/Reposition Bilateral Neck Non-Pharmacological Interventions: Heat, Ice, Inactivity, Massage, Physical Therapy, Position/Reposition Pharmacological Interventions: PRN Medication, Topical Medication PQRS Narrative: Smoking Status Former smoker Pain Intensity [Left Neck] 2 Scale Used Numeric (1 - 10) Hx Alcohol Use (MH) Yes Home Medications: Ambulatory Orders Metoprolol Succinate (ER) [Toprol XL] 50 mg PO HS 05/18/17 Oxybutynin ER [Ditropan Xl] 15 mg PO DAILY 05/18/17 Apixaban [Eliquis] 5 mg PO BID 03/30/21 Atorvastatin [Lipitor] 40 mg PO HS 03/30/21 Betamethasone Dipropionate [Betamethasone Dipropionate 0.05%] 1 applic TOPICAL BID PRN 03/30/21 Metoprolol Succinate (ER) [Toprol Xl] 100 mg PO DAILY 03/30/21 Desvenlafaxine Succinate [Pristiq] 50 mg PO DAILY 02/27/22 Controlled Substance Measures - Controlled Substance Measures Is patient prescribed a controlled substance at discharge?: No
== END | disposition home or self-care (01) ==
LOC: PNWHC3 08:04
PROVIDERS: ATTEND Specialist
DX: M47.812 Spondylosis without myelopathy or radiculopathy, cervical region (principal); K21.9 Gastro-esophageal reflux disease without esophagitis; E78.5 Hyperlipidemia, unspecified; I10 Essential (primary) hypertension; M19.90 Unspecified osteoarthritis, unspecified site; F41.9 Anxiety disorder, unspecified; M50.30 Other cervical disc degeneration, unspecified cervical region; E11.9 Type 2 diabetes mellitus without complications; Z87.891 Personal history of nicotine dependence; Z72.89 Other problems related to lifestyle
CPT/HCPCS: 99211

== ENCOUNTER 2022-04-04 06:44 | Day surgery (SDC) | payer MEDICARE ==
[2022-04-02 11:12] VITALS: BMI 25.6
[~2022-04-04 06:44] MED LIST: LIDOCAINE 1% (10MG/ML) FOR IV START INTRADERMA PRN
[2022-04-04 07:49] VITALS: TEMP 98.2
[2022-04-04] MEDS: LACTATED RINGERS 1,000 ML IV SCH ×2 (07:52→08:04)
[2022-04-04] MEDS ORDERED: ONDANSETRON 4 MG/2 ML VIAL ONE (08:02)
[2022-04-04] MEDS ORDERED: fentaNYL (PF) 50 MCG/ML 2 ML AMP ONE (08:05)
[2022-04-04] MEDS ORDERED: ENALAPRILAT 1.25 MG/ML 1 ML VIAL ONE (08:05)
[2022-04-04] MEDS ORDERED: ROPIVACAINE 5 MG/ML 20 ML AMPULE ONE (08:05)
[2022-04-04] MEDS ORDERED: methylPREDNISolone ACETATE 40 MG/ML 1 ML VIAL ONE (08:05)
--- NOTE | 2022-04-04 08:26 | P.PCN ---
Date of Procedure: 04/04/22 Procedure(s) Performed: PREOPERATIVE DIAGNOSIS: 1-Cervical Spondylosis with Facet Arthropathy.without myelopathy. 2-cervical degenerative disc disease POSTOPERATIVE DIAGNOSIS: Same as preoperative diagnosis. PROCEDURES: Diagnostic Left C2 , C3, C4 medial branch blocks, with fluoroscopic guidance (fluoroscopy images available in radiology department ) ( to target the facet joint at Left C2-3 , C3-4 , ) ANESTHESIA: moderate sedation with Versed 1 mg .(Sedation start time 0809, end time 0 821 ) EBL: Minimal PROCEDURE INDICATION: The patient with neck pain secondary to cervical arthropathy unresponsive to more conservative treatments. PROCEDURE DESCRIPTION / TECHNIQUE: The patient was seen and identified in the preoperative area. Risks, benefits, complications, and alternatives were discussed with the patient, the patient agreed to proceed with the procedure and signed the consent. IV was started. Vital signs remained stable throughout the procedure. Patient was taken to the OR and time out was completed. The patient was placed in the Lateral position on the procedure table ( left side up ). A pillow was placed under the patients chest to increase the cervical interlaminar space. The cervical area was prepped and draped in the usual sterile fashion. Critical pause was taken. Vital signs were closely monitored during the procedure. Conscious sedation was used during the procedure to decrease patients anxiety. Using cross-table lateral fluoroscopy, the centroid of the trapezoid of Left C2 ,C3, C4 ,was identified, marked, and localized with 1% lidocaine 1 ml at each level for skin and Sub Q infiltrations . Subsequently, a 25G 3spinal needle was advanced guided by fluoroscopy to the centroid of the trapezoid of Left C2 ,C3, C4 . Montgomery tip position was confirmed at the centroid of the trapezoids of Left C2 ,C3 , C4 , with anteroposterior fluoroscopy. Subsequently, 1.5 ml of preservative-free Ropivacaine 0.5% mixed with Depo- Medrol 20 mg and half ml of the mixture was injected after negative aspiration for blood and CSF. Montgomery was then removed intact . COMPLICATIONS: No acute complications. COMMENTS: DISPOSITION / PLANS: The patient was placed in a supine position and transferred to the recovery area in a stable condition for observation and was discharged from the recovery room after meeting discharge criteria. Home discharge instructions given to the patient by the staff. The patient was reexamined prior to discharge. The patient will schedule a follow up in the clinic in 2-4 weeks.
[2022-04-04] MEDS ORDERED: IV FLUID CONTINUATION 1,000 ML IV ONE (08:30)
--- NOTE | 2022-04-04 08:40 | FL ---
EXAMINATION TYPE: FL guided pain mgmt statistic DATE OF EXAM: 04/04/2022 HISTORY: Fluoroscopy time 17 seconds of fluoroscopy provided. IMPRESSION: 1. Fluoroscopy time.
[2022-04-04 08:56] VITALS: BP 164/78; PULSE 70; RESP 14
== END 2022-04-04 09:13 | disposition home or self-care (01) ==
LOC: ORPAIN 06:44
PROVIDERS: ATTEND Specialist
DX: M50.31 Other cervical disc degeneration, high cervical region (principal); M47.812 Spondylosis without myelopathy or radiculopathy, cervical region; Z88.0 Allergy status to penicillin; Z88.5 Allergy status to narcotic agent
CPT/HCPCS: 99152; 64490; 64491; J1030; J2405; J3010; J2795

== ENCOUNTER → 2022-04-18 | Outpatient (CLI) | payer MEDICARE ==
[2022-04-18 09:39] VITALS: BP 124/70; PULSE 105; RESP 18; TEMP 98.4
--- NOTE | 2022-04-18 14:23 | P.PAINPG ---
PQRS Measure Charge Sheet Comment: A 76 yr old female w at side with a history of severe and chronic MENDES secondary to occipital neuralgia and cervicogenic headache presents today for evaluation s/p L MBB C2-C3, C3-C4 #1. Pt states she experienced 100% pain relief x 3 day s s/p procedure. Pain level is currently at /10 in intensity, constant, localized in the L cervical spine, sharp in character w shooting towards the L scalp. Pain is provoked by L rotation, flexion. Pain is alleviated with PT completed in Dec 2021, home exercise regimen, chiropractic treatment x 1 which worsened pain, heat, ice, meds (Tyl OTC), repositioning and rest. Interventional pain procedures completed include L MBB C2-C4 x1 Patient is currently on Tylenol OTC Patient denies any side effects of the medication(s), denies excessive drowsiness or sleepiness, denies suicidal ideation and reports that the current pain medication is helping to control the pain and improve activities of daily living. Patient denies any motor or sensory deficits. Patient denies any fever or night sweats, denies any change in the bowel movements or urination. Physical Examination: -Constitutional: Cooperative. Not in acute distress . - Neurologic: Cranial nerve II to XII intact. No focal neurological deficits. - Psychatric: Alert & oriented x 3. Matching mood & appropriate affect. Judgment and insight intact. - Musculoskeletal: Cervical spine: Muscle bulk/ tone/ strength in the bilateral upper extremities normal Vertebral body tenderness to palpation over Spurling test positive Distraction test positive Facet loading test positive L C2-C3, C3-C4 facets TTP Thoracic spine Muscle bulk / tone/ strength in the bilateral paraspinal muscles normal Vertebral body tender to palpation over Facet loading test positive Lumbar spine: Motor bulk/ tone/ strength lower extremities , thigh and legs : 5/5 Deep tendon reflexes : Normal Knee Jerk. Normal Ankle Jerk . Vertebral body tenderness to palpation over Lumbar Facet Loading Test positive Straight Leg Raise: positive at 30 degrees right side/ left side Gaenslen's Test positive Sacral spine : Severe tenderness over the Sacroiliac joint: right side / left side Range of motion: Flexion of the lumbar spine <60 degrees Range of motion: Extension of the lumbar spine <20 degrees Gaenslen's Test positive Alphonse test: positive right side / left side Thigh Thrust Test Sacral Thrust Test Assessment and plan: Chronic HAs secondary to occipital neuralgia and cervicogenic headache Recommendation of L MBB C2-C3, C3-C4 #2. May need a series, up until RFA, for optimal pain relief. Risks, benefits of procedure discussed and pt verbalized understanding. Admits to anticoagulant use or medical history of diabetes. Protocol for discontinuation/ continuation of medications london procedure discussed. All patient questions answered I have spent less than 30 minutes on patient care today. Dr Marcum was available by phone for the evaluation of this patient. The time was used to review the medical records including relevant urine studies and Prescription history (MAPs), review of the available imaging, evaluation and examination of the patient, coordination of care with the medical staff and if applicable referring physicians, as well as creation of the medical record - Pain Location Left Neck Non-Pharmacological Interventions: Chiropractic Treatment, Heat, Home Exercise, Ice, Physical Therapy, Position/Reposition, Stretching Pharmacological Interventions: Block, PRN Medication PQRS Narrative: Smoking Status Former smoker Hx Alcohol Use (MH) Yes Home Medications: Ambulatory Orders Metoprolol Succinate (ER) [Toprol XL] 50 mg PO DAILY 05/18/17 Oxybutynin ER [Ditropan Xl] 15 mg PO DAILY 05/18/17 Apixaban [Eliquis] 5 mg PO BID 03/30/21 Atorvastatin [Lipitor] 40 mg PO HS 03/30/21 Betamethasone Dipropionate [Betamethasone Dipropionate 0.05%] 1 applic TOPICAL BID PRN 03/30/21 Metoprolol Succinate (ER) [Toprol Xl] 100 mg PO HS 03/30/21 Desvenlafaxine Succinate [Pristiq] 50 mg PO DAILY 02/27/22 Controlled Substance Measures - Controlled Substance Measures Is patient prescribed a controlled substance at discharge?: No
== END | disposition home or self-care (01) ==
LOC: PNWHC3 09:02
PROVIDERS: ATTEND Specialist
DX: G44.86 Cervicogenic headache (principal); M54.81 Occipital neuralgia
CPT/HCPCS: 99211

== ENCOUNTER 2022-04-20 11:04 | Emergency (ER) | payer MEDICARE ==
[2022-04-20 11:10] VITALS: TEMP 98.3
[2022-04-20] MEDS ORDERED: METOCLOPRAMIDE 5 MG/ML 2 ML VIAL IVP STA (11:30)
[2022-04-20] MEDS ORDERED: MECLIZINE 25 MG TAB PO STA (11:30)
--- NOTE | 2022-04-20 11:42 | ED ---
General Adult HPI - General Chief complaint: Fall Stated complaint: dizziness Time Seen by Provider: 04/20/22 11:15 Source: patient, RN notes reviewed, old records reviewed Mode of arrival: wheelchair Limitations: no limitations - History of Present Illness Initial comments: This is a 70 cit[place] female presents emergency Department complaining of dizzine ss. Patient states last Friday she rolled out of bed became very dizzy and hit her head on the dresser was only about 6 inches lower than the bed. Patient states ever since then she's been a little bit dizzy feeling like the room was moving or spinning. Patient states movement definitely makes the symptoms worse. Patient states all week long is been tolerable but this morning she got up and the whole room was spinning severely and she felt like she was unable to stand and she was very nauseated. Patient states lying still in bed here feels much better per patient denies headache patient denies numbness weakness. Patient states she has some bruising around the eye but there is no tenderness. Patient denies any neck pain patient denies any numbness weakness. Patient states she is still dizzy particularly with movement. Patient has not noticed any coordination problems. - Related Data Home Medications Medication Instructions Recorded Confirmed Metoprolol Succinate (ER) [Toprol 50 mg PO DAILY 05/18/17 04/18/22 XL] Oxybutynin ER [Ditropan Xl] 15 mg PO DAILY 05/18/17 04/18/22 Apixaban [Eliquis] 5 mg PO BID 03/30/21 04/18/22 Atorvastatin [Lipitor] 40 mg PO HS 03/30/21 04/18/22 Betamethasone Dipropionate 1 applic TOPICAL BID PRN 03/30/21 04/18/22 [Betamethasone Dipropionate 0.05%] Metoprolol Succinate (ER) [Toprol 100 mg PO HS 03/30/21 04/18/22 Xl] Desvenlafaxine Succinate [Pristiq] 50 mg PO DAILY 02/27/22 04/18/22 Previous Rx's Medication Instructions Recorded Doxycycline [Vibramycin] 100 mg PO BID 1 Days #14 capsule 04/20/22 Allergies Allergy/AdvReac Type Severity Reaction Status Date / Time Penicillins Allergy Rash/Hives Verified 04/20/22 11:10 codeine AdvReac Nausea & Verified 04/20/22 11:10 Vomiting Review of Systems ROS Statement: Those systems with pertinent positive or pertinent negative responses have been documented in the HPI. ROS Other: All systems not noted in ROS Statement are negative. Past Medical History Past Medical History: Atrial Fibrillation, GERD/Reflux, Hyperlipidemia, Hypertension, Musculoskeletal Disorder, Osteoarthritis (OA) Additional Past Medical History / Comment(s): Chronic neck pain radiating to left back of head. Hx Pulmonary edema Hx. of compression fractures, L5-S1 mild DDD. 06/08/17 respiratory failure secondary to tracheobronchitis. Cardiac valve leakage. History of Any Multi-Drug Resistant Organisms: None Reported Past Surgical History: Appendectomy, Hysterectomy, Joint Replacement, Orthopedic Surgery Additional Past Surgical History / Comment(s): Total left knee arthroplasty, right foot hammer toe surgery, colonoscopy, bilateral cataract removal with lens implants. R knee meniscus repair. Past Anesthesia/Blood Transfusion Reactions: Postoperative Nausea & Vomiting (PONV) Additional Past Anesthesia/Blood Transfusion Reaction / Comment(s): Received blood after her total knee surgery with no reaction. "Bled a lot with total knee replacement". Past Psychological History: Anxiety Smoking Status: Never smoker Past Alcohol Use History: Occasional Past Drug Use History: None Reported - Past Family History Father History Unknown: Yes Family Medical History: Unable to Obtain Additional Family Medical History / Comment(s): Father is , pt does not know his history. Mother Additional Family Medical History / Comment(s): Mother post fall from either a CVA or a [place] per pt. General Exam - General Exam Comments Initial Comments: GENERAL: Patient is well-developed and well-nourished. Patient is nontoxic and well- hydrated and is in no acute distress. ENT: Neck is soft and supple. No significant lymphadenopathy is noted. Oropharynx is clear. Moist mucous membranes. Neck has full range of motion without eliciting any pain. EYES: The sclera were anicteric and conjunctiva were pink and moist. Extraocular movements were intact and pupils were equal round and reactive to light. Eyelids were unremarkable. PULMONARY: Unlabored respirations. Good breath sounds bilaterally. No audible rales rhonchi or wheezing was noted. CARDIOVASCULAR: There is a regular rate and rhythm without any murmurs gallops or rubs. ABDOMEN: Soft and nontender with normal bowel sounds. SKIN: Skin is clear with no lesions or rashes and otherwise unremarkable. NEUROLOGIC: Patient is alert and oriented x3. Cranial nerves II through XII are grossly intact. Motor and sensory are also intact. Normal speech, volume and content. Symmetrical smile. Cerebellar exam finger to nose is normal bilaterally MUSCULOSKELETAL: Normal extremities with adequate strength and full range of motion. No lower extremity swelling or edema. No calf tenderness. LYMPHATICS: No significant lymphadenopathy is noted PSYCHIATRIC: Normal psychiatric evaluation. Limitations: no limitations Course Vital Signs 04/20/22 04/20/22 11:05 13:08 Temperature 98.3 F Pulse Rate 99 79 Respiratory 18 18 Rate Blood Pressure 176/82 127/65 O2 Sat by Pulse 100 97 Oximetry Medical Decision Making - Medical Decision Making EKG was interpreted by me shows sinus rhythm at 70 bpm DC interval is 148 QRSs 85 QT interval 36 QTC is 419. Patient's EKG shows no ST segment elevation or depression. CT of the brain was told by me. CT of the brain showed no acute normalities of the brain. However it did show orbital floor fracture. Once I find out that the patient had an orbital floor fracture went back in and examined the patient thoroughly for extraocular motion did not see any defect in the extraocular motion. Patient did not have any double vision. Patient was feeling better after the medications with her vertigo so I decided to send the patient home with follow-up for ENT. I interpreted the chest x-ray. Chest x-ray showed no acute abnormality. Patient was given Antivert and a little bit of Valium in the emergency department. - Lab Data Result diagrams: 04/20/22 11:48 04/20/22 11:48 Lab Results 04/20/22 04/20/22 04/20/22 Range/Units 11:48 11:48 11:48 WBC 9.6 (3.8-10.6) k/uL RBC 4.09 (3.80-5.40) m/uL Hgb 13.7 (11.4-16.0) gm/dL Hct 40.3 (34.0-46.0) % MCV 98.5 (80.0-100.0) fL MCH 33.5 (25.0-35.0) pg MCHC 34.1 (31.0-37.0) g/dL RDW 11.7 (11.5-15.5) % Plt Count 254 (150-450) k/uL MPV 8.5 Neutrophils % 79 % Lymphocytes % 12 % Monocytes % 4 % Eosinophils % 3 % Basophils % 1 % Neutrophils # 7.6 (1.3-7.7) k/uL Lymphocytes # 1.2 (1.0-4.8) k/uL Monocytes # 0.4 (0-1.0) k/uL Eosinophils # 0.3 (0-0.7) k/uL Basophils # 0.1 (0-0.2) k/uL PT 10.6 (9.0-12.0) sec INR 1.0 (<1.2) APTT 26.0 (22.0-30.0) sec Sodium 137 (137-145) mmol/L Potassium 3.8 (3.5-5.1) mmol/L Chloride 107 (98-107) mmol/L Carbon Dioxide 21 L (22-30) mmol/L Anion Gap 9 mmol/L BUN 14 (7-17) mg/dL Creatinine 0.69 (0.52-1.04) mg/dL Est GFR (CKD-EPI)AfAm >90 (>60 ml/min/1.73 sqM) Est GFR (CKD-EPI)NonAf 85 (>60 ml/min/1.73 sqM) Glucose 120 H (74-99) mg/dL Calcium 8.5 (8.4-10.2) mg/dL Magnesium 1.3 L (1.6-2.3) mg/dL Total Bilirubin 0.8 (0.2-1.3) mg/dL AST 23 (14-36) U/L ALT 16 (4-34) U/L Alkaline Phosphatase 119 (38-126) U/L Troponin I (0.000-0.034) ng/mL Total Protein 7.6 (6.3-8.2) g/dL Albumin 4.6 (3.5-5.0) g/dL 04/20/22 Range/Units 11:48 WBC (3.8-10.6) k/uL RBC (3.80-5.40) m/uL Hgb (11.4-16.0) gm/dL Hct (34.0-46.0) % MCV (80.0-100.0) fL MCH (25.0-35.0) pg MCHC (31.0-37.0) g/dL RDW (11.5-15.5) % Plt Count (150-450) k/uL MPV Neutrophils % % Lymphocytes % % Monocytes % % Eosinophils % % Basophils % % Neutrophils # (1.3-7.7) k/uL Lymphocytes # (1.0-4.8) k/uL Monocytes # (0-1.0) k/uL Eosinophils # (0-0.7) k/uL Basophils # (0-0.2) k/uL PT (9.0-12.0) sec INR (<1.2) APTT (22.0-30.0) sec Sodium (137-145) mmol/L Potassium (3.5-5.1) mmol/L Chloride (98-107) mmol/L Carbon Dioxide (22-30) mmol/L Anion Gap mmol/L BUN (7-17) mg/dL Creatinine (0.52-1.04) mg/dL Est GFR (CKD-EPI)AfAm (>60 ml/min/1.73 sqM) Est GFR (CKD-EPI)NonAf (>60 ml/min/1.73 sqM) Glucose (74-99) mg/dL Calcium (8.4-10.2) mg/dL Magnesium (1.6-2.3) mg/dL Total Bilirubin (0.2-1.3) mg/dL AST (14-36) U/L ALT (4-34) U/L Alkaline Phosphatase (38-126) U/L Troponin I <0.012 (0.000-0.034) ng/mL Total Protein (6.3-8.2) g/dL Albumin (3.5-5.0) g/dL Disposition Clinical Impression: Fracture of inferior orbital wall, Vertigo Disposition: HOME SELF-CARE Condition: Good Instructions (If sedation given, give patient instructions): Facial Fracture (ED), Vertigo (ED), Fall Prevention (ED) Prescriptions: Doxycycline [Vibramycin] 100 mg PO BID 1 Days #14 capsule Is patient prescribed a controlled substance at d/c from ED?: No Referrals: Serjio Butterfield DO [Primary Care Provider] - 1-2 days Time of Disposition: 13:20
[2022-04-20 12:08] LABS: Basophils # (A) 0.1 k/uL (0-0.2); Basophils % (A) 1 %; Eosinophils # (A) 0.3 k/uL (0-0.7); Eosinophils % (A) 3 %; HCT 40.3 % (34.0-46.0); HGB 13.7 gm/dL (11.4-16.0); Lymphocytes # (A) 1.2 k/uL (1.0-4.8); Lymphocytes % (A) 12 %; MCH 33.5 pg (25.0-35.0); MCHC 34.1 g/dL (31.0-37.0); MCV 98.5 fL (80.0-100.0); Mean Platelet Volume 8.5; Monocytes # (A) 0.4 k/uL (0-1.0); Monocytes % (A) 4 %; Neutrophils # (A) 7.6 k/uL (1.3-7.7); Neutrophils % (A) 79 %; Platelet Count 254 k/uL (150-450); RBC 4.09 m/uL (3.80-5.40); RDW 11.7 % (11.5-15.5); WBC 9.6 k/uL (3.8-10.6)
[2022-04-20 12:16] LABS: ALT 16 U/L (4-34); AST 23 U/L (14-36); African American GFR (CKD) >90 (>60 ml/min/1.73 sqM); Albumin 4.6 g/dL (3.5-5.0); Alkaline Phosphatase 119 U/L (38-126); Anion Gap 9 mmol/L; Blood Urea Nitrogen 14 mg/dL (7-17); Calcium 8.5 mg/dL (8.4-10.2); Carbon Dioxide 21 mmol/L (22-30); Chloride 107 mmol/L (98-107); Glucose 120 mg/dL (74-99); Magnesium 1.3 mg/dL (1.6-2.3); Non-African American GFR(CKD) 85 (>60 ml/min/1.73 sqM); Potassium 3.8 mmol/L (3.5-5.1); Sodium 137 mmol/L (137-145); Total Bilirubin 0.8 mg/dL (0.2-1.3); Total Protein 7.6 g/dL (6.3-8.2)
--- NOTE | 2022-04-20 12:20 | XR ---
EXAMINATION TYPE: XR chest 2V DATE OF EXAM: 04/20/2022 COMPARISON: 03/30/2021 HISTORY: 76-year-old female with chest pain TECHNIQUE: PA and lateral views FINDINGS: Heart normal size. Aorta and pulmonary vasculature within normal limits. Surgical material compatible with wedge resection along the right suprahilar region. No consolidation or pleural effusion. IMPRESSION: Chronic changes. Previous surgery right suprahilar region. No acute process seen.
[2022-04-20 12:40] LABS: Prothrombin Time 10.6 sec (9.0-12.0)
[2022-04-20] MEDS ORDERED: MAGNESIUM SULFATE-D5W PMX 1 GM in DEXTROSE/WATER 1 100ML.BAG IVPB ONE (13:01)
--- NOTE | 2022-04-20 13:12 | CT ---
EXAMINATION TYPE: CT brain wo con DATE OF EXAM: 04/20/2022 COMPARISON: 07/22/2012 HISTORY: 76-year-old female Dizziness, trauma TECHNIQUE: Examination was done in axial plane without intravenous contrast. Coronal and sagittal r econstructions performed. CT DLP: 1040.4 mGycm Automated exposure control for dose reduction was used. FINDINGS: There is no evidence of acute intracranial hemorrhage, acute ischemic changes, mass, mass-effect, or extra-axial fluid collection. There is no effacement of cerebral sulci or basal subarachnoid cister ns. There is no hydrocephalus. There is no midline shift. Esposito-white matter distinction is preserv ed. Atherosclerotic calcifications carotid siphons. Mild age-related cerebral cortical volume loss Mucosal thickening left maxillary sinus. Air-fluid level left maxillary sinus. The blowout fracture o f the left orbital floor is displaced inferiorly by approximately 6 mm along the medial margin. The i nferior rectus is mildly thickened as it courses along the medial fracture margin, coronal image 16 a nd 17. Globes appear symmetric. Mastoid air cells are well pneumatized. Leftward nasal septal deviation. IMPRESSION: 1. Exam positive for a blowout fracture left orbital floor. The medial margin is displaced inferiorly by 6 mm. Some reactive fluid in the left maxillary sinus. 2. The left inferior rectus muscle is mildly thickened as it courses along the medial fracture margin . Correlate for any symptoms of extraocular muscle entrapment. 3. Otherwise, no acute intracranial abnormality seen.
[2022-04-20 14:03] VITALS: BP 127/68; PULSE 84; RESP 16
== END 2022-04-20 14:03 | disposition home or self-care (01) ==
LOC: EC 11:04
DX: S02.85XA Fracture of orbit, unspecified, initial encounter for closed fracture (principal); R42 Dizziness and giddiness; I48.91 Unspecified atrial fibrillation; I10 Essential (primary) hypertension; E78.5 Hyperlipidemia, unspecified; F41.9 Anxiety disorder, unspecified; Z88.0 Allergy status to penicillin; Z88.5 Allergy status to narcotic agent; Z79.01 Long term (current) use of anticoagulants; Z79.899 Other long term (current) drug therapy; W06.XXXA Fall from bed, initial encounter
CPT/HCPCS: 96365; 96375 ×2; 36415; 93005; 80053; 83735; 84484; 85025; 85610; 85730; 71046; 70450; 99285; J2765; J3360; J3475

== ENCOUNTER → 2022-06-18 | Day surgery (SDC) | payer MEDICARE ==
[~2022-06-18] MED LIST changes: +IV FLUID CONTINUATION 1,000 ML IV ONE; +LACTATED RINGERS 1,000 ML IV SCH; +MIDAZOLAM 2 MG/2 ML VIAL ONE; +ROPIVACAINE 5 MG/ML 20 ML AMPULE ONE; +fentaNYL (PF) 50 MCG/ML 2 ML AMP ONE; +methylPREDNISolone ACETATE 40 MG/ML 1 ML VIAL ONE
[2022-06-18 09:19] VITALS: RESP 16; TEMP 98.1
--- NOTE | 2022-06-18 09:39 | P.PCN ---
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 2-cervical degenerative disc disease POSTOPERATIVE DIAGNOSIS: Same as preoperative diagnosis. PROCEDURES: Diagnostic Left C2 , C3, C4 medial branch blocks, with fluoroscopic guidance (fluoroscopy images available in radiology department ) ( to target the facet joint at Left C2-3 , C3-4 , )# 2nd ANESTHESIA: moderate sedation with Versed 1 mg and Fentanyle 50 mcg .(Sedation start time 09:23 ,, end time 0 9:35 ) EBL: Minimal PROCEDURE INDICATION: The patient with neck pain secondary to cervical arthropathy unresponsive to more conservative treatments. PROCEDURE DESCRIPTION / TECHNIQUE: The patient was seen and identified in the preoperative area. Risks, benefits, complications, and alternatives were discussed with the patient, the patient agreed to proceed with the procedure and signed the consent. IV was started. Vital signs remained stable throughout the procedure. Patient was taken to the OR and time out was completed. The patient was placed in the Lateral position on the procedure table ( left side up ). . The cervical area was prepped and draped in the usual sterile fashion. Critical pause was taken. Vital signs were closely monitored during the procedure. Conscious sedation was used during the procedure to decrease patients anxiety. Using cross-table lateral fluoroscopy, the centroid of the trapezoid of Left C2 ,C3, C4 ,was identified, marked, and localized with 1% lidocaine 1 ml at each level for skin and Sub Q infiltrations . Subsequently, a 25G 3spinal needle was advanced guided by fluoroscopy to the centroid of the trapezoid of Left C2 ,C3, C4 . [place] tip position was confirmed at the centroid of the trapezoids of Left C2 ,C3 , C4 , with anteroposterior fluoroscopy. Subsequently, 1.5 ml of preservative-free Ropivacaine 0.5% mixed with Depo- Medrol 20 mg and half ml of the mixture was injected after negative aspiration for blood and CSF. [place] was then removed intact . COMPLICATIONS: No acute complications. DISPOSITION / PLANS: The patient was placed in a supine position and transferred to the recovery area in a stable condition for observation and was discharged from the recovery room after meeting discharge criteria. Home discharge instructions given to the patient by the staff. The patient was reexamined prior to discharge. The patient will schedule a follow up in the clinic in 2-4 weeks. Last does of Marilynn taken 3 days ago.
--- NOTE | 2022-06-18 09:48 | FL ---
EXAMINATION TYPE: FL guided pain mgmt statistic DATE OF EXAM: 06/18/2022 HISTORY: Fluoroscopy time 16 seconds of fluoroscopy provided. IMPRESSION: 1. Fluoroscopy time.
[2022-06-18 10:23] VITALS: BP 143/70; PULSE 82
== END ==
LOC: ORPAIN 08:08
PROVIDERS: ATTEND Specialist
DX: M50.31 Other cervical disc degeneration, high cervical region (principal); M47.812 Spondylosis without myelopathy or radiculopathy, cervical region; Z88.0 Allergy status to penicillin; Z88.5 Allergy status to narcotic agent
CPT/HCPCS: 64490; 64491; 99152; J2250; J1030; J3010; J2795

== ENCOUNTER → 2022-09-05 | Outpatient (CLI) | payer MEDICARE ==
--- NOTE | 2022-09-05 09:17 | P.PN ---
Subjective Progress Note Date: 09/05/22 A 76 yr old female with a history of severe and chronic MENDES secondary to occipital neuralgia and cervicogenic headache presents today for evaluation status post RFA L MBB C2-C3, C3-C4 . Pt states she experienced 100% headach relief s/p procedure, the patient is complaining of localized pain at the area of the procedure, there is no erythema and no discharge, no swelling. Pain is alleviated with PT completed in Dec 2021, home exercise regimen, chiropractic treatment x 1 which worsened pain, heat, ice, meds (Tyl OTC), repositioning and rest. Interventional pain procedures completed include RFA L MBB C2-C4 Patient is currently on Tylenol OTC Patient denies any side effects of the medication(s), denies excessive drowsiness or sleepiness, denies suicidal ideation and reports that the current pain medication is helping to control the pain and improve activities of daily living. Patient denies any motor or sensory deficits. Patient denies any fever or night sweats, denies any change in the bowel movements or urination. Physical Examination: -Constitutional: Cooperative. Not in acute distress . - Neurologic: Cranial nerve II to XII intact. No focal neurological deficits. - Psychatric: Alert & oriented x 3. Matching mood & appropriate affect. Judgment and insight intact. - Musculoskeletal: Cervical spine: Muscle bulk/ tone/ strength in the bilateral upper extremities normal Vertebral body tenderness to palpation over Spurling test positive Distraction test positive Facet loading test positive L C2-C3, C3-C4 facets TTP Thoracic spine Muscle bulk / tone/ strength in the bilateral paraspinal muscles normal Vertebral body tender to palpation over Facet loading test positive Lumbar spine: Motor bulk/ tone/ strength lower extremities , thigh and legs : 5/5 Deep tendon reflexes : Normal Knee Jerk. Normal Ankle Jerk . Vertebral body tenderness to palpation over Lumbar Facet Loading Test positive Straight Leg Raise: positive at 30 degrees right side/ left side Gaenslen's Test positive Sacral spine : Severe tenderness over the Sacroiliac joint: right side / left side Range of motion: Flexion of the lumbar spine <60 degrees Range of motion: Extension of the lumbar spine <20 degrees Gaenslen's Test positive Alphonse test: positive right side / left side Thigh Thrust Test Sacral Thrust Test Assessment and plan: Chronic HAs secondary to occipital neuralgia and cervicogenic headache Status post RFA L MBB C2-C3, C3-C4 , with improved significantly The patient complaining of localized irritation at the area of the procedure I recommend to use Voltaren jell 1% [id number] to be applied to the left side of the cervical area twice daily, 15 does not improve after 2 weeks then we can consider doing trigger point injection and left-sided cervical paraspinal muscles, patient will follow up in the pain clinic when necessary - Pain Location Left Neck Non-Pharmacological Interventions: Chiropractic Treatment, Heat, Home Exercise, Ice, Physical Therapy, Position/Reposition, Stretching Pharmacological Interventions: Block, PRN Medication PQRS Narrative: Smoking Status Former smoker Hx Alcohol Use (MH) Yes Home Medications: Ambulatory Orders Metoprolol Succinate (ER) [Toprol XL] 50 mg PO DAILY 05/18/17 Oxybutynin ER [Ditropan Xl] 15 mg PO DAILY 05/18/17 Apixaban [Eliquis] 5 mg PO BID 03/30/21 Atorvastatin [Lipitor] 40 mg PO HS 03/30/21 Betamethasone Dipropionate [Betamethasone Dipropionate 0.05%] 1 applic TOPICAL BID PRN 03/30/21 Metoprolol Succinate (ER) [Toprol Xl] 100 mg PO HS 03/30/21 Desvenlafaxine Succinate [Pristiq] 50 mg PO DAILY 02/27/22 Controlled Substance Measures - Controlled Substance Measures Is patient prescribed a controlled substance at discharge?: No Objective - Vital Signs Vital signs: Intake & Output 09/04/22 09/05/22 09/05/22 18:59 06:59 18:59 Weight 67.132 kg
[2022-09-05 09:18] VITALS: BP 163/85; PULSE 84; RESP 18; TEMP 98.6
== END ==
LOC: PNWHC3 08:47
PROVIDERS: ATTEND Specialist
DX: G44.86 Cervicogenic headache (principal); M54.81 Occipital neuralgia; Z79.01 Long term (current) use of anticoagulants; Z87.891 Personal history of nicotine dependence; G89.29 Other chronic pain; Z98.890 Other specified postprocedural states; Z88.0 Allergy status to penicillin; Z88.5 Allergy status to narcotic agent
CPT/HCPCS: 99211

== ENCOUNTER → 2022-10-14 | Outpatient (CLI) | payer MEDICARE ==
[2022-10-14 09:57] VITALS: BP 169/97; PULSE 91; RESP 18; TEMP 98.4
--- NOTE | 2022-10-14 13:32 | P.PAINPG ---
PQRS Measure Charge Sheet Comment: A 76 yr old female with a history of severe and chronic neck pain secondary to cervical DDD and spondylosis with facet arthropathy without myelopathy presents today for evaluation s/p L >R upper neck pain. Pain level is provoked at 7 /10 in intensity, constant, localized in the cervical spine, achy in character w/o shooting pain Pain is provoked by laying on L side. Pain is alleviated with PT x 8 wks in Jan 2022, chiropractic treatments x 2 session in Nov 2021, heat, ice, medications, topical, repositioning and rest. Interventional pain procedures completed include BL RFA C2-C4 Patient is currently on Tyl, Voltaren gel Patient denies any side effects of the medication(s), denies excessive drowsi ness or sleepiness, denies suicidal ideation and reports that the current pain medication is helping to control the pain and improve activities of daily living. Patient denies any motor or sensory deficits. Patient denies any fever or night sweats, denies any change in the bowel movements or urination. Physical Examination: -Constitutional: Cooperative. Not in acute distress . - Neurologic: Cranial nerve II to XII intact. No focal neurological deficits. - Psychatric: Alert & oriented x 3. Matching mood & appropriate affect. Judgment and insight intact. - Musculoskeletal: Cervical spine: Muscle bulk/ tone/ strength in the bilateral upper extremities normal Vertebral body tenderness to palpation over Palpable muscle spasms, TTP and TPs over C2-C6, L >R Spurling test positive Distraction test positive Facet loading test positive TTP Thoracic spine Muscle bulk / tone/ strength in the bilateral paraspinal muscles normal Vertebral body tender to palpation over Facet loading test positive TTP Lumbar spine: Motor bulk/ tone/ strength lower extremities , thigh and legs : 5/5 Deep tendon reflexes : Normal Knee Jerk. Normal Ankle Jerk . Vertebral body tenderness to palpation over Lumbar Facet Loading Test positive Straight Leg Raise: positive at 30 degrees right side/ left side Gaenslen's Test positive Sacral spine : Severe tenderness over the Sacroiliac joint: right side / left side Range of motion: Flexion of the lumbar spine <60 degrees Range of motion: Extension of the lumbar spine <20 degrees Gaenslen's Test positive R / L Alphonse test: positive right side / left side Thigh Thrust Test positive R / L Sacral Thrust Test positive R/ L Assessment and plan: Chronic neck pain secondary to cervical DDD, spondylosis with facet arthropathy without myelopathy Recommendation of BL TPIs C2-C6. May need additional injections for optimal pain relief. Risks, benefits of procedure discussed and pt verbalized understanding. Admits to anticoagulant use or medical history of diabetes. P rotocol for discontinuation/ continuation of medications [place] procedure discussed. [place] 5/325mg #15NR. Use, side effects, adverse reactions and safe storage discussed. Patient verbalized understanding. All questions answered. I have spent less than 30 minutes on patient care today. Dr Marcum was available by phone for the evaluation of this patient. The time was used to review the medical records including relevant urine studies and Prescription history (MAPs), review of the available imaging, evaluation and examination of the patient, coordination of care with the medical staff and if applicable referring physicians, as well as creation of the medical record PQRS Narrative: Smoking Status Former smoker Hx Alcohol Use (MH) Yes Home Medications: Ambulatory Orders Metoprolol Succinate (ER) [Toprol XL] 50 mg PO DAILY 05/18/17 Oxybutynin ER [Ditropan Xl] 15 mg PO DAILY 05/18/17 Apixaban [Eliquis] 5 mg PO BID 03/30/21 Atorvastatin [Lipitor] 40 mg PO HS 03/30/21 Betamethasone Dipropionate [Betamethasone Dipropionate 0.05%] 1 applic TOPICAL BID PRN 03/30/21 Metoprolol Succinate (ER) [Toprol Xl] 100 mg PO HS 03/30/21 Desvenlafaxine Succinate [Pristiq] 50 mg PO DAILY 02/27/22 Losartan Potassium 100 mg PO DAILY 06/18/22 HYDROcodone/APAP 5-325MG [[place] 5-325] 1 tab PO Q4HR PRN 3 Days #15 tab 10/14/22 Controlled Substance Measures - Controlled Substance Measures Is patient prescribed a controlled substance at discharge?: Yes When asked, does pt state using other controlled substances?: Yes If prescribed controlled substance>3 days was MAPS reviewed?: Prescribed <3 Days
== END ==
LOC: PNWHC3 08:51
PROVIDERS: ATTEND Specialist
DX: M50.322 Other cervical disc degeneration at C5-C6 level (principal); M47.812 Spondylosis without myelopathy or radiculopathy, cervical region; G89.29 Other chronic pain; Z87.891 Personal history of nicotine dependence; Z88.0 Allergy status to penicillin; Z88.5 Allergy status to narcotic agent; Z72.89 Other problems related to lifestyle
CPT/HCPCS: 99211

== ENCOUNTER 2022-11-12 08:01 | Day surgery (SDC) | payer MEDICARE ==
[2022-11-08 11:22] VITALS: BMI 26.6
[~2022-11-12 08:01] MED LIST changes: -IV FLUID CONTINUATION 1,000 ML IV ONE; -MIDAZOLAM 2 MG/2 ML VIAL ONE; -ROPIVACAINE 5 MG/ML 20 ML AMPULE ONE; -fentaNYL (PF) 50 MCG/ML 2 ML AMP ONE; -methylPREDNISolone ACETATE 40 MG/ML 1 ML VIAL ONE
[2022-11-12 08:30] VITALS: RESP 16; TEMP 97.4
[2022-11-12] MEDS ORDERED: methylPREDNISolone ACETATE 40 MG/ML 1 ML VIAL ONE (08:56)
[2022-11-12] MEDS ORDERED: ROPIVACAINE 5 MG/ML 20 ML AMPULE ONE (08:56)
--- NOTE | 2022-11-12 09:04 | P.PCN ---
Date of Procedure: 11/12/22 Procedure(s) Performed: Procedure= trigger point injections cervical paraspinal muscles bilaterally , 2on the right side from C2 to C6, and 4 on the left side from C2 to C6 Preoperative diagnosis= 1-myofascial pain syndrome cervical paraspinal muscles 2-cervical degenerative disc disease 3-cervical facet arthropathy Postoperative diagnosis=Same as preop Diagnosis . Complication = none Condition= stable Anesthesia= none Indication for the procedure= patient complaining of sever neck pain , examination was positive for multiple trigger point in the cervical paraspinal muscles bilaterally and patient diagnosed with myofascial pain syndrome and is here to have trigger point injections Description of the procedure= procedure risk and benefits discussed with the patient, including but not limited, risk of infection and bleeding, and ALLERGIC reaction to the medication and not complete pain relief and patient agreed with the preceding patient taken to the operating room, placed in sitting position or standard monitors applied to the patient ,neck prepped with chlorhexidine 3 times , then under sterile technique each of the trigger point that was marked in the preop holding area 2 on the right side cervical paraspinal muscles and 4 on the left side cervical paraspinal muscles each one of them injected with the 2 mL of the mixture of ropivacaine 0.5% 12 ML mixed with 40 mg of Depo-Medrol and 2 mL of the mixture injected at each trigger point after negative aspiration, using 25-gauge needle, injection done after negative aspiration under was no paresthesia during the injection patient tolerated the procedure well without any complications and he will follow up in the pain clinic in a few
[2022-11-12 09:17] VITALS: BP 199/93; PULSE 75
== END 2022-11-12 09:26 | disposition home or self-care (01) ==
LOC: ORPAIN 08:01
PROVIDERS: ATTEND Specialist
DX: M79.18 Myalgia, other site (principal); M47.812 Spondylosis without myelopathy or radiculopathy, cervical region; M50.30 Other cervical disc degeneration, unspecified cervical region
CPT/HCPCS: 20553; J1030; J2795

== ENCOUNTER → 2022-12-05 | Outpatient (CLI) | payer MEDICARE ==
[2022-12-05 11:24] VITALS: BP 186/82; PULSE 89; RESP 18; TEMP 98.3
--- NOTE | 2022-12-05 14:27 | P.PAINPG ---
PQRS Measure Charge Sheet Comment: A 76 yr old female with a history of severe and chronic neck pain secondary to cervical DDD and spondylosis with facet arthropathy without myelopathy presents today for evaluation s/p BL cervical TPIs. Pt states she experienced 100 % pain relief x 3 wks s/p procedure. Pain level is provoked at 0 /10 in intensity. Pain is alleviated with injections, PT x 8 wks in Jan 2022, chiropractic treatments x 2 session in Nov 2021, heat, ice, medications, topical, repositioning and rest. Interventional pain procedures completed include BL RFA C2-C4, BL Cervical TPIs Patient is currently on Tyl, Voltaren gel Patient denies any side effects of the medication(s), denies excessive drowsiness or sleepiness, denies suicidal ideation and reports that the current pain medication is helping to control the pain and improve activities of daily living. Patient denies any motor or sensory deficits. Patient denies any fever or night sweats, denies any change in the bowel movements or urination. Physical Examination: -Constitutional: Cooperative. Not in acute distress . - Neurologic: Cranial nerve II to XII intact. No focal neurological deficits. - Psychatric: Alert & oriented x 3. Matching mood & appropriate affect. Judgment and insight intact. - Musculoskeletal: Cervical spine: Muscle bulk/ tone/ strength in the bilateral upper extremities normal Vertebral body tenderness to palpation over Spurling test positive Distraction test positive Facet loading test positive TTP Thoracic spine Muscle bulk / tone/ strength in the bilateral paraspinal muscles normal Vertebral body tender to palpation over Facet loading test positive TTP Lumbar spine: Motor bulk/ tone/ strength lower extremities , thigh and legs : 5/5 Deep tendon reflexes : Normal Knee Jerk. Normal Ankle Jerk . Vertebral body tenderness to palpation over Lumbar Facet Loading Test positive Straight Leg Raise: positive at 30 degrees right side/ left side Gaenslen's Test positive Sacral spine : Severe tenderness over the Sacroiliac joint: right side / left side Range of motion: Flexion of the lumbar spine <60 degrees Range of motion: Extension of the lumbar spine <20 degrees Gaenslen's Test positive R / L Alphonse test: positive right side / left side Thigh Thrust Test positive R / L Sacral Thrust Test positive R/ L Assessment and plan: Chronic neck pain secondary to cervical DDD, spondylosis with facet arthropathy without myelopathy Pt exhibited sufficient and satisfactory pain relief s/p procedure. She will manage residual pain on her own and may return to the clinic on an as needed basis. All questions answered. I have spent less than 30 minutes on patient care today. Dr Marcum was available by phone for the evaluation of this patient. The time was used to review the medical records including relevant urine studies and Prescription history (MAPs), review of the available imaging, evaluation and examination of the patient, coordination of care with the medical staff and if applicable referring physicians, as well as creation of the medical record PQRS Narrative: Smoking Status Former smoker Hx Alcohol Use (MH) Yes Home Medications: Ambulatory Orders Metoprolol Succinate (ER) [Toprol XL] 50 mg PO DAILY 05/18/17 Oxybutynin ER [Ditropan XL] 15 mg PO DAILY 05/18/17 Apixaban [Eliquis] 5 mg PO BID 03/30/21 Atorvastatin [Lipitor] 40 mg PO HS 03/30/21 Betamethasone Dipropionate [Betamethasone Dipropionate 0.05%] 1 applic TOPICAL BID PRN 03/30/21 Metoprolol Succinate (ER) [Toprol Xl] 100 mg PO HS 03/30/21 Desvenlafaxine Succinate [Pristiq] 50 mg PO DAILY 02/27/22 Losartan Potassium 100 mg PO DAILY 06/18/22 HYDROcodone/APAP 5-325MG [[place] 5-325] 1 tab PO Q4HR PRN 3 Days #15 tab 10/14/22 Controlled Substance Measures - Controlled Substance Measures Is patient prescribed a controlled substance at discharge?: No
== END ==
LOC: PNWHC3 09:19
PROVIDERS: ATTEND Specialist
DX: M50.30 Other cervical disc degeneration, unspecified cervical region (principal); M47.812 Spondylosis without myelopathy or radiculopathy, cervical region; G89.29 Other chronic pain; Z87.891 Personal history of nicotine dependence; M53.3 Sacrococcygeal disorders, not elsewhere classified; Z88.0 Allergy status to penicillin; Z88.5 Allergy status to narcotic agent
CPT/HCPCS: 99211

== ENCOUNTER → 2023-07-24 | Outpatient (CLI) | payer MEDICARE ==
[2023-07-24 09:33] VITALS: BP 180/68; PULSE 94; RESP 16; TEMP 97.2
--- NOTE | 2023-07-24 14:36 | P.PAINPG ---
PQRS Measure Charge Sheet Comment: A 77 yr old female with a history of severe and chronic neck pain secondary to occipital neuralgia and cervicogenic MENDES presents today for evaluation. Pt underwent a L RFA of the C2-C4 in Jul 2022 where she experienced 100% pain relief x 10 mo s/p procedure. Pain level is provoked at 6 /10 in intensity, pred ominantly axial, achy in character w occasional shooting pain towards the L scalp. Pain is alleviated with injections, PT x 8 wks in Jan 2022, chiropractic treatments x 2 session in Nov 2021, heat, ice, medications, topical, repositioning and rest. Cervical disability score of 22. Interventional pain procedures completed include BL RFA C2-C4 (Jul 2022), BL Cervical TPIs Patient is currently on Tyl, Voltaren gel Patient denies any side effects of the medication(s), denies excessive drowsiness or sleepiness, denies suicidal ideation and reports that the current pain medication is helping to control the pain and improve activities of daily living. Patient denies any motor or sensory deficits. Patient denies any fever or night sweats, denies any change in the bowel movements or urination. Physical Examination: -Constitutional: Cooperative. Not in acute distress . - Neurologic: Cranial nerve II to XII intact. No focal neurological deficits. - Psychatric: Alert & oriented x 3. Matching mood & appropriate affect. Judgment and insight intact. - Musculoskeletal: Cervical spine: Muscle bulk/ tone/ strength in the bilateral upper extremities normal Vertebral body tenderness to palpation over Spurling test positive Distraction test positive Facet loading test positive TTP over L C2-C3, C3-C4 Thoracic spine Muscle bulk / tone/ strength in the bilateral paraspinal muscles normal Vertebral body tender to palpation over Facet loading test positive TTP Lumbar spine: Motor bulk/ tone/ strength lower extremities , thigh and legs : 5/5 Deep tendon reflexes : Normal Knee Jerk. Normal Ankle Jerk . Vertebral body tenderness to palpation over Lumbar Facet Loading Test positive Straight Leg Raise: positive at 30 degrees right side/ left side Gaenslen's Test positive Sacral spine : Severe tenderness over the Sacroiliac joint: right side / left side Range of motion: Flexion of the lumbar spine <60 degrees Range of motion: Extension of the lumbar spine <20 degrees Gaenslen's Test positive R / L Alphonse test: positive right side / left side Thigh Thrust Test positive R / L Sacral Thrust Test positive R/ L Assessment and plan: Chronic neck pain secondary to occipital neuralgia and cervicogenic heada joselin Recommendation of L RFA C2-C3, C3-C4. Pt exhibited substantial pain relief w prior RFA of the L C2-C4 from Jul 2022. Risks, benefits of procedure discussed and patient verbalized understanding. Protocol for discontinuation/continuation of medications surrounding procedure discussed. All questions answered. I have spent less than 30 minutes on patient care today. Dr Marcum was avai lable by phone for the evaluation of this patient. The time was used to review the medical records including relevant urine studies and Prescription history (MAPs), review of the available imaging, evaluation and examination of the patient, coordination of care with the medical staff and if applicable referring physicians, as well as creation of the medical record PQRS Narrative: Smoking Status Former smoker Hx Alcohol Use (MH) Yes Home Medications: Ambulatory Orders Metoprolol Succinate (ER) [Toprol XL] 50 mg PO DAILY 05/18/17 Oxybutynin ER [Ditropan XL] 15 mg PO DAILY 05/18/17 Apixaban [Eliquis] 5 mg PO BID 03/30/21 Atorvastatin [Lipitor] 40 mg PO HS 03/30/21 Betamethasone Dipropionate [Betamethasone Dipropionate 0.05%] 1 applic TOPICAL BID PRN 03/30/21 Metoprolol Succinate (ER) [Toprol Xl] 100 mg PO HS 03/30/21 Desvenlafaxine Succinate [Pristiq] 50 mg PO DAILY 02/27/22 Losartan Potassium 100 mg PO DAILY 06/18/22 HYDROcodone/APAP 5-325MG [[place] 5-325] 1 tab PO Q4HR PRN 3 Days #15 tab 10/14/22 Controlled Substance Measures - Controlled Substance Measures Is patient prescribed a controlled substance at discharge?: No
== END ==
LOC: PNWHC3 08:44
PROVIDERS: ATTEND Specialist
DX: M50.320 Other cervical disc degeneration, mid-cervical region, unspecified level (principal); M54.81 Occipital neuralgia; G44.86 Cervicogenic headache; G89.29 Other chronic pain; Z87.891 Personal history of nicotine dependence; Z79.01 Long term (current) use of anticoagulants; Z88.0 Allergy status to penicillin; Z88.5 Allergy status to narcotic agent
CPT/HCPCS: 99211

== ENCOUNTER 2023-09-18 06:52 | Day surgery (SDC) | payer MEDICARE ==
[2023-09-18] MEDS: LACTATED RINGERS 1,000 ML IV SCH (07:19)
[2023-09-18 07:43] VITALS: TEMP 97.2
[2023-09-18] MEDS ORDERED: methylPREDNISolone ACETATE 40 MG/ML 1 ML VIAL ONE (07:53)
[2023-09-18] MEDS ORDERED: MIDAZOLAM 2 MG/2 ML VIAL ONE (07:53)
[2023-09-18] MEDS ORDERED: fentaNYL (PF) 50 MCG/ML 2 ML AMP ONE (07:53)
[2023-09-18] MEDS ORDERED: ROPIVACAINE 5MG/ML 20ML VIAL ONE (07:53)
--- NOTE | 2023-09-18 08:16 | P.PCN ---
Date of Procedure: 09/18/23 Procedure(s) Performed: PREOPERATIVE DIAGNOSIS: Cervical spondylosis with Facet Arthropathy without myelopathy. POSTOPERATIVE DIAGNOSIS: Cervical spondylosis with Facet Arthropathy without myelopathy. PROCEDURES: Radiofrequency thermocoagulation Left C2,C3, C4,medial branch with Fluroscopy [place](fluoroscopy was available in Radiology department ) (to denervate the facet joint at Left C2-3 ,C3- 4 ) ANESTHESIA: moderate sedation with fentanyl 100 micrograms and Versed 2 mg (duration started at 07:53,end at 08:11 EBL: Minimal PROCEDURE INDICATION: The patient with neck pain secondary to cervical arthropathy who had more than 50% relief of her pain with previous diagnostic cervical medial branch block. PROCEDURE DESCRIPTION / TECHNIQUE: The patient was seen and identified in the preoperative area. Risks, benefits, complications, and alternatives were discuss ed with the patient, the patient agreed to proceed with the procedure and signed the consent. IV was started. Vital signs remained stable throughout the procedure. Patient was taken to the OR and time out was completed. The patient was placed in the lateral position on the procedure table. The cervical area was prepped and draped in the usual sterile fashion. Critical pause was taken. Vital signs were closely monitored during the procedure. Conscious sedation was used during the procedure to decrease patients anxiety. Using cross-table lateral fluoroscopy, the centroid of the trapezoid of Left C2,C3, C4 were identified, marked, and localized with 1% lidocaine. Subsequently, a 18 -pt radiofrequency cannula with a 10-mm active tip was advanced guided by fluoroscopy to the centroid of the trapezoid of left C2,C3, C4. Needle tip position was confirmed at the centroid of the trapezoids of left C2 ,C3, C4,with anteroposterior fluoroscopy. Each site then underwent sensory testing at 50 Hz and 0 to 1 volt and motor testing at 2 Hz and 0 to 3 volt with local stimulation, but no radicular symptoms down the arm. Thereafter each sites underwent radiofrequency thermocoagulation at 80 degrees celsius for 90 seconds after injecting 0.5 ml of PF Ropivacaine 0.5 %. After thermocoagulation, 1 ml of the block solution containing Depo-Medrol 40 mg and 3 mL of preservative-free normal saline was injected at the Left C2 , C3, C4 levels after negative aspiration of CSF and blood and with no paresthesias. Cannulas were retracted while injecting lidocaine 1% until the needle is out. Skin was cleansed and bandages were applied. COMPLICATIONS: No acute complications. DISPOSITION / PLANS: The patient was placed in a supine position and transferred to the recovery area in a stable condition for observation and was discharged from the recovery room after meeting discharge criteria. Home discharge instructions given to the patient by the staff. The patient was reexamined prior to discharge. The patient will schedule a follow up in the clinic in 2-4 weeks.
[2023-09-18] MEDS: LACTATED RINGERS 1,000 ML IV ONE (08:20)
[2023-09-18 08:29] VITALS: RESP 18
--- NOTE | 2023-09-18 09:03 | FL ---
EXAMINATION TYPE: FL guided pain mgmt statistic Intraoperative/procedural fluoroscopic services were provided. Total fluoroscopy time is 18.3 seconds with a total of 3 submitted images to PACS. Please s ee the operative/procedural note for further details. DAP: [id number] mGym2
[2023-09-18 09:13] VITALS: BP 149/85; PULSE 98
== END 2023-09-18 08:54 | disposition home or self-care (01) ==
LOC: ORPAIN 06:52
PROVIDERS: ATTEND Specialist
DX: M47.812 Spondylosis without myelopathy or radiculopathy, cervical region (principal); Z79.01 Long term (current) use of anticoagulants; Z88.0 Allergy status to penicillin; Z88.5 Allergy status to narcotic agent
CPT/HCPCS: 64633; 64634; 99152; J2250; J3010; J2795; J1010

== ENCOUNTER → 2023-10-09 | Outpatient (CLI) | payer MEDICARE ==
[2023-10-09 09:06] VITALS: BP 160/84; PULSE 85; RESP 16; TEMP 98.5
--- NOTE | 2023-10-09 14:27 | P.PAINPG ---
PQRS Measure Charge Sheet Comment: A 77 yr old female with a history of severe and chronic neck pain secondary to occipital neuralgia and cervicogenic MENDES presents today for evaluation s/p L RFA C2-C4. Pt states she experienced 50 % pain relief s/p procedure. Pain level is provoked at 7 /10 in intensity, predominantly axial, achy in character w occasional shooting pain towards the L scalp. Pain is alleviated with injections, PT x 8 wks in Jan 2022, chiropractic treatments x 2 session in Nov 2021, heat, ice, medications, topical, repositioning and rest. Cervical disability score of 21. Interventional pain procedures completed include BL RFA C2-C4 (Jul 2022, Sep 2023), BL Cervical TPIs Patient is currently on Tyl, Voltaren gel Patient denies any side effects of the medication(s), denies excessive drowsiness or sleepiness, denies suicidal ideation and reports that the current pain medication is helping to control the pain and improve activities of daily living. Patient denies any motor or sensory deficits. Patient denies any fever or night sweats, denies any change in the bowel movements or urination. Physical Examination: -Constitutional: Cooperative. Not in acute distress . - Neurologic: Cranial nerve II to XII intact. No focal neurological deficits. - Psychatric: Alert & oriented x 3. Matching mood & appropriate affect. Judgment and insight intact. - Musculoskeletal: Cervical spine: +L ZAY TTP Muscle bulk/ tone/ strength in the bilateral upper extremities normal Vertebral body tenderness to palpation over Spurling test positive Distraction test positive Facet loading test positive Thoracic spine Muscle bulk / tone/ strength in the bilateral paraspinal muscles normal Vertebral body tender to palpation over Facet loading test positive TTP Lumbar spine: Motor bulk/ tone/ strength lower extremities , thigh and legs : 5/5 Deep tendon reflexes : Normal Knee Jerk. Normal Ankle Jerk . 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 May need a series of injections for optimal pain relief. Risks, benefits of procedure discussed and patient verbalized understanding. Protocol for discontinuation/continuation of medications surrounding procedure discussed. All questions answered. I have spent less than 30 minutes on patient care today. Dr Marcum was available by phone for the evaluation of this patient. The time was used to review the medical records including relevant urine studies and Prescription history (MAPs), review of the available imaging, evaluation and examination of the patient, coordination of care with the medical staff and if applicable referring physicians, as well as creation of the medical record PQRS Narrative: Smoking Status Former smoker Hx Alcohol Use (MH) Yes Home Medications: Ambulatory Orders Metoprolol Succinate (ER) [Toprol XL] 50 mg PO DAILY 05/18/17 Oxybutynin ER [Ditropan XL] 15 mg PO DAILY 05/18/17 Apixaban [Eliquis] 5 mg PO BID 03/30/21 Atorvastatin [Lipitor] 40 mg PO HS 03/30/21 Metoprolol Succinate (ER) [Toprol Xl] 100 mg PO HS 03/30/21 Desvenlafaxine Succinate [Pristiq] 50 mg PO DAILY 02/27/22 traMADol HCL 50 mg PO Q6H PRN 3 Days #12 tab 10/09/23 Controlled Substance Measures - Controlled Substance Measures Is patient prescribed a controlled substance at discharge?: Yes When asked, does pt state using other controlled substances?: Yes If prescribed controlled substance>3 days was MAPS reviewed?: Prescribed <3 Days
== END ==
LOC: PNWHC3 07:36
PROVIDERS: ATTEND Specialist
DX: G89.29 Other chronic pain (principal); M54.81 Occipital neuralgia; G44.86 Cervicogenic headache; Z87.891 Personal history of nicotine dependence; Z88.0 Allergy status to penicillin; Z88.5 Allergy status to narcotic agent
CPT/HCPCS: 99211

== ENCOUNTER 2023-11-04 06:31 | Day surgery (SDC) | payer MEDICARE ==
[2023-10-31 14:12] VITALS: BMI 26.6
[~2023-11-04 06:31] MED LIST changes: -LIDOCAINE 1% (10MG/ML) FOR IV START INTRADERMA PRN
[2023-11-04 07:25] VITALS: TEMP 97.6
[2023-11-04] MEDS ORDERED: DEXAMETHASONE SOD PHOSPHATE 10 MG/ML 1 ML VIAL ONE (08:04)
[2023-11-04] MEDS ORDERED: ROPIVACAINE 5MG/ML 20ML VIAL ONE (08:04)
--- NOTE | 2023-11-04 08:27 | P.PCN ---
Date of Procedure: 11/04/23 Surgeon: Syed Batres Pathology: none sent Condition: stable Disposition: PACU Description of Procedure: Pre-operative diagnosis: 1- left occipital neuralgia Post Operative Diagnosis 1- leftoccipital neuralgia Procedure: 1- Left greater occipital nerve block with ultrasound guidance ANESTHESIA: Local with Lidocaine 1 % EBL: Minimal PROCEDURE INDICATION: The patient with neck pain and headache secondary to occipital neuralgea unresponsive to conservative treatments. PROCEDURE DESCRIPTION / TECHNIQUE: The patient was seen and identified in the preoperative area. Risks, benefits, complications, and alternatives were discussed with the patient, the patient agreed to proceed with the procedure and signed the consent. Vital signs remained stable throughout the procedure. Patient was taken to the OR and time out was completed. The patient was placed in the prone position on the procedure table. . The cervical area and right occiptial area were prepped with chloraprep. Critical pause was taken. Vital signs were closely monitored during the procedure. The the occipital exuberance and superior nuchal line were identified on the right side of the occiput. The greater occipital nerve location was estimated to be medial to the occipital artery , which was located using the ultrasound machine. I used 25-gauge 1-1/2 inch needle to go through the skin and infiltrate 4 MLS of a solution made up of 3.5 MLS Ropivacaine 0.5% +5 mg of Decadron. Patient tolerated procedure well.
[2023-11-04 08:34] VITALS: PULSE 88
[2023-11-04 08:42] VITALS: BP 176/91; RESP 18
== END 2023-11-04 09:14 | disposition home or self-care (01) ==
LOC: ORPAIN 06:31
PROVIDERS: ATTEND Anesthesiology
DX: M54.81 Occipital neuralgia (principal); Z79.01 Long term (current) use of anticoagulants; Z95.5 Presence of coronary angioplasty implant and graft; Z88.0 Allergy status to penicillin; Z88.5 Allergy status to narcotic agent
CPT/HCPCS: 64405; J1100; J2795

== ENCOUNTER → 2023-11-19 | Outpatient (CLI) | payer MEDICARE ==
[2023-11-19 09:20] VITALS: BP 173/88; PULSE 80; RESP 16
--- NOTE | 2023-11-19 14:47 | P.PAINPG ---
PQRS Measure Charge Sheet Comment: A 77 yr old female with a history of severe and chronic neck pain secondary to occipital neuralgia and cervicogenic MENDES presents today for evaluation s/p L ZAY #1. Pt states she experienced 50 % pain relief x 2 wks s/p procedure. Pain level is provoked at 6 /10 in intensity, predominantly axial, achy in character w occasional shooting pain towards the L scalp. Pain is alleviated with injections, PT x 8 wks in Jan 2022, chiropractic treatments x 2 session in Nov 2021, physician guided stretches every morning since Jan 2022, heat, ice, medications, topical, repositioning and rest. Cervical disability score of 20. Interventional pain procedures completed include BL RFA C2-C4 (Jul 2022, Sep 2023), BL Cervical TPIs, L ZAY x1 (Nov 2023) Patient is currently on Tyl, Voltaren gel Patient denies any side effects of the medication(s), denies excessive drowsiness or sleepiness, denies suicidal ideation and reports that the current pain medication is helping to control the pain and improve activities of daily living. Patient denies any motor or sensory deficits. Patient denies any fever or night sweats, denies any change in the bowel movements or urination. Physical Examination: -Constitutional: Cooperative. Not in acute distress . - Neurologic: Cranial nerve II to XII intact. No focal neurological deficits. - Psychatric: Alert & oriented x 3. Matching mood & appropriate affect. Judgment and insight intact. - Musculoskeletal: Cervical spine: +L ZAY TTP Muscle bulk/ tone/ strength in the bilateral upper extremities normal Vertebral body tenderness to palpation over Spurling test positive Distraction test positive Facet loading test positive Thoracic spine Muscle bulk / tone/ strength in the bilateral paraspinal muscles normal Vertebral body tender to palpation over Facet loading test positive TTP Lumbar spine: Motor bulk/ tone/ strength lower extremities , thigh and legs : 5/5 Deep tendon reflexes : Normal Knee Jerk. Normal Ankle Jerk . 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 May need a series of injections for optimal pain relief. Risks, benefits of procedure discussed and patient verbalized understanding. Protocol for discontinuation/continuation of medications surrounding procedure discussed. All questions answered. I have spent less than 30 minutes on patient care today. Dr Marcum was available by phone for the evaluation of this patient. The time was used to review the medical records including relevant urine studies and Prescription history (MAPs), review of the available imaging, evaluation and examination of the patient, coordination of care with the medical staff and if applicable referring physicians, as well as creation of the medical record PQRS Narrative: Smoking Status Former smoker Hx Alcohol Use (MH) Yes Home Medications: Ambulatory Orders Metoprolol Succinate (ER) [Toprol XL] 50 mg PO QAM 05/18/17 Oxybutynin ER [Ditropan XL] 15 mg PO QAM 05/18/17 Apixaban [Eliquis] 5 mg PO BID 03/30/21 Atorvastatin [Lipitor] 40 mg PO HS 03/30/21 Metoprolol Succinate (ER) [Toprol Xl] 100 mg PO HS 03/30/21 Desvenlafaxine Succinate [Pristiq] 50 mg PO QAM 02/27/22 traMADol HCL 50 mg PO Q6H PRN 3 Days #12 tab 10/09/23 Tylenol(Unknown Dose) 1 dose PO Q6H PRN 10/31/23 Controlled Substance Measures - Controlled Substance Measures Is patient prescribed a controlled substance at discharge?: No
== END ==
LOC: PNWHC3 08:35
PROVIDERS: ATTEND Specialist
DX: M54.81 Occipital neuralgia (principal); G44.86 Cervicogenic headache; G89.29 Other chronic pain; M54.2 Cervicalgia; Z87.891 Personal history of nicotine dependence; Z88.0 Allergy status to penicillin; Z88.5 Allergy status to narcotic agent
CPT/HCPCS: 99211

== ENCOUNTER 2023-12-23 08:47 | Day surgery (SDC) | payer MEDICARE ==
[2023-12-23 09:56] VITALS: TEMP 98.4
[2023-12-23] MEDS ORDERED: ROPIVACAINE 5MG/ML 20ML VIAL ONE (10:21)
[2023-12-23] MEDS ORDERED: DEXAMETHASONE SOD PHOSPHATE 10 MG/ML 1 ML VIAL ONE (10:21)
--- NOTE | 2023-12-23 10:25 | P.PCN ---
Date of Procedure: 12/23/23 Description of Procedure: Pre-operative diagnosis: occipital neuralgia Post Operative Diagnosis: occipital neuralgia Procedure: left greater occipital nerve block under ultrasound - Ultrasound used to place needle and avoid vascular structures. Anesthesia: local only PROCEDURE INDICATION: The patient with neck pain and headache secondary to occipital neuralgia unresponsive to conservative treatments. PROCEDURE DESCRIPTION / TECHNIQUE: The patient was seen and identified in the preoperative area. Risks, benefits, complications, and alternatives were discussed with the patient, the patient agreed to proceed with the procedure and signed the consent. Vital signs remained stable throughout the procedure. Patient was taken to the OR and time out was completed. The patient was placed in the sitting position on the procedure table. The cervical area and occiptial area were prepped with alcohol swab. Critical pause was taken. Vital signs were closely monitored during the procedure. Conscious sedation was used during the procedure to decrease patients anxiety. Left side: Ultrasound was used and the occipital artery was visualized exiting the skull about 2-3 cm lateral and 2cm inferior to the occipital protuberance On the left side. Then after negative aspiration, a 25g needed was introduced under ultrasound, negative aspiration confirmed and then 3 ml of the block solution containing 2.5 ml of PF Ropivaciane 0.5% and dexamethasone (total of 10mg) was injected after negative aspiration. Needle was withdrawn intact. Patient tolerated procedure well. No acute complications.
[2023-12-23 10:29] VITALS: RESP 16
[2023-12-23 10:44] VITALS: BP 146/72; PULSE 79
== END 2023-12-23 10:45 | disposition home or self-care (01) ==
LOC: ORPAIN 08:47
PROVIDERS: ATTEND Hospitalist
DX: M54.81 Occipital neuralgia (principal); I48.91 Unspecified atrial fibrillation; Z79.01 Long term (current) use of anticoagulants; Z88.0 Allergy status to penicillin; Z88.5 Allergy status to narcotic agent
CPT/HCPCS: 64405; J1100; J2795

== ENCOUNTER → 2024-02-11 | Outpatient (CLI) | payer MEDICARE ==
[2024-02-11 09:48] VITALS: BP 147/71; PULSE 65; RESP 18
--- NOTE | 2024-02-18 11:28 | P.PAINPG ---
PQRS Measure Charge Sheet Comment: A 77 yr old female with a history of severe and chronic neck pain secondary to occipital neuralgia and cervicogenic MENDES presents today for evaluation s/p L ZAY #2. Pt states she experienced 85 % pain relief x 2 wks s/p procedure. Pain level is provoked at 1 /10 in intensity, predominantly axial, achy in character w occasional shooting pain towards the L scalp. Pain is alleviated with injections, PT x 8 wks in Jan 2022, chiropractic treatments x 2 session in Nov 2021, physician guided stretches every morning since Jan 2022, heat, ice, medications, topical, repositioning and rest. Cervical disability score of 20. Interventional pain procedures completed include BL RFA C2-C4 (Jul 2022, Sep 2023), BL Cervical TPIs, L ZAY x2 (Nov 2023, Jan 2024) Patient is currently on Tyl, Voltaren gel Patient denies any side effects of the medication(s), denies excessive drowsiness or sleepiness, denies suicidal ideation and reports that the current pain medication is helping to control the pain and improve activities of daily living. Patient denies any motor or sensory deficits. Patient denies any fever or night sweats, denies any change in the bowel movements or urination. Physical Examination: -Constitutional: Cooperative. Not in acute distress . - Neurologic: Cranial nerve II to XII intact. No focal neurological deficits. - Psychatric: Alert & oriented x 3. Matching mood & appropriate affect. Judgment and insight intact. - Musculoskeletal: Cervical spine: +L ZAY TTP Muscle bulk/ tone/ strength in the bilateral upper extremities normal Vertebral body tenderness to palpation over Spurling test positive Distraction test positive Facet loading test positive Thoracic spine Muscle bulk / tone/ strength in the bilateral paraspinal muscles normal Vertebral body tender to palpation over Facet loading test positive TTP Lumbar spine: Motor bulk/ tone/ strength lower extremities , thigh and legs : 5/5 Deep tendon reflexes : Normal Knee Jerk. Normal Ankle Jerk . 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 All questions answered. I have spent less than 30 minutes on patient care today. Dr Marcum was available by phone for the evaluation of this patient. The time was used to review the medical records including relevant urine studies and Prescription history (MAPs), review of the available imaging, evaluation and examination of the patient, coordination of care with the medical staff and if applicable referring physicians, as well as creation of the medical record PQRS Narrative: Smoking Status Former smoker Hx Alcohol Use (MH) Yes Home Medications: Ambulatory Orders Metoprolol Succinate (ER) [Toprol XL] 50 mg PO QAM 05/18/17 Oxybutynin ER [Ditropan XL] 15 mg PO QAM 05/18/17 Apixaban [Eliquis] 5 mg PO BID 03/30/21 Atorvastatin [Lipitor] 40 mg PO HS 03/30/21 Metoprolol Succinate (ER) [Toprol Xl] 100 mg PO HS 03/30/21 Desvenlafaxine Succinate [Pristiq] 50 mg PO QAM 02/27/22 traMADol HCL 50 mg PO Q6H PRN 3 Days #12 tab 10/09/23 Tylenol(Unknown Dose) 1 dose PO Q6H PRN 10/31/23 diazePAM [Valium] 5 mg PO DAILY PRN 1 Days #2 tab 12/08/23 Controlled Substance Measures - Controlled Substance Measures Is patient prescribed a controlled substance at discharge?: No
== END ==
LOC: PNWHC3 08:58
PROVIDERS: ATTEND Specialist
DX: M54.81 Occipital neuralgia
CPT/HCPCS: 99211